=== PATIENT | male | born 1965 | race American Indian/Alaskan Native ===

== ENCOUNTER 2016-03-31 02:03 | Emergency (ER) | payer SELFPAY ==
[2016-03-31] MEDS ORDERED: CATAPRES ONE (03:58)
[2016-03-31] MEDS ORDERED: CATAPRES PO ONE (04:08)
[2016-03-31 06:30] LABS: Basophils % (Auto) 1.4 % (0.0-1.8); Eosinophils % (Auto) 3.7 % (0.0-4.3); Hematocrit 36.9 % (35.5-45.6); Hemoglobin 12.3 gm/dl (11.8-15.2); Mean Corpuscular HGB Conc 33 % (32-34); Mean Corpuscular Hemoglobin 28 pg (28-32); Mean Corpuscular Volume 83 fl (84-94); Platelet Count 237 K/mm3 (140-440); Red Blood Count 4.46 M/mm3 (3.65-5.03); Red Cell Distribution Width 13.2 % (13.2-15.2); White Blood Count 9.5 K/mm3 (4.5-11.0)
[2016-03-31 06:53] LABS: Anion Gap 20 mmol/L; B-Hydroxybutyrate 1.6 mg/dL (0.2-2.8); Blood Urea Nitrogen 16 mg/dL (9-20); Calcium 9.4 mg/dL (8.4-10.2); Carbon Dioxide 22 mmol/L (22-30); Chloride 94.9 mmol/L (98-107); Glucose 350 mg/dL (75-100); Potassium 3.9 mmol/L (3.6-5.0); Sodium 133 mmol/L (137-145)
[2016-03-31 10:34] VITALS: BP 148/83
--- NOTE | 2016-03-31 11:24 | Emergency Department Report ---
HPI - General Chief Complaint: Urogenital-Male Time Seen by Provider: 03/31/16 11:02 - HPI HPI: This is a 50-year-old Afro-[place]ander male presents to the emergency department with complaint of a 10 day history of swelling and inflammation to the protracted foreskin. Patient says he has tried some creams and ice but has not been able to get down the swelling. He denies any significant pain or discomfort except for when the retracted glands hits the shorts or underwear he is wearing. He denies any penile discharge, dysuria, trouble with urination. Patient presents with elevated blood sugar but says he is only been diagnosed with a borderline history of diabetes and is not on any medications. Otherwise he has history of hypertension and is also not on medications. He does not have a primary care doctor. No recent travel or sick contacts at home. He denies any STD history. ED Past Medical Hx - Past Medical History Previous Medical History?: Yes Hx Hypertension: Yes (NOT ON MEDS) Hx Diabetes: Yes (NOT ON MEDS) Hx Asthma: Yes Additional medical history: GOUT, sleep apnea and uses CPAP at home - Surgical History Additional Surgical History: rt knee surgery - Social History Smoking Status: Former Smoker Substance Use Type: None - Medications Home Medications: Home Medications Medication Instructions Recorded Confirmed Last Taken Type Amlodipine Besylate [Norvasc] 2.5 mg PO DAILY #30 tab 03/31/16 Unknown Rx HYDROcodone/APAP 5-325 [[place] 1 each PO Q6HR PRN #10 tablet 03/31/16 Unknown Rx 5/325] ED Review of Systems ROS: Stated complaint: HAND PAIN Other details as noted in HPI Comment: All other systems reviewed and negative Constitutional: denies: chills, fever Eyes: denies: eye pain, eye discharge, vision change ENT: denies: ear pain, throat pain Respiratory: denies: cough, shortness of breath, wheezing Cardiovascular: denies: chest pain, palpitations Gastrointestinal: denies: abdominal pain, nausea, diarrhea Genitourinary: other (paraphimosis). denies: testicular pain, testicular mass Musculoskeletal: denies: back pain, joint swelling, arthralgia Skin: other (swollen and inflamed foreskin). denies: rash Neurological: denies: headache, weakness, paresthesias Physical Exam - Physical Exam Vital Signs: Vital Signs 03/31/16 03/31/16 03/31/16 03:42 04:09 04:54 Temperature 98.0 F 97.9 F Pulse Rate 81 81 80 Respiratory 20 18 Rate Blood Pressure 183/108 183/108 156/103 Blood Pressure [Right] O2 Sat by Pulse 97 97 Oximetry 03/31/16 03/31/16 08:11 10:33 Temperature 97.9 F Pulse Rate 73 72 Respiratory 18 16 Rate Blood Pressure Blood Pressure 145/100 148/83 [Right] O2 Sat by Pulse 99 Oximetry Physical Exam: GENERAL: The patient is well-developed well-nourished. HEENT: Normocephalic. Atraumatic. Extraocular motions are intact. Patient has moist mucous membranes. NECK: Supple. Trachea is midline. CHEST/LUNGS: Clear to auscultation. There is no respiratory distress noted. HEART/CARDIOVASCULAR: Regular. There is no tachycardia. There is no gallop rub or murmur. ABDOMEN: Abdomen is soft, nontender. Patient has normal bowel sounds. There is no abdominal distention. SKIN: There is no rash. There is no diaphoresis. NEURO: The patient is awake, alert, and oriented. The patient is cooperative. The patient has no focal neurologic deficits. The patient has normal speech and gait. MUSCULOSKELETAL: There is no tenderness or deformity. There is no limitation range of motion. There is no evidence of acute injury. : Patient has swelling to the foreskin which is currently retracted just below the glans appears consistent with a paraphimosis. The actual glans of the penis itself appears normal and there are no lesions and no discharge from the urethra. The rest of the patient's penile shaft appears normal without lesions, swelling. The foreskin and glans do not appear painful to the patient but he does have some mild discomfort with manual reduction. ED Course Vital Signs 03/31/16 03/31/16 03/31/16 03:42 04:09 04:54 Temperature 98.0 F 97.9 F Pulse Rate 81 81 80 Respiratory 20 18 Rate Blood Pressure 183/108 183/108 156/103 Blood Pressure [Right] O2 Sat by Pulse 97 97 Oximetry 03/31/16 03/31/16 08:11 10:33 Temperature 97.9 F Pulse Rate 73 72 Respiratory 18 16 Rate Blood Pressure Blood Pressure 145/100 148/83 [Right] O2 Sat by Pulse 99 Oximetry - Penile Procedure Consent Obtained: verbal consent Time Out Performed: Yes Indication: paraphimosis Procedural Sedation: No Reduction of Paraphimosis: manual pressure Complications: none Patient Tolerated Procedure: well ED Medical Decision Making - Lab Data Result diagrams: 03/31/16 06:17 03/31/16 06:17 - Medical Decision Making 50-year-old male presents with the main complaint of what appears to be a paraphimosis. I was able to get the foreskin manually reduced with gentle pressure over a few minutes. Afterwards the patient still had some swelling of the foreskin but it was reduced and the patient had some improvement in his discomfort from the procedure. I was able to speak with the urologist on-call, Dr. Horton, who says that there is no further acute intervention necessary once the paraphimosis is been reduced. He says it is better to have a phimosis than a paraphimosis but to watch the swelling. Spoke with the patient and he will use some ice, not directly against the skin, and possibly some light compression to help with the remaining swelling. He will also be given a referral for Dr. Horton for follow-up. Patient had some blood work done while he was here that shows hyperglycemia. Patient does not appear to be in DKA or HHNK. He was given some subcutaneous insulin and his blood sugar did not greatly improve but he also does not appear to be in any emergent conditions. The insulin should work over the next 3-4 hours as well. We discussed staying away from foods are high in carbohydrates, sugar and starches and keeping a blood sugar log. Patient's blood pressure came back very elevated at first. However it responded to a dose of Catapres. Patient will be started on low- dose Norvasc. We discussed staying away from foods that are high in salt and caffeinated products and exercise and keeping a blood pressure log. Patient given multiple referrals for primary care. Patient's vital signs otherwise been stable throughout his ED course. The rest the patient's labs and unremarkable. Patient be discharged home and return with any worsening of his symptoms or any acute distress. - Differential Diagnosis paraphimosis, balanitis, phimosis, DKA, HHNK Critical Care Time: No Critical care attestation.: If time is entered above; I have spent that time in minutes in the direct care of this critically ill patient, excluding procedure time. ED Disposition Clinical Impression: Hyperglycemia, Paraphimosis Hypertension Qualifiers: Hypertension type: essential hypertension Qualified Code(s): I10 - Essential ( primary) hypertension Disposition: DISCHARGED TO HOME OR SELFCARE Is pt being admited?: No Does the pt Need Aspirin: No Condition: Stable Instructions: Hypertension (ED), Acute Paraphimosis (ED), Diabetic Hyperglycemia (ED) Additional Instructions: Please follow up with one of the primary care physician referrals that you have been given. You need to follow-up with them for uncontrolled diabetes/ hyperglycemia, uncontrolled pressure/hypertension, and for a yearly physical. I have also given you a referral for a local urologist, Dr. Hotron, to follow up regarding your paraphimosis. Return to the emergency department with any return of your penile condition, or uncontrolled elevated blood pressure or blood sugar, or any acute distress. Try to stay away from foods that are high in salt and caffeinated products to assist with your blood pressure. I started you on a low-dose blood pressure medication called Norvasc. Keep a blood pressure log. Try to stay away from foods that are high in sugar, carbohydrates and starches to help with your elevated blood sugar. Keep a log of your blood sugar. You've been prescribed a medication that is sedating. Therefore this medication cannot be mixed with alcohol, or taken prior to driving, working, or being responsible for children. Prescriptions: HYDROcodone/APAP 5-325 [[place] 5/325] 1 each PO Q6HR PRN #10 tablet PRN Reason: Pain Amlodipine Besylate [Norvasc] 2.5 mg PO DAILY #30 tab Referrals: SANTOS WAGNER MD [Primary Care Provider] - 3-5 Days SANCHO HORTON MD [Staff Physician] - 3-5 Days [facility] [Outside] - 3-5 Days [facility] [Outside] - 3-5 Days [facility] [Outside] - 3-5 Days Time of Disposition: 13:14
[2016-03-31 11:35] LABS: Bilirubin,Urine NEG (Negative); Blood,Urine NEG (Negative); Ketones,Urine NEG (Negative); Leukocyte Esterase,Urine NEG (Negative); Mucus,Urine FEW /HPF; Nitrite,Urine NEG (Negative); Urobilinogen,Urine < 2.0 mg/dL (<2.0)
[2016-03-31 11:37] LABS: Protein,Urine >500 mg/dL (Negative)
[2016-03-31] MEDS ORDERED: PERCOCET 5/325 ONE (12:13)
[2016-03-31] MEDS ORDERED: PERCOCET 5/325 PO ONE (12:18)
== END 2016-03-31 13:25 | disposition home or self-care (01) ==
LOC: ED 02:03
DX: N47.2 Paraphimosis (principal); I10 Essential (primary) hypertension; E11.65 Type 2 diabetes mellitus with hyperglycemia; J45.909 Unspecified asthma, uncomplicated; M10.9 Gout, unspecified; Z87.891 Personal history of nicotine dependence
CPT/HCPCS: 36415; 80048; 81001; 82010; 82805; 82962; 85025; 96372; J1815

== ENCOUNTER 2016-08-12 04:59 | Inpatient (IN) | payer OTHER ==
[2016-08-12 05:24] LABS: Basophils % (Auto) 1.1 % (0.0-1.8); Eosinophils % (Auto) 5.5 % (0.0-4.3); Hematocrit 35.3 % (35.5-45.6); Hemoglobin 11.4 gm/dl (11.8-15.2); Mean Corpuscular HGB Conc 32 % (32-34); Mean Corpuscular Hemoglobin 27 pg (28-32); Mean Corpuscular Volume 84 fl (84-94); Platelet Count 309 K/mm3 (140-440); Red Blood Count 4.22 M/mm3 (3.65-5.03); Red Cell Distribution Width 13.8 % (13.2-15.2); White Blood Count 9.9 K/mm3 (4.5-11.0)
--- NOTE | 2016-08-12 05:32 | Cat Scan Report ---
FINAL REPORT PROCEDURE: CT HEAD/BRAIN WO CON TECHNIQUE: Computerized tomography of the head was performed without contrast material. HISTORY: neuro deficits \T\lt; 6hrs or sx present upon awakening COMPARISON: No prior studies are available for comparison. FINDINGS: Skull and scalp: Normal. Paranasal sinuses: Normal. Ventricles and subarachnoid spaces: There is mild central and cortical atrophy. There is no hydrocephalus.. Cerebrum: No evidence of hemorrhage, acute infarction or mass. There is mild periventricular deep white matter ischemic gliosis. 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 Cerebellum and brainstem: No evidence of hemorrhage, acute infarction or mass. Vasculature: Normal. Comments: None. IMPRESSION: There is mild central and cortical atrophy. There is no hydrocephalus.. There is no hemorrhage, edema, mass, mass effect or midline shift. There is mild periventricular deep white matter ischemic gliosis. 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
[2016-08-12 05:40] LABS: Anion Gap 22 mmol/L; BUN/Creatinine Ratio 19.09; Blood Urea Nitrogen 21 mg/dL (9-20); Calcium 9.7 mg/dL (8.4-10.2); Carbon Dioxide 19 mmol/L (22-30); Chloride 98.6 mmol/L (98-107); Glucose 266 mg/dL (75-100); Potassium 4.3 mmol/L (3.6-5.0); Sodium 135 mmol/L (137-145)
[2016-08-12 05:42] LABS: INR 0.92 (0.87-1.13)
[2016-08-12 05:43] LABS: Partial Thromboplastin Time 33.7 Sec. (24.2-36.6)
--- NOTE | 2016-08-12 06:42 | Emergency Department Report ---
HPI - General Chief Complaint: Neuro Symptoms/Deficit Time Seen by Provider: 08/12/16 06:14 - HPI HPI: This is a 50-year-old Afro-Swiss male who presents to the emergency department from home with his with the complaint of possible stroke. At 7: 30 PM last night, the noticed that he was having some problems with his speech that was somewhere between slurred speech and getting the words out. She says that he had bilateral lower extremity weakness and right upper extremity weakness. At this point he had trouble getting up the stairs from their living room. She thought that it might be his blood sugar so he was given something to eat and they went to bed. He still had the symptoms early this morning so he came in to be seen. He also has been dealing with increased gas as she says he has been burping constantly. They deny any facial droop, headache, vision change, chest pain, shortness of breath, fever, nausea or vomiting. He did not take anything for symptoms prior to presentation. He has a past medical history of asthma, sleep apnea, gout and he has a history of diabetes and hypertension but is not on any medications. ED Past Medical Hx - Past Medical History Previous Medical History?: Yes Hx Hypertension: Yes (NOT ON MEDS) Hx Diabetes: Yes (NOT ON MEDS) Hx Asthma: Yes Additional medical history: GOUT, sleep apnea and uses CPAP at home - Surgical History Past Surgical History?: Yes Additional Surgical History: rt knee surgery - Social History Smoking Status: Never Smoker - Medications Home Medications: Home Medications Medication Instructions Recorded Confirmed Last Taken Type Amlodipine Besylate [Norvasc] 2.5 mg PO DAILY #30 tab 03/31/16 Unknown Rx Aspirin EC [Aspirin Enteric Coated 81 mg PO QDAY 08/12/16 08/12/16 Unknown History TAB] Colchicine [Colcrys] 0.6 tab PO QDAY 08/12/16 08/12/16 Unknown History Lisinopril [Zestril TAB] 10 mg PO QDAY 08/12/16 08/12/16 Unknown History Lovastatin 10 mg PO QDAY 08/12/16 08/12/16 Unknown History Metformin HCl [Glucophage] 500 mg PO BID 08/12/16 08/12/16 Unknown History ED Review of Systems ROS: Stated complaint: AMS Other details as noted in HPI Comment: All other systems reviewed and negative Constitutional: denies: chills, fever Eyes: denies: eye pain, eye discharge, vision change ENT: denies: ear pain, throat pain Respiratory: denies: cough, shortness of breath, wheezing Cardiovascular: denies: chest pain, palpitations Gastrointestinal: denies: abdominal pain, nausea, diarrhea Genitourinary: denies: urgency, dysuria Musculoskeletal: denies: back pain, joint swelling, arthralgia Skin: denies: rash, lesions Neurological: weakness, other (slurred speech versus aphasia) Physical Exam - Physical Exam Vital Signs: Vital Signs 08/12/16 08/12/16 08/12/16 05:28 05:30 05:36 Temperature 99.7 F H Pulse Rate 92 H 92 H Respiratory 11 L 18 Rate Blood Pressure 198/120 191/110 Blood Pressure 191/110 [Left] O2 Sat by Pulse 90 96 99 Oximetry 08/12/16 08/12/16 08/12/16 05:39 05:45 06:00 Temperature Pulse Rate 85 75 Respiratory 22 14 16 Rate Blood Pressure 173/103 168/105 Blood Pressure [Left] O2 Sat by Pulse 99 94 95 Oximetry 08/12/16 06:15 Temperature Pulse Rate 78 Respiratory 15 Rate Blood Pressure 171/103 Blood Pressure [Left] O2 Sat by Pulse 94 Oximetry Physical Exam: GENERAL: The patient is well-developed well-nourished. HEENT: Normocephalic. Atraumatic. Extraocular motions are intact. Patient has moist mucous membranes. Pupils equal reactive to light bilaterally. No facial asymmetry. NECK: Supple. Trachea is midline. CHEST/LUNGS: Clear to auscultation. There is no respiratory distress noted. HEART/CARDIOVASCULAR: Regular. There is no tachycardia. There is no gallop rub or murmur. ABDOMEN: Abdomen is soft, nontender. Patient has normal bowel sounds. There is no abdominal distention. SKIN: Skin is warm and dry. NEURO: The patient is awake, alert, and oriented. The patient is cooperative. There is decreased sensation to the right side of the face, arm and leg subjectively when compared to the left side. There is a mild right upper extremity pronator drift. Patient has trouble lifting his right lower extremity off of the gurney. Full muscle strength to the left upper and lower extremities. Patient has some mild aphasia. MUSCULOSKELETAL: There is no tenderness or deformity. There is no limitation range of motion. There is no evidence of acute injury. Radial pulse +2 over 4 bilaterally. ED Course Vital Signs 08/12/16 08/12/16 08/12/16 05:28 05:30 05:36 Temperature 99.7 F H Pulse Rate 92 H 92 H Respiratory 11 L 18 Rate Blood Pressure 198/120 191/110 Blood Pressure 191/110 [Left] O2 Sat by Pulse 90 96 99 Oximetry 08/12/16 08/12/16 08/12/16 05:39 05:45 06:00 Temperature Pulse Rate 85 75 Respiratory 22 14 16 Rate Blood Pressure 173/103 168/105 Blood Pressure [Left] O2 Sat by Pulse 99 94 95 Oximetry 08/12/16 06:15 Temperature Pulse Rate 78 Respiratory 15 Rate Blood Pressure 171/103 Blood Pressure [Left] O2 Sat by Pulse 94 Oximetry - Consultations Consultation #1: I spoke to the telemedicine neurologist, Dr. Rangel, who recommends a stat CT angiography of the head and neck as the patient is only 50 years old and if there is some visible thrombus then it is still possible a transfer to a neurosurgical service might be required. He does not recommend any TPA at this point. 08/12/16 06:44 ED Medical Decision Making - Lab Data Result diagrams: 08/12/16 05:08 08/12/16 05:08 - EKG Data -: EKG Interpreted by Me EKG shows normal: sinus rhythm, axis, intervals, QRS complexes (LVH), ST-T waves Rate: normal - EKG Data When compared to previous EKG there are: previous EKG unavailable Interpretation: LVH - Radiology Data Radiology results: report reviewed CT of the head does not show any acute process including no hemorrhage, mass, shift, diffuse edema or skull fracture. CT angiography of the head and neck does not show any acute process including no signs of thrombosis or ischemic changes. - Medical Decision Making 50-year-old male presents to the emergency department with some right-sided weakness, subjective right-sided numbness/decreased sensation, and what appears to be some level of a aphasia. He is far outside of the TPA window as the symptoms began last night acutely around 7:30 PM. However I spoke with the telemedicine neurologist who recommended CT angiography of the head and neck. These imaging studies came back negative for any thrombosis or occlusion. Patient's labs are mostly unremarkable and certainly do not show the etiology of the patient's symptoms. He will be admitted to the hospital for further evaluation and treatment and has been accepted for admission by the hospitalist , Dr schumacher. - Differential Diagnosis CVA, TIA, hypertensive crisis, hypoglycemia Critical Care Time: No Critical care attestation.: If time is entered above; I have spent that time in minutes in the direct care of this critically ill patient, excluding procedure time. ED Disposition Clinical Impression: Right sided weakness, Aphasia Hypertension Qualifiers: Hypertension type: essential hypertension Qualified Code(s): I10 - Essential ( primary) hypertension CVA (cerebral vascular accident) Qualifiers: CVA mechanism: unspecified Qualified Code(s): I63.9 - Cerebral infarction, unspecified Disposition: OP ADMITTED IP TO THIS HOSP Is pt being admited?: Yes Condition: Stable Time of Disposition: 10:52
[2016-08-12] MEDS ORDERED: NACL ONE (06:51)
--- NOTE | 2016-08-12 07:42 | Admit Criteria Form ---
Admission Criteria Documentation: STROKE: ISCHEMIC Clinical Indications for Admission to Inpatient Care (Place 'X' for any and all applicable criteria): Admission is indicated for ANY ONE of the following(1)(2)(3)(4): [X]I. Acute stroke Extended stay beyond goal length of stay may be needed for(1)(2) [ ]a) Major deficit or clinical deterioration [ ]b) Hospital-acquired infection (eg, urinary tract infection, pneumonia) [ ]c) Embolic cause of stroke [ ]d) Venous thromboembolism(9) [ ]e) Seizures [ ]f) Bleeding (eg, cerebral) [ ]g) Increased intracranial pressure [ ]h) Comorbidities [ ]i) Surgical intervention The original [email or web address] content created by [employer] has been revised. The portions of the content which have been revised are identified through the use of italic text or in bold, and [facility] has neither reviewed nor approved the modified material. All other unmodified content is copyright [facility]. Please see references footnoted in the original [facility] edition 2016 Admission Criteria Met: Yes
--- NOTE | 2016-08-12 08:12 | Cat Scan Report ---
CTA NECK: HISTORY: Stroke. TECHNIQUE: Helical CT following IV contrast. Sagittal and coronal reformatted images. 3D volume rendering technique. Stenosis was calculated using NASCET criteria. FINDINGS: The visualized aortic arch, innominate artery and proximal bilateral subclavian arteries are widely patent with less than 20% stenosis. Both carotid systems are patent throughout with less than 20% stenosis. No evidence for stenosis, occlusion, dissection or aneurysmal dilatation. The cervical vertebral arteries are patent with less than 20% stenosis. IMPRESSION: Unremarkable CTA of the neck.
--- NOTE | 2016-08-12 08:18 | Cat Scan Report ---
CTA HEAD: HISTORY: Stroke. TECHNIQUE: Helical CT images after IV contrast in 0.625mm intervals. Sagittal and coronal reformats. Rotational MIP images. 3D volume rendering technique. FINDINGS: The arterial structures of the anterior and posterior circulations are patent throughout. No evidence for stenosis, occlusion or aneurysm. IMPRESSION: Unremarkable CTA head. No large vessel occlusion is detected.
[2016-08-12] MEDS ORDERED: ZOFRAN IV ONE (09:24)
[2016-08-12] MEDS ORDERED: ZOFRAN IV PRN (10:00)
[2016-08-12] MEDS ORDERED: D50W (25GM) IV PRN (10:00)
[2016-08-12] MEDS ORDERED: LOVASTATIN 10 MG PO SCH (10:00)
[2016-08-12] MEDS ORDERED: MILK OF MAGNESIA PO PRN (10:00)
[2016-08-12] MEDS ORDERED: NORMODYNE IV PRN (10:00)
[2016-08-12] MEDS ORDERED: SODIUM CHLORIDE FLUSH SYRINGE 10 ML IV PRN (10:00)
[2016-08-12] MEDS ORDERED: PHENERGAN PR PRN (10:00)
[2016-08-12] MEDS ORDERED: REGLAN PO PRN (10:00)
--- NOTE | 2016-08-12 10:28 | History and Physical Report ---
History of Present Illness Date of examination: 08/12/16 Date of admission: 08/12/16 Chief complaint: Right sided weakness History of present illness: 50-year-old -Finnish presented to the ED with right-sided weakness and altered mental status. Patient's significant other stated, around 7:30 pm yesterday evening she noticed that the patient was having difficulty speaking, getting his words out and he was very weak to walk. She also stated, the patient progressively became more weak by this morning and could not move his right arm and leg at all on command. Patient was also altered with periods of forgetfulness and confusion. PMHX hypertension, diabetes, asthma, obstructive sleep apnea with home CPAP, gout and right knee surgery. Patient complained of nausea and vomiting x3 in the ED. Past History Past Medical History: diabetes, hypertension, other (Asthma, Obstructive Sleep Apnea, Gout, ) Past Surgical History: Other (Right Knee Surgery) Social history: single Family history: other (Unable to obtained due to Patient's AMS) Medications and Allergies Allergies Allergy/AdvReac Type Severity Reaction Status Date / Time shellfish derived Allergy Swelling Verified 10/11/14 19:30 Home Medications Medication Instructions Recorded Confirmed Last Taken Type Aspirin EC [Aspirin Enteric Coated 81 mg PO QDAY #30 tablet 08/15/16 Unknown Rx TAB] AtorvaSTATin [Lipitor] 80 mg PO QHS #30 tablet 08/15/16 Unknown Rx Butalb/Acetamin/Caff 50-325-40 1 tab PO Q4H PRN #30 tablet 08/15/16 Unknown Rx [Fioricet] Clopidogrel [Plavix] 75 mg PO QDAY #30 tablet 08/15/16 Unknown Rx Colchicine [Colcrys] 0.6 tab PO QDAY #30 tablet 08/15/16 Unknown Rx Hydrochlorothiazide [HCTZ] 12.5 mg PO QDAY #30 capsule 08/15/16 Unknown Rx Insulin NPH/Regular [NovoLIN 70/30] 15 unit SUB-Q BIDDIAB #1 vial 08/15/16 Unknown Rx Lisinopril [Zestril TAB] 20 mg PO QDAY #30 tablet 08/15/16 Unknown Rx Metformin HCl [Glucophage] 500 mg PO BID #60 tablet 08/15/16 Unknown Rx Active Meds: Active Medications Acetaminophen (Tylenol) 650 mg PO Q4H PRN PRN Reason: Pain, Mild (1-3) Aspirin (Halfprin Ec) 81 mg PO QDAY NIALL Bisacodyl (Dulcolax) 10 mg MO QDAY PRN PRN Reason: Constipation Colchicine (Colcrys) mg PO QDAY NIALL Dextrose (D50w (25gm)) 50 ml IV PRN PRN PRN Reason: Hypoglycemia Insulin Aspart (Novolog) 0 units SUB-Q ACHS NIALL PRN Reason: Protocol Labetalol HCl (Normodyne) 10 mg IV Q4H PRN PRN Reason: keep SBP between 165- 185 Magnesium Hydroxide (Milk Of Magnesia) 30 ml PO Q4H PRN PRN Reason: Constipation Metoclopramide HCl (Reglan) 10 mg PO Q6H PRN PRN Reason: Nausea And Vomiting Miscellaneous Medication (Lovastatin) 10 mg PO QDAY NIALL Ondansetron HCl (Zofran) 4 mg IV Q8H PRN PRN Reason: N/V unrelieved by Reglan Promethazine HCl (Phenergan) 25 mg MO Q6H PRN PRN Reason: Nausea And Vomiting Simvastatin (Zocor) 20 mg PO QHS [facility] Sodium Chloride (Sodium Chloride Flush Syringe 10 Ml) 10 ml INJ PRN PRN PRN Reason: LINE FLUSH Review of Systems Constitutional: no fever, no chills Ears, nose, mouth and throat: no headache Cardiovascular: no chest pain Respiratory: no cough, no congestion Genitourinary Male: no dysuria Musculoskeletal: gait dysfunction, other (Right sided weakness to arm and leg) Neurological: gait dysfunction, no head injury, no syncope, no headaches Psychiatric: memory loss (Pt stated, he could not recall somethings) Exam - Constitutional Vitals: Temp Pulse Resp BP Pulse Ox 99.7 F H 103 H 12 167/110 92 08/12/16 05:36 08/12/16 09:15 08/12/16 09:15 08/12/16 09:15 08/12/16 09:15 General appearance: Present: mild distress - EENT Eyes: Present: PERRL ENT: hearing intact, other (dry) - Neck Neck: Present: supple, normal ROM - Respiratory Respiratory effort: normal Respiratory: bilateral: CTA - Cardiovascular Heart Sounds: Present: S1 & S2. Absent: rub, click - Extremities Extremities: pulses intact Peripheral Pulses: within normal limits - Abdominal General gastrointestinal: Present: soft, non-tender, hypoactive bowel sounds Male genitourinary: Present: deferred - Rectal Rectal Exam: deferred - Integumentary Integumentary: Present: clear, warm, dry - Musculoskeletal Musculoskeletal: right sided weakness (Right arm and Right Leg) - Psychiatric Psychiatric: other (Forgetful and periods of confusion) - Neurologic Neurologic: focal deficits, other (Right sided hemiplegia, mild slurred speech, tongue midline, memory impaired, receptive dsyphasia ) - Allied Health Allied health notes reviewed: nursing Results - Labs CBC & Chem 7: 08/12/16 05:08 08/12/16 05:08 Labs: Laboratory Last Values WBC 9.9 K/mm3 (4.5-11.0) 08/12/16 05:08 RBC 4.22 M/mm3 (3.65-5.03) 08/12/16 05:08 Hgb 11.4 gm/dl (11.8-15.2) L 08/12/16 05:08 Hct 35.3 % (35.5-45.6) L 08/12/16 05:08 MCV 84 fl (84-94) 08/12/16 05:08 MCH 27 pg (28-32) L 08/12/16 05:08 MCHC 32 % (32-34) 08/12/16 05:08 RDW 13.8 % (13.2-15.2) 08/12/16 05:08 Plt Count 309 K/mm3 (140-440) 08/12/16 05:08 Lymph % (Auto) 33.2 % (13.4-35.0) 08/12/16 05:08 [place] % (Auto) 6.9 % (0.0-7.3) 08/12/16 05:08 Eos % (Auto) 5.5 % (0.0-4.3) H 08/12/16 05:08 Baso % (Auto) 1.1 % (0.0-1.8) 08/12/16 05:08 Lymph # 3.3 K/mm3 (1.2-5.4) 08/12/16 05:08 [place] # 0.7 K/mm3 (0.0-0.8) 08/12/16 05:08 Eos # 0.5 K/mm3 (0.0-0.4) H 08/12/16 05:08 Baso # 0.1 K/mm3 (0.0-0.1) 08/12/16 05:08 Seg Neutrophils % 53.3 % (40.0-70.0) 08/12/16 05:08 Seg Neutrophils # 5.3 K/mm3 (1.8-7.7) 08/12/16 05:08 PT 12.3 Sec. (12.2-14.9) 08/12/16 05:08 INR 0.92 (0.87-1.13) 08/12/16 05:08 APTT 33.7 Sec. (24.2-36.6) 08/12/16 05:08 Thrombin Time 15.0 Sec. (15.1-19.6) L 08/12/16 05:08 Sodium 135 mmol/L (137-145) L 08/12/16 05:08 Potassium 4.3 mmol/L (3.6-5.0) 08/12/16 05:08 Chloride 98.6 mmol/L (98-107) 08/12/16 05:08 Carbon Dioxide 19 mmol/L (22-30) L 08/12/16 05:08 Anion Gap 22 mmol/L 08/12/16 05:08 BUN 21 mg/dL (9-20) H 08/12/16 05:08 Creatinine 1.1 mg/dL (0.8-1.5) 08/12/16 05:08 Estimated GFR > 60 ml/min 08/12/16 05:08 BUN/Creatinine Ratio 19.09 % 08/12/16 05:08 Glucose 266 mg/dL (75-100) H 08/12/16 05:08 POC Glucose 254 (70-105) H 08/12/16 05:06 Calcium 9.7 mg/dL (8.4-10.2) 08/12/16 05:08 Troponin T < 0.010 ng/mL (0.00-0.029) 08/12/16 05:08 - Imaging and Cardiology EKG: image reviewed (EKG showed NSR with Left vertricular hypertrophy) CT Scan - head: image reviewed (Head CT showed No hemorrhage: mild periventricular deep white matter ischemic gliosis and old Lacunar Infarct) Assessment and Plan Assessment and plan: 50-year-old -F[place] presented to the ED with right-sided weakness and altered mental status. Patient's significant stated, around 7:30 pm yesterday evening she noticed that the patient was having difficulty speaking, getting his words out and he was very weak to walk. She also stated, the patient progressively became more weak by this morning and could not move his right arm and leg at all on command. Patient complained of nausea and vomiting x3 in the ED. Patient has a past medical history hypertension, diabetes, asthma, obstructive sleep apnea with home CPAP nightly use, gout and right knee surgery. On exam, patient was altered with periods of forgetfulness and confusion. Pt was able to smile with NO facial droop. Patient was Unable to lift and hold his right arm and right leg. 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 Pt's significant other, reported Pt's speech was slurred and not at baseline. 1. Metabolic encephalopathy-due to acute ischemic stroke with infarct, treat underlying causes. 2. Acute ischemic stroke with Infarct- EKG, carotid Doppler study, head CT, head CTA and neck CTA all obtained in the ED. Consult with neurology, admit patient to telemetry, MRI/MRA pending, echo pending, lipid panel ordered, urine analysis ordered, speech and swallowing evaluation pending and Consult PT/OT. 3. Hypertension - Permissive Hypertension per stroke protocol however, Anti- hypertensive medications with parameters ordered when necessary 4. Nausea and vomiting -Zofran when necessary ordered, Protonix IV ordered, abdominal x-ray ordered, 5. Uncontrolled DM 2 - A1c ordered, Accu-Checks and insulin sliding scale ordered, hold metformin due to contrast dye 6. Obstructive sleep apnea-continue CPAP nightly 7. Gout -Continue with home medication. 8. DVT prophylaxis - Contraindicated for anticoagulation. SCDs ordered Advance Directives: No (Full Code) VTE prophylaxis?: Mechanical Contraindication Mechanical VTE Prophylaxis: Contraindicated Plan of care discussed with patient/family: Yes
--- NOTE | 2016-08-12 11:05 | Consultation ---
History of Present Illness Consult date: 08/12/16 Requesting physician: BONY VEGA Reason for Consult: stroke Chief complaint: R side numb/weak History of present illness: 50 YO M Hx HTN/DM2 p/w acute onset R sided weakness 08/10 @ 7:30 PM. Sx are constant and have worsened slightly since onset. There are no clear aggravating , relieving or temporal factors. Severity was enough to cause inability to effectively use the right side. Past History Past Medical History: diabetes, hypertension, other (Asthma, Obstructive Sleep Apnea, Gout, ) Past Surgical History: No surgical history, Other (Right Knee Surgery) Social history: single Family history: other (Unable to obtained due to Patient's AMS) Medications and Allergies Allergies Allergy/AdvReac Type Severity Reaction Status Date / Time shellfish derived Allergy Swelling Verified 10/11/14 19:30 Home Medications Medication Instructions Recorded Confirmed Last Taken Type Amlodipine Besylate [Norvasc] 2.5 mg PO DAILY #30 tab 03/31/16 08/12/16 Unknown Rx Aspirin EC [Aspirin Enteric Coated 81 mg PO QDAY 08/12/16 08/12/16 Unknown History TAB] Colchicine [Colcrys] 0.6 tab PO QDAY 08/12/16 08/12/16 Unknown History Lisinopril [Zestril TAB] 10 mg PO QDAY 08/12/16 08/12/16 Unknown History Lovastatin 10 mg PO QDAY 08/12/16 08/12/16 Unknown History Metformin HCl [Glucophage] 500 mg PO BID 08/12/16 08/12/16 Unknown History Active Meds: Active Medications Acetaminophen (Tylenol) 650 mg PO Q4H PRN PRN Reason: Pain, Mild (1-3) Aspirin (Halfprin Ec) 81 mg PO QDAY NIALL Bisacodyl (Dulcolax) 10 mg TN QDAY PRN PRN Reason: Constipation Colchicine (Colcrys) mg PO QDAY NIALL Dextrose (D50w (25gm)) 50 ml IV PRN PRN PRN Reason: Hypoglycemia Insulin Aspart (Novolog) 0 units SUB-Q ACHS NIALL PRN Reason: Protocol Labetalol HCl (Normodyne) 10 mg IV Q4H PRN PRN Reason: keep SBP between 165- 185 Magnesium Hydroxide (Milk Of Magnesia) 30 ml PO Q4H PRN PRN Reason: Constipation Metoclopramide HCl (Reglan) 10 mg PO Q6H PRN PRN Reason: Nausea And Vomiting Miscellaneous Medication (Lovastatin) 10 mg PO QDAY NIALL Ondansetron HCl (Zofran) 4 mg IV Q8H PRN PRN Reason: N/V unrelieved by Reglan Promethazine HCl (Phenergan) 25 mg TN Q6H PRN PRN Reason: Nausea And Vomiting Simvastatin (Zocor) 20 mg PO QHS [facility] Sodium Chloride (Sodium Chloride Flush Syringe 10 Ml) 10 ml INJ PRN PRN PRN Reason: LINE FLUSH Review of Systems All systems: negative Constitutional: fatigue, weakness Neurological: paralysis (on R), weakness (on R), numbness (on R), change in speech (slurred), motor disturbance (on R), sensory deficit (on R), no parathesias, no tingling, no headaches, no double vision, no loss of vision Physical Examination - Vital Signs Vital Signs: Vital Signs BP Pulse Ox 198/120 90 08/12/16 05:28 08/12/16 05:28 - Constitutional General appearance: comfortable, acutely ill - EENT EENT: Present: ATNC, PERRL, mucous membranes moist, hearing intact, vision intact - Respiratory Respiratory: Present: chest non-tender, normal breath sounds, no respiratory distress - Cardiovascular Cardiovascular: Present: regular rate Extremities: Present: no peripheral edema bilatateraly, no clubbing, cyanosis, no inflammation, no ischemia or petechiae - Gastrointestinal Gastrointestinal: Present: normoactive bowel sounds, soft, non-tender - Integumentary Integumentary: Present: normal - Neurologic Cranial nerve examination: PERRL, EOMI, VFF, V1/V2/V3 grossly intact, tongue midline, intact, intact shoulder shrug, Intact Vestibulo-ocular r, intact corneal reflex, facial droop (mod on R), normal palatal elevation Speech examination: intact, other (mildly slurred) Sensorimotor examination: flaccid paralysis (on R), hemiparesis (on R) Motor examination - right side: 2/5: biceps, triceps, wrist flexion, wrist extension, membership advisor, hip flexors, knee extensors, dorsiflexion, toe extension (EHL) , plantarflexion Motor examination - left side: 5/5: biceps, triceps, wrist flexion, wrist extension, membership advisor, hip flexors, knee extensors, dorsiflexion, toe extension (EHL) , plantarflexion Detailed sensory examination: light touch (diminished onR ), temperature ( diminished on R) Reflex and gait examination: Babinski's sign (ion R) Reflexes: 0: ankle (on R), 1+: bicep, knee, tricep - Musculoskeletal Musculoskeletal: Present: no fluid collection, no pain, normal range of motion - Psychiatric Psychiatric: Present: agitated Results - Laboratory Findings CBC and BMP: 08/12/16 05:08 08/12/16 05:08 Assessment and Plan 50 YO M Hx HTN/DM2 not on AP therapy p/w acute mixed motor sensory lacunar stroke w/ dense R hemibody sx.CTA H/N neg. Plan and Recommendation: 1. No indication for pharmacologic thrombolysis with IV tPA or mechanical thrombectomy due to last known normal > 6 hrs from presentation. Current NIHSS 10. 2. Telemetry bed w/ Q4 hour neuro checks 3. Brain imaging: MRI Brain w/o Kem Stroke Protocol 4. TTE to eval for possible cardiac source of embolism 5. Serum Labs: HgA1c, LDL. 6. Can lower MAPs by 10-15% daily to reach goal SBP 120-160 as permissive HTN period complete 7. Secondary stroke prevention: ASA 325mg Daily x 1 then 81mg QDay & upgrade to full dose statin therapy (Crestor 20mg or 40mg OR Lipitor 40mg or 80mg Daily OR Zocor 40mg QDay) for goal LDL < 70. No firm indication at this point for therapeutic anticoagulation as pt has not had AFib captured on telemetry monitoring. 8. F/E/N: isotonic IVF prn, prn replete, bedside speech/swallow eval prior to PO intake. 9 DVT Prophylaxis 10. Stroke education, PT/OT/Speech Therapy consults, CM evaluation 11. For any changes in neurologic status, pls obtain STAT CTH w/o contrast and call neurology
[2016-08-12] MEDS ORDERED: BABY ASPIRIN ONE (11:30)
[2016-08-12] MEDS ORDERED: NOVOLOG SUB-Q ONE (11:35)
[2016-08-12] MEDS: HALFPRIN EC PO SCH (11:36)
[2016-08-12] MEDS: NOVOLOG SUB-Q SCH ×3 (11:36→22:00)
[2016-08-12] MEDS ORDERED: PROTONIX IV SCH (12:00)
[2016-08-12] MEDS ORDERED: DULCOLAX PR PRN (12:00)
--- NOTE | 2016-08-12 13:27 | Magnetic Resonance Report ---
MRI scan of brain: History: Stroke. Technique: Multiplanar multisequence images of the contrast injection. Findings: These multiple areas of restricted diffusion noted at the left posterior temporal lobe. This is in the distribution of left middle cerebral artery. No corresponding signal CT T2-weighted images.Gradient echo image appears normal. Normal brainstem and cerebellum. Retention cyst or polyp right and left maxillary sinus. Impression: Acute ischemia left posterior temporal lobe. No evidence of hemorrhage. Sinus disease.
--- NOTE | 2016-08-12 13:28 | Magnetic Resonance Report ---
MRI of brain: History: Stroke. Findings: The vessels and [place] of [place] are widely patent. No evidence of stenosis occlusion aneurysm or dissection. Codominant vertebral arteries with normal basilar artery and posterior cerebral arteries. Normal posterior communicating arteries. Impression: Essentially negative MRA of the brain.
--- NOTE | 2016-08-12 13:32 | XRay Report ---
Single view abdomen: History abdominal pain and vomiting. Findings: No bowel distention or wall thickening. No radiopaque calculus or abnormal calcification. Contrast is noted in kidneys and bladder probably from previous CT study. Impression: Essentially negative abdomen.
[2016-08-12] MEDS: COLCRYS PO SCH (17:00)
[2016-08-12] MEDS: PEPCID IV SCH ×2 (17:00→21:59)
[2016-08-12] MEDS ORDERED: ZOCOR PO SCH (22:00)
[2016-08-13] MEDS: TYLENOL PO PRN ×2 (00:47→08:23)
[2016-08-13 05:45] LABS: Cholesterol 335 mg/dL (50-199); HDL Cholesterol 38 mg/dL (40-59); LDL Cholesterol,Direct TNR mg/dL (50-130); Triglycerides 536 mg/dL (2-149)
--- NOTE | 2016-08-13 07:50 | Progress Note ---
Assessment and Plan Assessment and plan: 48-year-old -[place] presented to the ED with right-sided weakness and altered mental status. Patient's partner stated, around 7:30 pm yesterday evening she noticed that the patient was having difficulty speaking, getting his words out and he was very weak to walk. She also stated, the patient progressively became more weak by this morning. Patient has a past medical history hypertension, diabetes, asthma, obstructive sleep apnea with home CPAP nightly use, gout and right knee surgery. On exam, patient was altered with periods of forgetfulness and confusion. Patient complained of nausea and vomiting x3 in the ED, right arm and right leg weakness. Patient was unable to lift and hold his right arm and right leg. 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 MR Brain Acute ischemia left posterior temporal lobe-no evidence of hemorrhage MRA Brain Essentially negative MRA of the brain Carotid Doppler no significant stenosis 1. Acute ischemic stroke with infarct - EKG, carotid Doppler study, head CT, head CTA and neck CTA all obtained in the ED where within normal limits, neurology consult appreciated, no events on telemetry, MRI shows left posterior temporal lobe infarct, MRA and carotid Dopplers did not show any stenosis. Awaiting speech and swallow evaluation, continue. Diet for now. Needs aggressive medical management, aspirin daily, severe mixed hyperlipidemia noted therefore his medications were changed to high-dose statin Continue to bring blood pressure down by 10-20%, continue to allow permissive hypertension for another 24 hours Continue PT, discuss with case management about obtaining home PT for him. Unfortunately he is uninsured and is unable to afford acute rehabilitation facility at this time, even though that is what we recommend for him 2. Metabolic encephalopathy-due to acute ischemic stroke with infarct and exacerbated by Wernicke/receptive aphasia/, improving 3. Hypertension - Anti-hypertensive medications with parameters ordered when necessary, per stroke protocol 4. Nausea and vomiting - Abdominal x-ray within normal limits, now resolved 5. DM 2- hold metformin due to contrast dye Hemoglobin A1c is 10, significant hyperglycemia. Continue sliding scale insulin , add 7030 insulin twice a day 6. Obstructive sleep apnea-continue CPAP nightly 7. Gout -Continue with home medication. 8. Severe mixed hyperlipidemia Statin has been changed to high-dose Lipitor DVT prophylaxis - Contraindicated for anticoagulation. SCDs ordered History Interval history: He had multiple family members at the bedside who relate that the patient still has trouble communicating, when the describe things to him he has trouble understanding him. His brother given example that he still spoke his daughter' s name and he was not aware of who it was but when he showed the patient a picture that he recognizes who she was. And when he tried to express himself but still consult as jumbled incomprehensible words that don't quite make sense. Weakness in his right side appears to be improving. He is less confused today and appears to be of being commands. The barrier to his confusion appears to be receptive aphasia Hospitalist Physical - Physical exam Narrative exam: General: Patient appears well in no distress HEENT: MMM, EOMI cardiac: S1-S2 heard lungs: clear to auscultation, abdomen: soft, nontender, nondistended bowel sounds positive extremities: no edema clubbing or cyanosis Skin: no rash or lesion Neuro: Right-sided hemiparesis, receptive aphasia, communicates in a word salad confused. Obeys commands however he has trouble understanding verbal commands, he does better with visual demonstrations and struggles to understand speech Psych: appropriate behavior and mood, cognition intact - Constitutional Vitals: Temp Pulse Resp BP Pulse Ox 98.4 F 77 18 141/81 97 08/13/16 06:15 08/13/16 06:15 08/13/16 06:15 08/13/16 06:15 08/13/16 06:15 General appearance: Present: mild distress Results - Labs CBC & Chem 7: 08/12/16 05:08 08/12/16 05:08 Labs: Laboratory Last Values WBC 9.9 K/mm3 (4.5-11.0) 08/12/16 05:08 RBC 4.22 M/mm3 (3.65-5.03) 08/12/16 05:08 Hgb 11.4 gm/dl (11.8-15.2) L 08/12/16 05:08 Hct 35.3 % (35.5-45.6) L 08/12/16 05:08 MCV 84 fl (84-94) 08/12/16 05:08 MCH 27 pg (28-32) L 08/12/16 05:08 MCHC 32 % (32-34) 08/12/16 05:08 RDW 13.8 % (13.2-15.2) 08/12/16 05:08 Plt Count 309 K/mm3 (140-440) 08/12/16 05:08 Lymph % (Auto) 33.2 % (13.4-35.0) 08/12/16 05:08 [place] % (Auto) 6.9 % (0.0-7.3) 08/12/16 05:08 Eos % (Auto) 5.5 % (0.0-4.3) H 08/12/16 05:08 Baso % (Auto) 1.1 % (0.0-1.8) 08/12/16 05:08 Lymph # 3.3 K/mm3 (1.2-5.4) 08/12/16 05:08 [place] # 0.7 K/mm3 (0.0-0.8) 08/12/16 05:08 Eos # 0.5 K/mm3 (0.0-0.4) H 08/12/16 05:08 Baso # 0.1 K/mm3 (0.0-0.1) 08/12/16 05:08 Seg Neutrophils % 53.3 % (40.0-70.0) 08/12/16 05:08 Seg Neutrophils # 5.3 K/mm3 (1.8-7.7) 08/12/16 05:08 PT 12.3 Sec. (12.2-14.9) 08/12/16 05:08 INR 0.92 (0.87-1.13) 08/12/16 05:08 APTT 33.7 Sec. (24.2-36.6) 08/12/16 05:08 Thrombin Time 15.0 Sec. (15.1-19.6) L 08/12/16 05:08 Sodium 135 mmol/L (137-145) L 08/12/16 05:08 Potassium 4.3 mmol/L (3.6-5.0) 08/12/16 05:08 Chloride 98.6 mmol/L (98-107) 08/12/16 05:08 Carbon Dioxide 19 mmol/L (22-30) L 08/12/16 05:08 Anion Gap 22 mmol/L 08/12/16 05:08 BUN 21 mg/dL (9-20) H 08/12/16 05:08 Creatinine 1.1 mg/dL (0.8-1.5) 08/12/16 05:08 Estimated GFR > 60 ml/min 08/12/16 05:08 BUN/Creatinine Ratio 19.09 % 08/12/16 05:08 Glucose 266 mg/dL (75-100) H 08/12/16 05:08 POC Glucose 296 (70-105) H 08/12/16 21:45 Hemoglobin A1c 10.0 % (4-6) H 08/13/16 05:03 Calcium 9.7 mg/dL (8.4-10.2) 08/12/16 05:08 Troponin T < 0.010 ng/mL (0.00-0.029) 08/12/16 05:08 Triglycerides 536 mg/dL (2-149) H 08/13/16 05:03 Cholesterol 335 mg/dL (50-199) H 08/13/16 05:03 LDL Cholesterol Direct TNR 08/13/16 05:03 HDL Cholesterol 38 mg/dL (40-59) L 08/13/16 05:03 Cholesterol/HDL Ratio 8.81 % 08/13/16 05:03
[2016-08-13] MEDS ORDERED: MOTRIN PO PRN (10:30)
[2016-08-13] MEDS: HALFPRIN EC PO SCH (10:31)
[2016-08-13] MEDS: NOVOLOG SUB-Q SCH ×4 (10:31→22:46)
[2016-08-13] MEDS: COLCRYS PO SCH (10:31)
[2016-08-13] MEDS: PEPCID IV SCH (10:32)
--- NOTE | 2016-08-13 10:47 | Progress Note ---
Assessment and Plan 50 YO M Hx HTN/DM2 on ASA 81mg QDay therapy p/w acute mixed motor sensory stroke w/ subtle mixed aphasia and dense R hemibody sx. MRI Brain confirms infarct in L frontoparietotemporal region. MRA Head neg. CTA H/N neg. TTE neg. LDL 198. Plan and Recommendation: 1. No indication for pharmacologic thrombolysis with IV tPA or mechanical thrombectomy due to last known normal > 6 hrs from presentation. Current NIHSS 12. 2. Telemetry bed w/ Q4 hour neuro checks 3. Can lower MAPs by 10-15% daily to reach goal SBP 120-160 as permissive HTN period complete 4. Secondary stroke prevention: ASA 325mg Daily x 1 then 81mg QDay, add Plavix 75mg QDay & upgrade to full dose statin therapy (Crestor 20mg or 40mg OR Lipitor 40mg or 80mg Daily OR Zocor 40mg QDay) for goal LDL < 70. No firm indication at this point for therapeutic anticoagulation as pt has not had AFib captured on telemetry monitoring. 5. 30 ambulatory Tele ? pAFib 6. F/E/N: isotonic IVF prn, prn replete, bedside speech/swallow eval prior to PO intake. 7 DVT Prophylaxis 8. Stroke education, PT/OT/Speech Therapy consults, CM evaluation 9. For any changes in neurologic status, pls obtain STAT CTH w/o contrast and call neurology Subjective Date of service: 08/13/16 Principal diagnosis: stroke Interval history: no change clinically. imaging completed. Objective - Vital Sign Vital Signs - 12hr 08/12/16 08/12/16 08/13/16 23:00 23:49 01:17 Temperature 100.8 F H Pulse Rate 98 H 92 H Pulse Rate [ 87 Right Radial] Respiratory 20 18 Rate Blood Pressure 164/85 [Right Arm] O2 Sat by Pulse 97 97 Oximetry 08/13/16 08/13/16 08/13/16 02:35 04:58 06:15 Temperature 98.4 F Pulse Rate 86 80 Pulse Rate [ 77 Right Radial] Respiratory 18 18 Rate Blood Pressure 141/81 [Right Arm] O2 Sat by Pulse 97 97 Oximetry 08/13/16 08:08 Temperature 98.4 F Pulse Rate Pulse Rate [ 66 Right Radial] Respiratory 20 Rate Blood Pressure 160/83 [Right Arm] O2 Sat by Pulse 94 Oximetry - General Apperance Constitutional: comfortable - EENT EENT: ATNC, PERRL, mucous membranes moist, hearing intact, vision intact - Respiratory Respiratory: chest non-tender, normal breath sounds, no respiratory distress - Cardiovascular Cardiovascular: regular rate Extremities: no peripheral edema bilat, no clubbing, cyanosis, no inflammation, no ischemia or petechiae - Gastrointestinal Gastrointestinal: normoactive bowel sounds, soft, non-distended - Integumentary Integumentary: normal - Neurologic Cranial nerve examination: PERRL, EOMI, VFF, tongue midline, intact, Intact Vestibulo-ocular r, intact corneal reflex, facial droop (R) Motor examination - right side: 1/5: diabetes educator, toe extension (EHL), plantarflexion, 2/5: biceps, triceps, wrist flexion, wrist extension, hip flexors, knee extensors, dorsiflexion Motor examination - left side: 5/5: biceps, triceps, wrist flexion, wrist extension, diabetes educator, hip flexors, knee extensors, dorsiflexion, toe extension (EHL) , plantarflexion Detailed sensory examination: temperature (diminished on R) Reflex and gait examination: Babinski's sign (on R) Reflexes: 0: ankle, 2+: bicep, knee, tricep - Musculoskeletal Musculoskeletal: no fluid collection, no pain, normal range of motion - Psychiatric Psychiatric: cooperative - Laboratory Findings CBC and BMP: 08/12/16 05:08 08/12/16 05:08 Abnormal Lab Findings: Abnormal Labs 08/12/16 08/12/16 08/13/16 11:25 21:45 05:03 POC Glucose 346 H 296 H Hemoglobin A1c 10.0 H Triglycerides Cholesterol HDL Cholesterol 08/13/16 05:03 POC Glucose Hemoglobin A1c Triglycerides 536 H Cholesterol 335 H HDL Cholesterol 38 L
[2016-08-13] MEDS: PEPCID PO SCH ×2 (10:48→22:45)
[2016-08-13] MEDS: FIORICET PO PRN ×2 (12:31→22:41)
[2016-08-13] MEDS ORDERED: RESTORIL PO ONE (21:28)
[2016-08-14] MEDS: HALFPRIN EC PO SCH (09:27)
[2016-08-14] MEDS: COLCRYS PO SCH (09:27)
[2016-08-14] MEDS: PEPCID PO SCH ×2 (09:27→22:36)
[2016-08-14] MEDS: PLAVIX PO SCH (09:28)
[2016-08-14] MEDS: FIORICET PO PRN ×2 (09:31→14:51)
[2016-08-14] MEDS: NOVOLOG SUB-Q SCH ×4 (09:33→23:16)
--- NOTE | 2016-08-14 14:44 | Progress Note ---
Assessment and Plan Assessment and plan: 48-year-old -[place] presented to the ED with right-sided weakness and altered mental status. Patient's partner stated, around 7:30 pm yesterday evening she noticed that the patient was having difficulty speaking, getting his words out and he was very weak to walk. She also stated, the patient progressively became more weak by this morning. Patient has a past medical history hypertension, diabetes, asthma, obstructive sleep apnea with home CPAP nightly use, gout and right knee surgery. On exam, patient was altered with periods of forgetfulness and confusion. Patient complained of nausea and vomiting x3 in the ED, right arm and right leg weakness. Patient was unable to lift and hold his right arm and right leg. 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 MR Brain Acute ischemia left posterior temporal lobe-no evidence of hemorrhage MRA Brain Essentially negative MRA of the brain Carotid Doppler no significant stenosis 1. Acute ischemic stroke with infarct - EKG, carotid Doppler study, head CT, head CTA and neck CTA all obtained in the ED where within normal limits, neurology consult appreciated, no events on telemetry, MRI shows left posterior temporal lobe infarct, MRA and carotid Dopplers did not show any stenosis. Speech input appreciated, advance diet Needs aggressive medical management, aspirin daily, severe mixed hyperlipidemia noted therefore his medications were changed to high-dose statin Continue to bring blood pressure down by 10-20%, continue to allow permissive hypertension for another 24 hours Continue PT, discuss with case management about obtaining home PT for him. Unfortunately he is uninsured and is unable to afford acute rehabilitation facility at this time, even though that is what we recommend for him 2. Metabolic encephalopathy-due to acute ischemic stroke with infarct and exacerbated by Wernicke/receptive aphasia/, improving 3. Hypertension - will optimize him on oral meds today 4. Nausea and vomiting - Abdominal x-ray within normal limits, now resolved 5. DM 2- hold metformin due to contrast dye Hemoglobin A1c is 10, significant hyperglycemia. Continue sliding scale insulin , increase 70/30 dose 6. Obstructive sleep apnea-continue CPAP nightly 7. Gout -Continue with home medication. 8. Severe mixed hyperlipidemia Statin has been changed to high-dose Lipitor DVT prophylaxis - Contraindicated for anticoagulation. SCDs ordered History Interval history: Rights sided weakness is improved today, expressive/receptive aphasia is actually improving Hospitalist Physical - Physical exam Narrative exam: General: Patient appears well in no distress HEENT: MMM, EOMI cardiac: S1-S2 heard lungs: clear to auscultation, abdomen: soft, nontender, nondistended bowel sounds positive extremities: no edema clubbing or cyanosis Skin: no rash or lesion Neuro: Right-sided hemiparesis, receptive aphasia, communicates in a word salad confused. Obeys commands however he has trouble understanding verbal commands, he does better with visual demonstrations and struggles to understand speech Psych: appropriate behavior and mood, cognition intact - Constitutional Vitals: Temp Pulse Resp BP Pulse Ox 97.6 F 88 16 152/88 92 08/14/16 09:49 08/14/16 09:49 08/14/16 10:31 08/14/16 09:49 08/14/16 09:49 General appearance: Present: mild distress Results - Labs CBC & Chem 7: 08/12/16 05:08 08/12/16 05:08 Labs: Laboratory Last Values WBC 9.9 K/mm3 (4.5-11.0) 08/12/16 05:08 RBC 4.22 M/mm3 (3.65-5.03) 08/12/16 05:08 Hgb 11.4 gm/dl (11.8-15.2) L 08/12/16 05:08 Hct 35.3 % (35.5-45.6) L 08/12/16 05:08 MCV 84 fl (84-94) 08/12/16 05:08 MCH 27 pg (28-32) L 08/12/16 05:08 MCHC 32 % (32-34) 08/12/16 05:08 RDW 13.8 % (13.2-15.2) 08/12/16 05:08 Plt Count 309 K/mm3 (140-440) 08/12/16 05:08 Lymph % (Auto) 33.2 % (13.4-35.0) 08/12/16 05:08 [place] % (Auto) 6.9 % (0.0-7.3) 08/12/16 05:08 Eos % (Auto) 5.5 % (0.0-4.3) H 08/12/16 05:08 Baso % (Auto) 1.1 % (0.0-1.8) 08/12/16 05:08 Lymph # 3.3 K/mm3 (1.2-5.4) 08/12/16 05:08 [place] # 0.7 K/mm3 (0.0-0.8) 08/12/16 05:08 Eos # 0.5 K/mm3 (0.0-0.4) H 08/12/16 05:08 Baso # 0.1 K/mm3 (0.0-0.1) 08/12/16 05:08 Seg Neutrophils % 53.3 % (40.0-70.0) 08/12/16 05:08 Seg Neutrophils # 5.3 K/mm3 (1.8-7.7) 08/12/16 05:08 PT 12.3 Sec. (12.2-14.9) 08/12/16 05:08 INR 0.92 (0.87-1.13) 08/12/16 05:08 APTT 33.7 Sec. (24.2-36.6) 08/12/16 05:08 Thrombin Time 15.0 Sec. (15.1-19.6) L 08/12/16 05:08 Sodium 135 mmol/L (137-145) L 08/12/16 05:08 Potassium 4.3 mmol/L (3.6-5.0) 08/12/16 05:08 Chloride 98.6 mmol/L (98-107) 08/12/16 05:08 Carbon Dioxide 19 mmol/L (22-30) L 08/12/16 05:08 Anion Gap 22 mmol/L 08/12/16 05:08 BUN 21 mg/dL (9-20) H 08/12/16 05:08 Creatinine 1.1 mg/dL (0.8-1.5) 08/12/16 05:08 Estimated GFR > 60 ml/min 08/12/16 05:08 BUN/Creatinine Ratio 19.09 % 08/12/16 05:08 Glucose 266 mg/dL (75-100) H 08/12/16 05:08 POC Glucose 252 (70-105) H 08/13/16 21:59 Hemoglobin A1c 10.0 % (4-6) H 08/13/16 05:03 Calcium 9.7 mg/dL (8.4-10.2) 08/12/16 05:08 Troponin T < 0.010 ng/mL (0.00-0.029) 08/12/16 05:08 Triglycerides 536 mg/dL (2-149) H 08/13/16 05:03 Cholesterol 335 mg/dL (50-199) H 08/13/16 05:03 LDL Cholesterol Direct TNR 08/13/16 05:03 HDL Cholesterol 38 mg/dL (40-59) L 08/13/16 05:03 Cholesterol/HDL Ratio 8.81 % 08/13/16 05:03
[2016-08-14] MEDS: HCTZ PO SCH (15:14)
[2016-08-14] MEDS: ZESTRIL PO SCH (15:14)
[2016-08-15] MEDS: FIORICET PO PRN ×2 (04:22→12:27)
[2016-08-15] MEDS ORDERED: MORPHINE IV ONE (05:33)
[2016-08-15] MEDS ORDERED: DILAUDID IV STA (06:35)
--- NOTE | 2016-08-15 07:51 | Cat Scan Report ---
CT HEAD WITHOUT CONTRAST History: Severe headache. Technique: Sequential noncontrast CT images in 2.5 mm intervals. Findings: Recent CT head, CTA head and MR brain were reviewed. A moderate sized area of diminished attenuation has developed in the left posterior frontal and left parietal lobes measuring up to 4.4 x 6.0 cm in axial plane. This is consistent with an evolving ischemic infarct. There is no evidence for hemorrhage or significant mass effect. The remaining brain parenchyma remains within normal limits. Ventricular size is normal. The posterior fossa and contents are unremarkable. Impression: Evolving subacute ischemic infarct in the left MCA distribution which appears essentially unchanged since the MR brain dated 08/12/16. No acute intracranial process is appreciated.
--- NOTE | 2016-08-15 08:17 | Discharge Summary ---
Providers - Providers Date of Admission: 08/12/16 10:00 Attending physician: BONY VEGA MD 08/13/16 07:56 Speech Therapy Evaluation and Treat [CONS] Routine Reason For Exam: dysphagia, sp CVA Primary care physician: CARDIOVASCULAR INVASIVE SPECIALIST Hospitalization Condition: Stable Pertinent studies: MR Brain Acute ischemia left posterior temporal lobe-no evidence of hemorrhage MRA Brain Essentially negative MRA of the brain Carotid Doppler no significant stenosis Hospital course: 48-year-old -[place] presented to the emergency room with right-sided hemiplegia, confusion and receptive/expressive aphasia. He was found to have an acute CVA with infarct, he went on to have an MRI, CT head which showed a stroke. His MRA was unremarkable as were his carotid Dopplers. His wounds have an echocardiogram that's did not show any blood clots or lesions. He was seen by neurology and aggressive medical management was advised, patient was put on aspirin, Plavix. He was found to have significant hyperlipidemia and it was therefore started on a statin, he also had uncontrolled diabetes, for this he was put on appropriate medication and started on insulins. He received physical therapy, clinically improved, he also receives speech therapy and his diet was advanced as he improved. He is being discharged home with home physical therapy. Discharge diagnoses 1. Acute ischemic stroke with infarct 2. Metabolic encephalopathy 3. Hypertension - 4. Nausea and vomiting - Abdominal x-ray within normal limits, now resolved 5. DM 2- 6. Obstructive sleep apnea-continue CPAP nightly 7. Gout -Continue with home medication. 8. Severe mixed hyperlipidemia Statin has been changed to high-dose Lipitor Disposition: DC/TX HOME UNDER HOME HEALTH Time spent for discharge: 35 minutes Core Measure Documentation - Palliative Care Palliative Care/ Comfort Measures: Not Applicable - Core Measures Any of the following diagnoses?: stroke - Stroke Discharge Requirements Statin for LDL = or >70 mg/dl on DC: Yes Anticoag for atrial fib/atrial flutter: Not Applicable Antithrombotic for ischemic stroke: Yes Exam - Physical Exam Narrative exam: General: Patient appears well in no distress HEENT: MMM, EOMI cardiac: S1-S2 heard lungs: clear to auscultation, abdomen: soft, nontender, nondistended bowel sounds positive extremities: no edema clubbing or cyanosis Skin: no rash or lesion Neuro: Right-sided hemiparesis, receptive aphasia/expressive aphasia, Obeys commands however he has trouble understanding verbal commands, he does better with visual demonstrations and struggles to understand speech Psych: appropriate behavior and mood, cognition intact - Constitutional Vitals: Temp Pulse Resp BP Pulse Ox 99.3 F 102 H 18 132/78 98 08/15/16 00:54 08/15/16 00:54 08/15/16 00:54 08/15/16 00:54 08/15/16 00:54 Plan Follow up with: SANTOS WAGNER MD [Primary Care Provider] - 3-5 Days [facility] [Outside] - 7 Days JENI THOMPSON MD [Staff Physician] - 7 Days Prescriptions: AtorvaSTATin [Lipitor] 80 mg PO QHS #30 tablet Aspirin EC [Aspirin Enteric Coated TAB] 81 mg PO QDAY #30 tablet Butalb/Acetamin/Caff 50-325-40 [Fioricet] 1 tab PO Q4H PRN #30 tablet PRN Reason: Headache Clopidogrel [Plavix] 75 mg PO QDAY #30 tablet Colchicine [Colcrys] 0.6 tab PO QDAY #30 tablet Hydrochlorothiazide [HCTZ] 12.5 mg PO QDAY #30 capsule Insulin NPH/Regular [NovoLIN 70/30] 15 unit SUB-Q BIDDIAB #1 vial Lisinopril [Zestril TAB] 20 mg PO QDAY #30 tablet Metformin HCl [Glucophage] 500 mg PO BID #60 tablet
[2016-08-15] MEDS: NOVOLOG SUB-Q SCH ×2 (08:28→16:45)
[2016-08-15] MEDS: HCTZ PO SCH (12:27)
[2016-08-15] MEDS: PEPCID PO SCH (12:27)
[2016-08-15] MEDS: ZESTRIL PO SCH (12:27)
[2016-08-15] MEDS: COLCRYS PO SCH (12:27)
[2016-08-15] MEDS: HALFPRIN EC PO SCH (12:28)
[2016-08-15] MEDS: PLAVIX PO SCH (12:28)
[2016-08-15 17:58] VITALS: BP 142/86
== END 2016-08-15 17:57 | disposition home health service (06) | DRG 64 ==
LOC: ED 04:59 → 4A 10:00
PROVIDERS: ADMIT Internal Medicine; ATTEND Internal Medicine
PROC: 5A09457 Assistance with Respiratory Ventilation, 24-96 Consecutive Hours, Continuous Positive Airway Pressure (ICD-10-PCS; principal; 2016-08-12)
DX: I63.9 Cerebral infarction, unspecified (principal); G93.41 Metabolic encephalopathy; G81.91 Hemiplegia, unspecified affecting right dominant side; I10 Essential (primary) hypertension; J45.909 Unspecified asthma, uncomplicated; M10.9 Gout, unspecified; G47.33 Obstructive sleep apnea (adult) (pediatric); Z91.013 Allergy to seafood; E11.65 Type 2 diabetes mellitus with hyperglycemia; E78.5 Hyperlipidemia, unspecified; E78.2 Mixed hyperlipidemia; F80.2 Mixed receptive-expressive language disorder
CPT/HCPCS: 36415; 70450; 70496; 70498; 70544; 70551; 74000; 80048; 80061; 82962; 83036; 83721; 84484; 85025; 85610; 85670; 85730; 93005; 93010; 93306; 93880; 94660; A9270-GY; J1170; J1815; J2270; J2405; Q9967

== ENCOUNTER 2017-02-18 15:41 | Inpatient (IN) | payer OTHER ==
[2017-02-18] MEDS ORDERED: KEPPRA 1,000 MG/NS 0.75% 100ML 1,000 MG/100 ML BAG IV ONE ×2 (16:24→21:04)
[2017-02-18 16:29] LABS: ISTAT Base Excess -9; ISTAT HCO3 18.6; ISTAT PCO2 44.2 (35-45); ISTAT PH 7.232 (7.35-7.45); ISTAT PO2 60 (80-105); ISTAT SO2 86; ISTAT TCO2 20
--- NOTE | 2017-02-18 16:30 | Emergency Department Report ---
HPI - General Chief Complaint: Altered Mental Status Time Seen by Provider: 02/18/17 16:13 - HPI HPI: Room 17 The patient is a 51-year-old male presenting with a chief complaint of altered mental status. The patient's son states when he left this morning at 07:00 this morning the patient sleep. The son states when he returned home at 14:30 he felt the patient lying down with "foam" around his mouth. The patient gives "spitting out phlegm" and would not respond verbally. EMS was called. EMS reports patient had 15-20 episodes which appear to be brief generalized tonic- clonic seizures lasting a few seconds each time. Each episode was followed by periods of decreased responsiveness and then the patient will become lucid temporarily. The patient currently appears confused and does not answer questions Location: Mental status Duration: [See above] Quality: Altered Severity: Moderate Modifying factors: [see above] Context: [see above] Mode of transportation: [not driving] ED Past Medical Hx - Past Medical History Previous Medical History?: Yes Hx Hypertension: Yes Hx CVA: Yes Hx Diabetes: Yes (NOT ON MEDS) Hx Asthma: Yes Additional medical history: GOUT, sleep apnea and uses CPAP at home - Surgical History Past Surgical History?: Yes Additional Surgical History: rt knee surgery - Family History Family history: no significant - Social History Smoking Status: Never Smoker Substance Use Type: None - Medications Home Medications: Home Medications Medication Instructions Recorded Confirmed Last Taken Type Aspirin EC [Aspirin Enteric Coated 81 mg PO QDAY #30 tablet 08/15/16 Unknown Rx TAB] AtorvaSTATin [Lipitor] 80 mg PO QHS #30 tablet 08/15/16 Unknown Rx Butalb/Acetamin/Caff 50-325-40 1 tab PO Q4H PRN #30 tablet 08/15/16 Unknown Rx [Fioricet] Clopidogrel [Plavix] 75 mg PO QDAY #30 tablet 08/15/16 Unknown Rx Colchicine [Colcrys] 0.6 tab PO QDAY #30 tablet 08/15/16 Unknown Rx Hydrochlorothiazide [HCTZ] 12.5 mg PO QDAY #30 capsule 08/15/16 Unknown Rx Insulin NPH/Regular [NovoLIN 70/30] 15 unit SUB-Q BIDDIAB #1 vial 08/15/16 Unknown Rx Lisinopril [Zestril TAB] 20 mg PO QDAY #30 tablet 08/15/16 Unknown Rx Metformin HCl [Glucophage] 500 mg PO BID #60 tablet 08/15/16 Unknown Rx ED Review of Systems ROS: Stated complaint: AMS Other details as noted in HPI Comment: Unobtainable due to pts medical conditions Physical Exam - Physical Exam Vital Signs: Vital Signs 02/18/17 02/18/17 16:19 16:21 Temperature 99.7 F H Pulse Rate 125 H Respiratory 26 H 18 Rate Blood Pressure 128/82 [Right] O2 Sat by Pulse 92 92 Oximetry Physical Exam: GENERAL: The patient is well-developed well-nourished male lying on stretcher appearing confused and not responding verbally. [] HEENT: Normocephalic. Atraumatic. NECK: Supple. Trachea midline CHEST/LUNGS: Clear to auscultation. There is no respiratory distress noted. HEART/CARDIOVASCULAR: Regular. There is tachycardia. There is no gallop rub or murmur. ABDOMEN: Abdomen is soft, nontender. Patient has normal bowel sounds. There is no abdominal distention. Colostomy in place SKIN: There is no rash. There is no diaphoresis. NEURO: The patient is awake but nonverbal. Patient does not follow commands MUSCULOSKELETAL: There is no evidence of acute injury. ED Course Vital Signs 02/18/17 02/18/17 16:19 16:21 Temperature 99.7 F H Pulse Rate 125 H Respiratory 26 H 18 Rate Blood Pressure 128/82 [Right] O2 Sat by Pulse 92 92 Oximetry - Consultations Consultation #1: 02/18/17 17:32 Nephrology paged 02/18/17 17:[address] Payne. Recommends giving Kayexalate by mouth or ME and rechecking potassium 4 hours after administration in addition to other hyperkalemic meds. States the patient is still hyperkalemic after treatment may require hemodialysis. Recommends obtaining renal and bladder ultrasound in the interim ED Medical Decision Making - Lab Data Result diagrams: 02/18/17 16:19 02/18/17 16:19 Laboratory Tests 02/18/17 02/18/17 12 16:19 16:19 16:19 WBC 13.4 H RBC 4.36 Hgb 11.1 L Hct 36.3 MCV 83 L MCH 26 L MCHC 31 L RDW 13.9 Plt Count 513 H Lymph % (Auto) 8.2 L [place] % (Auto) 8.5 H Eos % (Auto) 0.2 Baso % (Auto) 0.6 Lymph # 1.1 L [place] # 1.1 H Eos # 0.0 Baso # 0.1 Seg Neutrophils % 82.5 H Seg Neutrophils # 11.1 H PT INR APTT POC ABG pH POC ABG pCO2 POC ABG pO2 POC ABG HCO3 POC ABG Total CO2 POC ABG O2 Sat POC ABG Base Excess FiO2 Sodium 135 L Potassium 7.4 H* Chloride 97.4 L Carbon Dioxide 17 L Anion Gap 28 BUN 71 H Creatinine 6.3 H Estimated GFR 11 BUN/Creatinine Ratio 11 Glucose 229 H POC Glucose Lactic Acid 1.40 Calcium 10.0 Magnesium 2.30 Total Bilirubin 0.20 AST 58 H ALT 133 H Alkaline Phosphatase 410 H Total Creatine Kinase CK-MB (CK-2) CK-MB (CK-2) Rel Index Troponin T Total Protein 8.7 H Albumin 4.2 Albumin/Globulin Ratio 0.9 Triglycerides Cholesterol LDL Cholesterol Direct HDL Cholesterol Cholesterol/HDL Ratio TSH Free T4 02/18/17 02/18/17 02/18/17 16:28 16:33 16:37 WBC RBC Hgb Hct MCV MCH MCHC RDW Plt Count Lymph % (Auto) [place] % (Auto) Eos % (Auto) Baso % (Auto) Lymph # [place] # Eos # Baso # Seg Neutrophils % Seg Neutrophils # PT INR APTT POC ABG pH 7.232 L POC ABG pCO2 44.2 POC ABG pO2 60 L POC ABG HCO3 18.6 POC ABG Total CO2 20 POC ABG O2 Sat 86 POC ABG Base Excess -9 FiO2 21 Sodium Potassium Chloride Carbon Dioxide Anion Gap BUN Creatinine Estimated GFR BUN/Creatinine Ratio Glucose POC Glucose 237 H Lactic Acid Calcium Magnesium Total Bilirubin AST ALT Alkaline Phosphatase Total Creatine Kinase CK-MB (CK-2) CK-MB (CK-2) Rel Index Troponin T Total Protein Albumin Albumin/Globulin Ratio Triglycerides Cholesterol LDL Cholesterol Direct HDL Cholesterol Cholesterol/HDL Ratio TSH 1.250 Free T4 0.90 02/18/17 02/18/17 16:37 16:37 WBC RBC Hgb Hct MCV MCH MCHC RDW Plt Count Lymph % (Auto) [place] % (Auto) Eos % (Auto) Baso % (Auto) Lymph # [place] # Eos # Baso # Seg Neutrophils % Seg Neutrophils # PT 13.6 INR 0.99 APTT 37.1 H POC ABG pH POC ABG pCO2 POC ABG pO2 POC ABG HCO3 POC ABG Total CO2 POC ABG O2 Sat POC ABG Base Excess FiO2 Sodium Potassium Chloride Carbon Dioxide Anion Gap BUN Creatinine Estimated GFR BUN/Creatinine Ratio Glucose POC Glucose Lactic Acid Calcium Magnesium Total Bilirubin AST ALT Alkaline Phosphatase Total Creatine Kinase 1275 H CK-MB (CK-2) 7.6 H CK-MB (CK-2) Rel Index 0.5 Troponin T 0.038 H Total Protein Albumin Albumin/Globulin Ratio Triglycerides 265 H Cholesterol 179 LDL Cholesterol Direct 83 HDL Cholesterol 43 Cholesterol/HDL Ratio 4.16 TSH Free T4 - EKG Data -: EKG Interpreted by Me EKG shows normal: sinus rhythm Rate: tachycardia (119 bpm) - EKG Data When compared to previous EKG there are: no significant change Interpretation: unchanged when compared t (07/16/2016) - Radiology Data Radiology results: report reviewed (CT head), image reviewed (CT head, chest x- ray) interpreted by me: Chest x-ray- mild vascular congestion. No focal infiltrates, no pneumothorax FINAL REPORT PROCEDURE: CT HEAD/BRAIN WO CON TECHNIQUE: Computerized tomography of the head was performed without contrast material. HISTORY: altered mental status COMPARISON: Head CT dated August 12, 2016 FINDINGS: Mild changes of chronic sinusitis are seen in the right maxillary sinus. Mastoid air cells are clear. No calvarial fracture is seen. There is cephalo malacia in the left frontoparietal convexity that is new since prior study. This is likely an area watershed infarct. Mild chronic small vessel ischemic changes are seen in the left recio radiata and left basal ganglia. Cerebral ventricles are normal in size. No acute intracranial hemorrhage or mass effect is seen. IMPRESSION: Old left frontoparietal cortical CVA is seen with encephalomalacia. Mild chronic small vessel ischemic changes are seen in the left basal ganglia and left recio radiata. No acute abnormality is seen. Transcribed By: WW Dictated By: MARKUS WASHINGTON JR, MD Electronically Authenticated By: MARKUS WASHINGTON JR, MD Signed Date/Time: 02/18/17 1306 DD/ 1306 TD/TT: 02/18/17 1306 - Differential Diagnosis seizures, status epilepticus, ICH, aspiration pneumonia, pneumothorax Critical care attestation.: If time is entered above; I have spent that time in minutes in the direct care of this critically ill patient, excluding procedure time. ED Disposition Clinical Impression: Altered mental status, Hypoxia, Acute renal failure Disposition: OP ADMIT IP TO THIS HOSP Is pt being admited?: Yes Does the pt Need Aspirin: No Condition: Serious Time of Disposition: 18:31 (Hospitalist paged (Dr Rabago))
[2017-02-18 16:47] LABS: Basophils % (Auto) 0.6 % (0.0-1.8); Eosinophils % (Auto) 0.2 % (0.0-4.3); Hematocrit 36.3 % (35.5-45.6); Hemoglobin 11.1 gm/dl (11.8-15.2); Mean Corpuscular HGB Conc 31 % (32-34); Mean Corpuscular Volume 83 fl (84-94); Platelet Count 513 K/mm3 (140-440); Red Blood Count 4.36 M/mm3 (3.65-5.03); Red Cell Distribution Width 13.9 % (13.2-15.2); White Blood Count 13.4 K/mm3 (4.5-11.0)
[2017-02-18 16:48] LABS: Mean Corpuscular Hemoglobin 26 pg (28-32)
[2017-02-18 17:03] LABS: Creatine Kinase MB 7.6 ng/mL (0.0-4.0)
[2017-02-18 17:05] LABS: Albumin 4.2 g/dL (3.9-5); Albumin/Globulin Ratio 0.9 %; Bilirubin,Total 0.2 mg/dL (0.1-1.2); Chloride 97.4 mmol/L (98-107); Magnesium 2.3 mg/dL (1.7-2.3); Total Protein 8.7 g/dL (6.3-8.2)
--- NOTE | 2017-02-18 17:10 | Cat Scan Report ---
FINAL REPORT PROCEDURE: CT HEAD/BRAIN WO CON TECHNIQUE: Computerized tomography of the head was performed without contrast material. HISTORY: altered mental status COMPARISON: Head CT dated August 12, 2016 FINDINGS: Mild changes of chronic sinusitis are seen in the right maxillary sinus. Mastoid air cells are clear. No calvarial fracture is seen. There is cephalo malacia in the left frontoparietal convexity that is new since prior study. This is likely an area watershed infarct. Mild chronic small vessel ischemic changes are seen in the left recio radiata and left basal ganglia. Cerebral ventricles are normal in size. No acute intracranial hemorrhage or mass effect is seen. IMPRESSION: Old left frontoparietal cortical CVA is seen with encephalomalacia. Mild chronic small vessel ischemic changes are seen in the left basal ganglia and left recio radiata. No acute abnormality is seen.
[2017-02-18 17:12] LABS: INR 0.99 (0.87-1.13)
[2017-02-18 17:13] LABS: Partial Thromboplastin Time 37.1 Sec. (24.2-36.6)
[2017-02-18 17:15] LABS: Potassium 7.4 mmol/L (3.6-5.0)
[2017-02-18] MEDS ORDERED: D50W (25GM) Syringe IV ONE ×2 (17:19→23:57)
[2017-02-18] MEDS ORDERED: PROVENTIL IH ONE (17:19)
[2017-02-18] MEDS ORDERED: CALCIUM GLUCONATE 1,000 MG in NACL 0.9% 100 ML IV ONE (17:19)
[2017-02-18] MEDS ORDERED: SODIUM BICARBONATE IV ONE ×4 (17:19→22:57)
[2017-02-18] MEDS ORDERED: D50W (25GM) Vial IV ONE (18:00)
[2017-02-18] MEDS ORDERED: KIONEX PR ONE ×2 (18:02→23:11)
[2017-02-18 18:46] LABS: Urine Drugs of Abuse Note Disclamer
[2017-02-18 19:04] LABS: Bilirubin,Urine NEG (Negative); Blood,Urine NEG (Negative); Ketones,Urine NEG (Negative); Leukocyte Esterase,Urine TR (Negative); Mucus,Urine FEW /HPF; Nitrite,Urine NEG (Negative); Urobilinogen,Urine < 2.0 mg/dL (<2.0)
[2017-02-18] MEDS ORDERED: PROVENTIL IH PRN (19:56)
[2017-02-18] MEDS ORDERED: TYLENOL PO PRN (19:56)
[2017-02-18] MEDS ORDERED: ZOFRAN IV PRN (19:56)
[2017-02-18] MEDS ORDERED: NACL 0.9% 1000 ML IV ONE (19:56)
--- NOTE | 2017-02-18 20:10 | Ultrasound Report ---
FINAL REPORT PROCEDURE: US RENAL BILAT TECHNIQUE: Real-time sonography in multiple planes of the kidneys, ureters and urinary bladder was performed with image documentation. CPT 69368 HISTORY: acute renal failure COMPARISON: No prior studies are available for comparison. FINDINGS: RIGHT kidney: Normal echotexture. No focal renal mass, calculus, or hydronephrosis. Length: 11.4 cm. LEFT kidney: Prominent hydronephrosis is suspected with cortical thinning. Length: 10.7cm. IMPRESSION: Prominent left-sided hydronephrosis is seen. This may be chronic, as there is suggestion of cortical thinning.
--- NOTE | 2017-02-18 20:24 | History and Physical Report ---
History of Present Illness Date of admission: 02/18/17 19:56 Chief complaint: Unresponsive History of present illness: 51 YO Male with HTN, CVA, DM, Asthma, Gout, CKD, Chronic Pain treated in Pain Clinic, ARMANDO presents to ED for evaluation. Pt stuporous, unable to provide history, but history is provided by son, who is at bedside during exam and interview. As per son, the patient was in his usual state of health prior to 3 weeks ago. During the past 3 weeks the patient has experienced progressive weakness and worsening confusion resulting in multiple visits to the hospital. At 0700hrs the patient was observed by his son to be sleeping. The son returned home around 1430hrs and found the patient lying down with "foam" around his mouth, and "spitting out phlegm" and would not respond verbally. EMS was notified, and upon arrival, the patient was stuporous, and EMS also reports patient had 15-20 episodes which appeared to be brief generalized tonic-clonic seizures lasting a few seconds each time. Each episode was followed by periods of decreased responsiveness and subsequent lucid intervals. Pt was subsequently transported to [facility] for further evaluation. Pt seen and evaluated in ED and found to have evidence of sepsis, acute respiratory failure, and acute renal failure. Pt treated with sepsis protocol, NIPPV, and therpeutic intervention for hyperkalemia. Nephrology consulted in ED. Past History Past Medical History: diabetes, hypertension, renal failure, stroke, other (Gout , ARMANDO, Metabolic Syndrome) Past Surgical History: bowel surgery, Other (Right Knee surgery, colostomy, ) Social history: single. denies: smoking, alcohol abuse, prescription drug abuse Family history: diabetes, hypertension Medications and Allergies Allergies Allergy/AdvReac Type Severity Reaction Status Date / Time shellfish derived Allergy Swelling Verified 10/11/14 19:30 Home Medications Medication Instructions Recorded Confirmed Last Taken Type Aspirin EC [Aspirin Enteric Coated 81 mg PO QDAY #30 tablet 08/15/16 02/18/17 Rx TAB] Lisinopril [Zestril TAB] 20 mg PO QDAY #30 tablet 08/15/16 02/18/17 02/17/17 Rx Allopurinol [Zyloprim] 100 mg PO BID 02/18/17 02/18/17 02/17/17 History Amlodipine Besylate [Norvasc] 10 mg PO QDAY 02/18/17 02/18/17 02/17/17 History Duloxetine HCl [Cymbalta] 60 mg PO HS 02/18/17 02/18/17 02/17/17 History Gabapentin [Neurontin] 2 cap PO BID 02/18/17 02/18/17 02/17/17 History [place]-3S/Dha/Epa/Fish Oil [Fish 2 cap PO BID 02/18/17 02/18/17 02/17/17 History Oil [place]-3 Softgel] Pantoprazole [Protonix TAB] 40 mg PO QAM 02/18/17 02/18/17 02/17/17 History Rosuvastatin (Nf) [Crestor] 20 mg PO DAILY 02/18/17 02/18/17 02/17/17 History Sodium Bicarbonate 650 mg PO TID 02/18/17 02/18/17 02/17/17 History Active Meds: Active Medications Acetaminophen (Tylenol) 650 mg PO Q4H PRN PRN Reason: Pain MILD(1-3)/Fever >100.5/BERTRAND Albuterol (Proventil) 2.5 mg IH Q4HRT PRN PRN Reason: Shortness Of Breath Allopurinol (Zyloprim) 100 mg PO BID NIALL Amlodipine Besylate (Norvasc) 10 mg PO QDAY NIALL Aspirin (Halfprin Ec) 81 mg PO QDAY NIALL Famotidine (Pepcid) 20 mg IV BID NIALL Gabapentin (Neurontin) mg PO BID NIALL Ampicillin Sodium/Sulbactam Sodium (Unasyn/Ns 3 Gm/100 Ml) 3 gm in 100 mls @ 100 mls/hr IV Q6HR NIALL PRN Reason: Protocol Lisinopril (Zestril) 20 mg PO QDAY NIALL Miscellaneous Medication (Duloxetine Hcl [Cymbalta]) 60 mg PO HS NIALL Miscellaneous Medication ([place]-3s/Dha/Epa/Fish Oil [Fish Oil [place]-3 Softgel]) 2 cap PO BID NIALL Miscellaneous Medication (Rosuvastatin (Nf)) 20 mg PO DAILY NIALL Ondansetron HCl (Zofran) 4 mg IV Q8H PRN PRN Reason: N/V unrelieved by Reglan Pantoprazole Sodium (Protonix) 40 mg PO QAM NIALL Sodium Bicarbonate (Sodium Bicarbonate) 650 mg PO TID NIALL Review of Systems ROS unobtainable: due to mental status Exam - Constitutional Vitals: Temp Pulse Resp BP Pulse Ox 99.7 F H 88 16 113/92 97 02/18/17 16:19 02/18/17 18:18 02/18/17 18:18 02/18/17 18:15 02/18/17 18:15 General appearance: Present: mild distress - EENT Eyes: Present: miosis - Neck Neck: Present: supple, normal ROM - Respiratory Respiratory effort: labored Respiratory: bilateral: diminished - Cardiovascular Heart Sounds: Present: S1 & S2. Absent: rub, click - Extremities Extremities: pulses symmetrical, No edema Extremity abnormal: edema Peripheral Pulses: abnormal (Capillary refill greater than 3 seconds) - Abdominal General gastrointestinal: Present: soft, non-distended, other (ostomy pink and viable) Male genitourinary: Present: normal - Integumentary Integumentary: Present: clear, dry, decreased turgor - Musculoskeletal Musculoskeletal: generalized weakness - Psychiatric Psychiatric: no intact judgment & insight, no memory intact - Neurologic Neurologic: no gait normal Results - Labs CBC & Chem 7: 02/18/17 16:19 02/18/17 16:19 Labs: Abnormal lab results 02/18/17 02/18/17 02/18/17 Range/Units 16:19 16:19 16:19 WBC 13.4 H (4.5-11.0) K/mm3 Hgb 11.1 L (11.8-15.2) gm/dl MCV 83 L (84-94) fl MCH 26 L (28-32) pg MCHC 31 L (32-34) % Plt Count 513 H (140-440) K/mm3 Lymph % (Auto) 8.2 L (13.4-35.0) % King % (Auto) 8.5 H (0.0-7.3) % Lymph # 1.1 L (1.2-5.4) K/mm3 King # 1.1 H (0.0-0.8) K/mm3 Seg Neutrophils % 82.5 H (40.0-70.0) % Seg Neutrophils # 11.1 H (1.8-7.7) K/mm3 APTT (24.2-36.6) Sec. POC ABG pH (7.35-7.45) POC ABG pO2 (80-105) Sodium 135 L (137-145) mmol/L Potassium 7.4 H* (3.6-5.0) mmol/L Chloride 97.4 L (98-107) mmol/L Carbon Dioxide 17 L (22-30) mmol/L BUN 71 H (9-20) mg/dL Creatinine 6.3 H (0.8-1.5) mg/dL Glucose 229 H (75-100) mg/dL POC Glucose (70-105) AST 58 H (5-40) units/L ALT 133 H (7-56) units/L Alkaline Phosphatase 410 H (35-129) units/L Total Creatine Kinase (55-170) units/L CK-MB (CK-2) (0.0-4.0) ng/mL Troponin T (0.00-0.029) ng/mL Total Protein 8.7 H (6.3-8.2) g/dL Triglycerides (2-149) mg/dL Salicylates < 0.3 L (2.8-20.0) mg/dL 02/18/17 02/18/17 02/18/17 Range/Units 16:28 16:33 16:37 WBC (4.5-11.0) K/mm3 Hgb (11.8-15.2) gm/dl MCV (84-94) fl MCH (28-32) pg MCHC (32-34) % Plt Count (140-440) K/mm3 Lymph % (Auto) (13.4-35.0) % King % (Auto) (0.0-7.3) % Lymph # (1.2-5.4) K/mm3 King # (0.0-0.8) K/mm3 Seg Neutrophils % (40.0-70.0) % Seg Neutrophils # (1.8-7.7) K/mm3 APTT (24.2-36.6) Sec. POC ABG pH 7.232 L (7.35-7.45) POC ABG pO2 60 L (80-105) Sodium (137-145) mmol/L Potassium (3.6-5.0) mmol/L Chloride (98-107) mmol/L Carbon Dioxide (22-30) mmol/L BUN (9-20) mg/dL Creatinine (0.8-1.5) mg/dL Glucose (75-100) mg/dL POC Glucose 237 H (70-105) AST (5-40) units/L ALT (7-56) units/L Alkaline Phosphatase (35-129) units/L Total Creatine Kinase 1275 H (55-170) units/L CK-MB (CK-2) 7.6 H (0.0-4.0) ng/mL Troponin T 0.038 H (0.00-0.029) ng/mL Total Protein (6.3-8.2) g/dL Triglycerides 265 H (2-149) mg/dL Salicylates (2.8-20.0) mg/dL 02/18/17 Range/Units 16:37 WBC (4.5-11.0) K/mm3 Hgb (11.8-15.2) gm/dl MCV (84-94) fl MCH (28-32) pg MCHC (32-34) % Plt Count (140-440) K/mm3 Lymph % (Auto) (13.4-35.0) % King % (Auto) (0.0-7.3) % Lymph # (1.2-5.4) K/mm3 King # (0.0-0.8) K/mm3 Seg Neutrophils % (40.0-70.0) % Seg Neutrophils # (1.8-7.7) K/mm3 APTT 37.1 H (24.2-36.6) Sec. POC ABG pH (7.35-7.45) POC ABG pO2 (80-105) Sodium (137-145) mmol/L Potassium (3.6-5.0) mmol/L Chloride (98-107) mmol/L Carbon Dioxide (22-30) mmol/L BUN (9-20) mg/dL Creatinine (0.8-1.5) mg/dL Glucose (75-100) mg/dL POC Glucose (70-105) AST (5-40) units/L ALT (7-56) units/L Alkaline Phosphatase (35-129) units/L Total Creatine Kinase (55-170) units/L CK-MB (CK-2) (0.0-4.0) ng/mL Troponin T (0.00-0.029) ng/mL Total Protein (6.3-8.2) g/dL Triglycerides (2-149) mg/dL Salicylates (2.8-20.0) mg/dL Assessment and Plan - Patient Problems (1) Sepsis Current Visit: Yes Status: Acute Qualifiers: Sepsis type: sepsis due to unspecified organism Qualified Code(s): A41.9 - Sepsis, unspecified organism Plan to address problem: IV abx, blood cultures, urinalysis, serial lactic acid levels, monitor uop q shift, (2) Respiratory failure Current Visit: Yes Status: Acute Plan to address problem: Supplemental oxygen,nebs, aspiration precautions, NIPPV (3) Aspiration pneumonia Current Visit: Yes Status: Acute Plan to address problem: IV abx, blood cultures, aspiration precautions, supplemental oxygen, nebulizer therpay, (4) ARF (acute renal failure) Current Visit: Yes Status: Acute Plan to address problem: Nephrology consulted, renal ultrasound, bladder ultrasound, monitor uop q shift , (5) Hyperkalemia Current Visit: Yes Status: Acute Plan to address problem: calcium gluconate, kayexelate, serial potassium level, Notify nephrology team with potassium level if elevated above or equal to 6.0 because patient may require urgent dialysis. (6) Unconscious state Current Visit: Yes Status: Acute Plan to address problem: CT head, neuro checks, treat uremia, (7) DVT prophylaxis Current Visit: Yes Status: Acute
[2017-02-18] MEDS ORDERED: NACL 0.9% 1000 ML 1,000 ML ONE ×3 (21:20→22:42)
[2017-02-18] MEDS ORDERED: OMEGA PO SCH (22:00)
[2017-02-18] MEDS ORDERED: NON-FORMULARY (Duloxetine Hcl [Cymbalta] 60 MG) PO SCH (22:00)
[2017-02-18] MEDS ORDERED: FISH OIL PO SCH (22:00)
[2017-02-18] MEDS ORDERED: KEPPRA 1,000 MG in NACL 0.9% 100 ML IV SCH (22:00)
[2017-02-18] MEDS ORDERED: ZYLOPRIM PO SCH (22:00)
[2017-02-18] MEDS ORDERED: NEURONTIN PO SCH ×2 (22:00)
[2017-02-18] MEDS ORDERED: PEPCID IV SCH (22:00)
[2017-02-18] MEDS ORDERED: DHA PO SCH (22:00)
[2017-02-18] MEDS ORDERED: CYMBALTA PO SCH (22:00)
[2017-02-18] MEDS ORDERED: EPA PO SCH (22:00)
[2017-02-18] MEDS ORDERED: NARCAN 0.4 MG/1 ML ONE (22:33)
[2017-02-18] MEDS ORDERED: NARCAN 0.4 MG/1 ML IV ONE (22:57)
[2017-02-18 22:59] LABS: ISTAT Base Excess -7; ISTAT HCO3 20.7; ISTAT PCO2 53.6 (35-45); ISTAT PH 7.196 (7.35-7.45); ISTAT PO2 72 (80-105); ISTAT SO2 90; ISTAT TCO2 22
[2017-02-18] MEDS ORDERED: CALCIUM CHLORIDE 1,000 MG in NACL 0.9% 100 ML IV ONE (22:59)
--- NOTE | 2017-02-18 23:05 | Event Note ---
Date: 02/18/17 Code met called patient lethargic, sbp 88, no IV fluids obatain ABG, repeat labs start aggressive IVF, antibiotic and add vanco 1 dose Labs reviewed showed potassium increase from 7.4 to 7.7 Give bicarb, calcium Consukt renal for HD, case d/w Dr Johnson transfer to ICU, d/c antihypertensives and renally dose meds patient with 1 kidney, no prior abnormal renal function CC 40 minutes l
[2017-02-18] MEDS ORDERED: KIONEX PO ONE (23:18)
[2017-02-18] MEDS ORDERED: VANCOMYCIN PHARMACY TO DOSE IV SCH (23:45)
[2017-02-18] MEDS ORDERED: NACL 0.9% 100 ML IV PRN (23:53)
[2017-02-18] MEDS ORDERED: ALBURX 25% (ALBUMIN) IV PRN (23:53)
[2017-02-19] MEDS ORDERED: VANCOMYCIN VIAL 500 MG in NACL 0.9% 100 ML IV ONE
--- NOTE | 2017-02-19 00:08 | Event Note ---
Date: 02/19/[address] Christianne Demarco at 11.19 pm about Patient in renal failure with persisting hyperkalemia despite medical management. Chart reviewed. Patient admitted with altered mental status, possible seizure and hyperkalemia in setting of Renal failure ? Acute. Renal Ultrasound shows left hydronephrosis. Plan- Needs emergent Dialysis. Called Vascular surgeon and discussed with Dr Kang about Vas Cath placement. I discussed with RN to call Dialysis nurse for stat Dialysis after line placed. Dialysis orders placed. DC Gabapentin which is renally cleared and retention may have contributed to ? seizures. Will also stop Allopurinol till etiology of Renal failure ascertained. Hold Amlodipine given low Blood pressure. Continue volume repletion but add Bicarb to IVF till Hyperkalemia corrected. Agree with ICU management. Will need Urology evaluation in am re Hydronephrosis. Full consult to follow. Thanks for consulting me
[2017-02-19] MEDS ORDERED: NACL 0.9% 1000 ML 1,000 ML IV ONE (00:09)
[2017-02-19 00:43] LABS: ISTAT Base Excess -4; ISTAT HCO3 22.3; ISTAT PCO2 46.3 (35-45); ISTAT PH 7.291 (7.35-7.45); ISTAT PO2 145 (80-105); ISTAT SO2 99; ISTAT TCO2 24
--- NOTE | 2017-02-19 01:08 | Post Operative Note ---
Date of procedure: 02/19/17 Pre-op diagnosis: ARF with hyperkalemia Procedure: Ultrasound guided placement of a 30 cm nontunneled noncuffed triple lumen hemodialysis catheter in the left CIV Anesthesia: local Surgeon: JAZZY JENKINS Estimated blood loss: minimal Condition: stable Disposition: no change
--- NOTE | 2017-02-19 01:09 | Event Note ---
Date: 02/19/17 51 year old male with multiple medical problems with refractory hyperkalemia of 7.7. Called by Dr. Lisa re: need for emergency dialysis. Discussed with son. Placed triple lumen hemodialysis catheter at bedside in ICU with ultrasound guidance. No issues from procedure. Ready for use.
--- NOTE | 2017-02-19 01:10 | Operative Report ---
Operative Report Operative Report: EXAM: 1. Ultrasound-guided puncture of the left common femoral vein 2. Placement of a left common femoral vein triple lumen 30 cm nontunneled noncuffed hemodialysis catheter. DATE: 02/19/17 INDICATION: 51-year-old male with renal failure and severe hyperkalemia requiring emergency hemodialysis.. MEDICATIONS: Local anesthetic (1% lidocaine). DEVICES: Triple lumen nontunneled noncuffed hemodialysis catheter KICK PRESS SETTER: JAZZY JENKINS MD CONTRAST: None PROCEDURE: The patient's son, who provided consent for the procedure, told me that the patient has hypersensitivity of the right side and would prefer a left-sided access. In addition, the patient's colostomy is overlying the right lower quadrant. The patient is currently on a BiPAP making jugular access not possible and has a heart rate in the 120s. The risks, benefits, and alternatives were discussed and informed consent was obtained. The patient's left common femoral vein was assessed with ultrasound at bedside and determined to be patent prior to procedure. The patient was prepped and draped in a sterile fashion. The puncture site was anesthetized. Under sonographic guidance, the left common femoral vein was punctured with a 18-gauge micropuncture needle and a 0.035 inch wire was advanced through the needle. Over the 0.035 inch wire, serial dilatation was performed. The catheter was advanced over the wire. 3-0 nylon suture was used to secure the catheter. The central catheter was charged with saline. The peripheral ports of the catheter were charged with 1000 units per mL of heparinized saline. Biopatch and tegaderm were applied. Sterile dressing applied. The patient tolerated the procedure without immediate post procedual complication. FINDINGS: 1. Ultrasound documented patency of the left common femoral vein. The vessel was accessed under direct ultrasound guidance. IMPRESSION: 1. Successful ultrasound guided bedside placement of a left common femoral vein triple lumen nontunneled noncuffed dual lumen hemodialysis catheter.
[2017-02-19] MEDS ORDERED: HEPARIN IV PRN (02:32)
[2017-02-19] MEDS ORDERED: NACL 0.9% 100 ML IV PRN (02:32)
[2017-02-19] MEDS: SODIUM BICARBONATE 75 MEQ in NACL 0.45% 1000 ML 1,000 ML IV SCH ×2 (07:01)
[2017-02-19 07:11] LABS: Bacteria,Urine 1+ /HPF (Negative); Mucus,Urine FEW /HPF
[2017-02-19 07:38] LABS: Bilirubin,Urine NEG (Negative); Blood,Urine LG (Negative); Ketones,Urine NEG (Negative); Leukocyte Esterase,Urine NEG (Negative); Nitrite,Urine NEG (Negative); Urobilinogen,Urine < 2.0 mg/dL (<2.0)
--- NOTE | 2017-02-19 07:51 | XRay Report ---
PORTABLE CHEST INDICATION: Hypoxia. COMPARISON: 10/30/2011 FINDINGS: Portable, frontal chest radiograph demonstrates limited inspiration with mild exaggerated cardiomediastinal silhouette and grossly clear lungs. EKG leads. Intact bones. CONCLUSION: No acute disease. Thank you for the opportunity to participate in this patient's care.
[2017-02-19] MEDS ORDERED: SODIUM BICARBONATE PO SCH (08:00)
[2017-02-19] MEDS: DILAUDID IV PRN ×2 (09:10→14:32)
[2017-02-19 09:30] LABS: Basophils % (Auto) 0.1 % (0.0-1.8); Eosinophils % (Auto) 0.6 % (0.0-4.3); Hematocrit 30.9 % (35.5-45.6); Hemoglobin 10.1 gm/dl (11.8-15.2); Mean Corpuscular HGB Conc 33 % (32-34); Mean Corpuscular Hemoglobin 27 pg (28-32); Mean Corpuscular Volume 82 fl (84-94); Platelet Count 338 K/mm3 (140-440); Red Blood Count 3.77 M/mm3 (3.65-5.03); Red Cell Distribution Width 13.7 % (13.2-15.2); White Blood Count 14.2 K/mm3 (4.5-11.0)
[2017-02-19 09:47] LABS: Calcium 8.9 mg/dL (8.4-10.2); Chloride 97.1 mmol/L (98-107); Potassium 4.5 mmol/L (3.6-5.0)
[2017-02-19] MEDS ORDERED: PROTONIX PO SCH (10:00)
[2017-02-19] MEDS ORDERED: NORVASC PO SCH (10:00)
[2017-02-19] MEDS ORDERED: KEPPRA 1,000 MG/NS 0.75% 100ML 1,000 MG/100 ML BAG IV SCH (10:00)
[2017-02-19] MEDS ORDERED: FISH OIL PO SCH (10:00)
[2017-02-19] MEDS ORDERED: ZESTRIL PO SCH (10:00)
[2017-02-19] MEDS ORDERED: NON-FORMULARY (Rosuvastatin (Nf) 20 MG) PO SCH (10:00)
[2017-02-19] MEDS ORDERED: HALFPRIN EC PO SCH (10:00)
[2017-02-19] MEDS ORDERED: UNASYN/NS 3 GM/100 ML 3 GM/100 ML BAG IV SCH ×3 (10:00)
--- NOTE | 2017-02-19 10:44 | Consultation ---
History of Present Illness - Reason for Consult Consult date: 02/19/17 Emergent Diabetes Requesting physician: PATRICK CARRILLO - History of Present Illness 51 YO Male with HTN, CVA, DM, Asthma, Gout, CKD, Chronic Pain treated in Pain Clinic, ARMANDO presents to ED for evaluation. Pt stuporous, unable to provide history, but history is provided by son, who is at bedside during exam and interview. As per son, the patient was in his usual state of health prior to 3 weeks ago. During the past 3 weeks the patient has experienced progressive weakness and worsening confusion resulting in multiple visits to the hospital. At 0700hrs the patient was observed by his son to be sleeping. The son returned home around 1430hrs and found the patient lying down with "foam" around his mouth, and "spitting out phlegm" and would not respond verbally. EMS was notified, and upon arrival, the patient was stuporous, and EMS also reports patient had 15-20 episodes which appeared to be brief generalized tonic-clonic seizures lasting a few seconds each time. Each episode was followed by periods of decreased responsiveness and subsequent lucid intervals. Pt was subsequently transported to [facility] for further evaluation. Pt seen and evaluated in ED and found to have evidence of sepsis, acute respiratory failure, and acute renal failure. Pt treated with sepsis protocol, NIPPV, and therpeutic intervention for hyperkalemia. Nephrology consulted in ED. Past History Past Medical History: diabetes, hypertension, renal failure, stroke, other (Gout , ARMANDO, Metabolic Syndrome, chronic pain) Past Surgical History: bowel surgery, Other (Right Knee surgery, colostomy, ) Social history: single. denies: smoking, alcohol abuse, prescription drug abuse Family history: diabetes, hypertension Medications and Allergies Allergies Allergy/AdvReac Type Severity Reaction Status Date / Time shellfish derived Allergy Swelling Verified 10/11/14 19:30 Home Medications Medication Instructions Recorded Confirmed Last Taken Type Aspirin EC [Aspirin Enteric Coated 81 mg PO QDAY #30 tablet 08/15/16 02/18/17 Rx TAB] Lisinopril [Zestril TAB] 20 mg PO QDAY #30 tablet 08/15/16 02/18/17 02/17/17 Rx Allopurinol [Zyloprim] 100 mg PO BID 02/18/17 02/18/17 02/17/17 History Amlodipine Besylate [Norvasc] 10 mg PO QDAY 02/18/17 02/18/17 02/17/17 History Duloxetine HCl [Cymbalta] 60 mg PO HS 02/18/17 02/18/17 02/17/17 History Gabapentin [Neurontin] 2 cap PO BID 02/18/17 02/18/17 02/17/17 History [place]-3S/Dha/Epa/Fish Oil [Fish 2 cap PO BID 02/18/17 02/18/17 02/17/17 History Oil [place]-3 Softgel] Pantoprazole [Protonix TAB] 40 mg PO QAM 02/18/17 02/18/17 02/17/17 History Rosuvastatin (Nf) [Crestor] 20 mg PO DAILY 02/18/17 02/18/17 02/17/17 History Sodium Bicarbonate 650 mg PO TID 02/18/17 02/18/17 02/17/17 History Active Meds: Active Medications Albumin Human (Alburx 25% (Albumin)) 12.5 gm IV KENNA PRN PRN Reason: Hypotension Albuterol (Proventil) 2.5 mg IH Q4HRT PRN PRN Reason: Shortness Of Breath Last Admin: 02/19/17 01:49 Dose: 2.5 mg Albuterol (Proventil) 5 mg IH ONCE ONE Stop: 02/19/17 23:59 Heparin Sodium (Porcine) (Heparin) 5,000 unit IV KENNA PRN PRN Reason: hemodialysis Last Admin: 02/19/17 05:33 Dose: 5,000 unit Hydromorphone HCl (Dilaudid) 0.5 mg IV Q4H PRN PRN Reason: Pain , Severe (7-10) Sodium Chloride (Nacl 0.9%) 100 mls @ 999 mls/hr IV KENNA PRN PRN Reason: Hypotension Levetiracetam (Keppra) 1,000 mg PO BID NIALL Ondansetron HCl (Zofran) 4 mg IV Q8H PRN PRN Reason: N/V unrelieved by Reglan Review of Systems All systems: negative Exam - Constitutional Vitals: Temp Pulse Resp BP Pulse Ox 98.6 F 113 H 11 L 125/86 98 02/19/17 08:00 02/19/17 08:00 02/19/17 08:00 02/19/17 08:00 02/19/17 08:06 Results - Labs CBC & Chem 7: 02/19/17 08:45 02/19/17 08:45 Labs: Abnormal lab results 02/18/17 02/18/17 02/18/17 Range/Units 16:19 16:19 16:19 WBC 13.4 H (4.5-11.0) K/mm3 Hgb 11.1 L (11.8-15.2) gm/dl Hct (35.5-45.6) % MCV 83 L (84-94) fl MCH 26 L (28-32) pg MCHC 31 L (32-34) % Plt Count 513 H (140-440) K/mm3 Lymph % (Auto) 8.2 L (13.4-35.0) % [place] % (Auto) 8.5 H (0.0-7.3) % Lymph # 1.1 L (1.2-5.4) K/mm3 [place] # 1.1 H (0.0-0.8) K/mm3 Seg Neutrophils % 82.5 H (40.0-70.0) % Seg Neutrophils # 11.1 H (1.8-7.7) K/mm3 APTT (24.2-36.6) Sec. POC ABG pH (7.35-7.45) POC ABG pCO2 (35-45) POC ABG pO2 (80-105) Sodium 135 L (137-145) mmol/L Potassium 7.4 H* (3.6-5.0) mmol/L Chloride 97.4 L (98-107) mmol/L Carbon Dioxide 17 L (22-30) mmol/L BUN 71 H (9-20) mg/dL Creatinine 6.3 H (0.8-1.5) mg/dL Glucose 229 H (75-100) mg/dL POC Glucose (70-105) AST 58 H (5-40) units/L ALT 133 H (7-56) units/L Alkaline Phosphatase 410 H (35-129) units/L Total Creatine Kinase (55-170) units/L CK-MB (CK-2) (0.0-4.0) ng/mL Troponin T (0.00-0.029) ng/mL Total Protein 8.7 H (6.3-8.2) g/dL Triglycerides (2-149) mg/dL Urine WBC (Auto) (0.0-6.0) /HPF Salicylates < 0.3 L (2.8-20.0) mg/dL 02/18/17 02/18/17 02/18/17 Range/Units 16:28 16:33 16:37 WBC (4.5-11.0) K/mm3 Hgb (11.8-15.2) gm/dl Hct (35.5-45.6) % MCV (84-94) fl MCH (28-32) pg MCHC (32-34) % Plt Count (140-440) K/mm3 Lymph % (Auto) (13.4-35.0) % [place] % (Auto) (0.0-7.3) % Lymph # (1.2-5.4) K/mm3 [place] # (0.0-0.8) K/mm3 Seg Neutrophils % (40.0-70.0) % Seg Neutrophils # (1.8-7.7) K/mm3 APTT (24.2-36.6) Sec. POC ABG pH 7.232 L (7.35-7.45) POC ABG pCO2 (35-45) POC ABG pO2 60 L (80-105) Sodium (137-145) mmol/L Potassium (3.6-5.0) mmol/L Chloride (98-107) mmol/L Carbon Dioxide (22-30) mmol/L BUN (9-20) mg/dL Creatinine (0.8-1.5) mg/dL Glucose (75-100) mg/dL POC Glucose 237 H (70-105) AST (5-40) units/L ALT (7-56) units/L Alkaline Phosphatase (35-129) units/L Total Creatine Kinase 1275 H (55-170) units/L CK-MB (CK-2) 7.6 H (0.0-4.0) ng/mL Troponin T 0.038 H (0.00-0.029) ng/mL Total Protein (6.3-8.2) g/dL Triglycerides 265 H (2-149) mg/dL Urine WBC (Auto) (0.0-6.0) /HPF Salicylates (2.8-20.0) mg/dL 02/18/17 02/18/17 02/18/17 Range/Units 16:37 21:57 22:42 WBC (4.5-11.0) K/mm3 Hgb (11.8-15.2) gm/dl Hct (35.5-45.6) % MCV (84-94) fl MCH (28-32) pg MCHC (32-34) % Plt Count (140-440) K/mm3 Lymph % (Auto) (13.4-35.0) % [place] % (Auto) (0.0-7.3) % Lymph # (1.2-5.4) K/mm3 [place] # (0.0-0.8) K/mm3 Seg Neutrophils % (40.0-70.0) % Seg Neutrophils # (1.8-7.7) K/mm3 APTT 37.1 H (24.2-36.6) Sec. POC ABG pH 7.196 L (7.35-7.45) POC ABG pCO2 53.6 H (35-45) POC ABG pO2 72 L (80-105) Sodium (137-145) mmol/L Potassium 7.7 H* (3.6-5.0) mmol/L Chloride (98-107) mmol/L Carbon Dioxide (22-30) mmol/L BUN (9-20) mg/dL Creatinine (0.8-1.5) mg/dL Glucose (75-100) mg/dL POC Glucose (70-105) AST (5-40) units/L ALT (7-56) units/L Alkaline Phosphatase (35-129) units/L Total Creatine Kinase (55-170) units/L CK-MB (CK-2) (0.0-4.0) ng/mL Troponin T (0.00-0.029) ng/mL Total Protein (6.3-8.2) g/dL Triglycerides (2-149) mg/dL Urine WBC (Auto) (0.0-6.0) /HPF Salicylates (2.8-20.0) mg/dL 02/19/17 02/19/17 02/19/17 Range/Units 00:37 06:30 08:45 WBC 14.2 H (4.5-11.0) K/mm3 Hgb 10.1 L (11.8-15.2) gm/dl Hct 30.9 L (35.5-45.6) % MCV 82 L (84-94) fl MCH 27 L (28-32) pg MCHC (32-34) % Plt Count (140-440) K/mm3 Lymph % (Auto) 7.2 L (13.4-35.0) % [place] % (Auto) 7.9 H (0.0-7.3) % Lymph # 1.0 L (1.2-5.4) K/mm3 [place] # 1.1 H (0.0-0.8) K/mm3 Seg Neutrophils % 84.2 H (40.0-70.0) % Seg Neutrophils # 12.0 H (1.8-7.7) K/mm3 APTT (24.2-36.6) Sec. POC ABG pH 7.291 L (7.35-7.45) POC ABG pCO2 46.3 H (35-45) POC ABG pO2 145 H (80-105) Sodium (137-145) mmol/L Potassium (3.6-5.0) mmol/L Chloride (98-107) mmol/L Carbon Dioxide (22-30) mmol/L BUN (9-20) mg/dL Creatinine (0.8-1.5) mg/dL Glucose (75-100) mg/dL POC Glucose (70-105) AST (5-40) units/L ALT (7-56) units/L Alkaline Phosphatase (35-129) units/L Total Creatine Kinase (55-170) units/L CK-MB (CK-2) (0.0-4.0) ng/mL Troponin T (0.00-0.029) ng/mL Total Protein (6.3-8.2) g/dL Triglycerides (2-149) mg/dL Urine WBC (Auto) 7.0 H (0.0-6.0) /HPF Salicylates (2.8-20.0) mg/dL 02/19/17 Range/Units 08:45 WBC (4.5-11.0) K/mm3 Hgb (11.8-15.2) gm/dl Hct (35.5-45.6) % MCV (84-94) fl MCH (28-32) pg MCHC (32-34) % Plt Count (140-440) K/mm3 Lymph % (Auto) (13.4-35.0) % [place] % (Auto) (0.0-7.3) % Lymph # (1.2-5.4) K/mm3 [place] # (0.0-0.8) K/mm3 Seg Neutrophils % (40.0-70.0) % Seg Neutrophils # (1.8-7.7) K/mm3 APTT (24.2-36.6) Sec. POC ABG pH (7.35-7.45) POC ABG pCO2 (35-45) POC ABG pO2 (80-105) Sodium (137-145) mmol/L Potassium (3.6-5.0) mmol/L Chloride 97.1 L (98-107) mmol/L Carbon Dioxide (22-30) mmol/L BUN 33 H (9-20) mg/dL Creatinine 2.9 H D (0.8-1.5) mg/dL Glucose 228 H (75-100) mg/dL POC Glucose (70-105) AST (5-40) units/L ALT (7-56) units/L Alkaline Phosphatase (35-129) units/L Total Creatine Kinase (55-170) units/L CK-MB (CK-2) (0.0-4.0) ng/mL Troponin T (0.00-0.029) ng/mL Total Protein (6.3-8.2) g/dL Triglycerides (2-149) mg/dL Urine WBC (Auto) (0.0-6.0) /HPF Salicylates (2.8-20.0) mg/dL - Imaging and Cardiology Chest x-ray: image reviewed (clear, no evidence of acute lung disease) Assessment and Plan 51 y/o male with acute renal failure, requiring HD in emergent setting secondary to hyperkalemia, transferred to ICU for further monitoring. 1. HD completed last night. K resolved and BUN and CR improved 2. Still with chronic pain, to be managed by primary team 3. Hemodynamically stable, transfer out of ICU today.
--- NOTE | 2017-02-19 13:53 | Progress Note ---
Assessment and Plan no cvat son says chronic stones been followed at [facility] get ct w/o Subjective Date of service: 02/19/17 Principal diagnosis: hydro stones Objective - Constitutional Vitals: Vital Signs - 12hr 02/19/17 02/19/17 02/19/17 02:00 02:11 02:15 Temperature 99.7 F H Pulse Rate 127 H 127 H 125 H Pulse Rate [ Bilateral] Respiratory 13 12 Rate Respiratory Rate [Bilateral ] Blood Pressure 140/88 139/90 128/89 O2 Sat by Pulse 91 97 Oximetry O2 Sat by Pulse 97 Oximetry [ Bilateral] 02/19/17 02/19/17 02/19/17 02:20 02:21 02:30 Temperature Pulse Rate 126 H 125 H Pulse Rate [ 116 H Bilateral] Respiratory 13 15 Rate Respiratory 20 Rate [Bilateral ] Blood Pressure 128/89 133/90 O2 Sat by Pulse 95 92 Oximetry O2 Sat by Pulse Oximetry [ Bilateral] 02/19/17 02/19/17 02/19/17 02:41 02:47 02:51 Temperature Pulse Rate 125 H 125 H 126 H Pulse Rate [ Bilateral] Respiratory 20 11 L Rate Respiratory Rate [Bilateral ] Blood Pressure 133/90 134/88 134/88 O2 Sat by Pulse 97 97 Oximetry O2 Sat by Pulse Oximetry [ Bilateral] 02/19/17 02/19/17 02/19/17 03:00 03:11 03:15 Temperature Pulse Rate 125 H 123 H 121 H Pulse Rate [ Bilateral] Respiratory 11 L 15 Rate Respiratory Rate [Bilateral ] Blood Pressure 131/89 131/89 124/89 O2 Sat by Pulse 98 97 Oximetry O2 Sat by Pulse Oximetry [ Bilateral] 02/19/17 02/19/17 02/19/17 03:21 03:30 03:41 Temperature Pulse Rate 120 H 119 H 119 H Pulse Rate [ Bilateral] Respiratory 13 11 L 11 L Rate Respiratory Rate [Bilateral ] Blood Pressure 124/89 125/89 125/89 O2 Sat by Pulse 97 95 97 Oximetry O2 Sat by Pulse Oximetry [ Bilateral] 02/19/17 02/19/17 02/19/17 03:45 03:50 04:00 Temperature 98.4 F Pulse Rate 116 H 115 H 115 H Pulse Rate [ Bilateral] Respiratory 9 L 11 L Rate Respiratory Rate [Bilateral ] Blood Pressure 121/87 121/87 131/86 O2 Sat by Pulse 97 Oximetry O2 Sat by Pulse Oximetry [ Bilateral] 02/19/17 02/19/17 02/19/17 04:03 04:11 04:15 Temperature Pulse Rate 115 H 114 H 113 H Pulse Rate [ Bilateral] Respiratory 10 L Rate Respiratory Rate [Bilateral ] Blood Pressure 131/86 121/87 130/90 O2 Sat by Pulse 97 Oximetry O2 Sat by Pulse Oximetry [ Bilateral] 02/19/17 02/19/17 02/19/17 04:21 04:30 04:32 Temperature Pulse Rate 115 H 115 H 115 H Pulse Rate [ Bilateral] Respiratory 11 L 9 L Rate Respiratory Rate [Bilateral ] Blood Pressure 130/90 134/90 134/90 O2 Sat by Pulse 97 95 Oximetry O2 Sat by Pulse Oximetry [ Bilateral] 02/19/17 02/19/17 02/19/17 04:41 04:45 04:51 Temperature Pulse Rate 112 H 107 H 111 H Pulse Rate [ Bilateral] Respiratory 9 L 16 Rate Respiratory Rate [Bilateral ] Blood Pressure 131/86 128/93 128/93 O2 Sat by Pulse 97 96 Oximetry O2 Sat by Pulse Oximetry [ Bilateral] 02/19/17 02/19/17 02/19/17 05:00 05:11 05:16 Temperature Pulse Rate 107 H 108 H 108 H Pulse Rate [ Bilateral] Respiratory 8 L 8 L Rate Respiratory Rate [Bilateral ] Blood Pressure 133/90 133/90 129/89 O2 Sat by Pulse 94 97 Oximetry O2 Sat by Pulse Oximetry [ Bilateral] 02/19/17 02/19/17 02/19/17 05:21 05:29 05:30 Temperature 99.7 F H Pulse Rate 106 H 109 H 109 H Pulse Rate [ Bilateral] Respiratory 7 L 11 L 10 L Rate Respiratory Rate [Bilateral ] Blood Pressure 129/89 129/89 137/90 O2 Sat by Pulse 97 91 Oximetry O2 Sat by Pulse 95 Oximetry [ Bilateral] 02/19/17 02/19/17 02/19/17 05:41 05:50 06:00 Temperature Pulse Rate 107 H 108 H 106 H Pulse Rate [ Bilateral] Respiratory 8 L 11 L 9 L Rate Respiratory Rate [Bilateral ] Blood Pressure 137/90 137/90 135/90 O2 Sat by Pulse 97 97 93 Oximetry O2 Sat by Pulse Oximetry [ Bilateral] 02/19/17 02/19/17 02/19/17 06:11 06:14 06:20 Temperature Pulse Rate 107 H 107 H 107 H Pulse Rate [ Bilateral] Respiratory 11 L 14 9 L Rate Respiratory Rate [Bilateral ] Blood Pressure 135/90 134/91 134/91 O2 Sat by Pulse 97 107 H 97 Oximetry O2 Sat by Pulse Oximetry [ Bilateral] 02/19/17 02/19/17 02/19/17 06:30 06:41 06:51 Temperature Pulse Rate 110 H 109 H 108 H Pulse Rate [ Bilateral] Respiratory 12 12 10 L Rate Respiratory Rate [Bilateral ] Blood Pressure 128/86 128/86 136/86 O2 Sat by Pulse 93 97 97 Oximetry O2 Sat by Pulse Oximetry [ Bilateral] 02/19/17 02/19/17 02/19/17 07:00 07:11 07:21 Temperature Pulse Rate 109 H 108 H 107 H Pulse Rate [ Bilateral] Respiratory 9 L 9 L 10 L Rate Respiratory Rate [Bilateral ] Blood Pressure 132/91 132/91 119/85 O2 Sat by Pulse 97 97 Oximetry O2 Sat by Pulse Oximetry [ Bilateral] 02/19/17 02/19/17 02/19/17 07:30 07:41 07:51 Temperature Pulse Rate 111 H 112 H 112 H Pulse Rate [ Bilateral] Respiratory 15 14 11 L Rate Respiratory Rate [Bilateral ] Blood Pressure 125/84 125/84 133/89 O2 Sat by Pulse 94 96 90 Oximetry O2 Sat by Pulse Oximetry [ Bilateral] 02/19/17 02/19/17 02/19/17 08:00 08:06 08:11 Temperature 98.6 F Pulse Rate 113 H 110 H Pulse Rate [ Bilateral] Respiratory 11 L 11 L Rate Respiratory Rate [Bilateral ] Blood Pressure 125/86 125/86 O2 Sat by Pulse 98 98 94 Oximetry O2 Sat by Pulse Oximetry [ Bilateral] 02/19/17 02/19/17 02/19/17 08:21 08:30 08:41 Temperature Pulse Rate 107 H 106 H 107 H Pulse Rate [ Bilateral] Respiratory 13 17 16 Rate Respiratory Rate [Bilateral ] Blood Pressure 136/88 134/87 134/87 O2 Sat by Pulse 98 98 Oximetry O2 Sat by Pulse Oximetry [ Bilateral] 02/19/17 02/19/17 02/19/17 08:51 09:00 09:11 Temperature Pulse Rate 104 H 106 H 107 H Pulse Rate [ Bilateral] Respiratory 12 15 14 Rate Respiratory Rate [Bilateral ] Blood Pressure 141/94 129/84 129/84 O2 Sat by Pulse 99 91 98 Oximetry O2 Sat by Pulse Oximetry [ Bilateral] 02/19/17 02/19/17 02/19/17 09:21 09:30 09:41 Temperature Pulse Rate 107 H 110 H 107 H Pulse Rate [ Bilateral] Respiratory 14 15 9 L Rate Respiratory Rate [Bilateral ] Blood Pressure 143/80 152/83 152/83 O2 Sat by Pulse 97 90 93 Oximetry O2 Sat by Pulse Oximetry [ Bilateral] 02/19/17 02/19/17 02/19/17 09:51 10:00 10:11 Temperature Pulse Rate 110 H 110 H 107 H Pulse Rate [ Bilateral] Respiratory 14 10 L 10 L Rate Respiratory Rate [Bilateral ] Blood Pressure 158/74 121/82 121/82 O2 Sat by Pulse 80 L 100 Oximetry O2 Sat by Pulse Oximetry [ Bilateral] 02/19/17 02/19/17 02/19/17 10:21 10:30 10:41 Temperature Pulse Rate 106 H 106 H 108 H Pulse Rate [ Bilateral] Respiratory 11 L 15 12 Rate Respiratory Rate [Bilateral ] Blood Pressure 158/74 126/78 126/78 O2 Sat by Pulse 96 85 Oximetry O2 Sat by Pulse Oximetry [ Bilateral] 02/19/17 02/19/17 02/19/17 10:51 11:00 11:11 Temperature Pulse Rate 108 H 103 H 108 H Pulse Rate [ Bilateral] Respiratory 11 L 10 L 12 Rate Respiratory Rate [Bilateral ] Blood Pressure 124/84 138/82 138/82 O2 Sat by Pulse 95 95 Oximetry O2 Sat by Pulse Oximetry [ Bilateral] 02/19/17 02/19/17 02/19/17 11:21 11:30 11:41 Temperature Pulse Rate 109 H 109 H 113 H Pulse Rate [ Bilateral] Respiratory 11 L 14 22 Rate Respiratory Rate [Bilateral ] Blood Pressure 127/95 136/86 136/86 O2 Sat by Pulse 83 L 76 L 85 Oximetry O2 Sat by Pulse Oximetry [ Bilateral] 02/19/17 02/19/17 02/19/17 11:51 12:00 12:11 Temperature Pulse Rate 109 H 108 H 109 H Pulse Rate [ Bilateral] Respiratory 13 12 14 Rate Respiratory Rate [Bilateral ] Blood Pressure 148/90 149/91 149/91 O2 Sat by Pulse 91 76 L Oximetry O2 Sat by Pulse Oximetry [ Bilateral] 02/19/17 02/19/1717 12:21 12:30 12:41 Temperature Pulse Rate 112 H 108 H 109 H Pulse Rate [ Bilateral] Respiratory 10 L 11 L 10 L Rate Respiratory Rate [Bilateral ] Blood Pressure 147/91 137/89 137/89 O2 Sat by Pulse 90 Oximetry O2 Sat by Pulse Oximetry [ Bilateral] 02/19/17 02/19/17 02/19/17 12:51 13:00 13:11 Temperature Pulse Rate 106 H 107 H 109 H Pulse Rate [ Bilateral] Respiratory 11 L 12 13 Rate Respiratory Rate [Bilateral ] Blood Pressure 131/84 129/90 129/90 O2 Sat by Pulse 82 L 77 L Oximetry O2 Sat by Pulse Oximetry [ Bilateral] 02/19/17 13:21 Temperature Pulse Rate 111 H Pulse Rate [ Bilateral] Respiratory 17 Rate Respiratory Rate [Bilateral ] Blood Pressure 130/90 O2 Sat by Pulse Oximetry O2 Sat by Pulse Oximetry [ Bilateral] General appearance: Present: mild distress - Neck Neck: supple - Respiratory Respiratory effort: normal Extremities: no ischemia - Gastrointestinal General gastrointestinal: Present: non-tender, other (r ostomy ) - Labs CBC & Chem 7: 02/19/17 08:45 02/19/17 08:45 Labs: Abnormal lab results 02/18/17 02/18/17 02/18/17 Range/Units 16:19 16:19 16:19 WBC 13.4 H (4.5-11.0) K/mm3 Hgb 11.1 L (11.8-15.2) gm/dl Hct (35.5-45.6) % MCV 83 L (84-94) fl MCH 26 L (28-32) pg MCHC 31 L (32-34) % Plt Count 513 H (140-440) K/mm3 Lymph % (Auto) 8.2 L (13.4-35.0) % [place] % (Auto) 8.5 H (0.0-7.3) % Lymph # 1.1 L (1.2-5.4) K/mm3 [place] # 1.1 H (0.0-0.8) K/mm3 Seg Neutrophils % 82.5 H (40.0-70.0) % Seg Neutrophils # 11.1 H (1.8-7.7) K/mm3 APTT (24.2-36.6) Sec. POC ABG pH (7.35-7.45) POC ABG pCO2 (35-45) POC ABG pO2 (80-105) Sodium 135 L (137-145) mmol/L Potassium 7.4 H* (3.6-5.0) mmol/L Chloride 97.4 L (98-107) mmol/L Carbon Dioxide 17 L (22-30) mmol/L BUN 71 H (9-20) mg/dL Creatinine 6.3 H (0.8-1.5) mg/dL Glucose 229 H (75-100) mg/dL POC Glucose (70-105) AST 58 H (5-40) units/L ALT 133 H (7-56) units/L Alkaline Phosphatase 410 H (35-129) units/L Total Creatine Kinase (55-170) units/L CK-MB (CK-2) (0.0-4.0) ng/mL Troponin T (0.00-0.029) ng/mL Total Protein 8.7 H (6.3-8.2) g/dL Triglycerides (2-149) mg/dL Urine WBC (Auto) (0.0-6.0) /HPF Salicylates < 0.3 L (2.8-20.0) mg/dL 02/18/17 02/18/17 02/18/17 Range/Units 16:28 16:33 16:37 WBC (4.5-11.0) K/mm3 Hgb (11.8-15.2) gm/dl Hct (35.5-45.6) % MCV (84-94) fl MCH (28-32) pg MCHC (32-34) % Plt Count (140-440) K/mm3 Lymph % (Auto) (13.4-35.0) % [place] % (Auto) (0.0-7.3) % Lymph # (1.2-5.4) K/mm3 [place] # (0.0-0.8) K/mm3 Seg Neutrophils % (40.0-70.0) % Seg Neutrophils # (1.8-7.7) K/mm3 APTT (24.2-36.6) Sec. POC ABG pH 7.232 L (7.35-7.45) POC ABG pCO2 (35-45) POC ABG pO2 60 L (80-105) Sodium (137-145) mmol/L Potassium (3.6-5.0) mmol/L Chloride (98-107) mmol/L Carbon Dioxide (22-30) mmol/L BUN (9-20) mg/dL Creatinine (0.8-1.5) mg/dL Glucose (75-100) mg/dL POC Glucose 237 H (70-105) AST (5-40) units/L ALT (7-56) units/L Alkaline Phosphatase (35-129) units/L Total Creatine Kinase 1275 H (55-170) units/L CK-MB (CK-2) 7.6 H (0.0-4.0) ng/mL Troponin T 0.038 H (0.00-0.029) ng/mL Total Protein (6.3-8.2) g/dL Triglycerides 265 H (2-149) mg/dL Urine WBC (Auto) (0.0-6.0) /HPF Salicylates (2.8-20.0) mg/dL 02/18/17 02/18/17 02/18/17 Range/Units 16:37 21:57 22:42 WBC (4.5-11.0) K/mm3 Hgb (11.8-15.2) gm/dl Hct (35.5-45.6) % MCV (84-94) fl MCH (28-32) pg MCHC (32-34) % Plt Count (140-440) K/mm3 Lymph % (Auto) (13.4-35.0) % [place] % (Auto) (0.0-7.3) % Lymph # (1.2-5.4) K/mm3 [place] # (0.0-0.8) K/mm3 Seg Neutrophils % (40.0-70.0) % Seg Neutrophils # (1.8-7.7) K/mm3 APTT 37.1 H (24.2-36.6) Sec. POC ABG pH 7.196 L (7.35-7.45) POC ABG pCO2 53.6 H (35-45) POC ABG pO2 72 L (80-105) Sodium (137-145) mmol/L Potassium 7.7 H* (3.6-5.0) mmol/L Chloride (98-107) mmol/L Carbon Dioxide (22-30) mmol/L BUN (9-20) mg/dL Creatinine (0.8-1.5) mg/dL Glucose (75-100) mg/dL POC Glucose (70-105) AST (5-40) units/L ALT (7-56) units/L Alkaline Phosphatase (35-129) units/L Total Creatine Kinase (55-170) units/L CK-MB (CK-2) (0.0-4.0) ng/mL Troponin T (0.00-0.029) ng/mL Total Protein (6.3-8.2) g/dL Triglycerides (2-149) mg/dL Urine WBC (Auto) (0.0-6.0) /HPF Salicylates (2.8-20.0) mg/dL 02/19/17 02/19/17 02/19/17 Range/Units 00:37 06:30 08:45 WBC 14.2 H (4.5-11.0) K/mm3 Hgb 10.1 L (11.8-15.2) gm/dl Hct 30.9 L (35.5-45.6) % MCV 82 L (84-94) fl MCH 27 L (28-32) pg MCHC (32-34) % Plt Count (140-440) K/mm3 Lymph % (Auto) 7.2 L (13.4-35.0) % [place] % (Auto) 7.9 H (0.0-7.3) % Lymph # 1.0 L (1.2-5.4) K/mm3 [place] # 1.1 H (0.0-0.8) K/mm3 Seg Neutrophils % 84.2 H (40.0-70.0) % Seg Neutrophils # 12.0 H (1.8-7.7) K/mm3 APTT (24.2-36.6) Sec. POC ABG pH 7.291 L (7.35-7.45) POC ABG pCO2 46.3 H (35-45) POC ABG pO2 145 H (80-105) Sodium (137-145) mmol/L Potassium (3.6-5.0) mmol/L Chloride (98-107) mmol/L Carbon Dioxide (22-30) mmol/L BUN (9-20) mg/dL Creatinine (0.8-1.5) mg/dL Glucose (75-100) mg/dL POC Glucose (70-105) AST (5-40) units/L ALT (7-56) units/L Alkaline Phosphatase (35-129) units/L Total Creatine Kinase (55-170) units/L CK-MB (CK-2) (0.0-4.0) ng/mL Troponin T (0.00-0.029) ng/mL Total Protein (6.3-8.2) g/dL Triglycerides (2-149) mg/dL Urine WBC (Auto) 7.0 H (0.0-6.0) /HPF Salicylates (2.8-20.0) mg/dL 02/19/17 Range/Units 08:45 WBC (4.5-11.0) K/mm3 Hgb (11.8-15.2) gm/dl Hct (35.5-45.6) % MCV (84-94) fl MCH (28-32) pg MCHC (32-34) % Plt Count (140-440) K/mm3 Lymph % (Auto) (13.4-35.0) % [place] % (Auto) (0.0-7.3) % Lymph # (1.2-5.4) K/mm3 [place] # (0.0-0.8) K/mm3 Seg Neutrophils % (40.0-70.0) % Seg Neutrophils # (1.8-7.7) K/mm3 APTT (24.2-36.6) Sec. POC ABG pH (7.35-7.45) POC ABG pCO2 (35-45) POC ABG pO2 (80-105) Sodium (137-145) mmol/L Potassium (3.6-5.0) mmol/L Chloride 97.1 L (98-107) mmol/L Carbon Dioxide (22-30) mmol/L BUN 33 H (9-20) mg/dL Creatinine 2.9 H D (0.8-1.5) mg/dL Glucose 228 H (75-100) mg/dL POC Glucose (70-105) AST (5-40) units/L ALT (7-56) units/L Alkaline Phosphatase (35-129) units/L Total Creatine Kinase (55-170) units/L CK-MB (CK-2) (0.0-4.0) ng/mL Troponin T (0.00-0.029) ng/mL Total Protein (6.3-8.2) g/dL Triglycerides (2-149) mg/dL Urine WBC (Auto) (0.0-6.0) /HPF Salicylates (2.8-20.0) mg/dL
[2017-02-19] MEDS: HEPARIN SUB-Q SCH ×2 (14:46→21:32)
[2017-02-19] MEDS: KEPPRA PO SCH ×2 (14:47→21:32)
[2017-02-19] MEDS ORDERED: D50W (25GM) Vial IV PRN (15:00)
--- NOTE | 2017-02-19 16:18 | Consultation ---
History of Present Illness - Reason for Consult Consult date: 02/20/17 - History of Present Illness 51 years old male with PMH listed below brought to the ED for evaluation after he was found to be with AMS by his son and had witnessed seizures. Initial Lab in the ED showed elevated BUN/CR of and hyperkalemia of 7.4. HYperkalemia treated medically but repeat showed K increased further to 7.7. Decision was then made for emergency dialysis. Past History Past Medical History: diabetes, hypertension, renal failure, stroke, other (Gout , ARMANDO, Metabolic Syndrome, chronic pain) Past Surgical History: bowel surgery, Other (Right Knee surgery, colostomy, ) Social history: single. denies: smoking, alcohol abuse, prescription drug abuse Family history: diabetes, hypertension Medications and Allergies Allergies Allergy/AdvReac Type Severity Reaction Status Date / Time shellfish derived Allergy Swelling Verified 10/11/14 19:30 Home Medications Medication Instructions Recorded Confirmed Last Taken Type Aspirin EC [Aspirin Enteric Coated 81 mg PO QDAY #30 tablet 08/15/16 02/18/17 Rx TAB] Lisinopril [Zestril TAB] 20 mg PO QDAY #30 tablet 08/15/16 02/18/17 02/17/17 Rx Allopurinol [Zyloprim] 100 mg PO BID 02/18/17 02/18/17 02/17/17 History Amlodipine Besylate [Norvasc] 10 mg PO QDAY 02/18/17 02/18/17 02/17/17 History Duloxetine HCl [Cymbalta] 60 mg PO HS 02/18/17 02/18/17 02/17/17 History Gabapentin [Neurontin] 2 cap PO BID 02/18/17 02/18/17 02/17/17 History Bovill-3S/Dha/Epa/Fish Oil [Fish 2 cap PO BID 02/18/17 02/18/17 02/17/17 History Oil Bovill-3 Softgel] Pantoprazole [Protonix TAB] 40 mg PO QAM 02/18/17 02/18/17 02/17/17 History Rosuvastatin (Nf) [Crestor] 20 mg PO DAILY 02/18/17 02/18/17 02/17/17 History Sodium Bicarbonate 650 mg PO TID 02/18/17 02/18/17 02/17/17 History Active Meds: Active Medications Albumin Human (Alburx 25% (Albumin)) 12.5 gm IV KENNA PRN PRN Reason: Hypotension Albuterol (Proventil) 2.5 mg IH Q4HRT PRN PRN Reason: Shortness Of Breath Last Admin: 02/19/17 01:49 Dose: 2.5 mg Albuterol (Proventil) 5 mg IH ONCE ONE Stop: 02/19/17 23:59 Dextrose (D50w (25gm) Vial) 25 gm IV PRN PRN PRN Reason: BG </=70 Heparin Sodium (Porcine) (Heparin) 5,000 unit IV KENNA PRN PRN Reason: hemodialysis Last Admin: 02/19/17 05:33 Dose: 5,000 unit Heparin Sodium (Porcine) (Heparin) 5,000 unit SUB-Q BID NIALL Last Admin: 02/19/17 14:46 Dose: 5,000 unit Hydromorphone HCl (Dilaudid) 1 mg IM Q4H PRN PRN Reason: Pain , Severe (7-10) Sodium Chloride (Nacl 0.9%) 100 mls @ 999 mls/hr IV KENNA PRN PRN Reason: Hypotension Insulin Aspart (Novolog) 0 units SUB-Q ACHS NIALL PRN Reason: Protocol Levetiracetam (Keppra) 1,000 mg PO BID [facility] Last Admin: 02/19/17 14:47 Dose: 1,000 mg Ondansetron HCl (Zofran) 4 mg IV Q8H PRN PRN Reason: N/V unrelieved by Reglan Review of Systems ROS unobtainable: due to mental status Exam - Vital Signs Vital signs: Vital Signs Pulse Resp Pulse Ox 121 H 18 92 02/18/17 16:11 02/18/17 16:11 02/18/17 16:11 - General Appearance General appearance: well-developed, well-nourished, appears stated age EENT: PERRL, mucous membranes moist Neck: Present: neck supple, trachea midline. Absent: JVD/HJR, Masses Respiratory: Decreased Breath Sounds, Other (no wheeing ) Heart: regular, normal heart rate, S1S2, no murmurs Gastrointestinal: Present: normoactive bowel sounds. Absent: tenderness Integumentary: no rash, warm and dry Neurologic: no focal deficit, alert and oriented x3, gait normal, strength 5/5 Musculoskeletal: Absent: deformities, joint swelling Psychiatric: mood/affect appropriate, cooperative Results - Lab Results 02/19/17 08:45 02/19/17 08:45 Most recent lab results Calcium 8.9 mg/dL (8.4-10.2) 02/19/17 08:45 Magnesium 2.30 mg/dL (1.7-2.3) 02/18/17 16:19 Assessment and Plan 1. SHAHEEN 2/2 prerenal azotemia/ vs ATN 2. Severe hyperkalemia 3. 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 New on set seizure 5. AMS 6. B/L hydronephrosis PLan: He is s/p HD with improvement in his renal indices Hyperkalemia resolved. Obtain urine studies Keep russell catheter /neuro consult Further recommendations to follow.
--- NOTE | 2017-02-19 16:42 | Cat Scan Report ---
FINAL REPORT PROCEDURE: CT ABDOMEN PELVIS WO CON TECHNIQUE: Computerized axial tomography of the abdomen and pelvis was performed without intravenous contrast. This study is performed without intravascular contrast material and its sensitivity for abdominal and pelvic pathology, including neoplasms, inflammation, abscess, free fluid, thrombosis, arterial dissection and infarction, is reduced compared with a contrast enhanced study. HISTORY: Acute renal failure, left-sided hydronephrosis COMPARISON: Ultrasound from the previous day FINDINGS: Mild hypoventilatory changes are seen at the lung bases. Possible fatty infiltration is seen in the liver. The spleen is normal in size. Gallbladder and pancreas appear normal. Adrenal glands and abdominal aorta are normal in size. There is a left femoral venous catheter that terminates in the IVC in the lower abdomen. No right renal abnormality is seen. Left kidney is small measuring 7.7 cm in length. It has prominent hydronephrosis with prominent cortical thinning, as seen on ultrasound. In the left upper ureter there is a stone measuring 1.2 x 1.4 cm in greatest axial dimensions. It measures 2.9 cm in craniocaudad dimension. In the lower pole of the left kidney there is a probable 5.5 millimeter stone. Urinary bladder is decompressed with a Gudino catheter. No free pelvic fluid is seen. Normal appendix is seen. Diverticula are seen in the junction of the descending colon and sigmoid colon. Mild changes of diverticulitis cannot be excluded given mild streaky peritoneal densities in this region. These densities may just be from prior diverticulitis, though. Patient has a right-sided ileostomy. No evidence of bowel obstruction is seen. Tiny umbilical hernia is seen containing fat. IMPRESSION: Large stone in the left upper ureter causes chronic prominent left-sided hydronephrosis and renal atrophy. Diverticula are seen near the junction of the descending colon and sigmoid colon. Mild changes of diverticulitis are not excluded but the mild peritoneal changes could be chronic.
[2017-02-19] MEDS: DILAUDID IM PRN ×2 (16:57→21:33)
[2017-02-19] MEDS: NOVOLOG SUB-Q SCH ×2 (17:16→22:55)
--- NOTE | 2017-02-19 18:49 | Progress Note ---
Assessment and Plan Assessment and plan: 51-year-old -[place] woman with past medical history significant for CVA with right-sided hemiparesis, diabetes mellitus type 2, chronic pain syndrome, obstructive sleep apnea presented to the emergency department complaining of decreased responsiveness, had tonic-clonic seizures in the emergency department. Patient was worked up in the ED and showed acute renal failure with potassium of 6.6 and despite medical treatment potassium went up to 7.7 and Vas-Cath was placed and emergency dialysis was done. ARF on HD Severe hyperkalemia -Patient potassium went up despite medical treatment and he was treated with hemodialysis and after the potassium was 4.5 this morning -Creatinine is 2.9, nephrology is consulted CVA with right-sided weakness and hyperesthesia, expressive aphasia - Continue his home medications - Pain control Diabetes mellitus type 2 with hyperglycemia - Patient is on the settings to insulin Tonic-clonic seizure - On Keppra History of diverticulitis status post colectomy with colostomy - Continue colostomy care DVT prophylaxis - On heparin Disposition - Transfer to the floor I have discussed the management plan with the patient and his son, it took me > 30 minutes to explain. Patient said he had an appointment with pain clinic tomorrow and considering to left AMA in the morning. The high probability of a clinically significant, sudden or life threatening deterioration of the [Renal, DEBURRER MACHINE] system(s) required my full and direct attention, intervention and personal management. The aggregate critical care time was [x] minutes. This time is in addition to time spent performing reported procedures but includes the following: [x] Data Review and interpretation [x] Patient assessment and monitoring of vital signs [x] Documentation [x] Medication orders and management History Interval history: Patient was seen and evaluated this morning, he was complaining right-sided pain both in his upper and lower extremities after the stroke in May. Hospitalist Physical - Physical exam Narrative exam: Not in cardiopulmonary distress. The patient appeared well nourished and normally developed. Vital signs as documented. Head exam is unremarkable. No scleral icterus . Neck is without jugular venous distension, thyromegaly, or carotid bruits. Lungs are clear to auscultation. Cardiac exam reveals regular rate and Rhythm. First and second heart sounds normal. No murmurs, rubs or gallops. Abdominal exam reveals normal bowel sounds, no masses, no organomegaly and no aortic enlargement. Extremities are hyperstesia in the right upper an d lower extremities DEBURRER MACHINE: Alert and oriented 3. No focal weakness. - Constitutional Vitals: Temp Pulse Resp BP Pulse Ox 98.3 F 106 H 20 129/84 91 02/19/17 16:09 02/19/17 16:09 02/19/17 16:09 02/19/17 16:09 02/19/17 16:09 General appearance: Present: mild distress Results - Labs CBC & Chem 7: 02/19/17 08:45 02/19/17 08:45 Labs: Laboratory Last Values WBC 14.2 K/mm3 (4.5-11.0) H 02/19/17 08:45 RBC 3.77 M/mm3 (3.65-5.03) 02/19/17 08:45 Hgb 10.1 gm/dl (11.8-15.2) L 02/19/17 08:45 Hct 30.9 % (35.5-45.6) L 02/19/17 08:45 MCV 82 fl (84-94) L 02/19/17 08:45 MCH 27 pg (28-32) L 02/19/17 08:45 MCHC 33 % (32-34) 02/19/17 08:45 RDW 13.7 % (13.2-15.2) 02/19/17 08:45 Plt Count 338 K/mm3 (140-440) 02/19/17 08:45 Lymph % (Auto) 7.2 % (13.4-35.0) L 02/19/17 08:45 [place] % (Auto) 7.9 % (0.0-7.3) H 02/19/17 08:45 Eos % (Auto) 0.6 % (0.0-4.3) 02/19/17 08:45 Baso % (Auto) 0.1 % (0.0-1.8) 02/19/17 08:45 Lymph # 1.0 K/mm3 (1.2-5.4) L 02/19/17 08:45 [place] # 1.1 K/mm3 (0.0-0.8) H 02/19/17 08:45 Eos # 0.1 K/mm3 (0.0-0.4) 02/19/17 08:45 Baso # 0.0 K/mm3 (0.0-0.1) 02/19/17 08:45 Seg Neutrophils % 84.2 % (40.0-70.0) H 02/19/17 08:45 Seg Neutrophils # 12.0 K/mm3 (1.8-7.7) H 02/19/17 08:45 PT 13.6 Sec. (12.2-14.9) 02/18/17 16:37 INR 0.99 (0.87-1.13) 02/18/17 16:37 APTT 37.1 Sec. (24.2-36.6) H 02/18/17 16:37 POC ABG pH 7.291 (7.35-7.45) L 02/19/17 00:37 POC ABG pCO2 46.3 (35-45) H 02/19/17 00:37 POC ABG pO2 145 (80-105) H 02/19/17 00:37 POC ABG HCO3 22.3 02/19/17 00:37 POC ABG Total CO2 24 02/19/17 00:37 POC ABG O2 Sat 99 02/19/17 00:37 POC ABG Base Excess -4 02/19/17 00:37 FiO2 40 % 02/19/17 00:37 Sodium 142 mmol/L (137-145) D 02/19/17 08:45 Potassium 4.5 mmol/L (3.6-5.0) D 02/19/17 08:45 Chloride 97.1 mmol/L (98-107) L 02/19/17 08:45 Carbon Dioxide 28 mmol/L (22-30) D 02/19/17 08:45 Anion Gap 21 mmol/L 02/19/17 08:45 BUN 33 mg/dL (9-20) H 02/19/17 08:45 Creatinine 2.9 mg/dL (0.8-1.5) H D 02/19/17 08:45 Estimated GFR 28 ml/min 02/19/17 08:45 BUN/Creatinine Ratio 11 % 02/19/17 08:45 Glucose 228 mg/dL (75-100) H 02/19/17 08:45 POC Glucose 194 (70-105) H 02/19/17 17:10 Lactic Acid 1.60 mmol/L (0.7-2.0) 02/19/17 08:45 Calcium 8.9 mg/dL (8.4-10.2) 02/19/17 08:45 Magnesium 2.30 mg/dL (1.7-2.3) 02/18/17 16:19 Total Bilirubin 0.20 mg/dL (0.1-1.2) 02/18/17 16:19 AST 58 units/L (5-40) H 02/18/17 16:19 ALT 133 units/L (7-56) H 02/18/17 16:19 Alkaline Phosphatase 410 units/L (35-129) H 02/18/17 16:19 Total Creatine Kinase 1275 units/L (55-170) H 02/18/17 16:37 CK-MB (CK-2) 7.6 ng/mL (0.0-4.0) H 02/18/17 16:37 CK-MB (CK-2) Rel Index 0.5 (0-4) 02/18/17 16:37 Troponin T 0.038 ng/mL (0.00-0.029) H 02/18/17 16:37 Total Protein 8.7 g/dL (6.3-8.2) H 02/18/17 16:19 Albumin 4.2 g/dL (3.9-5) 02/18/17 16:19 Albumin/Globulin Ratio 0.9 % 02/18/17 16:19 Triglycerides 265 mg/dL (2-149) H 02/18/17 16:37 Cholesterol 179 mg/dL (50-199) 02/18/17 16:37 LDL Cholesterol Direct 83 mg/dL (50-130) 02/18/17 16:37 HDL Cholesterol 43 mg/dL (40-59) 02/18/17 16:37 Cholesterol/HDL Ratio 4.16 % 02/18/17 16:37 TSH 1.250 mlU/mL (0.270-4.200) 02/18/17 16:37 Free T4 0.90 ng/dL (0.76-1.46) 02/18/17 16:37 Urine Color Yellow (Yellow) 02/19/17 06:30 Urine Turbidity Clear (Clear) 02/19/17 06:30 Urine pH 5.0 (5.0-7.0) 02/19/17 06:30 Ur Specific [place] 1.012 (1.003-1.030) 02/19/17 06:30 Urine Protein 30 mg/dl mg/dL (Negative) 02/19/17 06:30 Urine Glucose (UA) 150 mg/dL (Negative) 02/19/17 06:30 Urine Ketones Neg mg/dL (Negative) 02/19/17 06:30 Urine Blood Lg (Negative) 02/19/17 06:30 Urine Nitrite Neg (Negative) 02/19/17 06:30 Ur Reducing Substances Not Reportable 02/19/17 06:30 Urine Bilirubin Neg (Negative) 02/19/17 06:30 Urine Ictotest Not Reportable 02/19/17 06:30 Urine Urobilinogen < 2.0 mg/dL (<2.0) 02/19/17 06:30 Ur Leukocyte Esterase Neg (Negative) 02/19/17 06:30 Urine WBC (Auto) 7.0 /HPF (0.0-6.0) H 02/19/17 06:30 Urine RBC (Auto) 1.0 /HPF (0.0-6.0) 02/19/17 06:30 Urine Bacteria (Auto) 1+ /HPF (Negative) 02/19/17 06:30 Amorphous Crystals Few 02/18/17 18:24 Urine Mucus Few /HPF 02/19/17 06:30 Salicylates < 0.3 mg/dL (2.8-20.0) L 02/18/17 16:19 Urine Opiates Screen Presumptive positive 02/18/17 18:24 Urine Methadone Screen Presumptive negative 02/18/17 18:24 Acetaminophen < 15.0 ug/mL (10.0-30.0) 02/18/17 16:19 Ur Barbiturates Screen Presumptive negative 02/18/17 18:24 Ur Phencyclidine Scrn Presumptive negative 02/18/17 18:24 Ur Amphetamines Screen Presumptive negative 02/18/17 18:24 U Benzodiazepines Scrn Presumptive negative 02/18/17 18:24 Urine Cocaine Screen Presumptive negative 02/18/17 18:24 U Marijuana (THC) Screen Presumptive negative 02/18/17 18:24 Drugs of Abuse Note Disclamer 02/18/17 18:24 Plasma/Serum Alcohol < 0.01 gm% (0-0.07) 02/18/17 16:19 Hepatitis A IgM Ab Non-reactive (NonReactive) 02/19/17 08:45 Hep Bs Antigen Non-reactive (Negative) 02/19/17 08:45 Hep B Core IgM Ab Non-reactive (NonReactive) 02/19/17 08:45 Hepatitis C Antibody Non-reactive (NonReactive) 02/19/17 08:45
--- NOTE | 2017-02-19 23:50 | Consultation ---
HISTORY OF PRESENT ILLNESS: The patient is a 51-year-old gentleman who presented with a history of stroke, diverticulosis, diverticulitis, colostomy, who is found to have progressive weakness, confusion, with electrolyte disturbance and renal failure. He was admitted to the hospital. PAST MEDICAL HISTORY: As mentioned above including diabetes, hypertension, renal failure, stroke, diverticulitis. PAST SURGICAL HISTORY: Colostomy, knee surgery. FAMILY HISTORY: Noncontributory. ALLERGIES: Negative. MEDICATIONS: Consist of Protonix, Neurontin, lisinopril, amlodipine, aspirin, allopurinol, Crestor. REVIEW OF SYSTEMS: Diabetes and hypertension. He has a colostomy. He has a Gudino now, which is draining clear urine. PHYSICAL EXAMINATION: GENERAL: He is in some discomfort. He is in no distress. ABDOMEN: Soft, nondistended with a healed irregular incision, right-sided colostomy. GENITALIA: Circumcised. There is a Gudino draining. Testes descended bilaterally. RECTAL: Could not be done at this time. He is very uncomfortable. IMPRESSION: History of renal stone. According to his son, he had a large stone and an atrophic ____ atrophic kidney that has been managed conservatively by [place]. We will get a CT to be sure there is no acute obstruction. He has a Gudino that is draining. He has mild anemia. His potassium was 7.4, more recently potassium is 4.5 and with the catheter in, his creatinine has gone down from 6.3-2.9. We will await the CT scan. His white count is 14,000. JOB# [id number] EDY/KAILEY
[2017-02-19] MEDS ORDERED: PROVENTIL IH ONE (23:58)
[2017-02-20] MEDS: DILAUDID IM PRN (01:39)
[2017-02-20 05:47] LABS: Eosinophils % (Auto) 2.9 % (0.0-4.3); Hematocrit 30.1 % (35.5-45.6); Hemoglobin 9.7 gm/dl (11.8-15.2); Mean Corpuscular HGB Conc 32 % (32-34); Mean Corpuscular Hemoglobin 27 pg (28-32); Mean Corpuscular Volume 82 fl (84-94); Platelet Count 317 K/mm3 (140-440); Red Blood Count 3.65 M/mm3 (3.65-5.03); Red Cell Distribution Width 13.7 % (13.2-15.2); White Blood Count 11.8 K/mm3 (4.5-11.0)
[2017-02-20 05:56] LABS: INR 1.04 (0.87-1.13)
[2017-02-20 06:01] LABS: Calcium 9.5 mg/dL (8.4-10.2); Chloride 97.6 mmol/L (98-107); Magnesium 1.7 mg/dL (1.7-2.3); Phosphorous 3.5 mg/dL (2.5-4.5); Potassium 4.8 mmol/L (3.6-5.0)
[2017-02-20 10:40] VITALS: BP 140/86
--- NOTE | 2017-02-20 12:11 | Progress Note ---
Assessment and Plan large stone left upper ureter known to pt and son LK basically non fx by their histort creat 2 improved with foly and poss passed 5 mm r sides stone but RK normal would leave [facility] had retention as well f/u at [facility] can get nuc scam to see if any fx in LK doubtful all explained will need perc if systen gets infected Subjective Date of service: 02/20/17 Principal diagnosis: hydro stones Objective - Constitutional Vitals: Vital Signs - 12hr 02/20/17 02/20/17 02/20/17 01:25 05:12 07:50 Temperature 98.4 F 98.4 F 98.1 F Pulse Rate 108 H Respiratory 18 20 18 Rate Blood Pressure 140/84 140/86 Blood Pressure 142/86 [Right] O2 Sat by Pulse 94 Oximetry General appearance: Present: no acute distress - Gastrointestinal General gastrointestinal: Present: non-tender - Labs CBC & Chem 7: 02/20/17 05:27 02/20/17 05:27 Labs: Abnormal lab results 02/19/17 02/19/17 02/20/17 Range/Units 17:10 22:03 05:27 WBC 11.8 H (4.5-11.0) K/mm3 Hgb 9.7 L (11.8-15.2) gm/dl Hct 30.1 L (35.5-45.6) % MCV 82 L (84-94) fl MCH 27 L (28-32) pg Lymph % (Auto) 13.3 L (13.4-35.0) % Seg Neutrophils % 76.1 H (40.0-70.0) % Seg Neutrophils # 8.9 H (1.8-7.7) K/mm3 Chloride (98-107) mmol/L BUN (9-20) mg/dL Creatinine (0.8-1.5) mg/dL Glucose (75-100) mg/dL POC Glucose 194 H 193 H (70-105) 02/20/17 02/20/17 Range/Units 05:27 07:56 WBC (4.5-11.0) K/mm3 Hgb (11.8-15.2) gm/dl Hct (35.5-45.6) % MCV (84-94) fl MCH (28-32) pg Lymph % (Auto) (13.4-35.0) % Seg Neutrophils % (40.0-70.0) % Seg Neutrophils # (1.8-7.7) K/mm3 Chloride 97.6 L (98-107) mmol/L BUN 32 H (9-20) mg/dL Creatinine 2.0 H (0.8-1.5) mg/dL Glucose 213 H (75-100) mg/dL POC Glucose 244 H (70-105)
--- NOTE | 2017-02-23 12:02 | Discharge Summary ---
Providers - Providers Date of Admission: 02/18/17 19:56 Date of discharge: 02/20/17 Attending physician: BAKARI FLORES MD 02/19/17 10:03 Consult to Physician [CONS] Stat Consulting Provider: MIKE MACARIO Reason For Exam: ccu/ Place consult to:: Luis Notified:: yes Was contact made?: Yes If yes, spoke with:: Luis Time called:: 10:00 Comment:: on unit 02/19/17 10:04 Consult to Wound/ET Nurse [CONS] Urgent Reason For Exam: eval colostomy 02/19/17 12:13 Consult to Physician [CONS] Routine Consulting Provider: SANCHO HENAO Reason For Exam: left sided hydronephrosis Place consult to:: urology Notified:: Dr Uriostegui Was contact made?: Yes If yes, spoke with:: Dr Uriostegui Time called:: 14:00 02/19/17 14:15 Consult to Dietitian/Nutrition [CONS] Routine Physician Instructions: Reason For Exam: Reason for Consult: Diet education Primary care physician: REFERRAL AND INFORMATION AIDE Hospitalization Reason for admission: acute renal failure, severe hyperkalemia Condition: Serious Pertinent studies: CT head Old left frontoparietal cortical CVA is seen with encephalomalacia. Mild chronic small vessel ischemic changes are seen in the left basal ganglia and left recio radiata. No acute abnormalities seen. Renal ultrasound - Prominent left-sided hydronephrosis is seen. This may be chronic, as there is suggestion of cortical thinning. CT abdomen and pelvis - Large stone in the left upper ureter causes prominent left-sided hydronephrosis and renal atrophy. Diverticula are seen near the junction of descending colon and sigmoid colon. Mild changes of diverticulitis are not excluded but the mild homero-toenail changes could be chronic. Hospital course: 51 YO Male with HTN, CVA, DM, Asthma, Gout, CKD, Chronic Pain treated in Pain Clinic, [facility] presents to ED for evaluation. Pt stuporous, unable to provide history, but history is provided by son, who is at bedside during exam and interview. As per son, the patient was in his usual state of health prior to 3 weeks ago. During the past 3 weeks the patient has experienced progressive weakness and worsening confusion resulting in multiple visits to the hospital. At 0700hrs the patient was observed by his son to be sleeping. The son returned home around 1430hrs and found the patient lying down with "foam" around his mouth, and "spitting out phlegm" and would not respond verbally. EMS was notified, and upon arrival, the patient was stuporous, and EMS also reports patient had 15-20 episodes which appeared to be brief generalized tonic-clonic seizures lasting a few seconds each time. Each episode was followed by periods of decreased responsiveness and subsequent lucid intervals. Pt was subsequently transported to [facility] for further evaluation. Pt seen and evaluated in ED and found to have evidence of sepsis, acute respiratory failure, and acute renal failure. Pt treated with sepsis protocol, NIPPV, and therpeutic intervention for hyperkalemia. Nephrology consulted in ED. Patient was treated medically for hyperkalemia but hyperkalemia went up from 7.4-7.7 at that time nephrology was called and recommended emergency hemodialysis and patient does admit to ICU. Patient was emergently dialyzed, his potassium went down to 4.5, creatinine trending down from 3.2-2.1. Patient was also treated on Keppra. Patient had chronic pain and asking for pain medications. Patient was evaluated by urology and CT was done and the result is as stated above. Next morning patient showed improvement and he said he had appointment with pain management doctor at [facility] on the day, and he said he cannot miss that appointment because he has been waiting for long time to get that management. Patient signed AMA and went to [facility] for pain management. Disposition: DC-07 LEFT AGAINST MED ADVICE Time spent for discharge: 31 minutes - Discharge Diagnoses (1) ARF (acute renal failure) Status: Acute (2) Altered mental status Status: Acute (3) Hyperkalemia Status: Acute (4) Respiratory failure Status: Acute (5) Unconscious state Status: Acute Core Measure Documentation - Palliative Care Palliative Care/ Comfort Measures: Not Applicable - Core Measures Any of the following diagnoses?: history only (Stroke) Exam - Physical Exam Narrative exam: Not in cardiopulmonary distress. The patient appeared well nourished and normally developed. Vital signs as documented. Head exam is unremarkable. No scleral icterus . Neck is without jugular venous distension, thyromegaly, or carotid bruits. Lungs are clear to auscultation. Cardiac exam reveals regular rate and Rhythm. First and second heart sounds normal. No murmurs, rubs or gallops. Abdominal exam reveals colostomy bag in place. Extremities are hyperstesia in the right upper an d lower extremities PROCESS SAFETY ENGINEER: Alert and oriented 3. Right sided weakness and paresthesia. - Constitutional Vitals: Temp Pulse Resp BP Pulse Ox 98.1 F 108 H 18 140/86 94 02/20/17 07:50 02/20/17 01:25 02/20/17 07:50 02/20/17 07:50 02/20/17 01:25 Plan Activity: fall precautions Weight Bearing Status: Partial Weight Bearing Diet: low cholesterol, low salt Follow up with: PRIMARY CARE, [Primary Care Provider] - 3-5 Days Forms: AMA Form
== END 2017-02-20 12:14 | disposition left against medical advice (07) | DRG 871 ==
LOC: ED 15:41 → 4A 19:56 → CC1 23:43 → 4A 02-19 16:25
PROVIDERS: ADMIT Internal Medicine; ATTEND Internal Medicine
PROC: 5A09357 Assistance with Respiratory Ventilation, Less than 24 Consecutive Hours, Continuous Positive Airway Pressure (ICD-10-PCS; 2017-02-18)
PROC: 4A033R1 Measurement of Arterial Saturation, Peripheral, Percutaneous Approach (ICD-10-PCS; 2017-02-18)
PROC: 5A1D70Z Performance of Urinary Filtration, Intermittent, Less than 6 Hours Per Day (ICD-10-PCS; principal; 2017-02-19)
PROC: 06HN33Z Insertion of Infusion Device into Left Femoral Vein, Percutaneous Approach (ICD-10-PCS; 2017-02-19)
PROC: B54CZZA Ultrasonography of Left Lower Extremity Veins, Guidance (ICD-10-PCS; 2017-02-19)
DX: A41.9 Sepsis, unspecified organism (principal); J96.00 Acute respiratory failure, unspecified whether with hypoxia or hypercapnia; J69.0 Pneumonitis due to inhalation of food and vomit; N18.6 End stage renal disease; N17.9 Acute kidney failure, unspecified; I12.0 Hypertensive chronic kidney disease with stage 5 chronic kidney disease or end stage renal disease; G40.89 Other seizures; N13.2 Hydronephrosis with renal and ureteral calculous obstruction; Z53.21 Procedure and treatment not carried out due to patient leaving prior to being seen by health care provider; J45.909 Unspecified asthma, uncomplicated; M10.9 Gout, unspecified; E11.22 Type 2 diabetes mellitus with diabetic chronic kidney disease; G47.33 Obstructive sleep apnea (adult) (pediatric); E87.5 Hyperkalemia; K57.90 Diverticulosis of intestine, part unspecified, without perforation or abscess without bleeding; D64.9 Anemia, unspecified; G89.4 Chronic pain syndrome; I69.351 Hemiplegia and hemiparesis following cerebral infarction affecting right dominant side; Z79.82 Long term (current) use of aspirin; Z79.4 Long term (current) use of insulin; Z79.899 Other long term (current) drug therapy; Z83.3 Family history of diabetes mellitus; Z82.49 Family history of ischemic heart disease and other diseases of the circulatory system; Z91.013 Allergy to seafood; Z93.3 Colostomy status; Z87.442 Personal history of urinary calculi
CPT/HCPCS: 36415; 36600; 70450; 71010; 74176; 76770; 80048; 80053; 80061; 80074; 80307; 80320; 81001; 82140; 82550; 82553; 82803; 82962; 83735; 84100; 84132; 84439; 84443; 84484; 85025; 85610; 85730; 87040; 93005; 93010; 94640; 94644; 94660; 94760; 96374; 96375; 99285; G0480; J0295; J0610; J1170; J1644; J1815; J1953; J2310; J3370; J7030

== ENCOUNTER 2017-06-30 13:45 | Inpatient (IN) | payer OTHER ==
[2017-06-30] MEDS ORDERED: NACL 0.9% 500 ML 500 ML IV ONE (13:59)
[2017-06-30] MEDS ORDERED: NACL 0.9% 1000 ML IV ONE (14:16)
[2017-06-30] MEDS ORDERED: VANCOMYCIN/NS 1 GM/250 ML 1 GM/250 ML BAG IV ONE (14:16)
--- NOTE | 2017-06-30 14:40 | Emergency Department Report ---
ED Altered Mental Status HPI - General Chief Complaint: Altered Mental Status Stated Complaint: SEPSIS Time Seen by Provider: 06/30/17 14:05 Source: EMS Mode of arrival: Stretcher Limitations: Altered Mental Status, Other - History of Present Illness Initial Comments: History obtained from EMS. Patient was found down and confused by family members who came over to check on the patient. Unknown last known well. Appears to be profoundly dehydrated. Patient is lethargic and disoriented. MD Complaint: altered mental status - Related Data Home Medications Medication Instructions Recorded Confirmed Last Taken Allopurinol [Zyloprim] 100 mg PO BID 02/18/17 02/18/17 02/17/17 Amlodipine Besylate [Norvasc] 10 mg PO QDAY 02/18/17 02/18/17 02/17/17 Duloxetine HCl [Cymbalta] 60 mg PO HS 02/18/17 02/18/17 02/17/17 Gabapentin [Neurontin] 2 cap PO BID 02/18/17 02/18/17 02/17/17 [place]-3S/Dha/Epa/Fish Oil [Fish 2 cap PO BID 02/18/17 02/18/17 02/17/17 Oil [place]-3 Softgel] Pantoprazole [Protonix TAB] 40 mg PO QAM 02/18/17 02/18/17 02/17/17 Rosuvastatin (Nf) [Crestor] 20 mg PO DAILY 02/18/17 02/18/17 02/17/17 Sodium Bicarbonate 650 mg PO TID 02/18/17 02/18/17 02/17/17 Previous Rx's Medication Instructions Recorded Last Taken Type Aspirin EC [Aspirin Enteric Coated 81 mg PO QDAY #30 tablet 08/15/16 02/17/17 Rx TAB] Lisinopril [Zestril TAB] 20 mg PO QDAY #30 tablet 08/15/16 02/17/17 Rx Allergies Allergy/AdvReac Type Severity Reaction Status Date / Time shellfish derived Allergy Swelling Verified 10/11/14 19:30 ED Review of Systems ROS: Stated complaint: SEPSIS Other details as noted in HPI Comment: Unobtainable due to pts medical conditions ED Past Medical Hx - Past Medical History Hx Hypertension: Yes Hx CVA: Yes Hx Congestive Heart Failure: No Hx Diabetes: Yes (NOT ON MEDS) Hx Asthma: Yes Hx COPD: No Additional medical history: GOUT, sleep apnea and uses CPAP at home - Surgical History Additional Surgical History: rt knee surgery - Social History Smoking Status: Unknown if ever smoked - Medications Home Medications: Home Medications Medication Instructions Recorded Confirmed Last Taken Type Aspirin EC [Aspirin Enteric Coated 81 mg PO QDAY #30 tablet 08/15/16 02/18/17 Rx TAB] Lisinopril [Zestril TAB] 20 mg PO QDAY #30 tablet 08/15/16 02/18/17 02/17/17 Rx Allopurinol [Zyloprim] 100 mg PO BID 02/18/17 02/18/17 02/17/17 History Amlodipine Besylate [Norvasc] 10 mg PO QDAY 02/18/17 02/18/17 02/17/17 History Duloxetine HCl [Cymbalta] 60 mg PO HS 02/18/17 02/18/17 02/17/17 History Gabapentin [Neurontin] 2 cap PO BID 02/18/17 02/18/17 02/17/17 History [place]-3S/Dha/Epa/Fish Oil [Fish 2 cap PO BID 02/18/17 02/18/17 02/17/17 History Oil [place]-3 Softgel] Pantoprazole [Protonix TAB] 40 mg PO QAM 02/18/17 02/18/17 02/17/17 History Rosuvastatin (Nf) [Crestor] 20 mg PO DAILY 02/18/17 02/18/17 02/17/17 History Sodium Bicarbonate 650 mg PO TID 02/18/17 02/18/17 02/17/17 History ED Physical Exam - General Limitations: Altered Mental Status (GCS: 13), Other General appearance: lethargic, obtunded - Head Head exam: Present: atraumatic, normocephalic - Eye Eye exam: Present: normal appearance - ENT ENT exam: Present: mucous membranes dry - Respiratory Respiratory exam: Present: normal lung sounds bilaterally. Absent: respiratory distress - Cardiovascular Cardiovascular Exam: Present: regular rate, normal rhythm, tachycardia. Absent : systolic murmur, diastolic murmur, rubs, gallop - GI/Abdominal GI/Abdominal exam: Present: soft, other (beefy red stoma present). Absent: tenderness - Neurological Exam Neurological exam: Present: altered - Skin Skin exam: Present: dry ED Course Vital Signs 06/30/17 06/30/17 13:54 13:58 Temperature 97.3 F L Pulse Rate 95 H 93 H Respiratory 22 Rate Blood Pressure 141/103 - Lab Data Result diagrams: 06/30/17 14:35 06/30/17 14:05 Lab Results 06/30/17 06/30/17 06/30/17 Range/Units 14:05 14:05 14:35 WBC 16.5 H (4.5-11.0) K/mm3 RBC 4.03 (3.65-5.03) M/mm3 Hgb 10.6 L (11.8-15.2) gm/dl Hct 37.1 (35.5-45.6) % MCV 92 (84-94) fl MCH 26 L (28-32) pg MCHC 29 L (32-34) % RDW 14.7 (13.2-15.2) % Plt Count 341 (140-440) K/mm3 Lymph % (Auto) Profiling Machine Set Up Operator [place] % (Auto) Profiling Machine Set Up Operator Eos % (Auto) Profiling Machine Set Up Operator Baso % (Auto) Profiling Machine Set Up Operator Lymph # Profiling Machine Set Up Operator [place] # Profiling Machine Set Up Operator Eos # Profiling Machine Set Up Operator Baso # Profiling Machine Set Up Operator Seg Neutrophils % Profiling Machine Set Up Operator Seg Neutrophils # Profiling Machine Set Up Operator PT 13.9 (12.2-14.9) Sec. INR 1.02 (0.87-1.13) VBG pH (7.320-7.420) Sodium 126 L (137-145) mmol/L Potassium 10.0 H* (3.6-5.0) mmol/L Chloride 90.8 L (98-107) mmol/L Carbon Dioxide 6 L* (22-30) mmol/L Anion Gap 39 mmol/L BUN 134 H (9-20) mg/dL Creatinine 18.0 H (0.8-1.5) mg/dL Estimated GFR 3 ml/min BUN/Creatinine Ratio 7 % Glucose 203 H (75-100) mg/dL Lactic Acid (0.7-2.0) mmol/L Calcium 10.0 (8.4-10.2) mg/dL Phosphorus (2.5-4.5) mg/dL Total Bilirubin 0.20 (0.1-1.2) mg/dL AST 14 (5-40) units/L ALT 17 (7-56) units/L Alkaline Phosphatase 126 (35-129) units/L Total Protein 8.3 H (6.3-8.2) g/dL Albumin 4.1 (3.9-5) g/dL Albumin/Globulin Ratio 1.0 % 06/30/17 06/30/17 06/30/17 Range/Units 14:35 15:02 15:05 WBC (4.5-11.0) K/mm3 RBC (3.65-5.03) M/mm3 Hgb (11.8-15.2) gm/dl Hct (35.5-45.6) % MCV (84-94) fl MCH (28-32) pg MCHC (32-34) % RDW (13.2-15.2) % Plt Count (140-440) K/mm3 Lymph % (Auto) [place] % (Auto) Eos % (Auto) Baso % (Auto) Lymph # [place] # Eos # Baso # Seg Neutrophils % Seg Neutrophils # PT (12.2-14.9) Sec. INR (0.87-1.13) VBG pH 6.967 L* (7.320-7.420) Sodium (137-145) mmol/L Potassium (3.6-5.0) mmol/L Chloride (98-107) mmol/L Carbon Dioxide (22-30) mmol/L Anion Gap mmol/L BUN (9-20) mg/dL Creatinine (0.8-1.5) mg/dL Estimated GFR ml/min BUN/Creatinine Ratio % Glucose (75-100) mg/dL Lactic Acid 3.00 H* (0.7-2.0) mmol/L Calcium (8.4-10.2) mg/dL Phosphorus 11.40 H (2.5-4.5) mg/dL Total Bilirubin (0.1-1.2) mg/dL AST (5-40) units/L ALT (7-56) units/L Alkaline Phosphatase (35-129) units/L Total Protein (6.3-8.2) g/dL Albumin (3.9-5) g/dL Albumin/Globulin Ratio % - EKG Data -: EKG Interpreted by Tn EKG shows normal: sinus rhythm, axis, QRS complexes, ST-T waves Rate: normal Interpretation: other (1st degree heart block) - Radiology Data Radiology results: report reviewed - Medical Decision Making 51-year-old male presents to the ER with altered mental status. Patient is hypotensive and clinically dry on presentation. It is made sepsis alert. Patient was given aggressive IV fluid hydration and broad-spectrum antibiotics. Lab work shows concerns for septic shock with an organ damage. Patient is in acute renal failure with a creatinine of 18, BUN of 160. His potassium was elevated at 10. EKG showed only first-degree heart block. Repeat potassium has been ordered. Bicarbonate is 6. Due to profound electrolyte arrangements, I talked with Dr. Hammer, nephrology, who agreed for emergent dialysis. Patient will be admitted for further medical intervention. 1. Septic shock 2. Acute Renal Failure 3. Hyperkalemia 4. Metabolic acidosis 5. 1st degree heart block 6. Encephalopathy - Differential Diagnosis sepsis, lizette, uti, pna, rhabdo, meningitis Critical care time in (mins) excluding proc time.: 60 Critical care attestation.: If time is entered above; I have spent that time in minutes in the direct care of this critically ill patient, excluding procedure time. ED Disposition Clinical Impression: Septic shock, Encephalopathy, Acute renal failure, Hyperkalemia, Metabolic acidosis Disposition: DC-09 OP ADMIT IP TO THIS HOSP Is pt being admited?: Yes Does the pt Need Aspirin: No Condition: Stable
[2017-06-30 14:41] LABS: INR 1.02 (0.87-1.13)
[2017-06-30 14:47] LABS: Albumin 4.1 g/dL (3.9-5)
[2017-06-30] MEDS ORDERED: VANCOMYCIN/0.45 NS 1 GM/250 ML 1 GM/250 ML BAG IV SCH (15:00)
[2017-06-30] MEDS ORDERED: VANCOMYCIN PHARMACY TO DOSE IV SCH (15:00)
[2017-06-30] MEDS ORDERED: ZOSYN/NS 4.5GM/100ML 4.5 GM/100 ML VIAL IV ONE (15:00)
--- NOTE | 2017-06-30 15:23 | XRay Report ---
AP CHEST: HISTORY: Sepsis AP view of the chest demonstrates a normal mediastinal and cardiac contour with clear lungs and normal bony and soft tissue structures. IMPRESSION: Unremarkable AP chest. No significant change since 02/18/17.
[2017-06-30 15:26] LABS: Mean Corpuscular HGB Conc 29 % (32-34); Mean Corpuscular Hemoglobin 26 pg (28-32); Mean Corpuscular Volume 92 fl (84-94); Platelet Count 341 K/mm3 (140-440); Red Blood Count 4.03 M/mm3 (3.65-5.03); Red Cell Distribution Width 14.7 % (13.2-15.2)
[2017-06-30 15:27] LABS: Hematocrit 37.1 % (35.5-45.6); Hemoglobin 10.6 gm/dl (11.8-15.2)
--- NOTE | 2017-06-30 15:46 | History and Physical Report ---
History of Present Illness Chief complaint: Unresponsive History of present illness: 51 YO Male with HTN, CVA, DM, Asthma, Gout, CKD, Chronic Pain treated in Pain Clinic, [facility]O presents to ED for evaluation. Pt stuporous, unable to provide history, but history is provided by family, who is at bedside during exam and interview. As per family, the patient was in his usual state of health approximately 1 week ago. No communication has been had with the patient over the past several days. Patient was found down and unresponsive by family memebers today when conducting a well check. EMS was notified, and upon arrival , the patient was found to be stuporous, and severely dehydrated. Pt was subsequently transported to [facility] for further care and evaluation. Pt seen and evaluated in ED and found to have evidence of sepsis, acute respiratory failure , and acute renal failure, and encephalopathy. Pt treated with sepsis protocol, NIPPV, and therapeutic intervention for hyperkalemia. Nephrology consulted in ED. Past History Past Medical History: diabetes, hypertension, stroke, other (Gout, ARMANDO) Past Surgical History: bowel surgery, Other (bowel surgery, Other (Right Knee surgery, colostomy, )) Social history: single. denies: smoking Family history: diabetes, hypertension Medications and Allergies Allergies Allergy/AdvReac Type Severity Reaction Status Date / Time shellfish derived Allergy Swelling Verified 10/11/14 19:30 Home Medications Medication Instructions Recorded Confirmed Last Taken Type Duloxetine HCl [Cymbalta] 60 mg PO HS 02/18/17 06/30/17 02/17/17 History Gabapentin [Neurontin] 2 cap PO BID 02/18/17 06/30/17 02/17/17 History Lisinopril [Zestril TAB] 10 mg PO QDAY 06/30/17 06/30/17 Unknown History Active Meds: Active Medications Vancomycin HCl 1,750 mg/ (Sodium Chloride) 517.5 mls @ 333.333 mls/hr IV ONCE ONE Stop: 06/30/17 17:33 Vancomycin HCl (Vancomycin Pharmacy To Dose) 1 each IV PKCONSULT NIALL Review of Systems ROS unobtainable: due to mental status Exam - Constitutional Vitals: Temp Pulse Resp BP Pulse Ox 97.3 F L 93 H 22 141/103 06/30/17 13:54 06/30/17 13:58 06/30/17 13:54 06/30/17 13:54 General appearance: Present: severe distress - EENT Eyes: Present: miosis - Neck Neck: Present: supple, normal ROM - Respiratory Respiratory effort: labored Respiratory: bilateral: diminished, rhonchi - Cardiovascular Rhythm: other (tachycardic) Heart Sounds: Present: S1 & S2. Absent: rub, click Peripheral Pulses: abnormal (capillary refill greater than 3.6 seconds') - Abdominal General gastrointestinal: Present: soft, non-tender, non-distended, normal bowel sounds Male genitourinary: Present: normal - Integumentary Integumentary: Present: clear, dry, clammy, decreased turgor - Musculoskeletal Musculoskeletal: generalized weakness - Psychiatric Psychiatric: no intact judgment & insight, no memory intact - Neurologic Neurologic: moves all extremities, no gait normal Results - Labs CBC & Chem 7: 06/30/17 14:35 06/30/17 17:10 Labs: Abnormal lab results 06/30/17 06/30/17 06/30/17 Range/Units 14:05 14:35 14:35 WBC 16.5 H (4.5-11.0) K/mm3 Hgb 10.6 L (11.8-15.2) gm/dl MCH 26 L (28-32) pg MCHC 29 L (32-34) % VBG pH (7.320-7.420) Sodium 126 L (137-145) mmol/L Potassium 10.0 H* (3.6-5.0) mmol/L Chloride 90.8 L (98-107) mmol/L Carbon Dioxide 6 L* (22-30) mmol/L BUN 134 H (9-20) mg/dL Creatinine 18.0 H (0.8-1.5) mg/dL Glucose 203 H (75-100) mg/dL Lactic Acid 3.00 H* (0.7-2.0) mmol/L Phosphorus (2.5-4.5) mg/dL Total Protein 8.3 H (6.3-8.2) g/dL 06/30/17 06/30/17 Range/Units 15:02 15:05 WBC (4.5-11.0) K/mm3 Hgb (11.8-15.2) gm/dl MCH (28-32) pg MCHC (32-34) % VBG pH 6.967 L* (7.320-7.420) Sodium (137-145) mmol/L Potassium (3.6-5.0) mmol/L Chloride (98-107) mmol/L Carbon Dioxide (22-30) mmol/L BUN (9-20) mg/dL Creatinine (0.8-1.5) mg/dL Glucose (75-100) mg/dL Lactic Acid (0.7-2.0) mmol/L Phosphorus 11.40 H (2.5-4.5) mg/dL Total Protein (6.3-8.2) g/dL Assessment and Plan - Patient Problems (1) Sepsis Current Visit: Yes Status: Acute Qualifiers: Sepsis type: sepsis due to unspecified organism Qualified Code(s): A41.9 - Sepsis, unspecified organism Plan to address problem: Severe Sepsis: Sepsis Protocol: IV antibiotics, Blood cultures, IVF resuscitation, monitor uop q shift, serial lactic acid levels, maintain MAP above 60, urinalysis, chest x ray The high probability of a clinically significant, sudden or life threatening deterioration of the [cardiac, renal, neuro, endocrine] system(s) required my full and direct attention, intervention and personal management. The aggregate critical care time was [65] minutes. This time is in addition to time spent performing reported procedures but includes the following: [x] Data Review and interpretation [x] Patient assessment and monitoring of vital signs [x] Documentation [x] Medication orders and management (2) ARF (acute renal failure) Current Visit: Yes Status: Acute Qualifiers: Acute renal failure type: with acute tubular necrosis Qualified Code(s): N17.0 - Acute kidney failure with tubular necrosis Plan to address problem: Nephrology consulted, IVF resuscitation, urgent dialysis as per renal team, when patient is medically stable, avoid nephrotoxic agents. (3) Encephalopathy Current Visit: Yes Status: Acute Plan to address problem: CT head, neuro checks, seizure precautions, treat sepsis, (4) Metabolic acidosis Current Visit: Yes Status: Acute Plan to address problem: IVF resuscitations, monitor lactic acid levels, treat sepsis, dialysis when medically stable (5) DVT prophylaxis Current Visit: No Status: Acute Plan to address problem: SCD to BLE while in bed
[2017-06-30] MEDS ORDERED: VANCOMYCIN VIAL IV ONE (15:53)
[2017-06-30] MEDS ORDERED: VANCOMYCIN 1,750 MG in NACL 0.9% 500 ML 500 ML IV ONE (16:00)
[2017-06-30 16:04] LABS: Total Cells Counted 100
[2017-06-30 16:05] LABS: Band Neutrophils # (Manual) 0.3 K/mm3; Basophils % (Manual) 0 % (0.0-1.8); RBC Morphology Normal
[2017-06-30] MEDS ORDERED: ATIVAN IV ONE (16:13)
--- NOTE | 2017-06-30 16:14 | Event Note ---
Date: 06/30/17 KarenCatdebbie requested by ER doctor. Will place at bedside. Two physician consent obtained - patient with AMS and no known contacts.
[2017-06-30] MEDS ORDERED: HEPARIN 10,000 UNITS/10 ML ONE (16:20)
[2017-06-30] MEDS ORDERED: ADRENALIN ONE (16:45)
[2017-06-30] MEDS ORDERED: NACL 0.9% 1000 ML 1,000 ML ONE (16:58)
[2017-06-30] MEDS: LEVOPHED DRIP 4 MG/NS 250 ML 4 MG/250 ML BAG IV SCH (17:00)
[2017-06-30] MEDS: SODIUM CHLORIDE FLUSH SYRINGE 10 ML IV PRN (17:32)
--- NOTE | 2017-06-30 18:06 | Post Operative Note ---
Pre-op diagnosis: ARF Post-op diagnosis: same Procedure: 30cm trialysis vascath via left CFV Anesthesia: local Surgeon: AR HAND Estimated blood loss: none Pathology: none Condition: critical Disposition: ICU
[2017-06-30] MEDS ORDERED: NACL 0.9% 1000 ML 1,000 ML IV ONE (18:31)
[2017-06-30] MEDS ORDERED: NACL 0.9% 100 ML IV PRN (19:06)
--- NOTE | 2017-06-30 19:06 | Consultation ---
History of Present Illness - History of Present Illness Thank you for the consultation patient was evaluated today At 400 PM in the afternoon Source of information; current chart emergency room physician patient's son, old records were also reviewed patient encephalopathic History of presenting illness; Patient is a 51-year-old male who has been admitted here with altered mental status severe renal failure hyperkalemia and metabolic acidosis leukocytosis and lactic acidosis. I was called by the ER physician about the patient see him , I found him encephalopathic and patient was not able to provide any history, since potassium was hemolyzed repeat labs were sent. patient was taking lisinopril at home. In the meantime I did call patient's son over the phone who told me the patient does have history of long-standing renal failure and according to him what he has been told by [facility] that his only one kidneys working and he also does have history of kidney stones which has affected his kidneys however the revealed ultrasonogram done here in February does not show anything like that other than hydronephrosis According to his son patient in the past according to his son he has received one dialysis treatment. Sepsis protocol was followed and patient was given IV fluid and antibiotics were administered in the ER. He does not use any follow- up his goodies noticed vital medication cause of kidney failure has been mostly resulting from the kidney stone. He does not have any further information about the patient other than what is in the current record which was reviewed today Past medical history significant for Chronic kidney disease Acute renal failure Kidney stone Gout hyperuricemia Neuropathy Hyperlipidemia Metabolic acidosis Solitary functioning kidney per patient's son ? reliable historian Home medications: Reviewed in the chart Current allergies: Shellfish Social history: No recent history of alcohol or tobacco abuse Family history: Noncontributory for related disorder Review of systems positive for; altered mental status confusion, patient was also noted to be dehydrated Labs and x-rays: Were reviewed from the current chart Physical examination General: No acute distress HEENT: Oral mucosa very dry has uremic odor Neck: Supple no evidence of any thyromegaly trachea midline no JVD Chest: Clear to auscultation no crackles are also wheezes anteriorly Heart: Regular rate and rhythm S1-S2 heard no S3-S4 Abdomen: Soft nontender no renal bruit no CVA tenderness no suprapubic fullness no organomegaly, does have right-sided ostomy dry skin Extremity: very dry skin no peripheral cyanosis pulses palpable Neurological: Alert awake follows command grossly nonfocal examination, occasionally has myoclonic jerks Back: Nontender thoracolumbar spine Musculoskeletal: No joint effusion noted Skin: No petechial rash/noted Assessment and plan Acute on chronic renal failure in a patient who has known history of chronic kidney disease, according to patient's son he has solitary functioning kidney and is currently being followed by a very adverse to hospital Severe hyperkalemia and metabolic acidosis noted in the ER without any significant EKG changes discussed with ER physician, patient is a need for coronary replacement therapy, Severe leukocytosis: Multifactorial elevated lactic acid currently improving Significant hyperphosphatemia Needs workup for renal failure is stat hemodialysis Suggested dialysis catheter Patient's son was counseled and educated agrees with renal replacement therapy knowing the risk and benefit We'll continue to follow and make recommendations from renal standpoint. If you have any questions please feel free to contact me at [phone] Thank you for the consultation. Medications and Allergies Allergies Allergy/AdvReac Type Severity Reaction Status Date / Time shellfish derived Allergy Swelling Verified 10/11/14 19:30 Home Medications Medication Instructions Recorded Confirmed Last Taken Type Duloxetine HCl [Cymbalta] 60 mg PO HS 02/18/17 06/30/17 02/17/17 History Gabapentin [Neurontin] 2 cap PO BID 02/18/17 06/30/17 02/17/17 History Lisinopril [Zestril TAB] 10 mg PO QDAY 06/30/17 06/30/17 Unknown History Active Meds: Active Medications Famotidine (Pepcid) 20 mg IV DAILY NIALL Piperacillin Sod/Tazobactam Sod (Zosyn/Ns 2.25 Gm/50ml) 2.25 gm in 50 mls @ 100 mls/hr IV Q12HR NIALL Norepinephrine (Levophed Drip 4 Mg/Ns 250 Ml) 4 mg in 250 mls @ 7.5 mls/hr IV TITR NIALL; Protocol Last Admin: 06/30/17 17:00 Dose: 5 mcg/min, 18.75 mls/hr Sodium Chloride (Nacl 0.9% 1000 Ml) 1,000 mls @ 999 mls/hr IV BOLUS ONE Stop: 06/30/17 19:31 Last Admin: 06/30/17 19:03 Dose: 999 mls/hr Sodium Chloride (Sodium Chloride Flush Syringe 10 Ml) 10 ml IV BID NIALL Sodium Chloride (Sodium Chloride Flush Syringe 10 Ml) 10 ml IV PRN PRN PRN Reason: LINE FLUSH Last Admin: 06/30/17 17:32 Dose: 10 ml Vancomycin HCl (Vancomycin Pharmacy To Dose) 1 each IV PKCONSULT NIALL Exam - Vital Signs Vital signs: Vital Signs Temp Pulse Resp BP 97.3 F L 95 H 22 141/103 06/30/17 13:54 06/30/17 13:54 06/30/17 13:54 06/30/17 13:54 Results - Lab Results 06/30/17 14:35 07/01/17 08:26 Most recent lab results Calcium 10.0 mg/dL (8.4-10.2) 06/30/17 14:05 Phosphorus 11.40 mg/dL (2.5-4.5) H 06/30/17 15:05
[2017-06-30] MEDS ORDERED: HALDOL IV ONE (19:15)
--- NOTE | 2017-06-30 20:41 | Cat Scan Report ---
FINAL REPORT PROCEDURE: CT HEAD/BRAIN WO CON TECHNIQUE: Computerized tomography of the head was performed without contrast material. HISTORY: altered mental status COMPARISON: 02/18/2017 FINDINGS: Skull and scalp: Normal. Paranasal sinuses: Normal. Ventricles and subarachnoid spaces: There is mild central and cortical atrophy. There is no hydrocephalus or asymmetry per. Cerebrum: No evidence of hemorrhage, acute infarction or mass. There is focal encephalomalacia in the left parietal lobe consistent with an old infarct. This is unchanged from the prior study. Cerebellum and brainstem: No evidence of hemorrhage, acute infarction or mass. Vasculature: Normal. Comments: None. IMPRESSION: Old left parietal infarct. No acute abnormality is identified.
[2017-06-30] MEDS ORDERED: ZOSYN/NS 4.5GM/100ML 4.5 GM/100 ML VIAL IV SCH (22:00)
[2017-06-30] MEDS ORDERED: VERSED ONE (22:12)
[2017-06-30] MEDS ORDERED: VERSED IV ONE (22:17)
[2017-06-30] MEDS ORDERED: DIPRIVAN 10 MG/ML IV ONE (22:36)
--- NOTE | 2017-06-30 23:19 | Progress Note ---
Subjective Date of service: 06/30/17 Principal diagnosis: respiratory failure Interval history: I was notified by boiler house supervisor to report to ICU room 255 STAT. On arrival, patient appears sedate with RT supporting ventilation with bag/mask with laryngoscope and suction. O2 saturation >95%. Report of 2mg of Versed given. Report of inability to visualize vocal cords. Report of very elevated potassium. Mask ventilation difficult. Requested a vial of propofol. Nurse administered 140mg at my direction. Mac 4 blade did not lift the epiglottis out of the line of site. Mask ventilation. Ashley 3 provided a grade 4 view but tube would not pass. Mask ventilation. Asked for Joiner scope. Delivered the other 60mg of the propofol. Joiner scope provided a grade 2 view of which was very anterior 7.5 ETT passed atraumatically but still difficult with the anterior aspect of the airway Fog in tube. Color change on CO2. Breath sounds equal bilaterally. Assisted RT in securing the tube at 24cm. Nurse plans on obtaining chest xray Care returned to the primary team. Objective - Constitutional Vitals: Vital Signs - 12hr 06/30/17 06/30/17 06/30/17 13:54 13:58 14:48 Temperature 97.3 F L 97 F L Pulse Rate 95 H 93 H 110 H Respiratory 22 22 Rate Blood Pressure 141/103 Blood Pressure 76/40 [Right] O2 Sat by Pulse 100 Oximetry 06/30/17 06/30/17 06/30/17 16:49 17:05 17:42 Temperature Pulse Rate 110 H 110 H 114 H Respiratory 18 18 15 Rate Blood Pressure Blood Pressure 95/45 98/61 [Right] O2 Sat by Pulse 99 100 100 Oximetry 06/30/17 06/30/17 06/30/17 17:46 17:50 18:00 Temperature Pulse Rate 113 H 112 H 111 H Respiratory 15 18 14 Rate Blood Pressure 113/34 99/53 Blood Pressure 97/45 [Right] O2 Sat by Pulse 100 100 100 Oximetry 06/30/17 06/30/17 06/30/17 18:16 18:30 18:46 Temperature Pulse Rate 116 H 117 H 115 H Respiratory 16 17 16 Rate Blood Pressure 99/53 106/46 99/53 Blood Pressure [Right] O2 Sat by Pulse 100 100 100 Oximetry 06/30/17 19:00 Temperature Pulse Rate 114 H Respiratory 17 Rate Blood Pressure 96/47 Blood Pressure [Right] O2 Sat by Pulse 100 Oximetry - Labs CBC & Chem 7: 06/30/17 14:35 06/30/17 17:10 Labs: Abnormal lab results 06/30/17 06/30/17 06/30/17 Range/Units 14:05 14:35 14:35 WBC 16.5 H (4.5-11.0) K/mm3 Hgb 10.6 L (11.8-15.2) gm/dl MCH 26 L (28-32) pg MCHC 29 L (32-34) % Seg Neuts % (Manual) 81.0 H (40.0-70.0) % Lymphocytes % (Manual) 10.0 L (13.4-35.0) % Seg Neutrophils # Man 13.4 H (1.8-7.7) K/mm3 Monocytes # (Manual) 1.0 H (0.0-0.8) K/mm3 VBG pH (7.320-7.420) Sodium 126 L (137-145) mmol/L Potassium 10.0 H* (3.6-5.0) mmol/L Chloride 90.8 L (98-107) mmol/L Carbon Dioxide 6 L* (22-30) mmol/L BUN 134 H (9-20) mg/dL Creatinine 18.0 H (0.8-1.5) mg/dL Glucose 203 H (75-100) mg/dL POC Glucose (70-105) Lactic Acid 3.00 H* (0.7-2.0) mmol/L Phosphorus (2.5-4.5) mg/dL Ammonia (25-60) umol/L Total Creatine Kinase (55-170) units/L Total Protein 8.3 H (6.3-8.2) g/dL 06/30/17 06/30/17 06/30/17 Range/Units 15:02 15:05 15:05 WBC (4.5-11.0) K/mm3 Hgb (11.8-15.2) gm/dl MCH (28-32) pg MCHC (32-34) % Seg Neuts % (Manual) (40.0-70.0) % Lymphocytes % (Manual) (13.4-35.0) % Seg Neutrophils # Man (1.8-7.7) K/mm3 Monocytes # (Manual) (0.0-0.8) K/mm3 VBG pH 6.967 L* (7.320-7.420) Sodium (137-145) mmol/L Potassium (3.6-5.0) mmol/L Chloride (98-107) mmol/L Carbon Dioxide (22-30) mmol/L BUN (9-20) mg/dL Creatinine (0.8-1.5) mg/dL Glucose (75-100) mg/dL POC Glucose (70-105) Lactic Acid (0.7-2.0) mmol/L Phosphorus 11.40 H (2.5-4.5) mg/dL Ammonia 61.0 H (25-60) umol/L Total Creatine Kinase (55-170) units/L Total Protein (6.3-8.2) g/dL 06/30/17 06/30/17 06/30/17 Range/Units 17:10 17:10 20:57 WBC (4.5-11.0) K/mm3 Hgb (11.8-15.2) gm/dl MCH (28-32) pg MCHC (32-34) % Seg Neuts % (Manual) (40.0-70.0) % Lymphocytes % (Manual) (13.4-35.0) % Seg Neutrophils # Man (1.8-7.7) K/mm3 Monocytes # (Manual) (0.0-0.8) K/mm3 VBG pH (7.320-7.420) Sodium (137-145) mmol/L Potassium 8.0 H* (3.6-5.0) mmol/L Chloride (98-107) mmol/L Carbon Dioxide (22-30) mmol/L BUN (9-20) mg/dL Creatinine (0.8-1.5) mg/dL Glucose (75-100) mg/dL POC Glucose 190 H (70-105) Lactic Acid (0.7-2.0) mmol/L Phosphorus (2.5-4.5) mg/dL Ammonia (25-60) umol/L Total Creatine Kinase 269 H (55-170) units/L Total Protein (6.3-8.2) g/dL
[2017-07-01] MEDS ORDERED: NACL 0.9% 100 ML IV PRN ×2 (01:05→02:30)
[2017-07-01 01:59] LABS: Hepatitis A Antibody IgM Non-Reactive (NonReactive); Hepatitis B Core IgM Non-Reactive (NonReactive); Hepatitis B Surface Antigen Non-Reactive (Negative); Hepatitis C Virus Antibody Non-Reactive (NonReactive)
[2017-07-01] MEDS ORDERED: DIPRIVAN 10 MG/ML IV ONE (01:59)
[2017-07-01] MEDS ORDERED: HEPARIN IV PRN (02:30)
[2017-07-01] MEDS: LEVOPHED DRIP 4 MG/NS 250 ML 4 MG/250 ML BAG IV SCH (03:05)
[2017-07-01] MEDS ORDERED: NACL 0.9 (PRIMING MACHINE ONLY DIALYSIS) MC ONE (03:55)
--- NOTE | 2017-07-01 05:30 | XRay Report ---
FINAL REPORT PROCEDURE: XR CHEST 1V AP TECHNIQUE: Chest radiograph anteroposterior view. CPT 95780 HISTORY: tube placement COMPARISON: No prior studies are available for comparison. FINDINGS: Heart: Normal. Mediastinum/Vessels: Normal. Lungs/Pleural space: There are infiltrates at the right lung base. There is no pleural effusion or pneumothorax . Bony thorax: No acute osseous abnormality. Life support devices: Endotracheal tube is in the mid trachea. NG tube is in the stomach.. IMPRESSION: The heart size is normal. There are infiltrates at the right lung base. There is no pleural effusion or pneumothorax . Endotracheal tube is in the mid trachea. NG tube is in the stomach..
[2017-07-01 09:06] LABS: Calcium 8.5 mg/dL (8.4-10.2)
--- NOTE | 2017-07-01 10:15 | Progress Note ---
Subjective Principal diagnosis: respiratory failure Interval history: Patient was seen today for follow-up in ICU setting Events of 24 hours vitals labs intake output medications were reviewed patient did receive hemodialysis treatment yesterday Interdisciplinary notes were also reviewed Social history: Reviewed Family history: Reviewed Current medication: Reviewed Allergies: Reviewed Physical examination Vitals: Reviewed HEENT: Oral mucosa moist, minimal pallor nor icterus Neck: Supple no thyromegaly JVD Chest: Clear to auscultation anteriorly few crackles in the side and at the lung bases Heart: Regular rate rhythm S1-S2 heard no S3-S4 Abdomen: Soft nontender, ostomy does put out loose stool Extremity: Approximately 1+ edema on dry skin Endocrine: Thyroid not enlarged Musculoskeletal: No joint effusion noted Assessment and plan: Acute on chronic renal failure patient did require renal replacement therapy yesterday labs appear to be doing better, no emergent indication for renal replacement therapy today monitor intake and output, patient needs gentle hydration We'll order a dedicated renal ultrasonogram, last ultrasound in February shows left-sided hydronephrosis with cortical thinning right kidney was normal in echotexture ? No stones were noted according to patient's son he has history of kidney stone? Reliable historian Hyperkalemia life-threatening currently improved would not give him any more lisinopril Hyponatremia: Improved Lactic acidosis improved History of chronic kidney disease underlying, baseline creatinine has been around History of kidney stones: Currently being followed by [facility] Renal care plan has been explained to the patient's son at length yesterday Patient benefited from renal replacement therapy Like he may require renal replacement therapy again tomorrow morning , We'll continue to follow recommendation from renal standpoint Objective - Vital Signs Vital signs: Vital Signs - 12hr 06/30/17 06/30/17 06/30/17 22:30 23:00 23:10 Temperature Pulse Rate 100 H 90 95 H Pulse Rate [ From Monitor] Respiratory 19 12 Rate Respiratory Rate [ Generalized] Blood Pressure 106/63 103/56 104/54 O2 Sat by Pulse 100 Oximetry O2 Sat by Pulse Oximetry [ Bases] 06/30/17 06/30/17 06/30/17 23:18 23:25 23:30 Temperature 98.2 F Pulse Rate 102 H 113 H Pulse Rate [ From Monitor] Respiratory 13 Rate Respiratory Rate [ Generalized] Blood Pressure 99/34 111/78 O2 Sat by Pulse 100 Oximetry O2 Sat by Pulse Oximetry [ Bases] 06/30/17 06/30/17 07/01/17 23:42 23:45 00:00 Temperature 98.2 F Pulse Rate 95 H 101 H 114 H Pulse Rate [ From Monitor] Respiratory 12 11 L Rate Respiratory 24 Rate [ Generalized] Blood Pressure 104/54 113/76 114/40 O2 Sat by Pulse 100 Oximetry O2 Sat by Pulse 100 Oximetry [ Bases] 07/01/17 07/01/17 07/01/17 00:15 00:30 00:46 Temperature Pulse Rate 116 H 116 H 118 H Pulse Rate [ From Monitor] Respiratory 10 L Rate Respiratory Rate [ Generalized] Blood Pressure 127/53 114/40 124/96 O2 Sat by Pulse 100 Oximetry O2 Sat by Pulse Oximetry [ Bases] 07/01/17 07/01/17 07/01/17 01:00 01:15 01:30 Temperature Pulse Rate 116 H 115 H 114 H Pulse Rate [ From Monitor] Respiratory 14 10 L Rate Respiratory Rate [ Generalized] Blood Pressure 120/86 129/76 126/84 O2 Sat by Pulse 100 100 Oximetry O2 Sat by Pulse Oximetry [ Bases] 07/01/17 07/01/17 07/01/17 01:45 02:00 02:15 Temperature Pulse Rate 112 H 111 H 112 H Pulse Rate [ From Monitor] Respiratory 11 L Rate Respiratory Rate [ Generalized] Blood Pressure 135/88 131/86 136/85 O2 Sat by Pulse 100 Oximetry O2 Sat by Pulse Oximetry [ Bases] 07/01/17 07/01/17 07/01/17 02:23 02:30 02:45 Temperature Pulse Rate 111 H 110 H 110 H Pulse Rate [ From Monitor] Respiratory 12 Rate Respiratory Rate [ Generalized] Blood Pressure 126/85 123/91 121/80 O2 Sat by Pulse 100 100 Oximetry O2 Sat by Pulse Oximetry [ Bases] 07/01/17 07/01/17 07/01/17 03:00 03:03 03:15 Temperature Pulse Rate 114 H 108 H 109 H Pulse Rate [ From Monitor] Respiratory 11 L 12 Rate Respiratory Rate [ Generalized] Blood Pressure 114/77 114/77 133/85 O2 Sat by Pulse 100 100 Oximetry O2 Sat by Pulse Oximetry [ Bases] 07/01/17 07/01/17 07/01/17 03:30 03:43 04:00 Temperature 99.3 F 98.4 F Pulse Rate 114 H 117 H Pulse Rate [ 112 H From Monitor] Respiratory 15 11 L Rate Respiratory Rate [ Generalized] Blood Pressure 122/84 119/83 O2 Sat by Pulse 100 100 Oximetry O2 Sat by Pulse Oximetry [ Bases] 07/01/17 07/01/17 07/01/17 04:30 05:00 05:30 Temperature Pulse Rate 114 H 117 H 110 H Pulse Rate [ From Monitor] Respiratory 6 L 0 L 16 Rate Respiratory Rate [ Generalized] Blood Pressure 114/71 114/77 123/80 O2 Sat by Pulse 100 100 100 Oximetry O2 Sat by Pulse Oximetry [ Bases] 07/01/17 07/01/17 07/01/17 06:00 06:30 07:00 Temperature Pulse Rate 110 H 109 H 110 H Pulse Rate [ 102 H From Monitor] Respiratory 16 16 15 Rate Respiratory Rate [ Generalized] Blood Pressure 117/78 124/82 134/79 O2 Sat by Pulse 100 100 100 Oximetry O2 Sat by Pulse Oximetry [ Bases] 07/01/17 07/01/17 07/01/17 07:30 08:00 08:30 Temperature 99.5 F Pulse Rate 106 H 110 H 106 H Pulse Rate [ From Monitor] Respiratory 11 L 8 L 16 Rate Respiratory 14 Rate [ Generalized] Blood Pressure 133/79 122/78 127/81 O2 Sat by Pulse 100 100 100 Oximetry O2 Sat by Pulse Oximetry [ Bases] 07/01/17 07/01/17 09:00 09:39 Temperature 98.7 F Pulse Rate 112 H Pulse Rate [ From Monitor] Respiratory 11 L Rate Respiratory Rate [ Generalized] Blood Pressure 127/74 O2 Sat by Pulse 100 Oximetry O2 Sat by Pulse Oximetry [ Bases] - Lab 06/30/17 14:35 07/01/17 08:26 Most recent lab results Calcium 8.5 mg/dL (8.4-10.2) 07/01/17 08:26 Phosphorus 11.40 mg/dL (2.5-4.5) H 06/30/17 15:05
[2017-07-01] MEDS: PEPCID IV SCH (11:15)
[2017-07-01] MEDS: SODIUM CHLORIDE FLUSH SYRINGE 10 ML IV SCH ×2 (11:16→22:20)
[2017-07-01] MEDS ORDERED: PANCREAZE DR 10,500 UNIT FEEDTUBE PRN (12:51)
[2017-07-01] MEDS ORDERED: SIMPLE SYRUP FEEDTUBE PRN ×2 (12:51)
[2017-07-01] MEDS ORDERED: SODIUM BICARBONATE FEEDTUBE PRN (12:51)
--- NOTE | 2017-07-01 12:58 | Progress Note ---
Assessment and Plan Assessment and plan: Sepsis/septic shock. Continue IV antibiotics. Follow-up blood and urine cultures. Follow lactic acid levels. Patient currently on Levophed. Continue pressors to maintain MAP > 65. Acute on chronic renal failure in a patient who has known history of chronic kidney disease. Patient with previous hospitalization in January of last year requiring hemodialysis. Patient underwent emergent hemodialysis on this admission. Continue RT per nephrology. Severe hyperkalemia and metabolic acidosis. Patient underwent emergent hemodialysis. Toxic metabolic encephalopathy. CT scan of the head is negative. Continue neuro checks. Seizure precautions. Hypertension. Continue antihypertensive medications. Diabetes mellitus type 2. Continue Accu-Cheks and sliding scale insulin. Chronic pain syndrome. Follow-up in the pain clinic as outpatient. Asthma. Stable. Gout. Stable. History CVA. History Interval history: No new issues overnight Hospitalist Physical - Constitutional Vitals: Temp Pulse Resp BP Pulse Ox 98.7 F 112 H 11 L 127/74 100 07/01/17 09:39 07/01/17 09:00 07/01/17 09:00 07/01/17 09:00 07/01/17 09:00 General appearance: Present: severe distress - EENT Eyes: Present: PERRL, EOM intact ENT: hearing intact, clear oral mucosa, dentition normal - Neck Neck: Present: supple, normal ROM - Respiratory Respiratory effort: normal Respiratory: bilateral: CTA - Cardiovascular Rhythm: regular Heart Sounds: Present: S1 & S2. Absent: gallop, rub - Extremities Extremities: no ischemia, No edema, Full ROM - Abdominal General gastrointestinal: soft, non-tender, non-distended, normal bowel sounds - Integumentary Integumentary: Present: clear, warm, dry - Neurologic Neurologic: CNII-XII intact, moves all extremities Results - Labs CBC & Chem 7: 06/30/17 14:35 07/01/17 08:26 Labs: Laboratory Last Values WBC 16.5 K/mm3 (4.5-11.0) H 06/30/17 14:35 RBC 4.03 M/mm3 (3.65-5.03) 06/30/17 14:35 Hgb 10.6 gm/dl (11.8-15.2) L 06/30/17 14:35 Hct 37.1 % (35.5-45.6) 06/30/17 14:35 MCV 92 fl (84-94) 06/30/17 14:35 MCH 26 pg (28-32) L 06/30/17 14:35 MCHC 29 % (32-34) L 06/30/17 14:35 RDW 14.7 % (13.2-15.2) 06/30/17 14:35 Plt Count 341 K/mm3 (140-440) 06/30/17 14:35 Lymph % (Auto) Production Tool Engineer 06/30/17 14:35 Hand % (Auto) Production Tool Engineer 06/30/17 14:35 Eos % (Auto) Production Tool Engineer 06/30/17 14:35 Baso % (Auto) Production Tool Engineer 06/30/17 14:35 Lymph # Production Tool Engineer 06/30/17 14:35 Hand # Production Tool Engineer 06/30/17 14:35 Eos # Production Tool Engineer 06/30/17 14:35 Baso # Production Tool Engineer 06/30/17 14:35 Add Manual Diff Complete 06/30/17 14:35 Total Counted 100 06/30/17 14:35 Seg Neutrophils % Production Tool Engineer 06/30/17 14:35 Seg Neuts % (Manual) 81.0 % (40.0-70.0) H 06/30/17 14:35 Band Neutrophils % 2.0 % 06/30/17 14:35 Lymphocytes % (Manual) 10.0 % (13.4-35.0) L 06/30/17 14:35 Reactive Lymphs % (Man) 0 % 06/30/17 14:35 Monocytes % (Manual) 6.0 % (0.0-7.3) 06/30/17 14:35 Eosinophils % (Manual) 1.0 % (0.0-4.3) 06/30/17 14:35 Basophils % (Manual) 0 % (0.0-1.8) 06/30/17 14:35 Metamyelocytes % 0 % 06/30/17 14:35 Myelocytes % 0 % 06/30/17 14:35 Promyelocytes % 0 % 06/30/17 14:35 Blast Cells % 0 % 06/30/17 14:35 Nucleated RBC % Not Reportable 06/30/17 14:35 Seg Neutrophils # Production Tool Engineer 06/30/17 14:35 Seg Neutrophils # Man 13.4 K/mm3 (1.8-7.7) H 06/30/17 14:35 Band Neutrophils # 0.3 K/mm3 06/30/17 14:35 Lymphocytes # (Manual) 1.7 K/mm3 (1.2-5.4) 06/30/17 14:35 Abs React Lymphs (Man) 0.0 K/mm3 06/30/17 14:35 Monocytes # (Manual) 1.0 K/mm3 (0.0-0.8) H 06/30/17 14:35 Eosinophils # (Manual) 0.2 K/mm3 (0.0-0.4) 06/30/17 14:35 Basophils # (Manual) 0.0 K/mm3 (0.0-0.1) 06/30/17 14:35 Metamyelocytes # 0.0 K/mm3 06/30/17 14:35 Myelocytes # 0.0 K/mm3 06/30/17 14:35 Promyelocytes # 0.0 K/mm3 06/30/17 14:35 Blast Cells # 0.0 K/mm3 06/30/17 14:35 WBC Morphology Not Reportable 06/30/17 14:35 Hypersegmented Neuts Not Reportable 06/30/17 14:35 Hyposegmented Neuts Not Reportable 06/30/17 14:35 Hypogranular Neuts Not Reportable 06/30/17 14:35 Smudge Cells Not Reportable 06/30/17 14:35 Toxic Granulation Not Reportable 06/30/17 14:35 Toxic Vacuolation Not Reportable 06/30/17 14:35 Dohle Bodies Not Reportable 06/30/17 14:35 Pelger-Huet Anomaly Not Reportable 06/30/17 14:35 Jaqueline Rods Not Reportable 06/30/17 14:35 Platelet Estimate Not Reportable 06/30/17 14:35 Clumped Platelets Not Reportable 06/30/17 14:35 Plt Clumps, EDTA Not Reportable 06/30/17 14:35 Large Platelets Not Reportable 06/30/17 14:35 Giant Platelets Not Reportable 06/30/17 14:35 Platelet Satelliting Not Reportable 06/30/17 14:35 Plt Morphology Comment Not Reportable 06/30/17 14:35 RBC Morphology Normal 06/30/17 14:35 Dimorphic RBCs Not Reportable 06/30/17 14:35 Polychromasia Not Reportable 06/30/17 14:35 Hypochromasia Not Reportable 06/30/17 14:35 Poikilocytosis Not Reportable 06/30/17 14:35 Anisocytosis Not Reportable 06/30/17 14:35 Microcytosis Not Reportable 06/30/17 14:35 Macrocytosis Not Reportable 06/30/17 14:35 Spherocytes Not Reportable 06/30/17 14:35 Pappenheimer Bodies Not Reportable 06/30/17 14:35 Sickle Cells Not Reportable 06/30/17 14:35 Target Cells Not Reportable 06/30/17 14:35 Tear Drop Cells Not Reportable 06/30/17 14:35 Ovalocytes Not Reportable 06/30/17 14:35 Helmet Cells Not Reportable 06/30/17 14:35 Donahue-Ferriday Bodies Not Reportable 06/30/17 14:35 Lima Rings Not Reportable 06/30/17 14:35 Vasu Cells Not Reportable 06/30/17 14:35 Bite Cells Not Reportable 06/30/17 14:35 Crenated Cell Not Reportable 06/30/17 14:35 Elliptocytes Not Reportable 06/30/17 14:35 Acanthocytes (Spur) Not Reportable 06/30/17 14:35 Rouleaux Not Reportable 06/30/17 14:35 Hemoglobin C Crystals Not Reportable 06/30/17 14:35 Schistocytes Not Reportable 06/30/17 14:35 Malaria parasites Not Reportable 06/30/17 14:35 Tobias Bodies Not Reportable 06/30/17 14:35 Hem Pathologist Commnt No 06/30/17 14:35 PT 13.9 Sec. (12.2-14.9) 06/30/17 14:05 INR 1.02 (0.87-1.13) 06/30/17 14:05 POC ABG pH 7.421 (7.35-7.45) 07/01/17 04:18 POC ABG pCO2 32.8 (35-45) L 07/01/17 04:18 POC ABG pO2 415 (80-105) H 07/01/17 04:18 POC ABG HCO3 21.3 07/01/17 04:18 POC ABG Total CO2 22 07/01/17 04:18 POC ABG O2 Sat 100 07/01/17 04:18 POC ABG Base Excess -3 07/01/17 04:18 VBG pH 6.967 (7.320-7.420) L* 06/30/17 15:02 FiO2 100 % 07/01/17 04:18 Sodium 139 mmol/L (137-145) D 07/01/17 08:26 Potassium 4.1 mmol/L (3.6-5.0) D 07/01/17 08:26 Chloride 96.9 mmol/L (98-107) L 07/01/17 08:26 Carbon Dioxide 19 mmol/L (22-30) L D 07/01/17 08:26 Anion Gap 27 mmol/L 07/01/17 08:26 BUN 50 mg/dL (9-20) H 07/01/17 08:26 Creatinine 6.9 mg/dL (0.8-1.5) H D 07/01/17 08:26 Estimated GFR 10 ml/min 07/01/17 08:26 BUN/Creatinine Ratio 7 % 07/01/17 08:26 Glucose 123 mg/dL (75-100) H 07/01/17 08:26 POC Glucose 121 (70-105) H 07/01/17 10:22 Lactic Acid 0.90 mmol/L (0.7-2.0) 06/30/17 17:15 Calcium 8.5 mg/dL (8.4-10.2) 07/01/17 08:26 Phosphorus 11.40 mg/dL (2.5-4.5) H 06/30/17 15:05 Total Bilirubin 0.20 mg/dL (0.1-1.2) 06/30/17 14:05 AST 14 units/L (5-40) 06/30/17 14:05 ALT 17 units/L (7-56) 06/30/17 14:05 Alkaline Phosphatase 126 units/L (35-129) 06/30/17 14:05 Ammonia 61.0 umol/L (25-60) H 06/30/17 15:05 Total Creatine Kinase 269 units/L (55-170) H 06/30/17 17:10 Total Protein 8.3 g/dL (6.3-8.2) H 06/30/17 14:05 Albumin 4.1 g/dL (3.9-5) 06/30/17 14:05 Albumin/Globulin Ratio 1.0 % 06/30/17 14:05 Random Vancomycin 18.6 ug/mL (0-40.0) 07/01/17 08:25 Hepatitis A IgM Ab Non-reactive (NonReactive) 06/30/17 23:45 Hep Bs Antigen Non-reactive (Negative) 06/30/17 23:45 Hep B Core IgM Ab Non-reactive (NonReactive) 06/30/17 23:45 Hepatitis C Antibody Non-reactive (NonReactive) 06/30/17 23:45
--- NOTE | 2017-07-01 13:34 | Consultation ---
History of Present Illness Consult date: 07/01/17 Reason for consult: other (Acute hypoxic respiraotry failure, encephalopathy) History of present illness: History per medical records as the patient is currently intubated and is unable to give any history. Patient is a 51-year-old male who has been admitted here with altered mental status severe renal failure hyperkalemia and metabolic acidosis leukocytosis and lactic acidosis. I was called by the ER physician about the patient see him , I found him encephalopathic and patient was not able to provide any history, since potassium was hemolyzed repeat labs were sent. In the meantime I did call patient's son over the phone who told me the patient does have history of long-standing renal failure and apparently only one of his kidneys working. He is being followed by [facility]. In the past according to his son he has received one dialysis treatment. Sepsis protocol was followed and patient was given IV fluid and antibiotics were administered in the ER. He does not use any follow-up his goodies noticed vital medication cause of kidney failure has been mostly resulting from the kidney stone. He does not have any further information about the patient other than what is in the current record which was reviewed today Past medical history significant Chronic kidney disease Acute renal failure Kidney stone Gout hyperuricemia Neuropathy Hyperlipidemia Metabolic acidosis Solitary functioning kidney CVA about 12 months ago Home medications: Reviewed in the chart Current allergies: Shellfish Social history: No recent history of alcohol or tobacco abuse Family history: Noncontributory for related disorder Review of systems positive for; altered mental status confusion, patient was also noted to be dehydrated Past History Past Medical History: diabetes, hypertension, stroke, other (Gout, ARMANDO) Past Surgical History: bowel surgery, Other (bowel surgery, Other (Right Knee surgery, colostomy, )) Social history: single. denies: smoking Family history: diabetes, hypertension Medications and Allergies Allergies Allergy/AdvReac Type Severity Reaction Status Date / Time shellfish derived Allergy Swelling Verified 10/11/14 19:30 Home Medications Medication Instructions Recorded Confirmed Last Taken Type Duloxetine HCl [Cymbalta] 60 mg PO HS 02/18/17 06/30/17 02/17/17 History Gabapentin [Neurontin] 2 cap PO BID 02/18/17 06/30/17 02/17/17 History Lisinopril [Zestril TAB] 10 mg PO QDAY 06/30/17 06/30/17 Unknown History Active Meds: Active Medications Lipase/Protease/Amylase (Pancreaze Dr 10,500 Unit) 1 each FEEDTUBE PRN PRN PRN Reason: For Clogged Feeding Tube Famotidine (Pepcid) 20 mg IV DAILY [facility] Last Admin: 07/01/17 11:15 Dose: 20 mg Heparin Sodium (Porcine) (Heparin) 5,000 unit IV KENNA PRN PRN Reason: hemodialysis Last Admin: 07/01/17 03:03 Dose: 5,000 unit Heparin Sodium (Porcine) (Heparin) 5,000 unit SUB-Q Q8HR NIALL Piperacillin Sod/Tazobactam Sod (Zosyn/Ns 2.25 Gm/50ml) 2.25 gm in 50 mls @ 100 mls/hr IV Q8HR NIALL Norepinephrine (Levophed Drip 4 Mg/Ns 250 Ml) 4 mg in 250 mls @ 7.5 mls/hr IV TITR NIALL; Protocol Last Admin: 07/01/17 03:05 Dose: 4 mcg/min, 15 mls/hr Sodium Chloride (Nacl 0.9%) 100 mls @ 999 mls/hr IV KENNA PRN PRN Reason: Hypotension Sodium Chloride (Nacl 0.9%) 100 mls @ 999 mls/hr IV KENNA PRN PRN Reason: Hypotension Sodium Chloride (Nacl 0.9%) 100 mls @ 999 mls/hr IV KENNA PRN PRN Reason: Hypotension Simple Syrup (Simple Syrup) 15 ml FEEDTUBE PRN PRN PRN Reason: Hypoglycemia Simple Syrup (Simple Syrup) 30 ml FEEDTUBE PRN PRN PRN Reason: Hypoglycemia Sodium Bicarbonate (Sodium Bicarbonate) 325 mg FEEDTUBE PRN PRN PRN Reason: For Clogged Feeding Tube Sodium Chloride (Sodium Chloride Flush Syringe 10 Ml) 10 ml IV BID NIALL Last Admin: 07/01/17 11:16 Dose: 10 ml Sodium Chloride (Sodium Chloride Flush Syringe 10 Ml) 10 ml IV PRN PRN PRN Reason: LINE FLUSH Last Admin: 06/30/17 17:32 Dose: 10 ml Vancomycin HCl (Vancomycin Pharmacy To Dose) 1 each IV PKCONSULT NIALL Physical Examination Vital signs: Vital Signs Temp Pulse Resp BP 97.3 F L 95 H 22 141/103 06/30/17 13:54 06/30/17 13:54 04/17/18 13:54 06/30/17 13:54 Physical examination General: No acute distress HEENT: Oral mucosa very dry has uremic odor, intubated to mechanical ventilation Neck: Supple no evidence of any thyromegaly trachea midline no JVD Chest: Clear to auscultation no crackles are also wheezes anteriorly Heart: Regular rate and rhythm S1-S2 heard no S3-S4 Abdomen: Soft nontender no renal bruit no CVA tenderness no suprapubic fullness no organomegaly Extremity: very dry skin no peripheral cyanosis pulses palpable Neurological: Alert awake follows command grossly nonfocal examination, occasionally has myoclonic jerks Back: Nontender thoracolumbar spine Musculoskeletal: No joint effusion noted Skin: No petechial rash/noted Results - Laboratory Findings CBC and BMP: 07/04/17 07:05 07/04/17 07:05 ABG POC ABG pH 7.421 (7.35-7.45) 07/01/17 04:18 POC ABG pCO2 32.8 (35-45) L 07/01/17 04:18 POC ABG pO2 415 (80-105) H 07/01/17 04:18 POC ABG HCO3 21.3 07/01/17 04:18 POC ABG Total CO2 22 07/01/17 04:18 POC ABG O2 Sat 100 07/01/17 04:18 PT/INR, D-dimer PT 13.9 Sec. (12.2-14.9) 06/30/17 14:05 INR 1.02 (0.87-1.13) 06/30/17 14:05 Abnormal lab findings: Abnormal Labs 06/30/17 06/30/17 06/30/17 14:05 14:35 14:35 WBC 16.5 H Hgb 10.6 L MCH 26 L MCHC 29 L Seg Neuts % (Manual) 81.0 H Lymphocytes % (Manual) 10.0 L Seg Neutrophils # Man 13.4 H Monocytes # (Manual) 1.0 H POC ABG pH POC ABG pCO2 POC ABG pO2 VBG pH Sodium 126 L Potassium 10.0 H* Chloride 90.8 L Carbon Dioxide 6 L* BUN 134 H Creatinine 18.0 H Glucose 203 H POC Glucose Lactic Acid 3.00 H* Phosphorus Ammonia Total Creatine Kinase Total Protein 8.3 H 06/30/17 06/30/17 06/30/17 15:02 15:05 15:05 WBC Hgb MCH MCHC Seg Neuts % (Manual) Lymphocytes % (Manual) Seg Neutrophils # Man Monocytes # (Manual) POC ABG pH POC ABG pCO2 POC ABG pO2 VBG pH 6.967 L* Sodium Potassium Chloride Carbon Dioxide BUN Creatinine Glucose POC Glucose Lactic Acid Phosphorus 11.40 H Ammonia 61.0 H Total Creatine Kinase Total Protein 06/30/17 06/30/17 06/30/17 17:10 17:10 20:57 WBC Hgb MCH MCHC Seg Neuts % (Manual) Lymphocytes % (Manual) Seg Neutrophils # Man Monocytes # (Manual) POC ABG pH POC ABG pCO2 POC ABG pO2 VBG pH Sodium Potassium 8.0 H* Chloride Carbon Dioxide BUN Creatinine Glucose POC Glucose 190 H Lactic Acid Phosphorus Ammonia Total Creatine Kinase 269 H Total Protein 06/30/17 07/01/17 07/01/17 21:57 04:18 05:32 WBC Hgb MCH MCHC Seg Neuts % (Manual) Lymphocytes % (Manual) Seg Neutrophils # Man Monocytes # (Manual) POC ABG pH 6.976 L POC ABG pCO2 28.3 L 32.8 L POC ABG pO2 146 H 415 H VBG pH Sodium Potassium Chloride Carbon Dioxide BUN Creatinine Glucose POC Glucose 153 H Lactic Acid Phosphorus Ammonia Total Creatine Kinase Total Protein 07/01/17 07/01/17 08:26 10:22 WBC Hgb MCH MCHC Seg Neuts % (Manual) Lymphocytes % (Manual) Seg Neutrophils # Man Monocytes # (Manual) POC ABG pH POC ABG pCO2 POC ABG pO2 VBG pH Sodium Potassium Chloride 96.9 L Carbon Dioxide 19 L D BUN 50 H Creatinine 6.9 H D Glucose 123 H POC Glucose 121 H Lactic Acid Phosphorus Ammonia Total Creatine Kinase Total Protein - Diagnostic Findings Chest x-ray: image reviewed Assessment and Plan Sepsis/septic shock. Acute respiratory failure Acute on chronic renal failure Severe hyperkalemia and metabolic acidosis s/p HD Toxic metabolic encephalopathy. Hypertension. Diabetes mellitus type 2. Chronic pain syndrome. Asthma. Gout History CVA. - VAP bundle addressed -SAT/SBT daily -Antibiotics -supplemental oxygen to keep O2 sats>90% -Nutritional support/enteric feeding -Glycemic control -Gudino catheter in this critically ill patient with need for accurate intake and output monitoring. -continue bronchodilators with pulmonary hygiene per RT - continue GI & VTE prophylxais - HD/UF per nephrology - continue glycemic control with SSI - Extensive discussions with the sister at the bedside Critical care time in (mins) excluding proc time.: 45 Critical care attestation.: If time is entered above; I have spent that time in minutes in the direct care of this critically ill patient, excluding procedure time.
[2017-07-01] MEDS: ZOSYN/NS 2.25 GM/50ML 2.25 GM/50 ML BAG IV SCH ×2 (14:50→22:20)
[2017-07-01] MEDS: HEPARIN SUB-Q SCH ×2 (17:28→22:18)
[2017-07-01 20:20] LABS: Bacteria,Urine 1+ /HPF (Negative); Bilirubin,Urine NEG (Negative); Blood,Urine SM (Negative); Color,Urine Yellow (Yellow); Mucus,Urine FEW /HPF; Protein,Urine <15 mg/dL mg/dL (Negative); Urobilinogen,Urine < 2.0 mg/dL (<2.0)
--- NOTE | 2017-07-01 20:56 | XRay Report ---
FINAL REPORT PROCEDURE: XR ABDOMEN 1V AP TECHNIQUE: Abdominal series, including supine and upright AP views. HISTORY: NGT placement COMPARISON: No prior studies are available for comparison. FINDINGS: Bowel gas pattern:Nonobstructive . Masses or calcifications:None . Bony structures:No significant abnormality . Pneumoperitoneum:None . Other:There is a left-sided central venous catheter. The tip is in the inferior vena cava.. IMPRESSION: No acute abnormality. There is a left-sided central venous catheter. The tip is in the inferior vena cava..
--- NOTE | 2017-07-02 03:41 | XRay Report ---
FINAL REPORT PROCEDURE: XR ABDOMEN 1V AP TECHNIQUE: Abdominal series, including supine and upright AP views. HISTORY: Dobhoff tube placement COMPARISON: No prior studies are available for comparison. FINDINGS: Bowel gas pattern:Nonobstructive . Masses or calcifications:None . Bony structures:No significant abnormality . Pneumoperitoneum:None . Other:The NG tube is in the stomach.. IMPRESSION: No acute abnormality. The NG tube is in the stomach.
[2017-07-02 04:38] LABS: Basophils % (Auto) 0.4 % (0.0-1.8); Eosinophils # (Auto) 0.1 K/mm3 (0.0-0.4); Eosinophils % (Auto) 1.2 % (0.0-4.3); Hemoglobin 9.6 gm/dl (11.8-15.2); Lymphocytes # (Auto) 1.3 K/mm3 (1.2-5.4); Lymphocytes % (Auto) 12.4 % (13.4-35.0); Mean Corpuscular HGB Conc 33 % (32-34); Mean Corpuscular Hemoglobin 27 pg (28-32); Mean Corpuscular Volume 82 fl (84-94); Monocytes # (Auto) 0.9 K/mm3 (0.0-0.8); Platelet Count 228 K/mm3 (140-440); Red Blood Count 3.52 M/mm3 (3.65-5.03); Red Cell Distribution Width 13.5 % (13.2-15.2)
[2017-07-02 04:48] LABS: Calcium 8.9 mg/dL (8.4-10.2)
[2017-07-02] MEDS: HEPARIN SUB-Q SCH ×3 (06:11→21:32)
[2017-07-02] MEDS: ZOSYN/NS 2.25 GM/50ML 2.25 GM/50 ML BAG IV SCH ×3 (06:50→21:32)
[2017-07-02] MEDS: PEPCID IV SCH (09:34)
[2017-07-02] MEDS: SODIUM CHLORIDE FLUSH SYRINGE 10 ML IV PRN (09:35)
[2017-07-02] MEDS: SODIUM CHLORIDE FLUSH SYRINGE 10 ML IV SCH ×2 (09:36→21:51)
--- NOTE | 2017-07-02 10:01 | Progress Note ---
Subjective Principal diagnosis: respiratory failure Interval history: Patient was seen today for follow-up in ICU setting Events of 24 hours noted, interim he has been intubated Renal function stable received one dialysis treatment No episodes of hyperkalemia Interdisciplinary notes were also reviewed Social history: Reviewed Family history: Reviewed Current medication: Reviewed Allergies: Reviewed Physical examination Vitals: Reviewed HEENT: Oral mucosa moist, minimal pallor nor icterus Neck: Supple no thyromegaly JVD Chest: Clear to auscultation anteriorly few crackles in the side and at the lung bases Heart: Regular rate rhythm S1-S2 heard no S3-S4 Abdomen: Soft nontender, ostomy does put out loose stool Extremity: Approximately 1+ edema on dry skin Endocrine: Thyroid not enlarged Musculoskeletal: No joint effusion noted Assessment and plan: Acute renal failure in a patient who does have history of underlying chronic kidney disease require renal placement therapy upon admission due to severe hyperkalemia metabolic acidosis, no emergent indication for renal replacement therapy today we will reevaluate him in the morning as his creatinine and electrolytes remained stable Maintain adequate hydration Interim patient has been intubated but is more alert awake and responsiveive Patient does have ostomy in the abdomen which has liquid stool? Significant volume loss Admitted with encephalopathy slowly improving Hypotension continue to monitor vasoppressors as required Hyperkalemia severe potassium was between 8 and 10 currently better Lactic acidosis currently improving metabolic acidosis in general has improved Overall prognosis remains guarded, Explained to the patient Care plan has been discussed with patient's son who lives in [place] during this admission Patient has been followed by [facility] according to his son for chronic kidney disease obstructive uropathy etc. Like he may require renal replacement therapy again tomorrow morning , We'll continue to follow recommendation from renal standpoint Objective - Vital Signs Vital signs: Vital Signs - 12hr 07/01/17 07/01/17 07/01/17 22:30 23:00 23:14 Temperature Pulse Rate 109 H 104 H 101 H Pulse Rate [ From Monitor] Respiratory 11 L 12 12 Rate Blood Pressure 148/88 146/88 146/91 O2 Sat by Pulse 100 100 100 Oximetry 07/01/17 07/01/17 07/01/17 23:30 23:39 23:40 Temperature 98.1 F 98.7 F Pulse Rate 102 H Pulse Rate [ From Monitor] Respiratory 12 Rate Blood Pressure 156/88 O2 Sat by Pulse 100 Oximetry 07/02/17 07/02/17 07/02/17 00:00 00:30 01:00 Temperature Pulse Rate 104 H 99 H 101 H Pulse Rate [ 100 H From Monitor] Respiratory 9 L 11 L 7 L Rate Blood Pressure 146/88 146/88 158/91 O2 Sat by Pulse 100 100 99 Oximetry 07/02/17 07/02/17 07/02/17 01:31 02:00 02:31 Temperature Pulse Rate 107 H 104 H 103 H Pulse Rate [ From Monitor] Respiratory 9 L 9 L 15 Rate Blood Pressure 158/91 165/93 165/93 O2 Sat by Pulse 100 100 100 Oximetry 07/02/17 07/02/17 07/02/17 03:00 03:30 03:44 Temperature 98.1 F Pulse Rate 102 H 97 H Pulse Rate [ From Monitor] Respiratory 12 12 Rate Blood Pressure 182/103 150/90 O2 Sat by Pulse 100 100 Oximetry 07/02/17 07/02/17 07/02/17 04:01 04:31 05:03 Temperature Pulse Rate 99 H 86 100 H Pulse Rate [ From Monitor] Respiratory 13 15 12 Rate Blood Pressure 150/90 150/90 150/90 O2 Sat by Pulse 98 100 Oximetry 07/02/17 07/02/17 07/02/17 05:31 06:00 08:50 Temperature Pulse Rate 95 H 85 106 H Pulse Rate [ From Monitor] Respiratory 12 11 L 12 Rate Blood Pressure 150/88 137/83 130/82 O2 Sat by Pulse 99 Oximetry 07/02/17 09:12 Temperature Pulse Rate Pulse Rate [ 108 H From Monitor] Respiratory 12 Rate Blood Pressure O2 Sat by Pulse 99 Oximetry - Lab 07/02/17 04:08 07/02/17 04:08 Most recent lab results Calcium 8.9 mg/dL (8.4-10.2) 07/02/17 04:08 Phosphorus 11.40 mg/dL (2.5-4.5) H 06/30/17 15:05
--- NOTE | 2017-07-02 12:02 | Progress Note ---
Assessment and Plan Assessment and plan: Sepsis/septic shock. Continue IV antibiotics. Follow-up blood and urine cultures. Follow lactic acid levels. Patient has been weaned off of pressors. Acute on chronic renal failure in a patient who has known history of chronic kidney disease. Patient with previous hospitalization in January of last year requiring hemodialysis. Patient underwent emergent hemodialysis on this admission. Continue RT per nephrology. Acute hypoxemic respiratory failure. Patient respiratory status has improved. Patient tolerating CPAP. We will likely extubate today. Pulmonary following. Severe hyperkalemia and metabolic acidosis. Patient underwent emergent hemodialysis. Toxic metabolic encephalopathy. CT scan of the head is negative. Continue neuro checks. Seizure precautions. Hypertension. Continue antihypertensive medications. Diabetes mellitus type 2. Continue Accu-Cheks and sliding scale insulin. Chronic pain syndrome. Follow-up in the pain clinic as outpatient. Asthma. Stable. Gout. Stable. History CVA. History Interval history: No new issues overnight. Patient remains intubated but tolerating CPAP this morning. Hospitalist Physical - Constitutional Vitals: Temp Pulse Resp BP Pulse Ox 98.1 F 108 H 10 L 144/103 100 07/02/17 03:44 07/02/17 10:31 07/02/17 10:31 07/02/17 10:31 07/02/17 10:31 General appearance: Present: no acute distress - EENT Eyes: Present: PERRL, EOM intact ENT: hearing intact, clear oral mucosa, dentition normal - Neck Neck: Present: supple, normal ROM - Respiratory Respiratory effort: normal Respiratory: bilateral: CTA - Cardiovascular Rhythm: regular Heart Sounds: Present: S1 & S2. Absent: gallop, rub - Extremities Extremities: no ischemia, No edema, Full ROM - Abdominal General gastrointestinal: soft, non-tender, non-distended, normal bowel sounds - Integumentary Integumentary: Present: clear, warm, dry - Neurologic Neurologic: CNII-XII intact, moves all extremities Results - Labs CBC & Chem 7: 07/02/17 04:08 07/02/17 04:08 Labs: Laboratory Last Values WBC 10.3 K/mm3 (4.5-11.0) 07/02/17 04:08 RBC 3.52 M/mm3 (3.65-5.03) L 07/02/17 04:08 Hgb 9.6 gm/dl (11.8-15.2) L 07/02/17 04:08 Hct 29.0 % (35.5-45.6) L D 07/02/17 04:08 MCV 82 fl (84-94) L 07/02/17 04:08 MCH 27 pg (28-32) L 07/02/17 04:08 MCHC 33 % (32-34) 07/02/17 04:08 RDW 13.5 % (13.2-15.2) 07/02/17 04:08 Plt Count 228 K/mm3 (140-440) 07/02/17 04:08 Lymph % (Auto) 12.4 % (13.4-35.0) L 07/02/17 04:08 [place] % (Auto) 9.0 % (0.0-7.3) H 07/02/17 04:08 Eos % (Auto) 1.2 % (0.0-4.3) 07/02/17 04:08 Baso % (Auto) 0.4 % (0.0-1.8) 07/02/17 04:08 Lymph # 1.3 K/mm3 (1.2-5.4) 07/02/17 04:08 [place] # 0.9 K/mm3 (0.0-0.8) H 07/02/17 04:08 Eos # 0.1 K/mm3 (0.0-0.4) 07/02/17 04:08 Baso # 0.0 K/mm3 (0.0-0.1) 07/02/17 04:08 Add Manual Diff Complete 06/30/17 14:35 Total Counted 100 06/30/17 14:35 Seg Neutrophils % 77.0 % (40.0-70.0) H 07/02/17 04:08 Seg Neuts % (Manual) 81.0 % (40.0-70.0) H 06/30/17 14:35 Band Neutrophils % 2.0 % 06/30/17 14:35 Lymphocytes % (Manual) 10.0 % (13.4-35.0) L 06/30/17 14:35 Reactive Lymphs % (Man) 0 % 06/30/17 14:35 Monocytes % (Manual) 6.0 % (0.0-7.3) 06/30/17 14:35 Eosinophils % (Manual) 1.0 % (0.0-4.3) 06/30/17 14:35 Basophils % (Manual) 0 % (0.0-1.8) 06/30/17 14:35 Metamyelocytes % 0 % 06/30/17 14:35 Myelocytes % 0 % 06/30/17 14:35 Promyelocytes % 0 % 06/30/17 14:35 Blast Cells % 0 % 06/30/17 14:35 Nucleated RBC % Not Reportable 06/30/17 14:35 Seg Neutrophils # 8.0 K/mm3 (1.8-7.7) H 07/02/17 04:08 Seg Neutrophils # Man 13.4 K/mm3 (1.8-7.7) H 06/30/17 14:35 Band Neutrophils # 0.3 K/mm3 06/30/17 14:35 Lymphocytes # (Manual) 1.7 K/mm3 (1.2-5.4) 06/30/17 14:35 Abs React Lymphs (Man) 0.0 K/mm3 06/30/17 14:35 Monocytes # (Manual) 1.0 K/mm3 (0.0-0.8) H 06/30/17 14:35 Eosinophils # (Manual) 0.2 K/mm3 (0.0-0.4) 06/30/17 14:35 Basophils # (Manual) 0.0 K/mm3 (0.0-0.1) 06/30/17 14:35 Metamyelocytes # 0.0 K/mm3 06/30/17 14:35 Myelocytes # 0.0 K/mm3 06/30/17 14:35 Promyelocytes # 0.0 K/mm3 06/30/17 14:35 Blast Cells # 0.0 K/mm3 06/30/17 14:35 WBC Morphology Not Reportable 06/30/17 14:35 Hypersegmented Neuts Not Reportable 06/30/17 14:35 Hyposegmented Neuts Not Reportable 06/30/17 14:35 Hypogranular Neuts Not Reportable 06/30/17 14:35 Smudge Cells Not Reportable 06/30/17 14:35 Toxic Granulation Not Reportable 06/30/17 14:35 Toxic Vacuolation Not Reportable 06/30/17 14:35 Dohle Bodies Not Reportable 06/30/17 14:35 Pelger-Huet Anomaly Not Reportable 06/30/17 14:35 Jaqueline Rods Not Reportable 06/30/17 14:35 Platelet Estimate Not Reportable 06/30/17 14:35 Clumped Platelets Not Reportable 06/30/17 14:35 Plt Clumps, EDTA Not Reportable 06/30/17 14:35 Large Platelets Not Reportable 06/30/17 14:35 Giant Platelets Not Reportable 06/30/17 14:35 Platelet Satelliting Not Reportable 06/30/17 14:35 Plt Morphology Comment Not Reportable 06/30/17 14:35 RBC Morphology Normal 06/30/17 14:35 Dimorphic RBCs Not Reportable 06/30/17 14:35 Polychromasia Not Reportable 06/30/17 14:35 Hypochromasia Not Reportable 06/30/17 14:35 Poikilocytosis Not Reportable 06/30/17 14:35 Anisocytosis Not Reportable 06/30/17 14:35 Microcytosis Not Reportable 06/30/17 14:35 Macrocytosis Not Reportable 06/30/17 14:35 Spherocytes Not Reportable 06/30/17 14:35 Pappenheimer Bodies Not Reportable 06/30/17 14:35 Sickle Cells Not Reportable 06/30/17 14:35 Target Cells Not Reportable 06/30/17 14:35 Tear Drop Cells Not Reportable 06/30/17 14:35 Ovalocytes Not Reportable 06/30/17 14:35 Helmet Cells Not Reportable 06/30/17 14:35 Donahue-Perrin Bodies Not Reportable 06/30/17 14:35 [place] Rings Not Reportable 06/30/17 14:35 Vasu Cells Not Reportable 06/30/17 14:35 Bite Cells Not Reportable 06/30/17 14:35 Crenated Cell Not Reportable 06/30/17 14:35 Elliptocytes Not Reportable 06/30/17 14:35 Acanthocytes (Spur) Not Reportable 06/30/17 14:35 Rouleaux Not Reportable 06/30/17 14:35 Hemoglobin C Crystals Not Reportable 06/30/17 14:35 Schistocytes Not Reportable 06/30/17 14:35 Malaria parasites Not Reportable 06/30/17 14:35 Tobias Bodies Not Reportable 06/30/17 14:35 Hem Pathologist Commnt No 06/30/17 14:35 PT 13.9 Sec. (12.2-14.9) 06/30/17 14:05 INR 1.02 (0.87-1.13) 06/30/17 14:05 POC ABG pH 7.383 (7.35-7.45) 07/02/17 04:58 POC ABG pCO2 39.2 (35-45) 07/02/17 04:58 POC ABG pO2 136 (80-105) H 07/02/17 04:58 POC ABG HCO3 23.4 07/02/17 04:58 POC ABG Total CO2 25 07/02/17 04:58 POC ABG O2 Sat 99 07/02/17 04:58 POC ABG Base Excess -2 07/02/17 04:58 VBG pH 6.967 (7.320-7.420) L* 06/30/17 15:02 FiO2 35 % 07/02/17 04:58 Sodium 142 mmol/L (137-145) 07/02/17 04:08 Potassium 4.1 mmol/L (3.6-5.0) 07/02/17 04:08 Chloride 101.0 mmol/L (98-107) 07/02/17 04:08 Carbon Dioxide 22 mmol/L (22-30) 07/02/17 04:08 Anion Gap 23 mmol/L 07/02/17 04:08 BUN 52 mg/dL (9-20) H 07/02/17 04:08 Creatinine 4.4 mg/dL (0.8-1.5) H 07/02/17 04:08 Estimated GFR 17 ml/min 07/02/17 04:08 BUN/Creatinine Ratio 12 % 07/02/17 04:08 Glucose 149 mg/dL (75-100) H 07/02/17 04:08 POC Glucose 164 (70-105) H 07/02/17 00:22 Lactic Acid 0.90 mmol/L (0.7-2.0) 06/30/17 17:15 Calcium 8.9 mg/dL (8.4-10.2) 07/02/17 04:08 Phosphorus 11.40 mg/dL (2.5-4.5) H 06/30/17 15:05 Total Bilirubin 0.20 mg/dL (0.1-1.2) 06/30/17 14:05 AST 14 units/L (5-40) 06/30/17 14:05 ALT 17 units/L (7-56) 06/30/17 14:05 Alkaline Phosphatase 126 units/L (35-129) 06/30/17 14:05 Ammonia 61.0 umol/L (25-60) H 06/30/17 15:05 Total Creatine Kinase 269 units/L (55-170) H 06/30/17 17:10 Total Protein 8.3 g/dL (6.3-8.2) H 06/30/17 14:05 Albumin 4.1 g/dL (3.9-5) 06/30/17 14:05 Albumin/Globulin Ratio 1.0 % 06/30/17 14:05 Urine Color Yellow (Yellow) 07/01/17 19:45 Urine Turbidity Clear (Clear) 07/01/17 19:45 Urine pH 5.0 (5.0-7.0) 07/01/17 19:45 Ur Specific [place] 1.011 (1.003-1.030) 07/01/17 19:45 Urine Protein <15 mg/dl mg/dL (Negative) 07/01/17 19:45 Urine Glucose (UA) Neg mg/dL (Negative) 07/01/17 19:45 Urine Ketones Neg mg/dL (Negative) 07/01/17 19:45 Urine Blood Sm (Negative) 07/01/17 19:45 Urine Nitrite Neg (Negative) 07/01/17 19:45 Urine Bilirubin Neg (Negative) 07/01/17 19:45 Urine Urobilinogen < 2.0 mg/dL (<2.0) 07/01/17 19:45 Ur Leukocyte Esterase Lg (Negative) 07/01/17 19:45 Urine WBC (Auto) 29.0 /HPF (0.0-6.0) H 07/01/17 19:45 Urine RBC (Auto) 7.0 /HPF (0.0-6.0) 07/01/17 19:45 U Epithel Cells (Auto) 1.0 /HPF (0-13.0) 07/01/17 19:45 Urine Bacteria (Auto) 1+ /HPF (Negative) 07/01/17 19:45 Urine Mucus Few /HPF 07/01/17 19:45 Random Vancomycin 18.6 ug/mL (0-40.0) 07/01/17 08:25 Hepatitis A IgM Ab Non-reactive (NonReactive) 06/30/17 23:45 Hep Bs Antigen Non-reactive (Negative) 06/30/17 23:45 Hep B Core IgM Ab Non-reactive (NonReactive) 06/30/17 23:45 Hepatitis C Antibody Non-reactive (NonReactive) 06/30/17 23:45
--- NOTE | 2017-07-02 12:18 | XRay Report ---
AP CHEST: HISTORY: Aspiration Lines and tubes are unchanged since 07/01/17. Heart and mediastinal structures remain normal. The lungs are clear. No pleural effusion or pneumothorax. IMPRESSION: Unremarkable AP chest.
--- NOTE | 2017-07-02 13:07 | Progress Note ---
Assessment and Plan Sepsis/septic shock. Acute respiratory failure Acute on chronic renal failure Severe hyperkalemia and metabolic acidosis Toxic metabolic encephalopathy. Hypertension. Diabetes mellitus type 2. Chronic pain syndrome. Asthma. Gout History CVA. - VAP bundle addressed - tentative extubation if ABG acceptable - continue bronchodilators with pulmonary hygiene per RT - continue GI & VTE prophylxais - HD/UF per nephrology - hyperkalemia corrected - prn oxygen for sats < 90% - continue glycemic control with SSI - titrate oral anti-HTNsives per nephrology - continue other chronic disease meds per attending - transfer to telemetry later today if does well post extubation Subjective Date of service: 07/02/17 Principal diagnosis: Acute Hypoxemic Respiratory Failure; SHAHEEN on CKD; severe hyperkalemia Interval history: Patient is seen today for: Acute Hypoxemic Respiratory Failure; SHAHEEN on CKD; severe hyperkalemia Seen and examined at bedside; 24hour events reviewed; nursing and respiratory care staff consulted; no adverse overnight events reported to me; resting peacefully on MVS; tolerating SBT very well; denies acute chest pains or increased SOB; No N/V/F/C; s/p HD/UF yesterday Objective Vital Signs - 12hr 07/02/17 07/02/17 07/02/17 01:31 02:00 02:31 Temperature Pulse Rate 107 H 104 H 103 H Pulse Rate [ From Monitor] Respiratory 9 L 9 L 15 Rate Blood Pressure 158/91 165/93 165/93 O2 Sat by Pulse 100 100 100 Oximetry 07/02/17 07/02/17 07/02/17 03:00 03:30 03:44 Temperature 98.1 F Pulse Rate 102 H 97 H Pulse Rate [ From Monitor] Respiratory 12 12 Rate Blood Pressure 182/103 150/90 O2 Sat by Pulse 100 100 Oximetry 07/02/17 07/02/17 07/02/17 04:01 04:31 05:03 Temperature Pulse Rate 99 H 86 100 H Pulse Rate [ From Monitor] Respiratory 13 15 12 Rate Blood Pressure 150/90 150/90 150/90 O2 Sat by Pulse 98 100 Oximetry 07/02/17 07/02/17 07/02/17 05:31 06:00 06:31 Temperature Pulse Rate 95 H 85 82 Pulse Rate [ From Monitor] Respiratory 12 11 L 12 Rate Blood Pressure 150/88 137/83 137/83 O2 Sat by Pulse Oximetry 07/02/17 07/02/17 07/02/17 07:00 07:31 08:00 Temperature Pulse Rate 89 83 97 H Pulse Rate [ From Monitor] Respiratory 12 12 12 Rate Blood Pressure 141/79 141/79 130/82 O2 Sat by Pulse Oximetry 07/02/17 07/02/17 07/02/17 08:31 08:50 09:00 Temperature Pulse Rate 102 H 106 H 105 H Pulse Rate [ From Monitor] Respiratory 12 12 9 L Rate Blood Pressure 130/82 130/82 124/77 O2 Sat by Pulse 99 99 Oximetry 07/02/17 07/02/17 07/02/17 09:12 09:31 10:00 Temperature Pulse Rate 106 H 107 H Pulse Rate [ 108 H From Monitor] Respiratory 12 9 L 8 L Rate Blood Pressure 124/77 144/103 O2 Sat by Pulse 99 99 99 Oximetry 07/02/17 10:31 Temperature Pulse Rate 108 H Pulse Rate [ From Monitor] Respiratory 10 L Rate Blood Pressure 144/103 O2 Sat by Pulse 100 Oximetry Constitutional: no acute distress, alert Eyes: non-icteric ENT: oropharynx moist, other (ETT in place) Neck: supple, no lymphadenopathy, no JVD, other Effort: mildly labored Ascultation: Bilateral: clear Percussion: Bilateral: not dull Cardiovascular: regular rate and rhythm, other (no rubs or murmurs) Gastrointestinal: normoactive bowel sounds, soft, non-tender, non-distended, other (Left groin vascath) Integumentary: normal Extremities: no cyanosis, no edema, pulses normal, no ischemia or petechiae Neurologic: normal mental status, non-focal exam, pupils equal and round, motor strength normal and Psychiatric: mood appropriate, affect normal CBC and BMP: 07/03/17 03:51 07/03/17 03:51 ABG, PT/INR, D-dimer: ABG POC ABG pH 7.383 (7.35-7.45) 07/02/17 04:58 POC ABG pCO2 39.2 (35-45) 07/02/17 04:58 POC ABG pO2 136 (80-105) H 07/02/17 04:58 POC ABG HCO3 23.4 07/02/17 04:58 POC ABG Total CO2 25 07/02/17 04:58 POC ABG O2 Sat 99 07/02/17 04:58 PT/INR, D-dimer PT 13.9 Sec. (12.2-14.9) 06/30/17 14:05 INR 1.02 (0.87-1.13) 06/30/17 14:05 Abnormal lab findings: Abnormal Labs 06/30/17 06/30/17 06/30/17 14:05 14:35 14:35 WBC 16.5 H RBC Hgb 10.6 L Hct MCV MCH 26 L MCHC 29 L Lymph % (Auto) [place] % (Auto) [place] # Seg Neutrophils % Seg Neuts % (Manual) 81.0 H Lymphocytes % (Manual) 10.0 L Seg Neutrophils # Seg Neutrophils # Man 13.4 H Monocytes # (Manual) 1.0 H POC ABG pH POC ABG pCO2 POC ABG pO2 VBG pH Sodium 126 L Potassium 10.0 H* Chloride 90.8 L Carbon Dioxide 6 L* BUN 134 H Creatinine 18.0 H Glucose 203 H POC Glucose Lactic Acid 3.00 H* Phosphorus Ammonia Total Creatine Kinase Total Protein 8.3 H Urine WBC (Auto) 06/30/17 06/30/17 06/30/17 15:02 15:05 15:05 WBC RBC Hgb Hct MCV MCH MCHC Lymph % (Auto) [place] % (Auto) [place] # Seg Neutrophils % Seg Neuts % (Manual) Lymphocytes % (Manual) Seg Neutrophils # Seg Neutrophils # Man Monocytes # (Manual) POC ABG pH POC ABG pCO2 POC ABG pO2 VBG pH 6.967 L* Sodium Potassium Chloride Carbon Dioxide BUN Creatinine Glucose POC Glucose Lactic Acid Phosphorus 11.40 H Ammonia 61.0 H Total Creatine Kinase Total Protein Urine WBC (Auto) 06/30/17 06/30/17 06/30/17 17:10 17:10 20:57 WBC RBC Hgb Hct MCV MCH MCHC Lymph % (Auto) [place] % (Auto) [place] # Seg Neutrophils % Seg Neuts % (Manual) Lymphocytes % (Manual) Seg Neutrophils # Seg Neutrophils # Man Monocytes # (Manual) POC ABG pH POC ABG pCO2 POC ABG pO2 VBG pH Sodium Potassium 8.0 H* Chloride Carbon Dioxide BUN Creatinine Glucose POC Glucose 190 H Lactic Acid Phosphorus Ammonia Total Creatine Kinase 269 H Total Protein Urine WBC (Auto) 06/30/17 07/01/17 07/01/17 21:57 04:18 05:32 WBC RBC Hgb Hct MCV MCH MCHC Lymph % (Auto) [place] % (Auto) [place] # Seg Neutrophils % Seg Neuts % (Manual) Lymphocytes % (Manual) Seg Neutrophils # Seg Neutrophils # Man Monocytes # (Manual) POC ABG pH 6.976 L POC ABG pCO2 28.3 L 32.8 L POC ABG pO2 146 H 415 H VBG pH Sodium Potassium Chloride Carbon Dioxide BUN Creatinine Glucose POC Glucose 153 H Lactic Acid Phosphorus Ammonia Total Creatine Kinase Total Protein Urine WBC (Auto) 07/01/17 07/01/17 07/01/17 08:26 10:22 17:59 WBC RBC Hgb Hct MCV MCH MCHC Lymph % (Auto) [place] % (Auto) [place] # Seg Neutrophils % Seg Neuts % (Manual) Lymphocytes % (Manual) Seg Neutrophils # Seg Neutrophils # Man Monocytes # (Manual) POC ABG pH POC ABG pCO2 POC ABG pO2 VBG pH Sodium Potassium Chloride 96.9 L Carbon Dioxide 19 L D BUN 50 H Creatinine 6.9 H D Glucose 123 H POC Glucose 121 H 167 H Lactic Acid Phosphorus Ammonia Total Creatine Kinase Total Protein Urine WBC (Auto) 07/01/17 07/02/17 07/02/17 19:45 00:22 04:08 WBC RBC 3.52 L Hgb 9.6 L Hct 29.0 L D MCV 82 L MCH 27 L MCHC Lymph % (Auto) 12.4 L [place] % (Auto) 9.0 H [place] # 0.9 H Seg Neutrophils % 77.0 H Seg Neuts % (Manual) Lymphocytes % (Manual) Seg Neutrophils # 8.0 H Seg Neutrophils # Man Monocytes # (Manual) POC ABG pH POC ABG pCO2 POC ABG pO2 VBG pH Sodium Potassium Chloride Carbon Dioxide BUN Creatinine Glucose POC Glucose 164 H Lactic Acid Phosphorus Ammonia Total Creatine Kinase Total Protein Urine WBC (Auto) 29.0 H 07/02/17 07/02/17 07/02/17 04:08 04:58 12:30 WBC RBC Hgb Hct MCV MCH MCHC Lymph % (Auto) [place] % (Auto) [place] # Seg Neutrophils % Seg Neuts % (Manual) Lymphocytes % (Manual) Seg Neutrophils # Seg Neutrophils # Man Monocytes # (Manual) POC ABG pH POC ABG pCO2 POC ABG pO2 136 H VBG pH Sodium Potassium Chloride Carbon Dioxide BUN 52 H Creatinine 4.4 H Glucose 149 H POC Glucose 133 H Lactic Acid Phosphorus Ammonia Total Creatine Kinase Total Protein Urine WBC (Auto) Chest x-ray: image reviewed (ETT in good position; no focal infiltrates) Allied health notes reviewed: nursing
[2017-07-03] MEDS: SODIUM CHLORIDE FLUSH SYRINGE 10 ML IV SCH ×2 (02:29→22:01)
[2017-07-03 04:34] LABS: Calcium 8.6 mg/dL (8.4-10.2)
[2017-07-03 04:49] LABS: Basophils # (Auto) 0.1 K/mm3 (0.0-0.1); Basophils % (Auto) 0.8 % (0.0-1.8); Eosinophils # (Auto) 0.5 K/mm3 (0.0-0.4); Eosinophils % (Auto) 5.4 % (0.0-4.3); Hemoglobin 8.4 gm/dl (11.8-15.2); Lymphocytes # (Auto) 2.3 K/mm3 (1.2-5.4); Lymphocytes % (Auto) 26.5 % (13.4-35.0); Mean Corpuscular HGB Conc 33 % (32-34); Mean Corpuscular Hemoglobin 27 pg (28-32); Mean Corpuscular Volume 84 fl (84-94); Monocytes # (Auto) 0.8 K/mm3 (0.0-0.8); Monocytes % (Auto) 9.7 % (0.0-7.3); Platelet Count 212 K/mm3 (140-440); Red Blood Count 3.11 M/mm3 (3.65-5.03); Red Cell Distribution Width 13.3 % (13.2-15.2)
[2017-07-03] MEDS: ZOSYN/NS 2.25 GM/50ML 2.25 GM/50 ML BAG IV SCH ×3 (05:42→22:00)
[2017-07-03] MEDS: HEPARIN SUB-Q SCH ×5 (05:42→22:02)
[2017-07-03] MEDS: PEPCID IV SCH (10:30)
--- NOTE | 2017-07-03 11:21 | Progress Note ---
Assessment and Plan Impression: * SHAHEEN * Acute resp failure * Sepsis * Metabolic acidosis * Type 2 DM * HTN Plan: * monitor for renal recovery * keep MAP >65 * strict i/os * avoid nephrotoxins * daily lytes * renal function stable today * no hd at this time Subjective Date of service: 07/03/17 Principal diagnosis: respiratory failure Interval history: resting in bed today Objective - Exam Narrative Exam: HEENT: Oral mucosa moist, minimal pallor nor icterus Neck: Supple no thyromegaly JVD Chest: Clear to auscultation anteriorly few crackles in the side and at the lung bases Heart: Regular rate rhythm S1-S2 heard no S3-S4 Abdomen: Soft nontender, ostomy does put out loose stool Extremity: Approximately 1+ edema on dry skin Endocrine: Thyroid not enlarged Musculoskeletal: No joint effusion noted - Vital Signs Vital signs: Vital Signs - 12hr 07/02/17 07/02/17 07/03/17 23:31 23:56 00:00 Temperature 98.7 F Pulse Rate 105 H 102 H Pulse Rate [ From Monitor] Respiratory 12 8 L Rate Blood Pressure 117/74 118/73 O2 Sat by Pulse 95 95 Oximetry 07/03/17 07/03/17 07/03/17 00:31 01:00 01:31 Temperature Pulse Rate 99 H 93 H 88 Pulse Rate [ 93 H From Monitor] Respiratory 9 L 12 10 L Rate Blood Pressure 118/73 126/76 126/76 O2 Sat by Pulse 95 96 96 Oximetry 07/03/17 07/03/17 07/03/17 02:01 02:31 03:01 Temperature Pulse Rate 92 H 93 H 87 Pulse Rate [ From Monitor] Respiratory 9 L 11 L 10 L Rate Blood Pressure 122/80 122/80 135/70 O2 Sat by Pulse 97 96 96 Oximetry 07/03/17 07/03/17 07/03/17 03:31 04:00 04:31 Temperature 98.9 F Pulse Rate 79 77 91 H Pulse Rate [ From Monitor] Respiratory 11 L 12 14 Rate Blood Pressure 135/70 140/90 135/70 O2 Sat by Pulse 97 95 97 Oximetry 07/03/17 07/03/17 07/03/17 05:00 05:31 06:01 Temperature Pulse Rate 82 90 84 Pulse Rate [ 99 H From Monitor] Respiratory 16 10 L 11 L Rate Blood Pressure 141/88 141/88 149/86 O2 Sat by Pulse 98 97 97 Oximetry 07/03/17 07/03/17 07/03/17 06:31 07:00 07:31 Temperature Pulse Rate 87 76 85 Pulse Rate [ From Monitor] Respiratory 8 L 9 L 9 L Rate Blood Pressure 149/86 144/79 144/79 O2 Sat by Pulse 97 95 96 Oximetry 07/03/17 07/03/17 07/03/17 08:01 08:31 09:00 Temperature Pulse Rate 91 H 95 H 95 H Pulse Rate [ From Monitor] Respiratory 9 L 8 L 9 L Rate Blood Pressure 154/79 154/79 143/81 O2 Sat by Pulse 98 96 97 Oximetry 07/03/17 09:31 Temperature Pulse Rate 89 Pulse Rate [ From Monitor] Respiratory 10 L Rate Blood Pressure 143/81 O2 Sat by Pulse 97 Oximetry - Lab 07/03/17 03:51 07/03/17 03:51 Most recent lab results Calcium 8.6 mg/dL (8.4-10.2) 07/03/17 03:51 Phosphorus 11.40 mg/dL (2.5-4.5) H 06/30/17 15:05
[2017-07-03] MEDS ORDERED: VANCOMYCIN PHARMACY TO DOSE IV SCH (12:00)
--- NOTE | 2017-07-03 12:08 | Progress Note ---
Assessment and Plan Assessment and plan: Sepsis. Improving. Continue IV antibiotics. Urine culture reveals gram- negative rods. Follow-up blood and urine cultures and await sensitivities. Sputum culture reveals MRSA. Follow lactic acid levels. Patient has been weaned off of pressors. Acute on chronic renal failure in a patient who has known history of chronic kidney disease. Patient with previous hospitalization in January of last year requiring hemodialysis. Patient underwent emergent hemodialysis on this admission. Continue RT per nephrology. Acute hypoxemic respiratory failure. Patient respiratory status has improved. Patient is extubated. Pulmonary following. MRSA pneumonia. Chest x-ray reveals right lower lobe infiltrate. Continue vancomycin. Severe hyperkalemia and metabolic acidosis. Patient underwent emergent hemodialysis. Toxic metabolic encephalopathy. Resolved. CT scan of the head is negative. Hypertension. Continue antihypertensive medications. Diabetes mellitus type 2. Continue Accu-Cheks and sliding scale insulin. Chronic pain syndrome. Follow-up in the pain clinic as outpatient. Asthma. Stable. Gout. Stable. History CVA. History Interval history: No new issues overnight. Patient is extubated and doing well Hospitalist Physical - Constitutional Vitals: Temp Pulse Resp BP Pulse Ox 98.9 F 89 10 L 143/81 97 07/03/17 04:00 07/03/17 09:31 07/03/17 09:31 07/03/17 09:31 07/03/17 09:31 General appearance: Present: no acute distress - EENT Eyes: Present: PERRL, EOM intact ENT: hearing intact, clear oral mucosa, dentition normal - Neck Neck: Present: supple, normal ROM - Respiratory Respiratory effort: normal Respiratory: bilateral: CTA - Cardiovascular Rhythm: regular Heart Sounds: Present: S1 & S2. Absent: gallop, rub - Extremities Extremities: no ischemia, No edema, Full ROM - Abdominal General gastrointestinal: soft, non-tender, non-distended, normal bowel sounds - Integumentary Integumentary: Present: clear, warm, dry - Neurologic Neurologic: CNII-XII intact, moves all extremities Results - Labs CBC & Chem 7: 07/03/17 03:51 07/03/17 03:51 Labs: Laboratory Last Values WBC 8.7 K/mm3 (4.5-11.0) 07/03/17 03:51 RBC 3.11 M/mm3 (3.65-5.03) L 07/03/17 03:51 Hgb 8.4 gm/dl (11.8-15.2) L 07/03/17 03:51 Hct 26.0 % (35.5-45.6) L 07/03/17 03:51 MCV 84 fl (84-94) 07/03/17 03:51 MCH 27 pg (28-32) L 07/03/17 03:51 MCHC 33 % (32-34) 07/03/17 03:51 RDW 13.3 % (13.2-15.2) 07/03/17 03:51 Plt Count 212 K/mm3 (140-440) 07/03/17 03:51 Lymph % (Auto) 26.5 % (13.4-35.0) 07/03/17 03:51 [place] % (Auto) 9.7 % (0.0-7.3) H 07/03/17 03:51 Eos % (Auto) 5.4 % (0.0-4.3) H 07/03/17 03:51 Baso % (Auto) 0.8 % (0.0-1.8) 07/03/17 03:51 Lymph # 2.3 K/mm3 (1.2-5.4) 07/03/17 03:51 [place] # 0.8 K/mm3 (0.0-0.8) 07/03/17 03:51 Eos # 0.5 K/mm3 (0.0-0.4) H 07/03/17 03:51 Baso # 0.1 K/mm3 (0.0-0.1) 07/03/17 03:51 Add Manual Diff Complete 06/30/17 14:35 Total Counted 100 06/30/17 14:35 Seg Neutrophils % 57.6 % (40.0-70.0) 07/03/17 03:51 Seg Neuts % (Manual) 81.0 % (40.0-70.0) H 06/30/17 14:35 Band Neutrophils % 2.0 % 06/30/17 14:35 Lymphocytes % (Manual) 10.0 % (13.4-35.0) L 06/30/17 14:35 Reactive Lymphs % (Man) 0 % 06/30/17 14:35 Monocytes % (Manual) 6.0 % (0.0-7.3) 06/30/17 14:35 Eosinophils % (Manual) 1.0 % (0.0-4.3) 06/30/17 14:35 Basophils % (Manual) 0 % (0.0-1.8) 06/30/17 14:35 Metamyelocytes % 0 % 06/30/17 14:35 Myelocytes % 0 % 06/30/17 14:35 Promyelocytes % 0 % 06/30/17 14:35 Blast Cells % 0 % 06/30/17 14:35 Nucleated RBC % Not Reportable 06/30/17 14:35 Seg Neutrophils # 5.0 K/mm3 (1.8-7.7) 07/03/17 03:51 Seg Neutrophils # Man 13.4 K/mm3 (1.8-7.7) H 06/30/17 14:35 Band Neutrophils # 0.3 K/mm3 06/30/17 14:35 Lymphocytes # (Manual) 1.7 K/mm3 (1.2-5.4) 06/30/17 14:35 Abs React Lymphs (Man) 0.0 K/mm3 06/30/17 14:35 Monocytes # (Manual) 1.0 K/mm3 (0.0-0.8) H 06/30/17 14:35 Eosinophils # (Manual) 0.2 K/mm3 (0.0-0.4) 06/30/17 14:35 Basophils # (Manual) 0.0 K/mm3 (0.0-0.1) 06/30/17 14:35 Metamyelocytes # 0.0 K/mm3 06/30/17 14:35 Myelocytes # 0.0 K/mm3 06/30/17 14:35 Promyelocytes # 0.0 K/mm3 06/30/17 14:35 Blast Cells # 0.0 K/mm3 06/30/17 14:35 WBC Morphology Not Reportable 06/30/17 14:35 Hypersegmented Neuts Not Reportable 06/30/17 14:35 Hyposegmented Neuts Not Reportable 06/30/17 14:35 Hypogranular Neuts Not Reportable 06/30/17 14:35 Smudge Cells Not Reportable 06/30/17 14:35 Toxic Granulation Not Reportable 06/30/17 14:35 Toxic Vacuolation Not Reportable 06/30/17 14:35 Dohle Bodies Not Reportable 06/30/17 14:35 Pelger-Huet Anomaly Not Reportable 06/30/17 14:35 Jaqueline Rods Not Reportable 06/30/17 14:35 Platelet Estimate Not Reportable 06/30/17 14:35 Clumped Platelets Not Reportable 06/30/17 14:35 Plt Clumps, EDTA Not Reportable 06/30/17 14:35 Large Platelets Not Reportable 06/30/17 14:35 Giant Platelets Not Reportable 06/30/17 14:35 Platelet Satelliting Not Reportable 06/30/17 14:35 Plt Morphology Comment Not Reportable 06/30/17 14:35 RBC Morphology Normal 06/30/17 14:35 Dimorphic RBCs Not Reportable 06/30/17 14:35 Polychromasia Not Reportable 06/30/17 14:35 Hypochromasia Not Reportable 06/30/17 14:35 Poikilocytosis Not Reportable 06/30/17 14:35 Anisocytosis Not Reportable 06/30/17 14:35 Microcytosis Not Reportable 06/30/17 14:35 Macrocytosis Not Reportable 06/30/17 14:35 Spherocytes Not Reportable 06/30/17 14:35 Pappenheimer Bodies Not Reportable 06/30/17 14:35 Sickle Cells Not Reportable 06/30/17 14:35 Target Cells Not Reportable 06/30/17 14:35 Tear Drop Cells Not Reportable 06/30/17 14:35 Ovalocytes Not Reportable 06/30/17 14:35 Helmet Cells Not Reportable 06/30/17 14:35 Donahue-Brea Bodies Not Reportable 06/30/17 14:35 [place] Rings Not Reportable 06/30/17 14:35 [place] Cells Not Reportable 06/30/17 14:35 Bite Cells Not Reportable 06/30/17 14:35 Crenated Cell Not Reportable 06/30/17 14:35 Elliptocytes Not Reportable 06/30/17 14:35 Acanthocytes (Spur) Not Reportable 06/30/17 14:35 Rouleaux Not Reportable 06/30/17 14:35 Hemoglobin C Crystals Not Reportable 06/30/17 14:35 Schistocytes Not Reportable 06/30/17 14:35 Malaria parasites Not Reportable 06/30/17 14:35 Tobias Bodies Not Reportable 06/30/17 14:35 Hem Pathologist Commnt No 06/30/17 14:35 PT 13.9 Sec. (12.2-14.9) 06/30/17 14:05 INR 1.02 (0.87-1.13) 06/30/17 14:05 POC ABG pH 7.389 (7.35-7.45) 07/02/17 12:21 POC ABG pCO2 40.1 (35-45) 07/02/17 12:21 POC ABG pO2 154 (80-105) H 07/02/17 12:21 POC ABG HCO3 24.2 07/02/17 12:21 POC ABG Total CO2 25 07/02/17 12:21 POC ABG O2 Sat 99 07/02/17 12:21 POC ABG Base Excess -1 07/02/17 12:21 VBG pH 6.967 (7.320-7.420) L* 06/30/17 15:02 FiO2 35 % 07/02/17 12:21 Sodium 143 mmol/L (137-145) 07/03/17 03:51 Potassium 3.8 mmol/L (3.6-5.0) 07/03/17 03:51 Chloride 105.4 mmol/L (98-107) 07/03/17 03:51 Carbon Dioxide 23 mmol/L (22-30) 07/03/17 03:51 Anion Gap 18 mmol/L 07/03/17 03:51 BUN 51 mg/dL (9-20) H 07/03/17 03:51 Creatinine 3.3 mg/dL (0.8-1.5) H 07/03/17 03:51 Estimated GFR 24 ml/min 07/03/17 03:51 BUN/Creatinine Ratio 15 % 07/03/17 03:51 Glucose 123 mg/dL (75-100) H 07/03/17 03:51 POC Glucose 145 (70-105) H 07/03/17 11:55 Lactic Acid 0.90 mmol/L (0.7-2.0) 06/30/17 17:15 Calcium 8.6 mg/dL (8.4-10.2) 07/03/17 03:51 Phosphorus 11.40 mg/dL (2.5-4.5) H 06/30/17 15:05 Total Bilirubin 0.20 mg/dL (0.1-1.2) 06/30/17 14:05 AST 14 units/L (5-40) 06/30/17 14:05 ALT 17 units/L (7-56) 06/30/17 14:05 Alkaline Phosphatase 126 units/L (35-129) 06/30/17 14:05 Ammonia 61.0 umol/L (25-60) H 06/30/17 15:05 Total Creatine Kinase 269 units/L (55-170) H 06/30/17 17:10 Total Protein 8.3 g/dL (6.3-8.2) H 06/30/17 14:05 Albumin 4.1 g/dL (3.9-5) 06/30/17 14:05 Albumin/Globulin Ratio 1.0 % 06/30/17 14:05 Urine Color Yellow (Yellow) 07/01/17 19:45 Urine Turbidity Clear (Clear) 07/01/17 19:45 Urine pH 5.0 (5.0-7.0) 07/01/17 19:45 Ur Specific [place] 1.011 (1.003-1.030) 07/01/17 19:45 Urine Protein <15 mg/dl mg/dL (Negative) 07/01/17 19:45 Urine Glucose (UA) Neg mg/dL (Negative) 07/01/17 19:45 Urine Ketones Neg mg/dL (Negative) 07/01/17 19:45 Urine Blood Sm (Negative) 07/01/17 19:45 Urine Nitrite Neg (Negative) 07/01/17 19:45 Urine Bilirubin Neg (Negative) 07/01/17 19:45 Urine Urobilinogen < 2.0 mg/dL (<2.0) 07/01/17 19:45 Ur Leukocyte Esterase Lg (Negative) 07/01/17 19:45 Urine WBC (Auto) 29.0 /HPF (0.0-6.0) H 07/01/17 19:45 Urine RBC (Auto) 7.0 /HPF (0.0-6.0) 07/01/17 19:45 U Epithel Cells (Auto) 1.0 /HPF (0-13.0) 07/01/17 19:45 Urine Bacteria (Auto) 1+ /HPF (Negative) 07/01/17 19:45 Urine Mucus Few /HPF 07/01/17 19:45 Random Vancomycin 18.6 ug/mL (0-40.0) 07/01/17 08:25 Hepatitis A IgM Ab Non-reactive (NonReactive) 06/30/17 23:45 Hep Bs Antigen Non-reactive (Negative) 06/30/17 23:45 Hep B Core IgM Ab Non-reactive (NonReactive) 06/30/17 23:45 Hepatitis C Antibody Non-reactive (NonReactive) 06/30/17 23:45
--- NOTE | 2017-07-03 12:52 | Progress Note ---
Assessment and Plan Sepsis/septic shock. Acute respiratory failure Acute on chronic renal failure Severe hyperkalemia and metabolic acidosis Toxic metabolic encephalopathy. Hypertension. Diabetes mellitus type 2. Chronic pain syndrome. Asthma. Gout History CVA. - VAP bundle addressed - tentative extubation if ABG acceptable - continue bronchodilators with pulmonary hygiene per RT - continue GI & VTE prophylxais - HD/UF per nephrology - hyperkalemia corrected - prn oxygen for sats < 90% - continue glycemic control with SSI - titrate oral anti-HTNsives per nephrology - continue other chronic disease meds per attending - transfer to telemetry later today if does well post extubation Subjective Date of service: 07/03/17 Principal diagnosis: Acute Hypoxemic Respiratory Failure; SHAHEEN on CKD; severe hyperkalemia Interval history: Patient is seen today for: Acute Hypoxemic Respiratory Failure; SHAHEEN on CKD; severe hyperkalemia Seen and examined at bedside; 24hour events reviewed; nursing and respiratory care staff consulted; no adverse overnight events reported to me; resting peacefully on MVS; Objective Vital Signs - 12hr 07/03/17 07/03/17 07/03/17 01:00 01:31 02:01 Temperature Pulse Rate 93 H 88 92 H Pulse Rate [ 93 H From Monitor] Respiratory 12 10 L 9 L Rate Blood Pressure 126/76 126/76 122/80 O2 Sat by Pulse 96 96 97 Oximetry 07/03/17 07/03/17 07/03/17 02:31 03:01 03:31 Temperature Pulse Rate 93 H 87 79 Pulse Rate [ From Monitor] Respiratory 11 L 10 L 11 L Rate Blood Pressure 122/80 135/70 135/70 O2 Sat by Pulse 96 96 97 Oximetry 07/03/17 07/03/17 07/03/17 04:00 04:31 05:00 Temperature 98.9 F Pulse Rate 77 91 H 82 Pulse Rate [ 99 H From Monitor] Respiratory 12 14 16 Rate Blood Pressure 140/90 135/70 141/88 O2 Sat by Pulse 95 97 98 Oximetry 07/03/17 07/03/17 07/03/17 05:31 06:01 06:31 Temperature Pulse Rate 90 84 87 Pulse Rate [ From Monitor] Respiratory 10 L 11 L 8 L Rate Blood Pressure 141/88 149/86 149/86 O2 Sat by Pulse 97 97 97 Oximetry 07/03/17 07/03/17 07/03/17 07:00 07:31 08:01 Temperature Pulse Rate 76 85 91 H Pulse Rate [ From Monitor] Respiratory 9 L 9 L 9 L Rate Blood Pressure 144/79 144/79 154/79 O2 Sat by Pulse 95 96 98 Oximetry 07/03/17 07/03/17 07/03/17 08:31 09:00 09:31 Temperature Pulse Rate 95 H 95 H 89 Pulse Rate [ From Monitor] Respiratory 8 L 9 L 10 L Rate Blood Pressure 154/79 143/81 143/81 O2 Sat by Pulse 96 97 97 Oximetry Constitutional: no acute distress, alert Eyes: non-icteric ENT: oropharynx moist, other (ETT in place) Neck: supple, no lymphadenopathy, no JVD, other Effort: mildly labored Ascultation: Bilateral: clear Percussion: Bilateral: not dull Cardiovascular: regular rate and rhythm, other (no rubs or murmurs) Gastrointestinal: normoactive bowel sounds, soft, non-tender, non-distended, other (Left groin vascath) Integumentary: normal Extremities: no cyanosis, no edema, pulses normal, no ischemia or petechiae Neurologic: normal mental status, non-focal exam, pupils equal and round, motor strength normal and Psychiatric: mood appropriate, affect normal CBC and BMP: 07/03/17 03:51 07/03/17 03:51 ABG, PT/INR, D-dimer: ABG POC ABG pH 7.389 (7.35-7.45) 07/02/17 12:21 POC ABG pCO2 40.1 (35-45) 07/02/17 12:21 POC ABG pO2 154 (80-105) H 07/02/17 12:21 POC ABG HCO3 24.2 07/02/17 12:21 POC ABG Total CO2 25 07/02/17 12:21 POC ABG O2 Sat 99 07/02/17 12:21 PT/INR, D-dimer PT 13.9 Sec. (12.2-14.9) 06/30/17 14:05 INR 1.02 (0.87-1.13) 06/30/17 14:05 Abnormal lab findings: Abnormal Labs 06/30/17 06/30/17 06/30/17 14:05 14:35 14:35 WBC 16.5 H RBC Hgb 10.6 L Hct MCV MCH 26 L MCHC 29 L Lymph % (Auto) [place] % (Auto) Eos % (Auto) [place] # Eos # Seg Neutrophils % Seg Neuts % (Manual) 81.0 H Lymphocytes % (Manual) 10.0 L Seg Neutrophils # Seg Neutrophils # Man 13.4 H Monocytes # (Manual) 1.0 H POC ABG pH POC ABG pCO2 POC ABG pO2 VBG pH Sodium 126 L Potassium 10.0 H* Chloride 90.8 L Carbon Dioxide 6 L* BUN 134 H Creatinine 18.0 H Glucose 203 H POC Glucose Lactic Acid 3.00 H* Phosphorus Ammonia Total Creatine Kinase Total Protein 8.3 H Urine WBC (Auto) 06/30/17 06/30/17 06/30/17 15:02 15:05 15:05 WBC RBC Hgb Hct MCV MCH MCHC Lymph % (Auto) [place] % (Auto) Eos % (Auto) [place] # Eos # Seg Neutrophils % Seg Neuts % (Manual) Lymphocytes % (Manual) Seg Neutrophils # Seg Neutrophils # Man Monocytes # (Manual) POC ABG pH POC ABG pCO2 POC ABG pO2 VBG pH 6.967 L* Sodium Potassium Chloride Carbon Dioxide BUN Creatinine Glucose POC Glucose Lactic Acid Phosphorus 11.40 H Ammonia 61.0 H Total Creatine Kinase Total Protein Urine WBC (Auto) 06/30/17 06/30/17 06/30/17 17:10 17:10 20:57 WBC RBC Hgb Hct MCV MCH MCHC Lymph % (Auto) [place] % (Auto) Eos % (Auto) [place] # Eos # Seg Neutrophils % Seg Neuts % (Manual) Lymphocytes % (Manual) Seg Neutrophils # Seg Neutrophils # Man Monocytes # (Manual) POC ABG pH POC ABG pCO2 POC ABG pO2 VBG pH Sodium Potassium 8.0 H* Chloride Carbon Dioxide BUN Creatinine Glucose POC Glucose 190 H Lactic Acid Phosphorus Ammonia Total Creatine Kinase 269 H Total Protein Urine WBC (Auto) 06/30/17 07/01/17 07/01/17 21:57 04:18 05:32 WBC RBC Hgb Hct MCV MCH MCHC Lymph % (Auto) [place] % (Auto) Eos % (Auto) [place] # Eos # Seg Neutrophils % Seg Neuts % (Manual) Lymphocytes % (Manual) Seg Neutrophils # Seg Neutrophils # Man Monocytes # (Manual) POC ABG pH 6.976 L POC ABG pCO2 28.3 L 32.8 L POC ABG pO2 146 H 415 H VBG pH Sodium Potassium Chloride Carbon Dioxide BUN Creatinine Glucose POC Glucose 153 H Lactic Acid Phosphorus Ammonia Total Creatine Kinase Total Protein Urine WBC (Auto) 07/01/17 07/01/17 07/01/17 08:26 10:22 17:59 WBC RBC Hgb Hct MCV MCH MCHC Lymph % (Auto) [place] % (Auto) Eos % (Auto) [place] # Eos # Seg Neutrophils % Seg Neuts % (Manual) Lymphocytes % (Manual) Seg Neutrophils # Seg Neutrophils # Man Monocytes # (Manual) POC ABG pH POC ABG pCO2 POC ABG pO2 VBG pH Sodium Potassium Chloride 96.9 L Carbon Dioxide 19 L D BUN 50 H Creatinine 6.9 H D Glucose 123 H POC Glucose 121 H 167 H Lactic Acid Phosphorus Ammonia Total Creatine Kinase Total Protein Urine WBC (Auto) 07/01/17 07/02/17 07/02/17 19:45 00:22 04:08 WBC RBC 3.52 L Hgb 9.6 L Hct 29.0 L D MCV 82 L MCH 27 L MCHC Lymph % (Auto) 12.4 L [place] % (Auto) 9.0 H Eos % (Auto) [place] # 0.9 H Eos # Seg Neutrophils % 77.0 H Seg Neuts % (Manual) Lymphocytes % (Manual) Seg Neutrophils # 8.0 H Seg Neutrophils # Man Monocytes # (Manual) POC ABG pH POC ABG pCO2 POC ABG pO2 VBG pH Sodium Potassium Chloride Carbon Dioxide BUN Creatinine Glucose POC Glucose 164 H Lactic Acid Phosphorus Ammonia Total Creatine Kinase Total Protein Urine WBC (Auto) 29.0 H 07/02/17 07/02/17 07/02/17 04:08 04:58 12:21 WBC RBC Hgb Hct MCV MCH MCHC Lymph % (Auto) [place] % (Auto) Eos % (Auto) [place] # Eos # Seg Neutrophils % Seg Neuts % (Manual) Lymphocytes % (Manual) Seg Neutrophils # Seg Neutrophils # Man Monocytes # (Manual) POC ABG pH POC ABG pCO2 POC ABG pO2 136 H 154 H VBG pH Sodium Potassium Chloride Carbon Dioxide BUN 52 H Creatinine 4.4 H Glucose 149 H POC Glucose Lactic Acid Phosphorus Ammonia Total Creatine Kinase Total Protein Urine WBC (Auto) 07/02/17 07/02/17 07/03/17 12:30 17:32 03:51 WBC RBC 3.11 L Hgb 8.4 L Hct 26.0 L MCV MCH 27 L MCHC Lymph % (Auto) [place] % (Auto) 9.7 H Eos % (Auto) 5.4 H [place] # Eos # 0.5 H Seg Neutrophils % Seg Neuts % (Manual) Lymphocytes % (Manual) Seg Neutrophils # Seg Neutrophils # Man Monocytes # (Manual) POC ABG pH POC ABG pCO2 POC ABG pO2 VBG pH Sodium Potassium Chloride Carbon Dioxide BUN Creatinine Glucose POC Glucose 133 H 134 H Lactic Acid Phosphorus Ammonia Total Creatine Kinase Total Protein Urine WBC (Auto) 07/03/17 07/03/17 07/03/17 03:51 05:46 07:57 WBC RBC Hgb Hct MCV MCH MCHC Lymph % (Auto) [place] % (Auto) Eos % (Auto) [place] # Eos # Seg Neutrophils % Seg Neuts % (Manual) Lymphocytes % (Manual) Seg Neutrophils # Seg Neutrophils # Man Monocytes # (Manual) POC ABG pH POC ABG pCO2 POC ABG pO2 VBG pH Sodium Potassium Chloride Carbon Dioxide BUN 51 H Creatinine 3.3 H Glucose 123 H POC Glucose 115 H 159 H Lactic Acid Phosphorus Ammonia Total Creatine Kinase Total Protein Urine WBC (Auto) 07/03/17 11:55 WBC RBC Hgb Hct MCV MCH MCHC Lymph % (Auto) [place] % (Auto) Eos % (Auto) [place] # Eos # Seg Neutrophils % Seg Neuts % (Manual) Lymphocytes % (Manual) Seg Neutrophils # Seg Neutrophils # Man Monocytes # (Manual) POC ABG pH POC ABG pCO2 POC ABG pO2 VBG pH Sodium Potassium Chloride Carbon Dioxide BUN Creatinine Glucose POC Glucose 145 H Lactic Acid Phosphorus Ammonia Total Creatine Kinase Total Protein Urine WBC (Auto) Allied health notes reviewed: nursing
--- NOTE | 2017-07-03 16:12 | Consultation ---
History of Present Illness - Reason for Consult Consult date: 07/03/17 MRSA pna Requesting physician: DERIC QUICK - History of Present Illness 51 y/o Male with history of HTN, CVA, DM, Asthma, Gout, CKD, obstructive uropathy, Chronic Pain treated in Pain Clinic, ARMANDO, prominent left-sided hydronephrosis due to large stone in the left upper ureter; admitted on 2017 due to a week history of the mental status, confusion and ultimately unresponsiveness, patient was found down and unresponsive by family members on the day of admission. Patient is still confused in abuse daily limited. Patient denies any fever, chills, cough but again very poor historian. Of note , patient was admitted [facility] back in February 2017 with altered mental status tattoos some persistent hyperkalemia requiring emergent hemodialysis. Patient was found to have seizures and was given Keppra. In the ED, initial temperature was 97.3, heart rate 95, respiration 22, blood pressure 141/103. Initial white count 16.5. Hemoglobin 10.6. Platelets 341. Sodium 126. Potassium 10. Creatinine 18. Lactate 3. Ammonia 61. Viral hepatitis panel negative. Urinalysis showed 29 white blood cells and large leukocyte esterase. Chest x-ray was negative. 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 Of note patient was intubated and placed on pressors transferred to the ICU. Microbiology: Blood cultures: 06/30 ngtd Urine cultures: 06/30 GNR Respiratory cultures: 06/30 MRSA Current Antimicrobials: Zosyn Vancomycin Previous Antimicrobials: crop scout- Past History Past Medical History: diabetes, hypertension, stroke, other (Gout, ARMANDO) Past Surgical History: bowel surgery, Other (bowel surgery, Other (Right Knee surgery, colostomy, )) Social history: single. denies: smoking Family history: diabetes, hypertension Medications and Allergies Allergies Allergy/AdvReac Type Severity Reaction Status Date / Time shellfish derived Allergy Swelling Verified 10/11/14 19:30 Home Medications Medication Instructions Recorded Confirmed Last Taken Type Duloxetine HCl [Cymbalta] 60 mg PO HS 02/18/17 06/30/17 02/17/17 History Gabapentin [Neurontin] 2 cap PO BID 02/18/17 06/30/17 02/17/17 History Lisinopril [Zestril TAB] 10 mg PO QDAY 06/30/17 06/30/17 Unknown History Active Meds: Active Medications Lipase/Protease/Amylase (Pancreaze Dr 10,500 Unit) 1 each FEEDTUBE PRN PRN PRN Reason: For Clogged Feeding Tube Famotidine (Pepcid) 20 mg IV DAILY [facility] Last Admin: 07/03/17 10:30 Dose: Not Given Heparin Sodium (Porcine) (Heparin) 5,000 unit IV KENNA PRN PRN Reason: hemodialysis Last Admin: 07/01/17 03:03 Dose: 5,000 unit Heparin Sodium (Porcine) (Heparin) 5,000 unit SUB-Q Q8HR [facility] Last Admin: 07/03/17 15:26 Dose: Not Given Piperacillin Sod/Tazobactam Sod (Zosyn/Ns 2.25 Gm/50ml) 2.25 gm in 50 mls @ 100 mls/hr IV Q8HR [facility] Last Admin: 07/03/17 15:29 Dose: 100 mls/hr Norepinephrine (Levophed Drip 4 Mg/Ns 250 Ml) 4 mg in 250 mls @ 7.5 mls/hr IV TITR [facility]; Protocol Last Titration: 07/01/17 17:33 Dose: 0 mcg/min, 0 mls/hr Sodium Chloride (Nacl 0.9%) 100 mls @ 999 mls/hr IV KENNA PRN PRN Reason: Hypotension Sodium Chloride (Nacl 0.9%) 100 mls @ 999 mls/hr IV KENNA PRN PRN Reason: Hypotension Sodium Chloride (Nacl 0.9%) 100 mls @ 999 mls/hr IV KENNA PRN PRN Reason: Hypotension Simple Syrup (Simple Syrup) 15 ml FEEDTUBE PRN PRN PRN Reason: Hypoglycemia Simple Syrup (Simple Syrup) 30 ml FEEDTUBE PRN PRN PRN Reason: Hypoglycemia Sodium Bicarbonate (Sodium Bicarbonate) 325 mg FEEDTUBE PRN PRN PRN Reason: For Clogged Feeding Tube Sodium Chloride (Sodium Chloride Flush Syringe 10 Ml) 10 ml IV BID [facility] Last Admin: 07/03/17 02:29 Dose: Not Given Sodium Chloride (Sodium Chloride Flush Syringe 10 Ml) 10 ml IV PRN PRN PRN Reason: LINE FLUSH Last Admin: 07/02/17 09:35 Dose: 10 ml Vancomycin HCl (Vancomycin Pharmacy To Dose) 1 each IV PKCONSULT [facility] Review of Systems ROS unobtainable: due to mental status Physical Examination - Physical Exam Narrative exam: General appearance: Alert in NAD, conversant, confused Eyes: anicteric sclerae, moist conjunctivae; no lid-lag; PERRLA HENT: Atraumatic; oropharynx clear with moist mucous membranes and no mucosal ulcerations/no oral thrush; normal hard and soft palate. Normal external ears. Neck: Trachea midline; supple, no thyromegaly or lymphadenopathy Lungs: CTA, with normal respiratory effort and no intercostal retractions CV: RRR, + murmurs Abdomen: Soft, non-tender; no masses or hepatosplenomegaly+colostomy Ext: no edema or extremity lymphadenopathy Skin: Normal temperature, turgor and texture; no rash, ulcers or subcutaneous nodules Psych: confused anxious Neuro: alert and oriented x 1. Moving all extermities Lines: left fem HD cath - Constitutional Vitals: Vital Signs Temp Pulse Resp BP Pulse Ox 98.8 F 96 H 10 L 113/71 97 07/03/17 12:00 07/03/17 15:00 07/03/17 15:00 07/03/17 14:01 07/03/17 15:00 Temperature -Last 24 Hours Temperature 98.8 F Temperature 98.7 F Temperature 98.9 F Temperature 98.7 F Temperature 98.8 F Results - Labs CBC & Chem 7: 07/03/17 03:51 07/03/17 03:51 Labs: Abnormal lab results 07/02/17 07/03/17 07/03/17 Range/Units 17:32 03:51 03:51 RBC 3.11 L (3.65-5.03) M/mm3 Hgb 8.4 L (11.8-15.2) gm/dl Hct 26.0 L (35.5-45.6) % MCH 27 L (28-32) pg Churchill % (Auto) 9.7 H (0.0-7.3) % Eos % (Auto) 5.4 H (0.0-4.3) % Eos # 0.5 H (0.0-0.4) K/mm3 BUN 51 H (9-20) mg/dL Creatinine 3.3 H (0.8-1.5) mg/dL Glucose 123 H (75-100) mg/dL POC Glucose 134 H (70-105) 07/03/17 07/03/17 07/03/17 Range/Units 05:46 07:57 11:55 RBC (3.65-5.03) M/mm3 Hgb (11.8-15.2) gm/dl Hct (35.5-45.6) % MCH (28-32) pg Churchill % (Auto) (0.0-7.3) % Eos % (Auto) (0.0-4.3) % Eos # (0.0-0.4) K/mm3 BUN (9-20) mg/dL Creatinine (0.8-1.5) mg/dL Glucose (75-100) mg/dL POC Glucose 115 H 159 H 145 H (70-105) Assessment and Plan Assessment: 1) Sepsis with initial septic shock / hypovolemic shock: Present on admission, manifested by tachycardia, hypotension, leukocytosis, increased lactate. Etiology most likely UTI +/- dehydration. 2) Complicated UTI with history of large left ureteral stone and hydronephrosis 3) MRSA in respiratory sample ? colonizer vs. pathogen, CXR negative x 2 4) Acute encephalopathy: from uremia? seizures? 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 5) CKD with history of obstructive uropathy, prominent left-sided hydronephrosis due to large stone in the left 6) Acute respiratory failure: resolved 7) Recent admission in February 2017 with altered mental status, SHAHEEN and persistent hyperkalemia requiring emergent hemodialysis. Patient was found to have seizures and was given Keppra. 8) High colostomy output ? diarrhea 9) Hyperkalemia 10) Hyponatremia Plan: -follow-up blood cultures, urine culture -obtain C-reactive protein (CRP) -urology consult for eval of presumed obstructive uropathy with SHAHEEN and UTI -neuro consult for eval AMS/?seizure/EEG -stop zosyn -add cefepime renally dosed -continue vanco renally dosed -renal US -monitor ostomy output -contact isolation Discussed over the phone with Dr John john for neuro and urology eval Thank you for your consultation, will follow up with you. Joyce Newman MD Infectious Diseases Specialist [facility], [place], [facility] ([facility]) M [phone] O [phone]
--- NOTE | 2017-07-03 19:20 | Ultrasound Report ---
FINAL REPORT PROCEDURE: US RENAL BILAT TECHNIQUE: Real-time sonography in multiple planes of the kidneys, ureters and urinary bladder was performed with image documentation. CPT 55059 HISTORY: kidney US eval for hydro COMPARISON: No prior studies are available for comparison. FINDINGS: RIGHT kidney: Normal echotexture. No focal renal mass, calculus, or hydronephrosis. Length: 13.4 cm. LEFT kidney: There is hydronephrosis. No masses are identified.. Length: 11.2cm. Bladder: Normal. IMPRESSION: There is moderate left hydronephrosis. No masses are identified. The right kidney has a normal appearance..
[2017-07-03] MEDS: HumaLOG SUB-Q SCH (21:55)
[2017-07-04] MEDS: HumaLOG SUB-Q SCH ×4 (00:29→17:37)
[2017-07-04] MEDS: ZOSYN/NS 2.25 GM/50ML 2.25 GM/50 ML BAG IV SCH (06:03)
[2017-07-04] MEDS: HEPARIN SUB-Q SCH ×3 (06:04→21:55)
[2017-07-04 08:02] LABS: Basophils % (Auto) 0.6 % (0.0-1.8); Eosinophils # (Auto) 0.7 K/mm3 (0.0-0.4); Eosinophils % (Auto) 8.9 % (0.0-4.3); Hematocrit 28.2 % (35.5-45.6); Hemoglobin 9.1 gm/dl (11.8-15.2); Lymphocytes # (Auto) 2.1 K/mm3 (1.2-5.4); Mean Corpuscular HGB Conc 32 % (32-34); Mean Corpuscular Hemoglobin 27 pg (28-32); Mean Corpuscular Volume 84 fl (84-94); Monocytes # (Auto) 0.6 K/mm3 (0.0-0.8); Monocytes % (Auto) 8.1 % (0.0-7.3); Platelet Count 218 K/mm3 (140-440); Red Blood Count 3.35 M/mm3 (3.65-5.03)
[2017-07-04 08:20] LABS: Calcium 9.1 mg/dL (8.4-10.2)
--- NOTE | 2017-07-04 08:29 | Progress Note ---
Assessment and Plan Impression: * SHAHEEN * Acute resp failure * Sepsis * Metabolic acidosis * Type 2 DM * HTN Plan: * monitor for renal recovery * cr is better today * vasc cath needs to be removed * strict i/os * avoid nephrotoxins * daily lytes * no hd at this time Subjective Date of service: 07/04/17 Principal diagnosis: Acute Hypoxemic Respiratory Failure; SHAHEEN on CKD; severe hyperkalemia Interval history: resting in bed today Objective - Exam Narrative Exam: HEENT: Oral mucosa moist, minimal pallor nor icterus Neck: Supple no thyromegaly JVD Chest: Clear to auscultation anteriorly few crackles in the side and at the lung bases Heart: Regular rate rhythm S1-S2 heard no S3-S4 Abdomen: Soft nontender, ostomy does put out loose stool Extremity: Approximately 1+ edema on dry skin Endocrine: Thyroid not enlarged Musculoskeletal: No joint effusion noted - Vital Signs Vital signs: Vital Signs - 12hr 07/03/17 07/03/17 07/03/17 21:00 21:17 22:00 Temperature 98.2 F Pulse Rate 77 Pulse Rate [ 77 Right Femoral] Respiratory 18 16 Rate Blood Pressure 142/72 O2 Sat by Pulse 97 95 Oximetry 07/03/17 07/04/17 07/04/17 23:22 03:00 03:53 Temperature 98.8 F Pulse Rate 75 63 105 H Pulse Rate [ Right Femoral] Respiratory 16 16 Rate Blood Pressure 142/92 O2 Sat by Pulse 97 93 Oximetry 07/04/17 07/04/17 04:00 07:23 Temperature 98.8 F 98.7 F Pulse Rate 59 L Pulse Rate [ 105 H Right Femoral] Respiratory 16 20 Rate Blood Pressure 142/92 140/65 O2 Sat by Pulse 93 95 Oximetry - Lab 07/04/17 07:05 07/04/17 07:05 Most recent lab results Calcium 9.1 mg/dL (8.4-10.2) 07/04/17 07:05 Phosphorus 11.40 mg/dL (2.5-4.5) H 06/30/17 15:05
--- NOTE | 2017-07-04 09:32 | Progress Note ---
Assessment and Plan Sepsis/septic shock. Acute respiratory failure Acute on chronic renal failure Severe hyperkalemia and metabolic acidosis s/p HD Toxic metabolic encephalopathy. Hypertension. Diabetes mellitus type 2. Chronic pain syndrome. Asthma. Gout History CVA. -Antibiotics -supplemental oxygen to keep O2 sats>90% -Nutritional support/enteric feeding -Glycemic control -Gudino catheter in this critically ill patient with need for accurate intake and output monitoring. -continue bronchodilators with pulmonary hygiene per RT - continue GI & VTE prophylxais - HD/UF per nephrology - continue glycemic control with SSI Subjective Date of service: 07/04/17 Principal diagnosis: Acute Hypoxemic Respiratory Failure; SHAHEEN on CKD; severe hyperkalemia Interval history: Patient is seen today for: Acute Hypoxemic Respiratory Failure; SHAHEEN on CKD; severe hyperkalemia Seen and examined at bedside; 24hour events reviewed; Objective Vital Signs - 12hr 07/03/17 07/03/17 07/04/17 22:00 23:22 03:00 Temperature Pulse Rate 75 63 Pulse Rate [ Right Femoral] Respiratory 16 Rate Blood Pressure O2 Sat by Pulse 95 97 Oximetry 07/04/17 07/04/17 07/04/17 03:53 04:00 07:23 Temperature 98.8 F 98.8 F 98.7 F Pulse Rate 105 H 59 L Pulse Rate [ 105 H Right Femoral] Respiratory 16 16 20 Rate Blood Pressure 142/92 142/92 140/65 O2 Sat by Pulse 93 93 95 Oximetry Constitutional: no acute distress, alert Eyes: non-icteric ENT: oropharynx moist Neck: supple, no lymphadenopathy, no JVD, other Effort: mildly labored Ascultation: Bilateral: clear Percussion: Bilateral: not dull Cardiovascular: regular rate and rhythm, other (no rubs or murmurs) Gastrointestinal: normoactive bowel sounds, soft, non-tender, non-distended, other (Left groin vascath) Integumentary: normal Extremities: no cyanosis, no edema, pulses normal, no ischemia or petechiae Neurologic: normal mental status, non-focal exam, pupils equal and round, motor strength normal and Psychiatric: mood appropriate, affect normal CBC and BMP: 07/04/17 07:05 07/04/17 07:05 ABG, PT/INR, D-dimer: ABG POC ABG pH 7.389 (7.35-7.45) 07/02/17 12:21 POC ABG pCO2 40.1 (35-45) 07/02/17 12:21 POC ABG pO2 154 (80-105) H 07/02/17 12:21 POC ABG HCO3 24.2 07/02/17 12:21 POC ABG Total CO2 25 07/02/17 12:21 POC ABG O2 Sat 99 07/02/17 12:21 PT/INR, D-dimer PT 13.9 Sec. (12.2-14.9) 06/30/17 14:05 INR 1.02 (0.87-1.13) 06/30/17 14:05 Abnormal lab findings: Abnormal Labs 06/30/17 06/30/17 06/30/17 14:05 14:35 14:35 WBC 16.5 H RBC Hgb 10.6 L Hct MCV MCH 26 L MCHC 29 L RDW Lymph % (Auto) Harding % (Auto) Eos % (Auto) Harding # Eos # Seg Neutrophils % Seg Neuts % (Manual) 81.0 H Lymphocytes % (Manual) 10.0 L Seg Neutrophils # Seg Neutrophils # Man 13.4 H Monocytes # (Manual) 1.0 H POC ABG pH POC ABG pCO2 POC ABG pO2 VBG pH Sodium 126 L Potassium 10.0 H* Chloride 90.8 L Carbon Dioxide 6 L* BUN 134 H Creatinine 18.0 H Glucose 203 H POC Glucose Lactic Acid 3.00 H* Phosphorus Ammonia Total Creatine Kinase Total Protein 8.3 H Urine WBC (Auto) 06/30/17 06/30/17 06/30/17 15:02 15:05 15:05 WBC RBC Hgb Hct MCV MCH MCHC RDW Lymph % (Auto) Harding % (Auto) Eos % (Auto) Harding # Eos # Seg Neutrophils % Seg Neuts % (Manual) Lymphocytes % (Manual) Seg Neutrophils # Seg Neutrophils # Man Monocytes # (Manual) POC ABG pH POC ABG pCO2 POC ABG pO2 VBG pH 6.967 L* Sodium Potassium Chloride Carbon Dioxide BUN Creatinine Glucose POC Glucose Lactic Acid Phosphorus 11.40 H Ammonia 61.0 H Total Creatine Kinase Total Protein Urine WBC (Auto) 06/30/17 06/30/17 06/30/17 17:10 17:10 20:57 WBC RBC Hgb Hct MCV MCH MCHC RDW Lymph % (Auto) [place] % (Auto) Eos % (Auto) Harding # Eos # Seg Neutrophils % Seg Neuts % (Manual) Lymphocytes % (Manual) Seg Neutrophils # Seg Neutrophils # Man Monocytes # (Manual) POC ABG pH POC ABG pCO2 POC ABG pO2 VBG pH Sodium Potassium 8.0 H* Chloride Carbon Dioxide BUN Creatinine Glucose POC Glucose 190 H Lactic Acid Phosphorus Ammonia Total Creatine Kinase 269 H Total Protein Urine WBC (Auto) 06/30/17 07/01/17 07/01/17 21:57 04:18 05:32 WBC RBC Hgb Hct MCV MCH MCHC RDW Lymph % (Auto) [place]ing % (Auto) Eos % (Auto) Harding # Eos # Seg Neutrophils % Seg Neuts % (Manual) Lymphocytes % (Manual) Seg Neutrophils # Seg Neutrophils # Man Monocytes # (Manual) POC ABG pH 6.976 L POC ABG pCO2 28.3 L 32.8 L POC ABG pO2 146 H 415 H VBG pH Sodium Potassium Chloride Carbon Dioxide BUN Creatinine Glucose POC Glucose 153 H Lactic Acid Phosphorus Ammonia Total Creatine Kinase Total Protein Urine WBC (Auto) 07/01/17 07/01/17 07/01/17 08:26 10:22 17:59 WBC RBC Hgb Hct MCV MCH MCHC RDW Lymph % (Auto) [place] % (Auto) Eos % (Auto) [place]ing # Eos # Seg Neutrophils % Seg Neuts % (Manual) Lymphocytes % (Manual) Seg Neutrophils # Seg Neutrophils # Man Monocytes # (Manual) POC ABG pH POC ABG pCO2 POC ABG pO2 VBG pH Sodium Potassium Chloride 96.9 L Carbon Dioxide 19 L D BUN 50 H Creatinine 6.9 H D Glucose 123 H POC Glucose 121 H 167 H Lactic Acid Phosphorus Ammonia Total Creatine Kinase Total Protein Urine WBC (Auto) 07/01/17 07/02/17 07/02/17 19:45 00:22 04:08 WBC RBC 3.52 L Hgb 9.6 L Hct 29.0 L D MCV 82 L MCH 27 L MCHC RDW Lymph % (Auto) 12.4 L Harding % (Auto) 9.0 H Eos % (Auto) Harding # 0.9 H Eos # Seg Neutrophils % 77.0 H Seg Neuts % (Manual) Lymphocytes % (Manual) Seg Neutrophils # 8.0 H Seg Neutrophils # Man Monocytes # (Manual) POC ABG pH POC ABG pCO2 POC ABG pO2 VBG pH Sodium Potassium Chloride Carbon Dioxide BUN Creatinine Glucose POC Glucose 164 H Lactic Acid Phosphorus Ammonia Total Creatine Kinase Total Protein Urine WBC (Auto) 29.0 H 07/02/17 07/02/17 07/02/17 04:08 04:58 12:21 WBC RBC Hgb Hct MCV MCH MCHC RDW Lymph % (Auto) [place]ing % (Auto) Eos % (Auto) [place]ing # Eos # Seg Neutrophils % Seg Neuts % (Manual) Lymphocytes % (Manual) Seg Neutrophils # Seg Neutrophils # Man Monocytes # (Manual) POC ABG pH POC ABG pCO2 POC ABG pO2 136 H 154 H VBG pH Sodium Potassium Chloride Carbon Dioxide BUN 52 H Creatinine 4.4 H Glucose 149 H POC Glucose Lactic Acid Phosphorus Ammonia Total Creatine Kinase Total Protein Urine WBC (Auto) 07/02/17 07/02/17 07/03/17 12:30 17:32 03:51 WBC RBC 3.11 L Hgb 8.4 L Hct 26.0 L MCV MCH 27 L MCHC RDW Lymph % (Auto) Harding % (Auto) 9.7 H Eos % (Auto) 5.4 H Harding # Eos # 0.5 H Seg Neutrophils % Seg Neuts % (Manual) Lymphocytes % (Manual) Seg Neutrophils # Seg Neutrophils # Man Monocytes # (Manual) POC ABG pH POC ABG pCO2 POC ABG pO2 VBG pH Sodium Potassium Chloride Carbon Dioxide BUN Creatinine Glucose POC Glucose 133 H 134 H Lactic Acid Phosphorus Ammonia Total Creatine Kinase Total Protein Urine WBC (Auto) 07/03/17 07/03/17 07/03/17 03:51 05:46 07:57 WBC RBC Hgb Hct MCV MCH MCHC RDW Lymph % (Auto) [place] % (Auto) Eos % (Auto) [place] # Eos # Seg Neutrophils % Seg Neuts % (Manual) Lymphocytes % (Manual) Seg Neutrophils # Seg Neutrophils # Man Monocytes # (Manual) POC ABG pH POC ABG pCO2 POC ABG pO2 VBG pH Sodium Potassium Chloride Carbon Dioxide BUN 51 H Creatinine 3.3 H Glucose 123 H POC Glucose 115 H 159 H Lactic Acid Phosphorus Ammonia Total Creatine Kinase Total Protein Urine WBC (Auto) 07/03/17 07/03/17 07/03/17 11:55 16:26 21:38 WBC RBC Hgb Hct MCV MCH MCHC RDW Lymph % (Auto) [place] % (Auto) Eos % (Auto) [place]ing # Eos # Seg Neutrophils % Seg Neuts % (Manual) Lymphocytes % (Manual) Seg Neutrophils # Seg Neutrophils # Man Monocytes # (Manual) POC ABG pH POC ABG pCO2 POC ABG pO2 VBG pH Sodium Potassium Chloride Carbon Dioxide BUN Creatinine Glucose POC Glucose 145 H 215 H 158 H Lactic Acid Phosphorus Ammonia Total Creatine Kinase Total Protein Urine WBC (Auto) 07/04/17 07/04/17 07/04/17 05:07 07:05 07:05 WBC RBC 3.35 L Hgb 9.1 L Hct 28.2 L MCV MCH 27 L MCHC RDW 13.0 L Lymph % (Auto) Harding % (Auto) 8.1 H Eos % (Auto) 8.9 H Harding # Eos # 0.7 H Seg Neutrophils % Seg Neuts % (Manual) Lymphocytes % (Manual) Seg Neutrophils # Seg Neutrophils # Man Monocytes # (Manual) POC ABG pH POC ABG pCO2 POC ABG pO2 VBG pH Sodium Potassium Chloride Carbon Dioxide BUN 39 H Creatinine 2.6 H Glucose 119 H POC Glucose 121 H Lactic Acid Phosphorus Ammonia Total Creatine Kinase Total Protein Urine WBC (Auto) Allied health notes reviewed: nursing
[2017-07-04] MEDS ORDERED: VANCOMYCIN 1,250 MG in NACL 0.9% 250ML 250 ML IV ONE (10:00)
[2017-07-04] MEDS: SODIUM CHLORIDE FLUSH SYRINGE 10 ML IV SCH ×2 (11:21→21:55)
[2017-07-04] MEDS: MAXIPIME 1 GM in NACL 0.9% 20 ML IV SCH (11:22)
--- NOTE | 2017-07-04 11:30 | Progress Note ---
Assessment and Plan Assessment and plan: Sepsis. Improving. Continue IV antibiotics. Urine culture reveals gram- negative rods. Follow-up blood and urine cultures and await sensitivities. Sputum culture reveals MRSA. Follow lactic acid levels. Patient has been weaned off of pressors. Acute on chronic renal failure in a patient who has known history of obstructive uropathy, prominent chronic left-sided hydronephrosis due to large stone in the left ureter. Patient with previous hospitalization in January of last year requiring hemodialysis. Patient underwent emergent hemodialysis on this admission. Continue RT per nephrology. Obtain old records from [place] Complicated UTI. Left Hydronephrosis. D/W Dr. Arce for Consultation and he recommends f/u at [place]. Check CT A/P for further eval. Obtain old records from [place] Acute hypoxemic respiratory failure. Patient respiratory status has improved. Patient is extubated. Pulmonary following. MRSA pneumonia. Chest x-ray reveals right lower lobe infiltrate. Continue vancomycin. Severe hyperkalemia and metabolic acidosis. Patient underwent emergent hemodialysis. Toxic metabolic encephalopathy. Resolved. CT scan of the head is negative. Check EEG. Neurology consultation. Hypertension. Continue antihypertensive medications. Diabetes mellitus type 2. Continue Accu-Cheks and sliding scale insulin. Chronic pain syndrome. Follow-up in the pain clinic as outpatient. Asthma. Stable. Gout. Stable. History CVA. History Interval history: No new issues overnight. Patient is extubated and doing well Hospitalist Physical - Constitutional Vitals: Temp Pulse Resp BP Pulse Ox 98.7 F 59 L 20 140/65 95 07/04/17 07:23 07/04/17 07:23 07/04/17 07:23 07/04/17 07:23 07/04/17 07:23 General appearance: Present: no acute distress - EENT Eyes: Present: PERRL, EOM intact ENT: hearing intact, clear oral mucosa, dentition normal - Neck Neck: Present: supple, normal ROM - Respiratory Respiratory effort: normal Respiratory: bilateral: CTA - Cardiovascular Rhythm: regular Heart Sounds: Present: S1 & S2. Absent: gallop, rub - Extremities Extremities: no ischemia, No edema, Full ROM - Abdominal General gastrointestinal: soft, non-tender, non-distended, normal bowel sounds - Integumentary Integumentary: Present: clear, warm, dry - Neurologic Neurologic: CNII-XII intact, moves all extremities Results - Labs CBC & Chem 7: 07/04/17 07:05 07/04/17 07:05 Labs: Laboratory Last Values WBC 8.0 K/mm3 (4.5-11.0) 07/04/17 07:05 RBC 3.35 M/mm3 (3.65-5.03) L 07/04/17 07:05 Hgb 9.1 gm/dl (11.8-15.2) L 07/04/17 07:05 Hct 28.2 % (35.5-45.6) L 07/04/17 07:05 MCV 84 fl (84-94) 07/04/17 07:05 MCH 27 pg (28-32) L 07/04/17 07:05 MCHC 32 % (32-34) 07/04/17 07:05 RDW 13.0 % (13.2-15.2) L 07/04/17 07:05 Plt Count 218 K/mm3 (140-440) 07/04/17 07:05 Lymph % (Auto) 26.0 % (13.4-35.0) 07/04/17 07:05 [place] % (Auto) 8.1 % (0.0-7.3) H 07/04/17 07:05 Eos % (Auto) 8.9 % (0.0-4.3) H 07/04/17 07:05 Baso % (Auto) 0.6 % (0.0-1.8) 07/04/17 07:05 Lymph # 2.1 K/mm3 (1.2-5.4) 07/04/17 07:05 [place] # 0.6 K/mm3 (0.0-0.8) 07/04/17 07:05 Eos # 0.7 K/mm3 (0.0-0.4) H 07/04/17 07:05 Baso # 0.0 K/mm3 (0.0-0.1) 07/04/17 07:05 Add Manual Diff Complete 06/30/17 14:35 Total Counted 100 06/30/17 14:35 Seg Neutrophils % 56.4 % (40.0-70.0) 07/04/17 07:05 Seg Neuts % (Manual) 81.0 % (40.0-70.0) H 06/30/17 14:35 Band Neutrophils % 2.0 % 06/30/17 14:35 Lymphocytes % (Manual) 10.0 % (13.4-35.0) L 06/30/17 14:35 Reactive Lymphs % (Man) 0 % 06/30/17 14:35 Monocytes % (Manual) 6.0 % (0.0-7.3) 06/30/17 14:35 Eosinophils % (Manual) 1.0 % (0.0-4.3) 06/30/17 14:35 Basophils % (Manual) 0 % (0.0-1.8) 06/30/17 14:35 Metamyelocytes % 0 % 06/30/17 14:35 Myelocytes % 0 % 06/30/17 14:35 Promyelocytes % 0 % 06/30/17 14:35 Blast Cells % 0 % 06/30/17 14:35 Nucleated RBC % Not Reportable 06/30/17 14:35 Seg Neutrophils # 4.5 K/mm3 (1.8-7.7) 07/04/17 07:05 Seg Neutrophils # Man 13.4 K/mm3 (1.8-7.7) H 06/30/17 14:35 Band Neutrophils # 0.3 K/mm3 06/30/17 14:35 Lymphocytes # (Manual) 1.7 K/mm3 (1.2-5.4) 06/30/17 14:35 Abs React Lymphs (Man) 0.0 K/mm3 06/30/17 14:35 Monocytes # (Manual) 1.0 K/mm3 (0.0-0.8) H 06/30/17 14:35 Eosinophils # (Manual) 0.2 K/mm3 (0.0-0.4) 06/30/17 14:35 Basophils # (Manual) 0.0 K/mm3 (0.0-0.1) 06/30/17 14:35 Metamyelocytes # 0.0 K/mm3 06/30/17 14:35 Myelocytes # 0.0 K/mm3 06/30/17 14:35 Promyelocytes # 0.0 K/mm3 06/30/17 14:35 Blast Cells # 0.0 K/mm3 06/30/17 14:35 WBC Morphology Not Reportable 06/30/17 14:35 Hypersegmented Neuts Not Reportable 06/30/17 14:35 Hyposegmented Neuts Not Reportable 06/30/17 14:35 Hypogranular Neuts Not Reportable 06/30/17 14:35 Smudge Cells Not Reportable 06/30/17 14:35 Toxic Granulation Not Reportable 06/30/17 14:35 Toxic Vacuolation Not Reportable 06/30/17 14:35 Dohle Bodies Not Reportable 06/30/17 14:35 Pelger-Huet Anomaly Not Reportable 06/30/17 14:35 Jaqueline Rods Not Reportable 06/30/17 14:35 Platelet Estimate Not Reportable 06/30/17 14:35 Clumped Platelets Not Reportable 06/30/17 14:35 Plt Clumps, EDTA Not Reportable 06/30/17 14:35 Large Platelets Not Reportable 06/30/17 14:35 Giant Platelets Not Reportable 06/30/17 14:35 Platelet Satelliting Not Reportable 06/30/17 14:35 Plt Morphology Comment Not Reportable 06/30/17 14:35 RBC Morphology Normal 06/30/17 14:35 Dimorphic RBCs Not Reportable 06/30/17 14:35 Polychromasia Not Reportable 06/30/17 14:35 Hypochromasia Not Reportable 06/30/17 14:35 Poikilocytosis Not Reportable 06/30/17 14:35 Anisocytosis Not Reportable 06/30/17 14:35 Microcytosis Not Reportable 06/30/17 14:35 Macrocytosis Not Reportable 06/30/17 14:35 Spherocytes Not Reportable 06/30/17 14:35 Pappenheimer Bodies Not Reportable 06/30/17 14:35 Sickle Cells Not Reportable 06/30/17 14:35 Target Cells Not Reportable 06/30/17 14:35 Tear Drop Cells Not Reportable 06/30/17 14:35 Ovalocytes Not Reportable 06/30/17 14:35 Helmet Cells Not Reportable 06/30/17 14:35 [place] Bodies Not Reportable 06/30/17 14:35 [place] Rings Not Reportable 06/30/17 14:35 [place] Cells Not Reportable 06/30/17 14:35 Bite Cells Not Reportable 06/30/17 14:35 Crenated Cell Not Reportable 06/30/17 14:35 Elliptocytes Not Reportable 06/30/17 14:35 Acanthocytes (Spur) Not Reportable 06/30/17 14:35 Rouleaux Not Reportable 06/30/17 14:35 Hemoglobin C Crystals Not Reportable 06/30/17 14:35 Schistocytes Not Reportable 06/30/17 14:35 Malaria parasites Not Reportable 06/30/17 14:35 Tobias Bodies Not Reportable 06/30/17 14:35 Hem Pathologist Commnt No 06/30/17 14:35 PT 13.9 Sec. (12.2-14.9) 06/30/17 14:05 INR 1.02 (0.87-1.13) 06/30/17 14:05 POC ABG pH 7.389 (7.35-7.45) 07/02/17 12:21 POC ABG pCO2 40.1 (35-45) 07/02/17 12:21 POC ABG pO2 154 (80-105) H 07/02/17 12:21 POC ABG HCO3 24.2 07/02/17 12:21 POC ABG Total CO2 25 07/02/17 12:21 POC ABG O2 Sat 99 07/02/17 12:21 POC ABG Base Excess -1 07/02/17 12:21 VBG pH 6.967 (7.320-7.420) L* 06/30/17 15:02 FiO2 35 % 07/02/17 12:21 Sodium 140 mmol/L (137-145) 07/04/17 07:05 Potassium 3.9 mmol/L (3.6-5.0) 07/04/17 07:05 Chloride 105.3 mmol/L (98-107) 07/04/17 07:05 Carbon Dioxide 24 mmol/L (22-30) 07/04/17 07:05 Anion Gap 15 mmol/L 07/04/17 07:05 BUN 39 mg/dL (9-20) H 07/04/17 07:05 Creatinine 2.6 mg/dL (0.8-1.5) H 07/04/17 07:05 Estimated GFR 32 ml/min 07/04/17 07:05 BUN/Creatinine Ratio 15 % 07/04/17 07:05 Glucose 119 mg/dL (75-100) H 07/04/17 07:05 POC Glucose 121 (70-105) H 07/04/17 05:07 Lactic Acid 0.90 mmol/L (0.7-2.0) 06/30/17 17:15 Calcium 9.1 mg/dL (8.4-10.2) 07/04/17 07:05 Phosphorus 11.40 mg/dL (2.5-4.5) H 06/30/17 15:05 Total Bilirubin 0.20 mg/dL (0.1-1.2) 06/30/17 14:05 AST 14 units/L (5-40) 06/30/17 14:05 ALT 17 units/L (7-56) 06/30/17 14:05 Alkaline Phosphatase 126 units/L (35-129) 06/30/17 14:05 Ammonia 61.0 umol/L (25-60) H 06/30/17 15:05 Total Creatine Kinase 269 units/L (55-170) H 06/30/17 17:10 Total Protein 8.3 g/dL (6.3-8.2) H 06/30/17 14:05 Albumin 4.1 g/dL (3.9-5) 06/30/17 14:05 Albumin/Globulin Ratio 1.0 % 06/30/17 14:05 Urine Color Yellow (Yellow) 07/01/17 19:45 Urine Turbidity Clear (Clear) 07/01/17 19:45 Urine pH 5.0 (5.0-7.0) 07/01/17 19:45 Ur Specific [place] 1.011 (1.003-1.030) 07/01/17 19:45 Urine Protein <15 mg/dl mg/dL (Negative) 07/01/17 19:45 Urine Glucose (UA) Neg mg/dL (Negative) 07/01/17 19:45 Urine Ketones Neg mg/dL (Negative) 07/01/17 19:45 Urine Blood Sm (Negative) 07/01/17 19:45 Urine Nitrite Neg (Negative) 07/01/17 19:45 Urine Bilirubin Neg (Negative) 07/01/17 19:45 Urine Urobilinogen < 2.0 mg/dL (<2.0) 07/01/17 19:45 Ur Leukocyte Esterase Lg (Negative) 07/01/17 19:45 Urine WBC (Auto) 29.0 /HPF (0.0-6.0) H 07/01/17 19:45 Urine RBC (Auto) 7.0 /HPF (0.0-6.0) 07/01/17 19:45 U Epithel Cells (Auto) 1.0 /HPF (0-13.0) 07/01/17 19:45 Urine Bacteria (Auto) 1+ /HPF (Negative) 07/01/17 19:45 Urine Mucus Few /HPF 07/01/17 19:45 Random Vancomycin 5.7 ug/mL (0-40.0) 07/04/17 07:05 Hepatitis A IgM Ab Non-reactive (NonReactive) 06/30/17 23:45 Hep Bs Antigen Non-reactive (Negative) 06/30/17 23:45 Hep B Core IgM Ab Non-reactive (NonReactive) 06/30/17 23:45 Hepatitis C Antibody Non-reactive (NonReactive) 06/30/17 23:45
[2017-07-04] MEDS ORDERED: TRIPLE ANTIBIOTIC TP STA (11:42)
--- NOTE | 2017-07-04 12:33 | Cat Scan Report ---
CT ABDOMEN AND PELVIS WITHOUT CONTRAST: 07/04/17 CLINICAL:Hydronephrosis by ultrasound. COMPARISON: 07/03/17 renal ultrasound and 02/19/17 CT abdomen and pelvis. TECHNIQUE: Volumetric acquisition and 1.25 millimeter scan reconstructions from the lung bases through the pelvis. The study was performed without oral contrast. FINDINGS: Abdomen:An obstructing calculus in the proximal left ureter measures 1.5 x 1.5 x 3.0 cm. The calculus has not changed in size or position since the prior examination. Severe left hydronephrosis with a greater degree of hydronephrosis compared to the last exam. There is pronounced cortical thinning of the left kidney. Milk of calcium layers within a left lower pole calyx. The left kidney measures 8 cm in length. The right kidney is normal and measures 12.5 cm in length. No other calculi are identified. Normal liver, bile ducts and gallbladder. The gastric wall is diffusely thickened but unchanged compared to last exam. No gastric ulcer or mass. Normal duodenum, pancreas and spleen. Normal adrenal glands. Normal aorta and inferior vena cava. No ascites and no pneumoperitoneum. The small bowel is normal with a right ileostomy. Diverticulosis of the colon but no diverticulitis. Pelvis: The urinary bladder is minimally distended with a relatively thick wall. No bladder calculus. The distal ureters are normal. Normal, prostate and rectum.Sigmoid diverticulosis but no diverticulitis. IMPRESSION: 1. Chronic left hydronephrosis with an obstructing 3.0 x 1.5 x 1.5 cm calculus of the left proximal ureter. No signs of pyonephrosis or pyelonephritis. 2. Diverticulosis but no diverticulitis. 3. Nonspecific gastric wall thickening.
[2017-07-04] MEDS: PEPCID PO SCH (13:34)
--- NOTE | 2017-07-04 15:40 | Consultation ---
History of Present Illness Consult date: 07/04/17 History of present illness: thanks for the consult plan to follow and review results did complete chart review will see for encephalopathy Past History Past Medical History: diabetes, hypertension, stroke, other (Gout, ARMANDO) Past Surgical History: bowel surgery, Other (bowel surgery, Other (Right Knee surgery, colostomy, )) Social history: single. denies: smoking Family history: diabetes, hypertension Medications and Allergies Allergies Allergy/AdvReac Type Severity Reaction Status Date / Time shellfish derived Allergy Swelling Verified 10/11/14 19:30 Home Medications Medication Instructions Recorded Confirmed Last Taken Type Duloxetine HCl [Cymbalta] 60 mg PO HS 02/18/17 06/30/17 02/17/17 History Gabapentin [Neurontin] 2 cap PO BID 02/18/17 06/30/17 02/17/17 History Lisinopril [Zestril TAB] 10 mg PO QDAY 06/30/17 06/30/17 Unknown History Active Meds: Active Medications Famotidine (Pepcid) 20 mg PO DAILY [facility] Last Admin: 07/04/17 13:34 Dose: 20 mg Heparin Sodium (Porcine) (Heparin) 5,000 unit IV KENNA PRN PRN Reason: hemodialysis Last Admin: 07/01/17 03:03 Dose: 5,000 unit Heparin Sodium (Porcine) (Heparin) 5,000 unit SUB-Q Q8HR [facility] Last Admin: 07/04/17 06:04 Dose: Not Given Norepinephrine (Levophed Drip 4 Mg/Ns 250 Ml) 4 mg in 250 mls @ 7.5 mls/hr IV TITR NIALL; Protocol Last Titration: 07/01/17 17:33 Dose: 0 mcg/min, 0 mls/hr Sodium Chloride (Nacl 0.9%) 100 mls @ 999 mls/hr IV KENNA PRN PRN Reason: Hypotension Sodium Chloride (Nacl 0.9%) 100 mls @ 999 mls/hr IV KENNA PRN PRN Reason: Hypotension Sodium Chloride (Nacl 0.9%) 100 mls @ 999 mls/hr IV KENNA PRN PRN Reason: Hypotension Cefepime HCl 1 gm/ Sodium (Chloride) 20 mls @ 2 mls/min IV Q24HR [facility] Last Admin: 07/04/17 11:22 Dose: 2 mls/min Insulin Human Lispro (Humalog) 0 unit SUB-Q Q6HR [facility]; Protocol Last Admin: 07/04/17 13:33 Dose: 2 unit Simple Syrup (Simple Syrup) 30 ml FEEDTUBE PRN PRN PRN Reason: Hypoglycemia Sodium Chloride (Sodium Chloride Flush Syringe 10 Ml) 10 ml IV BID [facility] Last Admin: 07/04/17 11:21 Dose: 10 ml Sodium Chloride (Sodium Chloride Flush Syringe 10 Ml) 10 ml IV PRN PRN PRN Reason: LINE FLUSH Last Admin: 07/02/17 09:35 Dose: 10 ml Vancomycin HCl (Vancomycin Pharmacy To Dose) 1 each IV PKCONSULT [facility] Physical Examination - Vital Signs Vital Signs: Vital Signs Temp Pulse Resp BP 97.3 F L 95 H 22 141/103 06/30/17 13:54 06/30/17 13:54 06/30/17 13:54 06/30/17 13:54 Results - Laboratory Findings CBC and BMP: 07/04/17 07:05 07/04/17 07:05 Abnormal Lab Findings: Abnormal Labs 06/30/17 06/30/17 06/30/17 14:05 14:35 14:35 WBC 16.5 H RBC Hgb 10.6 L Hct MCV MCH 26 L MCHC 29 L RDW Lymph % (Auto) [place] % (Auto) Eos % (Auto) [place] # Eos # Seg Neutrophils % Seg Neuts % (Manual) 81.0 H Lymphocytes % (Manual) 10.0 L Seg Neutrophils # Seg Neutrophils # Man 13.4 H Monocytes # (Manual) 1.0 H POC ABG pH POC ABG pCO2 POC ABG pO2 VBG pH Sodium 126 L Potassium 10.0 H* Chloride 90.8 L Carbon Dioxide 6 L* BUN 134 H Creatinine 18.0 H Glucose 203 H POC Glucose Lactic Acid 3.00 H* Phosphorus Ammonia Total Creatine Kinase Total Protein 8.3 H Urine WBC (Auto) 06/30/17 06/30/17 06/30/17 15:02 15:05 15:05 WBC RBC Hgb Hct MCV MCH MCHC RDW Lymph % (Auto) [place] % (Auto) Eos % (Auto) [place] # Eos # Seg Neutrophils % Seg Neuts % (Manual) Lymphocytes % (Manual) Seg Neutrophils # Seg Neutrophils # Man Monocytes # (Manual) POC ABG pH POC ABG pCO2 POC ABG pO2 VBG pH 6.967 L* Sodium Potassium Chloride Carbon Dioxide BUN Creatinine Glucose POC Glucose Lactic Acid Phosphorus 11.40 H Ammonia 61.0 H Total Creatine Kinase Total Protein Urine WBC (Auto) 06/30/17 06/30/17 06/30/17 17:10 17:10 20:57 WBC RBC Hgb Hct MCV MCH MCHC RDW Lymph % (Auto) [place] % (Auto) Eos % (Auto) [place] # Eos # Seg Neutrophils % Seg Neuts % (Manual) Lymphocytes % (Manual) Seg Neutrophils # Seg Neutrophils # Man Monocytes # (Manual) POC ABG pH POC ABG pCO2 POC ABG pO2 VBG pH Sodium Potassium 8.0 H* Chloride Carbon Dioxide BUN Creatinine Glucose POC Glucose 190 H Lactic Acid Phosphorus Ammonia Total Creatine Kinase 269 H Total Protein Urine WBC (Auto) 06/30/17 07/01/17 07/01/17 21:57 04:18 05:32 WBC RBC Hgb Hct MCV MCH MCHC RDW Lymph % (Auto) [place] % (Auto) Eos % (Auto) [place] # Eos # Seg Neutrophils % Seg Neuts % (Manual) Lymphocytes % (Manual) Seg Neutrophils # Seg Neutrophils # Man Monocytes # (Manual) POC ABG pH 6.976 L POC ABG pCO2 28.3 L 32.8 L POC ABG pO2 146 H 415 H VBG pH Sodium Potassium Chloride Carbon Dioxide BUN Creatinine Glucose POC Glucose 153 H Lactic Acid Phosphorus Ammonia Total Creatine Kinase Total Protein Urine WBC (Auto) 07/01/17 07/01/17 07/01/17 08:26 10:22 17:59 WBC RBC Hgb Hct MCV MCH MCHC RDW Lymph % (Auto) [place] % (Auto) Eos % (Auto) [place] # Eos # Seg Neutrophils % Seg Neuts % (Manual) Lymphocytes % (Manual) Seg Neutrophils # Seg Neutrophils # Man Monocytes # (Manual) POC ABG pH POC ABG pCO2 POC ABG pO2 VBG pH Sodium Potassium Chloride 96.9 L Carbon Dioxide 19 L D BUN 50 H Creatinine 6.9 H D Glucose 123 H POC Glucose 121 H 167 H Lactic Acid Phosphorus Ammonia Total Creatine Kinase Total Protein Urine WBC (Auto) 07/01/17 07/02/17 07/02/17 19:45 00:22 04:08 WBC RBC 3.52 L Hgb 9.6 L Hct 29.0 L D MCV 82 L MCH 27 L MCHC RDW Lymph % (Auto) 12.4 L [place] % (Auto) 9.0 H Eos % (Auto) [place] # 0.9 H Eos # Seg Neutrophils % 77.0 H Seg Neuts % (Manual) Lymphocytes % (Manual) Seg Neutrophils # 8.0 H Seg Neutrophils # Man Monocytes # (Manual) POC ABG pH POC ABG pCO2 POC ABG pO2 VBG pH Sodium Potassium Chloride Carbon Dioxide BUN Creatinine Glucose POC Glucose 164 H Lactic Acid Phosphorus Ammonia Total Creatine Kinase Total Protein Urine WBC (Auto) 29.0 H 07/02/17 07/02/17 07/02/17 04:08 04:58 12:21 WBC RBC Hgb Hct MCV MCH MCHC RDW Lymph % (Auto) [place] % (Auto) Eos % (Auto) [place] # Eos # Seg Neutrophils % Seg Neuts % (Manual) Lymphocytes % (Manual) Seg Neutrophils # Seg Neutrophils # Man Monocytes # (Manual) POC ABG pH POC ABG pCO2 POC ABG pO2 136 H 154 H VBG pH Sodium Potassium Chloride Carbon Dioxide BUN 52 H Creatinine 4.4 H Glucose 149 H POC Glucose Lactic Acid Phosphorus Ammonia Total Creatine Kinase Total Protein Urine WBC (Auto) 07/02/17 07/02/17 07/03/17 12:30 17:32 03:51 WBC RBC 3.11 L Hgb 8.4 L Hct 26.0 L MCV MCH 27 L MCHC RDW Lymph % (Auto) [place] % (Auto) 9.7 H Eos % (Auto) 5.4 H [place] # Eos # 0.5 H Seg Neutrophils % Seg Neuts % (Manual) Lymphocytes % (Manual) Seg Neutrophils # Seg Neutrophils # Man Monocytes # (Manual) POC ABG pH POC ABG pCO2 POC ABG pO2 VBG pH Sodium Potassium Chloride Carbon Dioxide BUN Creatinine Glucose POC Glucose 133 H 134 H Lactic Acid Phosphorus Ammonia Total Creatine Kinase Total Protein Urine WBC (Auto) 07/03/17 07/03/17 07/03/17 03:51 05:46 07:57 WBC RBC Hgb Hct MCV MCH MCHC RDW Lymph % (Auto) [place] % (Auto) Eos % (Auto) [place] # Eos # Seg Neutrophils % Seg Neuts % (Manual) Lymphocytes % (Manual) Seg Neutrophils # Seg Neutrophils # Man Monocytes # (Manual) POC ABG pH POC ABG pCO2 POC ABG pO2 VBG pH Sodium Potassium Chloride Carbon Dioxide BUN 51 H Creatinine 3.3 H Glucose 123 H POC Glucose 115 H 159 H Lactic Acid Phosphorus Ammonia Total Creatine Kinase Total Protein Urine WBC (Auto) 07/03/17 07/03/17 07/03/17 11:55 16:26 21:38 WBC RBC Hgb Hct MCV MCH MCHC RDW Lymph % (Auto) [place] % (Auto) Eos % (Auto) [place] # Eos # Seg Neutrophils % Seg Neuts % (Manual) Lymphocytes % (Manual) Seg Neutrophils # Seg Neutrophils # Man Monocytes # (Manual) POC ABG pH POC ABG pCO2 POC ABG pO2 VBG pH Sodium Potassium Chloride Carbon Dioxide BUN Creatinine Glucose POC Glucose 145 H 215 H 158 H Lactic Acid Phosphorus Ammonia Total Creatine Kinase Total Protein Urine WBC (Auto) 07/04/17 07/04/17 07/04/17 05:07 07:05 07:05 WBC RBC 3.35 L Hgb 9.1 L Hct 28.2 L MCV MCH 27 L MCHC RDW 13.0 L Lymph % (Auto) [place] % (Auto) 8.1 H Eos % (Auto) 8.9 H [place] # Eos # 0.7 H Seg Neutrophils % Seg Neuts % (Manual) Lymphocytes % (Manual) Seg Neutrophils # Seg Neutrophils # Man Monocytes # (Manual) POC ABG pH POC ABG pCO2 POC ABG pO2 VBG pH Sodium Potassium Chloride Carbon Dioxide BUN 39 H Creatinine 2.6 H Glucose 119 H POC Glucose 121 H Lactic Acid Phosphorus Ammonia Total Creatine Kinase Total Protein Urine WBC (Auto) 07/04/17 11:42 WBC RBC Hgb Hct MCV MCH MCHC RDW Lymph % (Auto) [place] % (Auto) Eos % (Auto) [place] # Eos # Seg Neutrophils % Seg Neuts % (Manual) Lymphocytes % (Manual) Seg Neutrophils # Seg Neutrophils # Man Monocytes # (Manual) POC ABG pH POC ABG pCO2 POC ABG pO2 VBG pH Sodium Potassium Chloride Carbon Dioxide BUN Creatinine Glucose POC Glucose 183 H Lactic Acid Phosphorus Ammonia Total Creatine Kinase Total Protein Urine WBC (Auto)
[2017-07-05] MEDS: HumaLOG SUB-Q SCH ×3 (01:20→12:40)
[2017-07-05] MEDS: PEPCID PO SCH (09:32)
[2017-07-05] MEDS: MAXIPIME 1 GM in NACL 0.9% 20 ML IV SCH (09:40)
[2017-07-05] MEDS: SODIUM CHLORIDE FLUSH SYRINGE 10 ML IV SCH ×2 (09:46→11:32)
--- NOTE | 2017-07-05 09:53 | Progress Note ---
Subjective Date of service: 07/05/17 Principal diagnosis: Acute Hypoxemic Respiratory Failure; SHAHEEN on CKD; severe hyperkalemia Interval history: went over the entire history and patient is recovering back to baseline could have been seizure a/w aspiration and ARDS plan f/u Objective - Vital Sign Vital Signs - 12hr 07/05/17 07/05/17 07:45 07:46 Temperature 98.6 F 98.6 F Pulse Rate 68 70 Respiratory 20 18 Rate Blood Pressure 143/78 O2 Sat by Pulse 92 96 Oximetry - Laboratory Findings CBC and BMP: 07/04/17 07:05 07/04/17 07:05 Abnormal Lab Findings: Abnormal Labs 06/30/17 06/30/17 06/30/17 14:05 14:35 14:35 WBC 16.5 H RBC Hgb 10.6 L Hct MCV MCH 26 L MCHC 29 L RDW Lymph % (Auto) Sevier % (Auto) Eos % (Auto) Sevier # Eos # Seg Neutrophils % Seg Neuts % (Manual) 81.0 H Lymphocytes % (Manual) 10.0 L Seg Neutrophils # Seg Neutrophils # Man 13.4 H Monocytes # (Manual) 1.0 H POC ABG pH POC ABG pCO2 POC ABG pO2 VBG pH Sodium 126 L Potassium 10.0 H* Chloride 90.8 L Carbon Dioxide 6 L* BUN 134 H Creatinine 18.0 H Glucose 203 H POC Glucose Lactic Acid 3.00 H* Phosphorus Ammonia Total Creatine Kinase Total Protein 8.3 H Urine WBC (Auto) 06/30/17 06/30/17 06/30/17 15:02 15:05 15:05 WBC RBC Hgb Hct MCV MCH MCHC RDW Lymph % (Auto) Sevier % (Auto) Eos % (Auto) [place]vier # Eos # Seg Neutrophils % Seg Neuts % (Manual) Lymphocytes % (Manual) Seg Neutrophils # Seg Neutrophils # Man Monocytes # (Manual) POC ABG pH POC ABG pCO2 POC ABG pO2 VBG pH 6.967 L* Sodium Potassium Chloride Carbon Dioxide BUN Creatinine Glucose POC Glucose Lactic Acid Phosphorus 11.40 H Ammonia 61.0 H Total Creatine Kinase Total Protein Urine WBC (Auto) 06/30/17 06/30/17 06/30/17 17:10 17:10 20:57 WBC RBC Hgb Hct MCV MCH MCHC RDW Lymph % (Auto) Sevier % (Auto) Eos % (Auto) [place]vier # Eos # Seg Neutrophils % Seg Neuts % (Manual) Lymphocytes % (Manual) Seg Neutrophils # Seg Neutrophils # Man Monocytes # (Manual) POC ABG pH POC ABG pCO2 POC ABG pO2 VBG pH Sodium Potassium 8.0 H* Chloride Carbon Dioxide BUN Creatinine Glucose POC Glucose 190 H Lactic Acid Phosphorus Ammonia Total Creatine Kinase 269 H Total Protein Urine WBC (Auto) 06/30/17 07/01/17 07/01/17 21:57 04:18 05:32 WBC RBC Hgb Hct MCV MCH MCHC RDW Lymph % (Auto) Sevier % (Auto) Eos % (Auto) Sevier # Eos # Seg Neutrophils % Seg Neuts % (Manual) Lymphocytes % (Manual) Seg Neutrophils # Seg Neutrophils # Man Monocytes # (Manual) POC ABG pH 6.976 L POC ABG pCO2 28.3 L 32.8 L POC ABG pO2 146 H 415 H VBG pH Sodium Potassium Chloride Carbon Dioxide BUN Creatinine Glucose POC Glucose 153 H Lactic Acid Phosphorus Ammonia Total Creatine Kinase Total Protein Urine WBC (Auto) 07/01/17 07/01/17 07/01/17 08:26 10:22 17:59 WBC RBC Hgb Hct MCV MCH MCHC RDW Lymph % (Auto) Sevier % (Auto) Eos % (Auto) Sevier # Eos # Seg Neutrophils % Seg Neuts % (Manual) Lymphocytes % (Manual) Seg Neutrophils # Seg Neutrophils # Man Monocytes # (Manual) POC ABG pH POC ABG pCO2 POC ABG pO2 VBG pH Sodium Potassium Chloride 96.9 L Carbon Dioxide 19 L D BUN 50 H Creatinine 6.9 H D Glucose 123 H POC Glucose 121 H 167 H Lactic Acid Phosphorus Ammonia Total Creatine Kinase Total Protein Urine WBC (Auto) 07/01/17 07/02/17 07/02/17 19:45 00:22 04:08 WBC RBC 3.52 L Hgb 9.6 L Hct 29.0 L D MCV 82 L MCH 27 L MCHC RDW Lymph % (Auto) 12.4 L Sevier % (Auto) 9.0 H Eos % (Auto) Sevier # 0.9 H Eos # Seg Neutrophils % 77.0 H Seg Neuts % (Manual) Lymphocytes % (Manual) Seg Neutrophils # 8.0 H Seg Neutrophils # Man Monocytes # (Manual) POC ABG pH POC ABG pCO2 POC ABG pO2 VBG pH Sodium Potassium Chloride Carbon Dioxide BUN Creatinine Glucose POC Glucose 164 H Lactic Acid Phosphorus Ammonia Total Creatine Kinase Total Protein Urine WBC (Auto) 29.0 H 07/02/17 07/02/17 07/02/17 04:08 04:58 12:21 WBC RBC Hgb Hct MCV MCH MCHC RDW Lymph % (Auto) Sevier % (Auto) Eos % (Auto) [place] # Eos # Seg Neutrophils % Seg Neuts % (Manual) Lymphocytes % (Manual) Seg Neutrophils # Seg Neutrophils # Man Monocytes # (Manual) POC ABG pH POC ABG pCO2 POC ABG pO2 136 H 154 H VBG pH Sodium Potassium Chloride Carbon Dioxide BUN 52 H Creatinine 4.4 H Glucose 149 H POC Glucose Lactic Acid Phosphorus Ammonia Total Creatine Kinase Total Protein Urine WBC (Auto) 07/02/17 07/02/17 07/03/17 12:30 17:32 03:51 WBC RBC 3.11 L Hgb 8.4 L Hct 26.0 L MCV MCH 27 L MCHC RDW Lymph % (Auto) Sevier % (Auto) 9.7 H Eos % (Auto) 5.4 H Sevier # Eos # 0.5 H Seg Neutrophils % Seg Neuts % (Manual) Lymphocytes % (Manual) Seg Neutrophils # Seg Neutrophils # Man Monocytes # (Manual) POC ABG pH POC ABG pCO2 POC ABG pO2 VBG pH Sodium Potassium Chloride Carbon Dioxide BUN Creatinine Glucose POC Glucose 133 H 134 H Lactic Acid Phosphorus Ammonia Total Creatine Kinase Total Protein Urine WBC (Auto) 07/03/17 07/03/17 07/03/17 03:51 05:46 07:57 WBC RBC Hgb Hct MCV MCH MCHC RDW Lymph % (Auto) Sevier % (Auto) Eos % (Auto) [place] # Eos # Seg Neutrophils % Seg Neuts % (Manual) Lymphocytes % (Manual) Seg Neutrophils # Seg Neutrophils # Man Monocytes # (Manual) POC ABG pH POC ABG pCO2 POC ABG pO2 VBG pH Sodium Potassium Chloride Carbon Dioxide BUN 51 H Creatinine 3.3 H Glucose 123 H POC Glucose 115 H 159 H Lactic Acid Phosphorus Ammonia Total Creatine Kinase Total Protein Urine WBC (Auto) 07/03/17 07/03/17 07/03/17 11:55 16:26 21:38 WBC RBC Hgb Hct MCV MCH MCHC RDW Lymph % (Auto) Sevier % (Auto) Eos % (Auto) [place] # Eos # Seg Neutrophils % Seg Neuts % (Manual) Lymphocytes % (Manual) Seg Neutrophils # Seg Neutrophils # Man Monocytes # (Manual) POC ABG pH POC ABG pCO2 POC ABG pO2 VBG pH Sodium Potassium Chloride Carbon Dioxide BUN Creatinine Glucose POC Glucose 145 H 215 H 158 H Lactic Acid Phosphorus Ammonia Total Creatine Kinase Total Protein Urine WBC (Auto) 07/04/17 07/04/17 07/04/17 05:07 07:05 07:05 WBC RBC 3.35 L Hgb 9.1 L Hct 28.2 L MCV MCH 27 L MCHC RDW 13.0 L Lymph % (Auto) Sevier % (Auto) 8.1 H Eos % (Auto) 8.9 H Sevier # Eos # 0.7 H Seg Neutrophils % Seg Neuts % (Manual) Lymphocytes % (Manual) Seg Neutrophils # Seg Neutrophils # Man Monocytes # (Manual) POC ABG pH POC ABG pCO2 POC ABG pO2 VBG pH Sodium Potassium Chloride Carbon Dioxide BUN 39 H Creatinine 2.6 H Glucose 119 H POC Glucose 121 H Lactic Acid Phosphorus Ammonia Total Creatine Kinase Total Protein Urine WBC (Auto) 07/04/17 07/04/17 07/04/17 11:42 17:03 21:24 WBC RBC Hgb Hct MCV MCH MCHC RDW Lymph % (Auto) Sevier % (Auto) Eos % (Auto) [place] # Eos # Seg Neutrophils % Seg Neuts % (Manual) Lymphocytes % (Manual) Seg Neutrophils # Seg Neutrophils # Man Monocytes # (Manual) POC ABG pH POC ABG pCO2 POC ABG pO2 VBG pH Sodium Potassium Chloride Carbon Dioxide BUN Creatinine Glucose POC Glucose 183 H 131 H 177 H Lactic Acid Phosphorus Ammonia Total Creatine Kinase Total Protein Urine WBC (Auto) 07/05/17 06:11 WBC RBC Hgb Hct MCV MCH MCHC RDW Lymph % (Auto) Sevier % (Auto) Eos % (Auto) [place] # Eos # Seg Neutrophils % Seg Neuts % (Manual) Lymphocytes % (Manual) Seg Neutrophils # Seg Neutrophils # Man Monocytes # (Manual) POC ABG pH POC ABG pCO2 POC ABG pO2 VBG pH Sodium Potassium Chloride Carbon Dioxide BUN Creatinine Glucose POC Glucose 113 H Lactic Acid Phosphorus Ammonia Total Creatine Kinase Total Protein Urine WBC (Auto)
[2017-07-05] MEDS ORDERED: VANCOMYCIN 1,250 MG in NACL 0.9% 250ML 250 ML IV ONE (10:00)
--- NOTE | 2017-07-05 10:36 | Progress Note ---
Assessment and Plan Impression: * SHAHEEN * Acute resp failure * Sepsis * Metabolic acidosis * Type 2 DM * HTN Plan: * monitor for renal recovery * cr was better at last check * vasc cath has been removed * strict i/os * avoid nephrotoxins * daily lytes * no labs today * ok to dc from renal standpoint Subjective Date of service: 07/05/17 Principal diagnosis: Acute Hypoxemic Respiratory Failure; SHAHEEN on CKD; severe hyperkalemia Interval history: resting in bed today Objective - Exam Narrative Exam: HEENT: Oral mucosa moist, minimal pallor nor icterus Neck: Supple no thyromegaly JVD Chest: Clear to auscultation anteriorly few crackles in the side and at the lung bases Heart: Regular rate rhythm S1-S2 heard no S3-S4 Abdomen: Soft nontender, ostomy does put out loose stool Extremity: Approximately 1+ edema on dry skin Endocrine: Thyroid not enlarged Musculoskeletal: No joint effusion noted - Vital Signs Vital signs: Vital Signs - 12hr 07/05/17 07/05/17 07:45 07:46 Temperature 98.6 F 98.6 F Pulse Rate 68 70 Respiratory 20 18 Rate Blood Pressure 143/78 O2 Sat by Pulse 92 96 Oximetry - Lab 07/04/17 07:05 07/04/17 07:05 Most recent lab results Calcium 9.1 mg/dL (8.4-10.2) 07/04/17 07:05 Phosphorus 11.40 mg/dL (2.5-4.5) H 06/30/17 15:05
--- NOTE | 2017-07-05 11:01 | Consultation ---
HISTORY OF PRESENT ILLNESS: This is a 51-year-old black male that is admitted by the ED of [facility] on 06/30/2017. He is admitted with altered mental status, was found down and confused by family members. Last known well time was about 8 hours before that he was lethargic, disoriented on presentation. He had previously been under treatment for gout and had been taking Neurontin and Protonix and Crestor. The patient has a history of hypertension, had been also on lisinopril. He has a history of hypertension, has had a prior history of stroke and also history of diabetes, but was not taking medications. He had been using CPAP at home, but perhaps was not using it. The patient of unclear. He had recent right knee surgery. On presentation to the Emergency Room, he was found to be lethargic, markedly obtunded. His blood pressure was 100/80, pulse rate 86, respirations 18. At this point, he seems to be somewhat less confused. He has very little recollection for what happened to him. He does not remember not feeling well for several days, but cannot further detail this issue. When questioned about whether he had had using a CPAP, the was not something he recalls and he cannot provide a better history at this point. Motor tone at this point is normal. He has a left visual field cut consistent with his old right frontal lobe infarct. Motor and sensory examination otherwise is normal. 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 I wonder whether he had a seizure with this issue. He certainly has a number of medical factors including sleep apnea as well as that re-impacting his issues. His hematocrit is low at 28. He also has a creatinine of 2.6 and I would mention that given the fact he has renal insufficiency, he should not be taking Neurontin therapy. This for his lethargy, all of which were discussed with him. I will plan to get an EEG. I wonder whether he may have had a stroke. JOB# [id number] MEREDITH/KAILEY
[2017-07-05 11:21] LABS: Basophils # (Auto) 0.1 K/mm3 (0.0-0.1); Basophils % (Auto) 0.8 % (0.0-1.8); Eosinophils # (Auto) 0.5 K/mm3 (0.0-0.4); Eosinophils % (Auto) 7.9 % (0.0-4.3); Hematocrit 29.2 % (35.5-45.6); Hemoglobin 9.4 gm/dl (11.8-15.2); Lymphocytes # (Auto) 1.4 K/mm3 (1.2-5.4); Lymphocytes % (Auto) 22.4 % (13.4-35.0); Mean Corpuscular HGB Conc 32 % (32-34); Mean Corpuscular Hemoglobin 27 pg (28-32); Mean Corpuscular Volume 85 fl (84-94); Monocytes # (Auto) 0.4 K/mm3 (0.0-0.8); Platelet Count 208 K/mm3 (140-440); Red Blood Count 3.46 M/mm3 (3.65-5.03); Red Cell Distribution Width 13.2 % (13.2-15.2)
[2017-07-05 11:31] LABS: Calcium 9.1 mg/dL (8.4-10.2)
--- NOTE | 2017-07-05 11:52 | Discharge Summary ---
Providers - Providers Date of Admission: 06/30/17 15:53 Date of discharge: 07/05/17 Attending physician: SHARA DURAN 06/30/17 18:41 Consult to Physician [CONS] Routine Comment: Consulting Provider: DERIC QUICK Physician Instructions: Reason For Exam: sepsis, arf, esrd 07/03/17 14:01 Consult to Physician [CONS] Routine Comment: Consulting Provider: ROZ MORRISON Physician Instructions: Reason For Exam: pneumonia 07/04/17 11:22 Physical Therapy Evaluation and Treat [CONS] Routine Comment: Reason For Exam: deconditioning 07/04/17 11:30 Consult to Physician [CONS] Routine Comment: Consulting Provider: DEISY SALAMANCA Physician Instructions: Reason For Exam: left hydronephrosis 07/04/17 11:32 Consult to Physician [CONS] Routine Comment: Consulting Provider: SUZIE VELAZQUEZ Physician Instructions: Reason For Exam: AMS Primary care physician: DOMINGO RANDHAWA Hospitalization Reason for admission: Sepsis Condition: Stable Hospital course: 51 y/o Male with history of HTN, CVA, DM, Asthma, Gout, CKD, obstructive uropathy, Chronic Pain treated in Pain Clinic, [facility], prominent left-sided hydronephrosis due to large stone in the left upper ureter; admitted on 2017 due to a week history of the mental status, confusion and ultimately unresponsiveness, patient was found down and unresponsive by family members on the day of admission. Of note, patient was admitted [facility] back in February 2017 with altered mental status tattoos some persistent hyperkalemia requiring emergent hemodialysis. Patient was found to have seizures and was given Keppra. Also, patient reportedly was admitted March 2016 at [facility] with similar presentation. In the ED on this admission, initial temperature was 97.3, heart rate 95, respiration 22, blood pressure 141/103. Initial white count 16.5. Hemoglobin 10.6. Platelets 341. Sodium 126. Potassium 10. Creatinine 18. Lactate 3. Ammonia 61. Viral hepatitis panel negative. Urinalysis showed 29 white blood cells and large leukocyte esterase. Chest x-ray was negative. 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 Patient was admitted with diagnosis of septic shock secondary to complicated UTI with history of large left ureteral stone and hydronephrosis. Patient was also noted to have acute kidney injury/ acute renal failure. Patient does have history of chronic kidney disease with history of obstructive uropathy and prominent left-sided hydronephrosis due to a large stone in the left ureter. On admission, Patient was intubated and placed on pressors transferred to the ICU. Patient was seen by pulmonary, nephrology and infectious disease in consultation. Patient had a vas cath that was placed and underwent emergent hemodialysis. The patient received broad- spectrum antibiotics and cultures revealed Klebsiella UTI and MRSA sputum. MRSA potentially was thought to be colonizer given chest x-ray negative 2. Patient's clinical course improved with discontinuation of mechanical ventilation and patient was transferred to the floor. Kidney function improved to near baseline at a level of 2.6 to discharge. Vas cath was removed. Patient was also seen by neurology and urology in consultation for the mental status change and the left ureteral stone. Neurology felt that patient likely had encephalopathy secondary to sepsis but seizure activity will be ruled out and followed up with an EEG as an outpatient. Urology felt that patient should follow-up back at [facility]. I discussed the importance of follow-up with [facility] and patient agreed. Dedicated discharge time 52 minutes. Disposition: DC-01 TO HOME OR SELFCARE Time spent for discharge: 52 - Discharge Diagnoses (1) ARF (acute renal failure) Status: Acute Qualifiers: Acute renal failure type: with acute tubular necrosis Qualified Code(s): N17.0 - Acute kidney failure with tubular necrosis (2) Encephalopathy Status: Acute (3) Hyperkalemia Status: Acute (4) Metabolic acidosis Status: Acute (5) Sepsis Status: Acute Qualifiers: Sepsis type: sepsis due to unspecified organism Qualified Code(s): A41.9 - Sepsis, unspecified organism (6) Septic shock Status: Acute Core Measure Documentation - Palliative Care Palliative Care/ Comfort Measures: Not Applicable - Core Measures Any of the following diagnoses?: none Exam - Constitutional Vitals: Temp Pulse Resp BP Pulse Ox 98.6 F 70 14 143/78 96 07/05/17 07:46 07/05/17 10:00 07/05/17 08:03 07/05/17 07:45 07/05/17 07:46 General appearance: Present: no acute distress, well-nourished - EENT Eyes: Present: PERRL ENT: hearing intact, clear oral mucosa - Neck Neck: Present: supple, normal ROM - Respiratory Respiratory effort: normal Respiratory: bilateral: CTA - Cardiovascular Heart Sounds: Present: S1 & S2. Absent: rub, click - Extremities Extremities: pulses symmetrical, No edema Peripheral Pulses: within normal limits - Abdominal General gastrointestinal: Present: soft, non-tender, non-distended, normal bowel sounds Male genitourinary: Present: normal - Integumentary Integumentary: Present: clear, warm, dry - Musculoskeletal Musculoskeletal: gait normal, strength equal bilaterally - Psychiatric Psychiatric: appropriate mood/affect, intact judgment & insight - Neurologic Neurologic: CNII-XII intact, moves all extremities Plan Activity: no restrictions Weight Bearing Status: Full Weight Bearing Diet: regular Additional Instructions: F/U with [facility] Follow up with: DOMINGO RANDHAWA MD [Primary Care Provider] - 7 Days SUZIE VELAZQUEZ MD [Staff Physician] - 7 Days ROZ MORRISON MD [Staff Physician] - 7 Days WENDI SHIPLEY MD [Staff Physician] - 7 Days Prescriptions: Sulfamethoxazole/Trimethoprim [Bactrim DS TAB] 1 each PO BID #20 tablet
--- NOTE | 2017-07-05 14:26 | Progress Note ---
Assessment and Plan Assessment: 1) Sepsis with initial septic shock / hypovolemic shock: resolved. Etiology most likely UTI +/- dehydration. 2) Complicated UTI with history of large left ureteral stone and hydronephrosis. Urine cx + Klebsiella sen to cipro 3) MRSA in respiratory sample ? colonizer. CXR negative x 2 4) Acute encephalopathy: from uremia? seizures? 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 5) CKD with history of obstructive uropathy, prominent left-sided hydronephrosis due to large stone in the left 6) Acute respiratory failure: resolved 7) Recent admission in February 2017 with altered mental status, SHAHEEN and persistent hyperkalemia requiring emergent hemodialysis. Patient was found to have seizures and was given Keppra. 8) High colostomy output ? diarrhea 9) Hyperkalemia 10) Hyponatremia Plan: -stop cefepime and vanco -start cipro 500 mg po qday total 10 days until 07/13 Thank you for your consultation, will follow up with you. Joyce Newman MD Infectious Diseases Specialist [facility] M [phone] O [phone] Subjective Date of service: 07/05/17 Principal diagnosis: Acute Hypoxemic Respiratory Failure; SHAHEEN on CKD; severe hyperkalemia Interval history: Feels better, no complaints, no fever, he is about to be d/c home. Microbiology: Blood cultures: 06/30 ngtd Urine cultures: 06/30 Kleb sens to cipro Respiratory cultures: 06/30 MRSA Current Antimicrobials: Cefepine 05/06 Vancomycin 05/05 Previous Antimicrobials: Zosyn Objective - Exam Narrative Exam: General appearance: Alert in NAD, conversant, confused Eyes: anicteric sclerae, moist conjunctivae; no lid-lag; PERRLA HENT: Atraumatic; oropharynx clear with moist mucous membranes and no mucosal ulcerations/no oral thrush; normal hard and soft palate. Normal external ears. Neck: Trachea midline; supple, no thyromegaly or lymphadenopathy Lungs: CTA, with normal respiratory effort and no intercostal retractions CV: RRR, + murmurs Abdomen: Soft, non-tender; no masses or hepatosplenomegaly+colostomy Ext: no edema or extremity lymphadenopathy Skin: Normal temperature, turgor and texture; no rash, ulcers or subcutaneous nodules Psych: confused anxious Neuro: alert and oriented x 1. Moving all extermities Lines: left fem HD cath - Constitutional Vitals: Vital Signs Temp Pulse Resp BP Pulse Ox 98.6 F 70 14 143/78 96 07/05/17 07:46 07/05/17 10:00 07/05/17 08:03 07/05/17 07:45 07/05/17 07:46 Temperature -Last 24 Hours Temperature 98.6 F Temperature 98.6 F Temperature 98.4 F Temperature 98.4 F - Labs CBC & Chem 7: 07/05/17 10:37 07/05/17 10:37 Labs: Abnormal lab results 07/04/17 07/04/17 07/05/17 Range/Units 17:03 21:24 06:11 RBC (3.65-5.03) M/mm3 Hgb (11.8-15.2) gm/dl Hct (35.5-45.6) % MCH (28-32) pg Eos % (Auto) (0.0-4.3) % Eos # (0.0-0.4) K/mm3 Carbon Dioxide (22-30) mmol/L BUN (9-20) mg/dL Creatinine (0.8-1.5) mg/dL Glucose (75-100) mg/dL POC Glucose 131 H 177 H 113 H (70-105) 07/05/17 07/05/17 07/05/17 Range/Units 10:37 10:37 12:09 RBC 3.46 L (3.65-5.03) M/mm3 Hgb 9.4 L (11.8-15.2) gm/dl Hct 29.2 L (35.5-45.6) % MCH 27 L (28-32) pg Eos % (Auto) 7.9 H (0.0-4.3) % Eos # 0.5 H (0.0-0.4) K/mm3 Carbon Dioxide 21 L (22-30) mmol/L BUN 32 H (9-20) mg/dL Creatinine 1.8 H (0.8-1.5) mg/dL Glucose 225 H (75-100) mg/dL POC Glucose 142 H (70-105)
[2017-07-05 15:41] VITALS: BP 137/67
== END 2017-07-05 15:48 | disposition home or self-care (01) | DRG 871 ==
LOC: ED 13:45 → CC1 15:53 → 3A 07-03 15:59
PROVIDERS: ADMIT Internal Medicine; ATTEND Hospitalist
PROC: 06HN33Z Insertion of Infusion Device into Left Femoral Vein, Percutaneous Approach (ICD-10-PCS; 2017-06-30)
PROC: 4A033R1 Measurement of Arterial Saturation, Peripheral, Percutaneous Approach (ICD-10-PCS; 2017-06-30)
PROC: 5A1D70Z Performance of Urinary Filtration, Intermittent, Less than 6 Hours Per Day (ICD-10-PCS; 2017-06-30)
PROC: 5A1945Z Respiratory Ventilation, 24-96 Consecutive Hours (ICD-10-PCS; principal; 2017-07-03)
PROC: 0BH17EZ Insertion of Endotracheal Airway into Trachea, Via Natural or Artificial Opening (ICD-10-PCS; 2017-07-03)
PROC: 5A09357 Assistance with Respiratory Ventilation, Less than 24 Consecutive Hours, Continuous Positive Airway Pressure (ICD-10-PCS; 2017-07-03)
DX: A41.9 Sepsis, unspecified organism (principal); G92 Toxic encephalopathy; R65.21 Severe sepsis with septic shock; J96.01 Acute respiratory failure with hypoxia; J15.212 Pneumonia due to Methicillin resistant Staphylococcus aureus; E87.1 Hypo-osmolality and hyponatremia; N39.0 Urinary tract infection, site not specified; N17.9 Acute kidney failure, unspecified; E87.5 Hyperkalemia; J45.909 Unspecified asthma, uncomplicated; G89.4 Chronic pain syndrome; M10.9 Gout, unspecified; G47.33 Obstructive sleep apnea (adult) (pediatric); I12.9 Hypertensive chronic kidney disease with stage 1 through stage 4 chronic kidney disease, or unspecified chronic kidney disease; N18.9 Chronic kidney disease, unspecified; Z86.73 Personal history of transient ischemic attack (TIA), and cerebral infarction without residual deficits; Z82.49 Family history of ischemic heart disease and other diseases of the circulatory system; Z83.3 Family history of diabetes mellitus; Z91.013 Allergy to seafood; Z79.899 Other long term (current) drug therapy
CPT/HCPCS: 36415; 36600; 70450; 71045; 74018; 74176; 76770; 80048; 80053; 80074; 80202; 81001; 82140; 82550; 82803; 82805; 82962; 84100; 84132; 85007; 85025; 85610; 87040; 87070; 87076; 87086; 87186; 87205; 93005; 93010; 94002; 94003; 94660; 94760; 96365; 96367; 96375; J0171; J0692; J1644; J1815; J2060; J2250; J2543; J2704; J3370; J7030; J7040; J7050

== ENCOUNTER 2017-12-09 14:40 | Inpatient (IN) | payer OTHER ==
[2017-12-09 15:53] LABS: Basophils # (Auto) 0.1 K/mm3 (0.0-0.1); Basophils % (Auto) 0.8 % (0.0-1.8); Eosinophils # (Auto) 0.3 K/mm3 (0.0-0.4); Eosinophils % (Auto) 3.2 % (0.0-4.3); Hematocrit 34.9 % (35.5-45.6); Hemoglobin 11.5 gm/dl (11.8-15.2); Lymphocytes # (Auto) 1.5 K/mm3 (1.2-5.4); Lymphocytes % (Auto) 14.8 % (13.4-35.0); Mean Corpuscular HGB Conc 33 % (32-34); Mean Corpuscular Hemoglobin 28 pg (28-32); Mean Corpuscular Volume 84 fl (84-94); Monocytes # (Auto) 0.5 K/mm3 (0.0-0.8); Monocytes % (Auto) 5.3 % (0.0-7.3); Platelet Count 307 K/mm3 (140-440); Red Blood Count 4.16 M/mm3 (3.65-5.03); Red Cell Distribution Width 14.2 % (13.2-15.2)
[2017-12-09 16:03] LABS: INR 0.89 (0.87-1.13); Partial Thromboplastin Time 22.6 Sec. (24.2-36.6)
[2017-12-09 16:06] LABS: Calcium 10.2 mg/dL (8.4-10.2)
[2017-12-09] MEDS ORDERED: ZOFRAN ONE (16:16)
[2017-12-09] MEDS ORDERED: ZOFRAN IV ONE (16:21)
[2017-12-09] MEDS ORDERED: KEPPRA 1,000 MG/NS 0.75% 100ML 1,000 MG/100 ML BAG IV ONE (16:21)
[2017-12-09] MEDS ORDERED: MORPHINE IV ONE (16:22)
--- NOTE | 2017-12-09 16:26 | Emergency Department Report ---
ED Seizure HPI - General Chief Complaint: Seizure Stated Complaint: SEIZURE Time Seen by Provider: 12/09/17 15:33 Source: family (rad technologist), EMS, old records reviewed (last admission in June 2017 patient had urosepsis, acute renal failure, and obstructive uropathy requiring intubation, pressors, and dialysis during admission.) Mode of arrival: Stretcher Limitations: Altered Mental Status - History of Present Illness Initial Comments: 52-year-old male with a past medical history hypertension, sleep apnea, CVA with residual right-sided deficit, diabetes, asthma, gout, CKD, obstructive uropathy, chronic pain syndrome and previous seizure presents to the hospital status post seizure. This was witnessed by patient's rad technologist. She states that it lasted about 1 minute. Body stiffened up and patient began to have generalized shaking. This was followed by a period of unresponsiveness and snoring respirations. Patient is currently awake although somewhat slow to respond to questions and can follow commands. He did have one episode of vomiting prior to my evaluation. Complains of frontal headache that was mild but worsened after seizure. He also complained of chronic right-sided pain which has been present since his CVA. Patient and rad technologist denies a previous history of seizure however, upon chart review patient presented with seizure in February 2017 and was subsequently admitted to the hospital. Keppra was initiated. Patient is not currently on seizure medication. Patient did not take any of his medications yesterday however, he took his medications 5 minutes prior to his seizure activity today. He presents with elevated blood pressure. - Related Data Home Medications Medication Instructions Recorded Confirmed Last Taken Duloxetine HCl [Cymbalta] 60 mg PO HS 02/18/17 06/30/17 02/17/17 Gabapentin [Neurontin] 2 cap PO BID 02/18/17 06/30/17 02/17/17 Lisinopril [Zestril TAB] 10 mg PO QDAY 06/30/17 06/30/17 Unknown Previous Rx's Medication Instructions Recorded Last Taken Type Sulfamethoxazole/Trimethoprim 1 each PO BID #20 tablet 07/05/17 Unknown Rx [Bactrim DS TAB] Allergies Allergy/AdvReac Type Severity Reaction Status Date / Time shellfish derived Allergy Swelling Verified 10/11/14 19:30 ED Review of Systems ROS: Stated complaint: SEIZURE Other details as noted in HPI Comment: All other systems reviewed and negative ED Past Medical Hx - Past Medical History Hx Hypertension: Yes Hx CVA: Yes (residual right-sided deficits) Hx Congestive Heart Failure: No Hx Diabetes: Yes (no meds) Hx Seizures: Yes Hx Asthma: Yes Hx COPD: No Additional medical history: GOUT, sleep apnea and uses CPAP at home, renal stone causing obstructive uropathy, renal failure requiring dialysis, chronic pain syndrome - Surgical History Additional Surgical History: rt knee surgery - Social History Smoking Status: Unknown if ever smoked - Medications Home Medications: Home Medications Medication Instructions Recorded Confirmed Last Taken Type Duloxetine HCl [Cymbalta] 60 mg PO HS 02/18/17 06/30/17 02/17/17 History Gabapentin [Neurontin] 2 cap PO BID 02/18/17 06/30/17 02/17/17 History Lisinopril [Zestril TAB] 10 mg PO QDAY 06/30/17 06/30/17 Unknown History Sulfamethoxazole/Trimethoprim 1 each PO BID #20 tablet 07/05/17 Unknown Rx [Bactrim DS TAB] ED Physical Exam - General Limitations: Altered Mental Status - Other Other exam information: General: No limitations, patient is alert in no acute distress Head exam: Atraumatic, normocephalic Eyes exam: Normal appearance, pupils equal reactive to light, extraocular movements intact ENT: Moist mucous membrane, normal oropharynx Neck exam: Normal inspection, full range of motion, no meningismus nontender Respiratory exam: Clear to auscultation bilateral, no wheezes, rales, crackles Cardiovascular: Normal rate and rhythm, normal heart sounds Abdomen: Soft, nondistended, and nontender, with normal bowel sounds, no rebound, or guarding Extremity: Full range of motion normal inspection no deformity Back: Normal Inspection, full range of motion, no tenderness Neurologic: Alert, oriented x3, cranial nerves intact, right sided 4/5 upper and lower extremity strength and left-sided strength 5/5 in intensity. Decreased sensation to touch in the right upper and lower extremity. Psychiatric: normal affect, normal mood Skin: Warm, dry, intact ED Course Vital Signs 12/09/17 12/09/17 12/09/17 15:09 15:10 15:15 Temperature 97.7 F Pulse Rate 95 H 82 Respiratory 18 9 L 14 Rate Blood Pressure 164/101 167/107 Blood Pressure [Left] O2 Sat by Pulse 97 95 95 Oximetry 12/09/17 12/09/17 12/09/17 15:17 15:30 15:46 Temperature Pulse Rate 80 88 Respiratory 20 16 10 L Rate Blood Pressure 158/90 158/90 Blood Pressure [Left] O2 Sat by Pulse 100 94 95 Oximetry 12/09/17 12/09/17 12/09/17 16:00 16:16 16:30 Temperature Pulse Rate 72 91 H 91 H Respiratory 17 22 11 L Rate Blood Pressure 158/90 257/171 Blood Pressure [Left] O2 Sat by Pulse 90 95 94 Oximetry 12/09/17 12/09/17 12/09/17 16:46 17:00 17:15 Temperature Pulse Rate 92 H 89 99 H Respiratory 12 8 L 16 Rate Blood Pressure 200/117 200/117 Blood Pressure 162/77 [Left] O2 Sat by Pulse 95 74 L 100 Oximetry 12/09/17 12/09/17 12/09/17 17:16 17:42 17:45 Temperature Pulse Rate 84 92 H 94 H Respiratory 10 L 10 L 10 L Rate Blood Pressure 214/123 214/123 148/96 Blood Pressure [Left] O2 Sat by Pulse 99 95 93 Oximetry 12/09/17 12/09/17 12/09/17 18:00 18:15 18:30 Temperature Pulse Rate 99 H 99 H 99 H Respiratory 11 L 10 L 10 L Rate Blood Pressure 145/94 145/99 160/102 Blood Pressure [Left] O2 Sat by Pulse 94 90 90 Oximetry ED Medical Decision Making - Lab Data Result diagrams: 12/09/17 15:42 12/09/17 15:42 Lab Results 12/09/17 12/09/17 12/09/17 Range/Units 15:42 15:42 15:42 WBC 10.0 (4.5-11.0) K/mm3 RBC 4.16 (3.65-5.03) M/mm3 Hgb 11.5 L (11.8-15.2) gm/dl Hct 34.9 L (35.5-45.6) % MCV 84 (84-94) fl MCH 28 (28-32) pg MCHC 33 (32-34) % RDW 14.2 (13.2-15.2) % Plt Count 307 (140-440) K/mm3 Lymph % (Auto) 14.8 (13.4-35.0) % [place] % (Auto) 5.3 (0.0-7.3) % Eos % (Auto) 3.2 (0.0-4.3) % Baso % (Auto) 0.8 (0.0-1.8) % Lymph # 1.5 (1.2-5.4) K/mm3 [place] # 0.5 (0.0-0.8) K/mm3 Eos # 0.3 (0.0-0.4) K/mm3 Baso # 0.1 (0.0-0.1) K/mm3 Seg Neutrophils % 75.9 H (40.0-70.0) % Seg Neutrophils # 7.6 (1.8-7.7) K/mm3 PT 12.5 (12.2-14.9) Sec. INR 0.89 (0.87-1.13) APTT 22.6 L (24.2-36.6) Sec. Sodium 139 (137-145) mmol/L Potassium 4.9 (3.6-5.0) mmol/L Chloride 99.8 (98-107) mmol/L Carbon Dioxide 21 L (22-30) mmol/L Anion Gap 23 mmol/L BUN 23 H (9-20) mg/dL Creatinine 2.0 H (0.8-1.5) mg/dL Estimated GFR 43 ml/min BUN/Creatinine Ratio 12 % Glucose 233 H (75-100) mg/dL Calcium 10.2 (8.4-10.2) mg/dL Magnesium 2.00 (1.7-2.3) mg/dL Urine Color (Yellow) Urine Turbidity (Clear) Urine pH (5.0-7.0) Ur Specific [place] (1.003-1.030) Urine Protein (Negative) mg/dL Urine Glucose (UA) (Negative) mg/dL Urine Ketones (Negative) mg/dL Urine Blood (Negative) Urine Nitrite (Negative) Urine Bilirubin (Negative) Urine Urobilinogen (<2.0) mg/dL Ur Leukocyte Esterase (Negative) Urine WBC (Auto) (0.0-6.0) /HPF Urine RBC (Auto) (0.0-6.0) /HPF Urine Opiates Screen Urine Methadone Screen Ur Barbiturates Screen Ur Phencyclidine Scrn Ur Amphetamines Screen U Benzodiazepines Scrn Urine Cocaine Screen U Marijuana (THC) Screen Drugs of Abuse Note Plasma/Serum Alcohol (0-0.07) % 12/09/17 12/09/17 12/09/17 Range/Units 15:42 17:00 17:00 WBC (4.5-11.0) K/mm3 RBC (3.65-5.03) M/mm3 Hgb (11.8-15.2) gm/dl Hct (35.5-45.6) % MCV (84-94) fl MCH (28-32) pg MCHC (32-34) % RDW (13.2-15.2) % Plt Count (140-440) K/mm3 Lymph % (Auto) (13.4-35.0) % [place] % (Auto) (0.0-7.3) % Eos % (Auto) (0.0-4.3) % Baso % (Auto) (0.0-1.8) % Lymph # (1.2-5.4) K/mm3 [place] # (0.0-0.8) K/mm3 Eos # (0.0-0.4) K/mm3 Baso # (0.0-0.1) K/mm3 Seg Neutrophils % (40.0-70.0) % Seg Neutrophils # (1.8-7.7) K/mm3 PT (12.2-14.9) Sec. INR (0.87-1.13) APTT (24.2-36.6) Sec. Sodium (137-145) mmol/L Potassium (3.6-5.0) mmol/L Chloride (98-107) mmol/L Carbon Dioxide (22-30) mmol/L Anion Gap mmol/L BUN (9-20) mg/dL Creatinine (0.8-1.5) mg/dL Estimated GFR ml/min BUN/Creatinine Ratio % Glucose (75-100) mg/dL Calcium (8.4-10.2) mg/dL Magnesium (1.7-2.3) mg/dL Urine Color Straw (Yellow) Urine Turbidity Clear (Clear) Urine pH 6.0 (5.0-7.0) Ur Specific [place] 1.011 (1.003-1.030) Urine Protein >500 (Negative) mg/dL Urine Glucose (UA) 50 (Negative) mg/dL Urine Ketones Neg (Negative) mg/dL Urine Blood Mod (Negative) Urine Nitrite Neg (Negative) Urine Bilirubin Neg (Negative) Urine Urobilinogen < 2.0 (<2.0) mg/dL Ur Leukocyte Esterase Neg (Negative) Urine WBC (Auto) 4.0 (0.0-6.0) /HPF Urine RBC (Auto) 23.0 (0.0-6.0) /HPF Urine Opiates Screen Presumptive negative Urine Methadone Screen Presumptive negative Ur Barbiturates Screen Presumptive negative Ur Phencyclidine Scrn Presumptive negative Ur Amphetamines Screen Presumptive negative U Benzodiazepines Scrn Presumptive negative Urine Cocaine Screen Presumptive negative U Marijuana (THC) Screen Presumptive negative Drugs of Abuse Note Disclamer Plasma/Serum Alcohol < 0.01 (0-0.07) % - EKG Data -: EKG Interpreted by Tn EKG shows normal: sinus rhythm, axis (qrs 4), QRS complexes (qrsd 89), ST-T waves (no stemi/t inv) Rate: tachycardia (100) - Radiology Data Radiology results: report reviewed FINAL REPORT EXAM: CT HEAD/BRAIN WO CON HISTORY: seizure TECHNIQUE: CT examination of the head without IV contrast PRIORS: 06/30/2017 FINDINGS: Chronic prior infarct again noted in the left parieto-occipital watershed region with encephalomalacia and volume loss. Stable small chronic lacunar infarct in left caudate body. Stable retention cyst or polyp in right maxillary sinus. Atherosclerotic calcified plaque in the vertebral arteries and carotid siphons. No acute air-fluid level visualized in the included air-filled sinuses. Bone windows demonstrate no acute fracture. There is ventricular and sulcal prominence compatible with global cerebrocortical atrophy. The brain contains no mass, mass effect, hemorrhage, or acute infarct. There is no extra-axial intracranial bleed, brain bleed, or midline shift. IMPRESSION: No acute CVA, intracranial bleed, or brain mass Stable chronic infarcts in left parieto-occipital watershed region and left caudate body - Medical Decision Making seizure Patient initially denied previous history per medical record reveals the patient has presents to the ER with seizures before and was previously placed on Keppra. Not currently taking seizure medication. Received Keppra 1 g IV in the ED with no further seizure activity Headache Worsened after seizure, CT head without acute abnormality. Chronic infarcts noted. Patient had stable chronic neurologic deficits. Patient's blood pressure significantly elevated with recent history of noncompliance. Cardiac drip initiated for hypertensive emergency. Positive associate nausea and vomiting treated with Zofran. Patient also treated with Reglan and Benadryl given a headache with light sensitivity. Patient has stable chronic renal insufficiency. Hyperglycemia noted and patient denies being on any diabetes medication currently. Chronic pain right sided pain status post CVA Patient given morphine without improvement. He states he takes Percocet at home. Provided [address] ED[address] Dr. Romero the hospitalist informed for admission - Differential Diagnosis seizure, encephalopathy, hypertensive emergency, electrolyte abnormality Critical Care Time: No Critical care attestation.: If time is entered above; I have spent that time in minutes in the direct care of this critically ill patient, excluding procedure time. ED Disposition Clinical Impression: Seizure, Hypertensive emergency, Hemiplegia following CVA (cerebrovascular accident), Right sided weakness, Noncompliance with medication regimen, Chronic renal insufficiency, Diabetes, Chronic pain Disposition: OP ADMIT IP TO THIS HOSP Is pt being admited?: Yes Condition: Stable Referrals: PRIMARY CARE, [Primary Care Provider] - 3-5 Days Time of Disposition: 18:25 (Dr Romero/hosp)
[2017-12-09] MEDS ORDERED: CARDENE 50 MG in NACL 0.9% 250ML 230 ML IV SCH (17:00)
[2017-12-09] MEDS ORDERED: PERCOCET 5/325 PO ONE (17:18)
[2017-12-09 17:35] LABS: Bilirubin,Urine NEG (Negative); Blood,Urine MOD (Negative); Color,Urine Straw (Yellow); Protein,Urine >500 mg/dL (Negative); Urobilinogen,Urine < 2.0 mg/dL (<2.0)
[2017-12-09] MEDS ORDERED: BENADRYL IV ONE (17:45)
[2017-12-09] MEDS ORDERED: REGLAN IV ONE (17:45)
[2017-12-09 17:51] LABS: Amphetamine Screen,Urine PRESUMPTIVE NEGATIVE; Benzodiazepines Screen,Urine PRESUMPTIVE NEGATIVE; Cannabinoid Screen,Urine PRESUMPTIVE NEGATIVE; Cocaine Screen,Urine PRESUMPTIVE NEGATIVE; Methadone Screen,Urine PRESUMPTIVE NEGATIVE; Opiate Screen,Urine PRESUMPTIVE NEGATIVE
--- NOTE | 2017-12-09 18:11 | Cat Scan Report ---
FINAL REPORT EXAM: CT HEAD/BRAIN WO CON HISTORY: seizure TECHNIQUE: CT examination of the head without IV contrast PRIORS: 06/30/2017 FINDINGS: Chronic prior infarct again noted in the left parieto-occipital watershed region with encephalomalacia and volume loss. Stable small chronic lacunar infarct in left caudate body. Stable retention cyst or polyp in right maxillary sinus. Atherosclerotic calcified plaque in the vertebral arteries and carotid siphons. No acute air-fluid level visualized in the included air-filled sinuses. Bone windows demonstrate no acute fracture. There is ventricular and sulcal prominence compatible with global cerebrocortical atrophy. The brain contains no mass, mass effect, hemorrhage, or acute infarct. There is no extra-axial intracranial bleed, brain bleed, or midline shift. IMPRESSION: No acute CVA, intracranial bleed, or brain mass Stable chronic infarcts in left parieto-occipital watershed region and left caudate body
[2017-12-09] MEDS ORDERED: AMBIEN PO PRN (19:14)
[2017-12-09] MEDS ORDERED: MORPHINE IV PRN (19:14)
[2017-12-09] MEDS ORDERED: SODIUM CHLORIDE FLUSH SYRINGE 10 ML IV PRN (19:14)
[2017-12-09] MEDS ORDERED: PERCOCET 5/325 PO PRN (19:14)
[2017-12-09] MEDS ORDERED: TYLENOL PO PRN (19:14)
[2017-12-09] MEDS ORDERED: ZOFRAN IV PRN (19:14)
--- NOTE | 2017-12-09 19:14 | History and Physical Report ---
History of Present Illness Date of examination: 12/09/17 Date of admission: 12/09/17 Chief complaint: [id number] History of present illness: ANN: 52-year-old male with a past medical history hypertension, sleep apnea, CVA with residual right-sided deficit, diabetes, asthma, gout, CKD, obstructive uropathy, chronic pain syndrome and previous seizure presents to the hospital status post seizure. This was witnessed by patient's straw hat washer operator. She states that it lasted about 1 minute. Body stiffened up and patient began to have generalized shaking. This was followed by a period of unresponsiveness and snoring respirations. Patient is currently awake although somewhat slow to respond to questions and can follow commands. Past Medical History Hypertension: Yes CVA: Yes (residual right-sided deficits) Diabetes: Yes (no meds) Seizures: Yes Asthma: Yes Additional medical history: GOUT, sleep apnea and uses CPAP at home, renal stone causing obstructive uropathy, renal failure requiring dialysis, chronic pain syndrome - Surgical History Additional Surgical History: rt knee surgery - Social History Smoking Status: Unknown if ever smoked - Medications Home Medications: Home Medications Medication Instructions Recorded Confirmed Last Taken Type Duloxetine HCl [Cymbalta] 60 mg PO HS 02/18/17 06/30/17 02/17/17 History Gabapentin [Neurontin] 2 cap PO BID 02/18/17 06/30/17 02/17/17 History Lisinopril [Zestril TAB] 10 mg PO QDAY 06/30/17 06/30/17 Unknown History Sulfamethoxazole/Trimethoprim 1 each PO BID #20 tablet 07/05/17 Unknown Rx [Bactrim DS TAB] Medications and Allergies Allergies Allergy/AdvReac Type Severity Reaction Status Date / Time shellfish derived Allergy Swelling Verified 10/11/14 19:30 Home Medications Medication Instructions Recorded Confirmed Last Taken Type Duloxetine HCl [Cymbalta] 60 mg PO BID 02/18/17 12/09/17 12/09/17 12:00 History Gabapentin [Neurontin] 400 cap PO TID 02/18/17 12/09/17 12/09/17 12:00 History Lisinopril [Zestril TAB] 10 mg PO QDAY 06/30/17 12/09/17 12/09/17 12:00 History 10 MG Adult Low Dose Aspirin EC 81 tab PO ONCE 0912/09/17 12/09/17 09:00 History Allopurinol 100 tab PO ONCE 12/09/17 12/09/17 12/09/17 12:00 History 100 Carvedilol [Coreg] 3.125 tab PO BID 12/09/17 12/09/17 12/09/17 12:00 History 3.125 Ferrous Sulfate [Iron] 325 mg PO ONCE 12/09/17 12/09/17 12/09/17 12:00 History Glipizide 10 tab PO BID 12/09/17 12/09/17 12/09/17 12:00 History 10 Pantoprazole 40 tab PO ONCE 12/09/17 12/09/17 12/09/17 09:00 History 40 Rosuvastatin (Nf) 20 tab PO ONCE 12/09/17 12/09/17 12/09/17 12:00 History Sodium Bicarbonate 1,200 tab PO BID 12/09/17 12/09/17 12/09/17 12:00 History 1200 Active Meds: Active Medications Nicardipine HCl 50 mg/ Sodium (Chloride) 250 mls @ 25 mls/hr IV TITR NIALL; Protocol Review of Systems All systems: negative Constitutional: no weight loss, no weight gain, no fever, no chills, no fatigue Ears, nose, mouth and throat: no dysphagia, no hoarseness, no sore throat Cardiovascular: no chest pain, no orthopnea, no palpitations, no rapid/ irregular heart beat, no edema, no syncope, no lightheadedness, no shortness of breath Respiratory: no cough, no cough with sputum, no excessive sputum, no hemoptysis , no shortness of breath, no dyspnea on exertion Gastrointestinal: no abdominal pain, no nausea, no vomiting, no diarrhea, no constipation, no change in bowel habits, no hematemesis, no coffee ground emesis Genitourinary Male: no dysuria, no hematuria, no flank pain, no discharge, no urinary frequency, no urinary hesitancy, no nocturia, no incontinence Rectal: no pain Musculoskeletal: no neck stiffness, no neck pain, no shooting arm pain, no arm numbness/tingling, no low back pain, no shooting leg pain, no leg numbness/ tingling, no redness of joints Integumentary: no rash, no pruritis, no redness, no sores Neurological: seizures, no head injury, no syncope Psychiatric: no anxiety, no memory loss, no change in sleep habits, no sleep disturbances Endocrine: no cold intolerance, no heat intolerance, no polyphagia Hematologic/Lymphatic: no easy bruising, no easy bleeding Allergic/Immunologic: no urticaria, no allergic rhinitis, no wheezing Exam - Constitutional Vitals: Temp Pulse Resp BP Pulse Ox 97.7 F 99 H 10 L 160/102 90 12/09/17 15:09 12/09/17 18:30 12/09/17 18:30 12/09/17 18:30 12/09/17 18:30 General appearance: Present: no acute distress, well-nourished - EENT Eyes: Present: PERRL ENT: hearing intact, clear oral mucosa - Neck Neck: Present: supple, normal ROM - Respiratory Respiratory effort: normal Respiratory: bilateral: CTA - Cardiovascular Heart rate: 76 Rhythm: regular Heart Sounds: Present: S1 & S2. Absent: rub, click - Extremities Extremities: no ischemia, pulses symmetrical, No edema Peripheral Pulses: within normal limits - Abdominal General gastrointestinal: Present: soft, non-tender, non-distended, normal bowel sounds Male genitourinary: Present: normal - Integumentary Integumentary: Present: clear, warm, dry - Musculoskeletal Musculoskeletal: gait normal, strength equal bilaterally - Psychiatric Psychiatric: appropriate mood/affect, intact judgment & insight - Neurologic Neurologic: CNII-XII intact, moves all extremities - Allied Health Allied health notes reviewed: nursing, case management Results - Labs CBC & Chem 7: 12/10/17 05:47 12/10/17 05:47 Labs: Laboratory Last Values WBC 10.0 K/mm3 (4.5-11.0) 12/09/17 15:42 RBC 4.16 M/mm3 (3.65-5.03) 12/09/17 15:42 Hgb 11.5 gm/dl (11.8-15.2) L 12/09/17 15:42 Hct 34.9 % (35.5-45.6) L 12/09/17 15:42 MCV 84 fl (84-94) 12/09/17 15:42 MCH 28 pg (28-32) 12/09/17 15:42 MCHC 33 % (32-34) 12/09/17 15:42 RDW 14.2 % (13.2-15.2) 12/09/17 15:42 Plt Count 307 K/mm3 (140-440) 12/09/17 15:42 Lymph % (Auto) 14.8 % (13.4-35.0) 12/09/17 15:42 [place] % (Auto) 5.3 % (0.0-7.3) 12/09/17 15:42 Eos % (Auto) 3.2 % (0.0-4.3) 12/09/17 15:42 Baso % (Auto) 0.8 % (0.0-1.8) 12/09/17 15:42 Lymph # 1.5 K/mm3 (1.2-5.4) 12/09/17 15:42 [place] # 0.5 K/mm3 (0.0-0.8) 12/09/17 15:42 Eos # 0.3 K/mm3 (0.0-0.4) 12/09/17 15:42 Baso # 0.1 K/mm3 (0.0-0.1) 12/09/17 15:42 Seg Neutrophils % 75.9 % (40.0-70.0) H 12/09/17 15:42 Seg Neutrophils # 7.6 K/mm3 (1.8-7.7) 12/09/17 15:42 PT 12.5 Sec. (12.2-14.9) 12/09/17 15:42 INR 0.89 (0.87-1.13) 12/09/17 15:42 APTT 22.6 Sec. (24.2-36.6) L 12/09/17 15:42 Sodium 139 mmol/L (137-145) 12/09/17 15:42 Potassium 4.9 mmol/L (3.6-5.0) 12/09/17 15:42 Chloride 99.8 mmol/L (98-107) 12/09/17 15:42 Carbon Dioxide 21 mmol/L (22-30) L 12/09/17 15:42 Anion Gap 23 mmol/L 12/09/17 15:42 BUN 23 mg/dL (9-20) H 12/09/17 15:42 Creatinine 2.0 mg/dL (0.8-1.5) H 12/09/17 15:42 Estimated GFR 43 ml/min 12/09/17 15:42 BUN/Creatinine Ratio 12 % 12/09/17 15:42 Glucose 233 mg/dL (75-100) H 12/09/17 15:42 Calcium 10.2 mg/dL (8.4-10.2) 12/09/17 15:42 Magnesium 2.00 mg/dL (1.7-2.3) 12/09/17 15:42 Urine Color Straw (Yellow) 12/09/17 17:00 Urine Turbidity Clear (Clear) 12/09/17 17:00 Urine pH 6.0 (5.0-7.0) 12/09/17 17:00 Ur Specific [place] 1.011 (1.003-1.030) 12/09/17 17:00 Urine Protein >500 mg/dL (Negative) 12/09/17 17:00 Urine Glucose (UA) 50 mg/dL (Negative) 12/09/17 17:00 Urine Ketones Neg mg/dL (Negative) 12/09/17 17:00 Urine Blood Mod (Negative) 12/09/17 17:00 Urine Nitrite Neg (Negative) 12/09/17 17:00 Urine Bilirubin Neg (Negative) 12/09/17 17:00 Urine Urobilinogen < 2.0 mg/dL (<2.0) 12/09/17 17:00 Ur Leukocyte Esterase Neg (Negative) 12/09/17 17:00 Urine WBC (Auto) 4.0 /HPF (0.0-6.0) 12/09/17 17:00 Urine RBC (Auto) 23.0 /HPF (0.0-6.0) 12/09/17 17:00 Urine Opiates Screen Presumptive negative 12/09/17 17:00 Urine Methadone Screen Presumptive negative 12/09/17 17:00 Ur Barbiturates Screen Presumptive negative 12/09/17 17:00 Ur Phencyclidine Scrn Presumptive negative 12/09/17 17:00 Ur Amphetamines Screen Presumptive negative 12/09/17 17:00 U Benzodiazepines Scrn Presumptive negative 12/09/17 17:00 Urine Cocaine Screen Presumptive negative 12/09/17 17:00 U Marijuana (THC) Screen Presumptive negative 12/09/17 17:00 Drugs of Abuse Note Disclamer 12/09/17 17:00 Plasma/Serum Alcohol < 0.01 % (0-0.07) 12/09/17 15:42 - Imaging and Cardiology EKG: report reviewed Assessment and Plan Assessment and plan: Critical care Statement: The high probability of a clinically significant, sudden or life threatening deterioration of the [Pulmonary, cadiac, renal] system(s) required my full and direct attention, intervention and personal management. The aggregate critical care time was [65] minutes. This time is in addition to time spent performing reported procedures but includes the following: [x] Data Review and interpretation [x] Patient assessment and monitoring of vital signs [x] Documentation [x] Medication orders and management Advance Directives: Yes (Full code) VTE prophylaxis?: Chemical Plan of care discussed with patient/family: Yes - Patient Problems (1) Hypertensive emergency Current Visit: Yes Status: Acute Plan to address problem: Patients initial BP was 257/171.Jumped up suddenly from 158/90 mm HG Started on Cardene drip Also initiated on Losartan coreg and Norvasc Norvasc maybe discontinued if BP goes Low (2) Seizure disorder Current Visit: Yes Status: Acute Plan to address problem: IV Keppra for now (3) T2DM (type 2 diabetes mellitus) Current Visit: Yes Status: Chronic Qualifiers: Diabetes mellitus extermination supervisor insulin use: without longterm use Plan to address problem: Coverage for now (4) CVA (cerebrovascular accident) Current Visit: Yes Status: Inactive Qualifiers: CVA mechanism: thrombosis Laterality of affected vessel: left Plan to address problem: Hemiparesis present Supportive care (5) Gout Current Visit: Yes Status: Inactive Plan to address problem: Cont allopurinol (6) DVT prophylaxis Current Visit: Yes Status: Acute Plan to address problem: On L<ovenox
[2017-12-09] MEDS: NORVASC PO SCH (20:51)
[2017-12-09] MEDS: COZAAR PO SCH (20:52)
[2017-12-09] MEDS: NEURONTIN PO SCH (21:28)
[2017-12-09] MEDS: COREG PO SCH (21:28)
[2017-12-09] MEDS: CYMBALTA PO SCH (21:29)
[2017-12-09] MEDS: SODIUM CHLORIDE FLUSH SYRINGE 10 ML IV SCH (22:00)
[2017-12-09] MEDS ORDERED: NON-FORMULARY (Duloxetine Hcl [Cymbalta] 60 MG) PO SCH (22:00)
[2017-12-10 06:25] LABS: Basophils # (Auto) 0.1 K/mm3 (0.0-0.1); Basophils % (Auto) 0.7 % (0.0-1.8); Eosinophils # (Auto) 0.3 K/mm3 (0.0-0.4); Eosinophils % (Auto) 3.5 % (0.0-4.3); Hematocrit 33.7 % (35.5-45.6); Hemoglobin 10.9 gm/dl (11.8-15.2); Lymphocytes # (Auto) 2.2 K/mm3 (1.2-5.4); Lymphocytes % (Auto) 27.1 % (13.4-35.0); Mean Corpuscular HGB Conc 32 % (32-34); Mean Corpuscular Hemoglobin 27 pg (28-32); Mean Corpuscular Volume 83 fl (84-94); Monocytes # (Auto) 0.8 K/mm3 (0.0-0.8); Monocytes % (Auto) 9.8 % (0.0-7.3); Platelet Count 334 K/mm3 (140-440); Red Blood Count 4.04 M/mm3 (3.65-5.03); Red Cell Distribution Width 14.5 % (13.2-15.2)
[2017-12-10 06:47] LABS: Calcium 9.8 mg/dL (8.4-10.2)
[2017-12-10 06:48] LABS: Albumin 4.2 g/dL (3.9-5)
[2017-12-10] MEDS ORDERED: HALFPRIN EC PO ONE (07:00)
[2017-12-10] MEDS ORDERED: PROTONIX PO ONE (07:00)
[2017-12-10] MEDS ORDERED: KEPPRA 750 MG in NACL 0.9% 100 ML IV SCH (08:00)
[2017-12-10] MEDS ORDERED: LOVENOX SUB-Q SCH ×2 (10:00)
--- NOTE | 2017-12-10 10:54 | Consultation ---
History of Present Illness - Reason for Consult Consult date: 12/10/17 acute renal failure, chronic renal failure Requesting physician: TERI JAY - History of Present Illness 52-year-old male with a past medical history hypertension, sleep apnea, CVA with residual right-sided deficit, diabetes, asthma, gout, CKD, obstructive uropathy, chronic pain syndrome and previous seizure presents to the hospital status post seizure. This was witnessed by patient's welfare interviewer. She states that it lasted about 1 minute. Body stiffened up and patient began to have generalized shaking. This was followed by a period of unresponsiveness and snoring respirations. Patient is currently awake although somewhat slow to respond to questions and can follow commands. He did have one episode of vomiting prior to my evaluation. Complains of frontal headache that was mild but worsened after seizure. He also complained of chronic right-sided pain which has been present since his CVA. Patient and welfare interviewer denies a previous history of seizure however, upon chart review patient presented with seizure in February 2017 and was subsequently admitted to the hospital. Keppra was initiated. Patient is not currently on seizure medication. Patient did not take any of his medications yesterday however, he took his medications 5 minutes prior to his seizure activity today. He presents with elevated blood pressure. ROS: Stated complaint: SEIZURE Other details as noted in HPI Comment: All other systems reviewed and negative - Past Medical History Hx Hypertension: Yes Hx CVA: Yes (residual right-sided deficits) Hx Congestive Heart Failure: No Hx Diabetes: Yes (no meds) Hx Seizures: Yes Hx Asthma: Yes Hx COPD: No Additional medical history: GOUT, sleep apnea and uses CPAP at home, renal stone causing obstructive uropathy, renal failure requiring dialysis, chronic pain syndrome - Surgical History Additional Surgical History: rt knee surgery - Social History Smoking Status: Unknown if ever smoked Medications and Allergies Allergies Allergy/AdvReac Type Severity Reaction Status Date / Time shellfish derived Allergy Swelling Verified 10/11/14 19:30 Home Medications Medication Instructions Recorded Confirmed Last Taken Type Duloxetine HCl [Cymbalta] 60 mg PO BID 02/18/17 12/09/17 12/09/17 12:00 History Gabapentin [Neurontin] 400 cap PO TID 02/18/17 12/09/17 12/09/17 12:00 History Lisinopril [Zestril TAB] 10 mg PO QDAY 06/30/17 12/09/17 12/09/17 12:00 History 10 MG Adult Low Dose Aspirin EC 81 tab PO ONCE 12/09/17 12/09/17 12/09/17 09:00 History Allopurinol 100 tab PO ONCE 12/09/17 12/09/17 12/09/17 12:00 History 100 Carvedilol [Coreg] 3.125 tab PO BID 12/09/17 12/09/17 12/09/17 12:00 History 3.125 Ferrous Sulfate [Iron] 325 mg PO ONCE 12/09/17 12/09/17 12/09/17 12:00 History Glipizide 10 tab PO BID 12/09/17 12/09/17 12/09/17 12:00 History 10 Pantoprazole 40 tab PO ONCE 12/09/17 12/09/17 12/09/17 09:00 History 40 Rosuvastatin (Nf) 20 tab PO ONCE 12/09/17 12/09/17 12/09/17 12:00 History Sodium Bicarbonate 1,200 tab PO BID 12/09/17 12/09/17 12/09/17 12:00 History 1200 Active Meds: Active Medications Acetaminophen (Tylenol) 650 mg PO Q4H PRN PRN Reason: Pain MILD(1-3)/Fever >100.5/[place] Allopurinol (Zyloprim) 100 mg PO QDAY [facility] Amlodipine Besylate (Norvasc) 10 mg PO QDAY [facility] Last Admin: 12/09/17 20:51 Dose: 10 mg Carvedilol (Coreg) 12.5 mg PO BID [facility] Last Admin: 12/09/17 21:28 Dose: 12.5 mg Duloxetine HCl (Cymbalta) 60 mg PO QHS [facility] Last Admin: 12/09/17 21:29 Dose: 60 mg Enoxaparin Sodium (Lovenox) 40 mg SUB-Q QDAY@1000 [place] Gabapentin (Neurontin) 600 mg PO BID [facility] Last Admin: 12/09/17 21:28 Dose: 600 mg Nicardipine HCl 50 mg/ Sodium (Chloride) 250 mls @ 25 mls/hr IV TITR [facility]; Protocol Last Titration: 12/09/17 21:29 Dose: 0 mg/hr, 0 mls/hr Levetiracetam 750 mg/ Sodium (Chloride) 107.5 mls @ 400 mls/hr IV Q12H [facility] Last Admin: 12/10/17 07:51 Dose: 400 mls/hr Losartan Potassium (Cozaar) 100 mg PO QDAY [facility] Last Admin: 12/09/17 20:52 Dose: 100 mg Morphine Sulfate (Morphine) 2 mg IV Q4H PRN PRN Reason: Pain, Moderate (4-6) Ondansetron HCl (Zofran) 4 mg IV Q8H PRN PRN Reason: Nausea And Vomiting Oxycodone/Acetaminophen (Percocet 5/325) 1 tab PO Q6H PRN PRN Reason: Pain, Moderate (4-6) Sodium Bicarbonate (Sodium Bicarbonate) 1,300 mg PO BID [facility] Sodium Chloride (Sodium Chloride Flush Syringe 10 Ml) 10 ml IV BID [facility] Last Admin: 12/09/17 22:00 Dose: 10 ml Sodium Chloride (Sodium Chloride Flush Syringe 10 Ml) 10 ml IV PRN PRN PRN Reason: LINE FLUSH Zolpidem Tartrate (Ambien) 5 mg PO QHS PRN PRN Reason: Insomnia Exam - Vital Signs Vital signs: Vital Signs Temp Pulse Resp BP Pulse Ox 97.7 F 95 H 18 164/101 97 12/09/17 15:12/09/17 15:12/09/17 15:12/09/17 15:12/09/17 15:09 - Physical Exam Narrative exam: General: No limitations, patient is alert in no acute distress Head exam: Atraumatic, normocephalic Eyes exam: Normal appearance, pupils equal reactive to light, extraocular movements intact ENT: Moist mucous membrane, normal oropharynx Neck exam: Normal inspection, full range of motion, no meningismus nontender Respiratory exam: Clear to auscultation bilateral, no wheezes, rales, crackles Cardiovascular: Normal rate and rhythm, normal heart sounds Abdomen: Soft, nondistended, and nontender, with normal bowel sounds, no rebound, or guarding Extremity: Full range of motion normal inspection no deformity Back: Normal Inspection, full range of motion, no tenderness Neurologic: Alert, oriented x3, cranial nerves intact, right sided 4/5 upper and lower extremity strength and left-sided strength 5/5 in intensity. Decreased sensation to touch in the right upper and lower extremity. Psychiatric: normal affect, normal mood Skin: Warm, dry, intact Results - Lab Results 12/10/17 05:47 12/10/17 05:47 Most recent lab results Calcium 9.8 mg/dL (8.4-10.2) 12/10/17 05:47 Magnesium 2.00 mg/dL (1.7-2.3) 12/09/17 15:42 Assessment and Plan Impression: * LIZETTE on ckd * hyperklalemia * seizure disorder * Metabolic acidosis * Type 2 DM * HTN urgency Plan: * cr is worse today * hyperkalemia is improved * control bp, hold arb in lizette * no indication for cardiopulmonary specialist * strict i/os * avoid nephrotoxins * daily lytes
[2017-12-10] MEDS: SODIUM BICARBONATE PO SCH ×2 (10:57→21:41)
[2017-12-10] MEDS: COZAAR PO SCH (10:57)
[2017-12-10] MEDS: ZYLOPRIM PO SCH (10:58)
[2017-12-10] MEDS: NEURONTIN PO SCH ×2 (10:58→21:41)
[2017-12-10] MEDS: NORVASC PO SCH (10:58)
[2017-12-10] MEDS: COREG PO SCH ×2 (10:59→21:41)
[2017-12-10] MEDS: SODIUM CHLORIDE FLUSH SYRINGE 10 ML IV SCH ×2 (11:02→21:42)
[2017-12-10] MEDS: HALFPRIN EC PO SCH (13:19)
--- NOTE | 2017-12-10 13:37 | Consultation ---
History of Present Illness - Reason for Consult Consult date: 12/10/17 Hypertensive Emergency and Seizure Requesting physician: TERI JAY - History of Present Illness 52 y/o male admitted with hypertensive emergency and seizure. This seizure was witnessed by the decating machine operator. Brought in for seizure. found to be hypertensive and started on cardene drip which warranted an ICU admission. BP is better, off cardene drip. Has his CPAP machine in room. Past History Past Medical History: hypertension, seizures, other (ARMANDO, CVA) Family history: no significant family history Medications and Allergies Allergies Allergy/AdvReac Type Severity Reaction Status Date / Time shellfish derived Allergy Swelling Verified 10/11/14 19:30 Home Medications Medication Instructions Recorded Confirmed Last Taken Type Duloxetine HCl [Cymbalta] 60 mg PO BID 02/18/17 12/09/17 12/09/17 12:00 History Gabapentin [Neurontin] 400 cap PO TID 02/18/17 12/09/17 12/09/17 12:00 History Lisinopril [Zestril TAB] 10 mg PO QDAY 06/30/17 12/09/17 12/09/17 12:00 History 10 MG Adult Low Dose Aspirin EC 81 tab PO ONCE 12/09/17 12/09/17 12/09/17 09:00 History Allopurinol 100 tab PO ONCE 12/09/17 12/09/17 12/09/17 12:00 History 100 Carvedilol [Coreg] 3.125 tab PO BID 12/09/17 12/09/17 12/09/17 12:00 History 3.125 Ferrous Sulfate [Iron] 325 mg PO ONCE 12/09/17 12/09/17 12/09/17 12:00 History Glipizide 10 tab PO BID 12/09/17 12/09/17 12/09/17 12:00 History 10 Pantoprazole 40 tab PO ONCE 12/09/17 12/09/17 12/09/17 09:00 History 40 Rosuvastatin (Nf) 20 tab PO ONCE 12/09/17 12/09/17 12/09/17 12:00 History Sodium Bicarbonate 1,200 tab PO BID 12/09/17 12/09/17 12/09/17 12:00 History 1200 Active Meds: Active Medications Acetaminophen (Tylenol) 650 mg PO Q4H PRN PRN Reason: Pain MILD(1-3)/Fever >100.5/[place] Allopurinol (Zyloprim) 100 mg PO QDAY [facility] Last Admin: 12/10/17 10:58 Dose: 100 mg Amlodipine Besylate (Norvasc) 10 mg PO QDAY [facility] Last Admin: 12/10/17 10:58 Dose: 10 mg Aspirin (Halfprin Ec) 81 mg PO QDAY [facility] Last Admin: 12/10/17 13:19 Dose: 81 mg Atorvastatin Calcium (Lipitor) 20 mg PO QHS [facility] Carvedilol (Coreg) 12.5 mg PO BID [facility] Last Admin: 12/10/17 10:59 Dose: 12.5 mg Duloxetine HCl (Cymbalta) 60 mg PO QHS [facility] Last Admin: 12/09/17 21:29 Dose: 60 mg Enoxaparin Sodium (Lovenox) 40 mg SUB-Q QDAY@1000 [facility] Last Admin: 12/10/17 10:56 Dose: 40 mg Gabapentin (Neurontin) 600 mg PO BID [facility] Last Admin: 12/10/17 10:58 Dose: 600 mg Nicardipine HCl 50 mg/ Sodium (Chloride) 250 mls @ 25 mls/hr IV TITR [facility]; Protocol Last Titration: 12/09/17 21:29 Dose: 0 mg/hr, 0 mls/hr Levetiracetam 750 mg/ Sodium (Chloride) 107.5 mls @ 400 mls/hr IV Q12H [facility] Last Admin: 12/10/17 07:51 Dose: 400 mls/hr Losartan Potassium (Cozaar) 100 mg PO QDAY [facility] Last Admin: 12/10/17 10:57 Dose: 100 mg Morphine Sulfate (Morphine) 2 mg IV Q4H PRN PRN Reason: Pain, Moderate (4-6) Ondansetron HCl (Zofran) 4 mg IV Q8H PRN PRN Reason: Nausea And Vomiting Oxycodone/Acetaminophen (Percocet 5/325) 1 tab PO Q6H PRN PRN Reason: Pain, Moderate (4-6) Sodium Bicarbonate (Sodium Bicarbonate) 1,300 mg PO BID [facility] Last Admin: 12/10/17 10:57 Dose: 1,300 mg Sodium Chloride (Sodium Chloride Flush Syringe 10 Ml) 10 ml IV BID [facility] Last Admin: 12/10/17 11:02 Dose: 10 ml Sodium Chloride (Sodium Chloride Flush Syringe 10 Ml) 10 ml IV PRN PRN PRN Reason: LINE FLUSH Zolpidem Tartrate (Ambien) 5 mg PO QHS PRN PRN Reason: Insomnia Exam - Constitutional Vitals: Temp Pulse Resp BP Pulse Ox 98.3 F 92 H 12 127/56 94 12/10/17 12:00 12/10/17 12:40 12/10/17 12:40 12/10/17 12:40 12/10/17 12:40 General appearance: Present: no acute distress, well-nourished - EENT Eyes: Present: PERRL, EOM intact ENT: hearing intact, clear oral mucosa - Neck Neck: Present: supple, normal ROM - Respiratory Respiratory effort: normal Respiratory: bilateral: CTA - Cardiovascular Rhythm: regular - Extremities Extremities: no ischemia - Abdominal General gastrointestinal: Present: soft Male genitourinary: Present: deferred - Rectal Rectal Exam: deferred Results - Labs CBC & Chem 7: 12/10/17 05:47 12/10/17 05:47 Labs: Abnormal lab results 12/09/17 12/09/17 12/09/17 Range/Units 15:42 15:42 15:42 Hgb 11.5 L (11.8-15.2) gm/dl Hct 34.9 L (35.5-45.6) % MCV (84-94) fl MCH (28-32) pg [place] % (Auto) (0.0-7.3) % Seg Neutrophils % 75.9 H (40.0-70.0) % APTT 22.6 L (24.2-36.6) Sec. Carbon Dioxide 21 L (22-30) mmol/L BUN 23 H (9-20) mg/dL Creatinine 2.0 H (0.8-1.5) mg/dL Glucose 233 H (75-100) mg/dL Hemoglobin A1c (4-6) % 12/09/17 12/10/17 12/10/17 Range/Units 15:42 05:47 05:47 Hgb 10.9 L (11.8-15.2) gm/dl Hct 33.7 L (35.5-45.6) % MCV 83 L (84-94) fl MCH 27 L (28-32) pg [place] % (Auto) 9.8 H (0.0-7.3) % Seg Neutrophils % (40.0-70.0) % APTT (24.2-36.6) Sec. Carbon Dioxide (22-30) mmol/L BUN 26 H (9-20) mg/dL Creatinine 2.6 H (0.8-1.5) mg/dL Glucose 117 H (75-100) mg/dL Hemoglobin A1c 6.6 H (4-6) % Assessment and Plan 52 y/o male with seizure and hypertensive urgency 1. Off cardene drip 2. No further seizure 3. Stable for transfer out of ICU.
--- NOTE | 2017-12-10 16:16 | Progress Note ---
Assessment and Plan Assessment and plan: 52-year-old male with a past medical history hypertension, sleep apnea, CVA with residual right-sided deficit, diabetes, asthma, gout, CKD, obstructive uropathy, chronic pain syndrome and previous seizure presents to the hospital status post seizure. This was witnessed by patient's sign builder supervisor. She states that it lasted about 1 minute. Body stiffened up and patient began to have generalized shaking. This was followed by a period of unresponsiveness and snoring respirations. Patient's systolic blood pressure was 225 and patient was placed on Cardene drip and admitted to ICU Hypertensive urgency - Patient was treated with Cardene drip, currently patient is off Cardene drip - Blood pressure is controlled with his home medications Metabolic encephalopathy - Resolved, likely due to postictal Seizure disorder, new onset - Patient said he has previous episode of seizure, so this one is his second time - I started him on Keppra -Neurology consulted Diabetes mellitus - Sliding-scale insulin Acute on chronic kidney failure - Nephrology consulted - We'll follow BMP in the morning History of CVA - Continue statin and aspirin - PT evaluation DVT prophylaxis - On Lovenox Disposition - Transferred to the telemetry floor History Interval history: Patient was seen and evaluated at the bedside, patient was alert and oriented. No seizure episode. I have discussed the management plan with the patient and his son on the phone. Hospitalist Physical - Physical exam Narrative exam: Not in cardiopulmonary distress. The patient appeared well nourished and normally developed. Vital signs as documented. Head exam is unremarkable. No scleral icterus . Neck is without jugular venous distension, thyromegaly, or carotid bruits. Lungs are clear to auscultation. Cardiac exam reveals regular rate and Rhythm. First and second heart sounds normal. No murmurs, rubs or gallops. Abdominal exam reveals normal bowel sounds, no masses, no organomegaly and no aortic enlargement. Extremities are nonedematous and both femoral and pedal pulses are normal. WALL MAN: Alert and oriented 3. No focal weakness. - Constitutional Vitals: Temp Pulse Resp BP Pulse Ox 98.3 F 92 H 12 127/56 94 12/10/17 12:00 12/10/17 12:40 12/10/17 12:40 12/10/17 12:40 12/10/17 12:40 General appearance: Present: no acute distress, well-nourished Results - Labs CBC & Chem 7: 12/10/17 05:47 12/10/17 05:47 Labs: Laboratory Last Values WBC 8.3 K/mm3 (4.5-11.0) 12/10/17 05:47 RBC 4.04 M/mm3 (3.65-5.03) 12/10/17 05:47 Hgb 10.9 gm/dl (11.8-15.2) L 12/10/17 05:47 Hct 33.7 % (35.5-45.6) L 12/10/17 05:47 MCV 83 fl (84-94) L 12/10/17 05:47 MCH 27 pg (28-32) L 12/10/17 05:47 MCHC 32 % (32-34) 12/10/17 05:47 RDW 14.5 % (13.2-15.2) 12/10/17 05:47 Plt Count 334 K/mm3 (140-440) 12/10/17 05:47 Lymph % (Auto) 27.1 % (13.4-35.0) 12/10/17 05:47 [place] % (Auto) 9.8 % (0.0-7.3) H 12/10/17 05:47 Eos % (Auto) 3.5 % (0.0-4.3) 12/10/17 05:47 Baso % (Auto) 0.7 % (0.0-1.8) 12/10/17 05:47 Lymph # 2.2 K/mm3 (1.2-5.4) 12/10/17 05:47 [place] # 0.8 K/mm3 (0.0-0.8) 12/10/17 05:47 Eos # 0.3 K/mm3 (0.0-0.4) 12/10/17 05:47 Baso # 0.1 K/mm3 (0.0-0.1) 12/10/17 05:47 Seg Neutrophils % 58.9 % (40.0-70.0) 12/10/17 05:47 Seg Neutrophils # 4.9 K/mm3 (1.8-7.7) 12/10/17 05:47 PT 12.5 Sec. (12.2-14.9) 12/09/17 15:42 INR 0.89 (0.87-1.13) 12/09/17 15:42 APTT 22.6 Sec. (24.2-36.6) L 12/09/17 15:42 Sodium 141 mmol/L (137-145) 12/10/17 05:47 Potassium 4.6 mmol/L (3.6-5.0) 12/10/17 05:47 Chloride 102.7 mmol/L (98-107) 12/10/17 05:47 Carbon Dioxide 23 mmol/L (22-30) 12/10/17 05:47 Anion Gap 20 mmol/L 12/10/17 05:47 BUN 26 mg/dL (9-20) H 12/10/17 05:47 Creatinine 2.6 mg/dL (0.8-1.5) H 12/10/17 05:47 Estimated GFR 32 ml/min 12/10/17 05:47 BUN/Creatinine Ratio 10 % 12/10/17 05:47 Glucose 117 mg/dL (75-100) H 12/10/17 05:47 POC Glucose 200 (70-105) H 12/09/17 16:10 Hemoglobin A1c 6.6 % (4-6) H 12/09/17 15:42 Calcium 9.8 mg/dL (8.4-10.2) 12/10/17 05:47 Magnesium 2.00 mg/dL (1.7-2.3) 12/09/17 15:42 Total Bilirubin 0.30 mg/dL (0.1-1.2) 12/10/17 05:47 AST 13 units/L (5-40) 12/10/17 05:47 ALT 12 units/L (7-56) 12/10/17 05:47 Alkaline Phosphatase 110 units/L (35-129) 12/10/17 05:47 Total Protein 7.8 g/dL (6.3-8.2) 12/10/17 05:47 Albumin 4.2 g/dL (3.9-5) 12/10/17 05:47 Albumin/Globulin Ratio 1.2 % 12/10/17 05:47 Urine Color Straw (Yellow) 12/09/17 17:00 Urine Turbidity Clear (Clear) 12/09/17 17:00 Urine pH 6.0 (5.0-7.0) 12/09/17 17:00 Ur Specific [place] 1.011 (1.003-1.030) 12/09/17 17:00 Urine Protein >500 mg/dL (Negative) 12/09/17 17:00 Urine Glucose (UA) 50 mg/dL (Negative) 12/09/17 17:00 Urine Ketones Neg mg/dL (Negative) 12/09/17 17:00 Urine Blood Mod (Negative) 12/09/17 17:00 Urine Nitrite Neg (Negative) 12/09/17 17:00 Urine Bilirubin Neg (Negative) 12/09/17 17:00 Urine Urobilinogen < 2.0 mg/dL (<2.0) 12/09/17 17:00 Ur Leukocyte Esterase Neg (Negative) 12/09/17 17:00 Urine WBC (Auto) 4.0 /HPF (0.0-6.0) 12/09/17 17:00 Urine RBC (Auto) 23.0 /HPF (0.0-6.0) 12/09/17 17:00 Urine Opiates Screen Presumptive negative 12/09/17 17:00 Urine Methadone Screen Presumptive negative 12/09/17 17:00 Ur Barbiturates Screen Presumptive negative 12/09/17 17:00 Ur Phencyclidine Scrn Presumptive negative 12/09/17 17:00 Ur Amphetamines Screen Presumptive negative 12/09/17 17:00 U Benzodiazepines Scrn Presumptive negative 12/09/17 17:00 Urine Cocaine Screen Presumptive negative 12/09/17 17:00 U Marijuana (THC) Screen Presumptive negative 12/09/17 17:00 Drugs of Abuse Note Disclamer 12/09/17 17:00 Plasma/Serum Alcohol < 0.01 % (0-0.07) 12/09/17 15:42
--- NOTE | 2017-12-10 16:27 | Progress Note ---
Subjective Date of service: 12/10/17 Interval history: patient is well known to me he is re-assessed and is on the CPAP at present and breathing is stable currently no seizures equal motor tone/ no clonic activity good memory and speech Impression: seizure control good plan diagnostic work up is ordered thanks Objective - Vital Sign Vital Signs - 12hr 12/10/17 12/10/17 12/10/17 04:30 04:40 04:50 Temperature Pulse Rate 82 85 84 Pulse Rate [ From Monitor] Respiratory 7 L 7 L 7 L Rate Blood Pressure 98/63 98/63 98/63 O2 Sat by Pulse 96 96 96 Oximetry 12/10/17 12/10/17 12/10/17 05:00 05:10 05:20 Temperature Pulse Rate 85 84 85 Pulse Rate [ From Monitor] Respiratory 6 L 8 L 6 L Rate Blood Pressure 98/68 98/68 98/68 O2 Sat by Pulse 94 95 96 Oximetry 12/10/17 12/10/17 12/10/17 05:30 05:40 05:50 Temperature Pulse Rate 86 85 86 Pulse Rate [ From Monitor] Respiratory 14 7 L 9 L Rate Blood Pressure 98/68 98/68 98/68 O2 Sat by Pulse 94 96 97 Oximetry 12/10/17 12/10/17 12/10/17 06:00 06:10 06:20 Temperature Pulse Rate 85 85 87 Pulse Rate [ From Monitor] Respiratory 7 L 7 L 7 L Rate Blood Pressure 108/77 108/77 108/77 O2 Sat by Pulse 88 96 96 Oximetry 12/10/17 12/10/17 12/10/17 06:30 06:40 06:50 Temperature Pulse Rate 89 88 88 Pulse Rate [ From Monitor] Respiratory 7 L 8 L 6 L Rate Blood Pressure 108/77 108/77 108/77 O2 Sat by Pulse 96 95 95 Oximetry 12/10/17 12/10/17 12/10/17 07:00 07:10 07:20 Temperature Pulse Rate 94 H 92 H 84 Pulse Rate [ From Monitor] Respiratory 12 6 L 9 L Rate Blood Pressure 119/79 98/68 98/68 O2 Sat by Pulse 93 95 93 Oximetry 12/10/17 12/10/17 12/10/17 07:30 07:40 07:50 Temperature Pulse Rate 86 94 H 96 H Pulse Rate [ From Monitor] Respiratory 6 L 6 L 10 L Rate Blood Pressure 98/68 98/68 98/68 O2 Sat by Pulse 95 97 Oximetry 12/10/17 12/10/17 12/10/17 08:00 08:10 08:20 Temperature 97.8 F Pulse Rate 102 H 89 88 Pulse Rate [ 95 H From Monitor] Respiratory 15 12 8 L Rate Blood Pressure 98/68 119/79 119/79 O2 Sat by Pulse 95 94 92 Oximetry 12/10/17 12/10/17 12/10/17 08:30 08:40 08:50 Temperature Pulse Rate 99 H 104 H 99 H Pulse Rate [ From Monitor] Respiratory 12 10 L 11 L Rate Blood Pressure 119/79 119/79 119/79 O2 Sat by Pulse 91 93 92 Oximetry 12/10/17 12/10/17 12/10/17 09:00 09:10 09:20 Temperature Pulse Rate 102 H 104 H 106 H Pulse Rate [ From Monitor] Respiratory 13 9 L 13 Rate Blood Pressure 124/82 124/82 124/82 O2 Sat by Pulse 92 95 96 Oximetry 12/10/17 12/10/17 12/10/17 09:30 09:40 09:50 Temperature Pulse Rate 108 H 104 H 101 H Pulse Rate [ From Monitor] Respiratory 12 11 L 11 L Rate Blood Pressure 124/82 124/82 124/82 O2 Sat by Pulse 97 94 96 Oximetry 12/10/17 12/10/17 12/10/17 10:00 10:10 10:20 Temperature Pulse Rate 102 H 94 H 94 H Pulse Rate [ From Monitor] Respiratory 9 L 12 10 L Rate Blood Pressure 124/82 117/80 117/80 O2 Sat by Pulse 97 Oximetry 12/10/17 12/10/17 12/10/17 10:30 10:40 10:50 Temperature Pulse Rate 103 H 96 H 99 H Pulse Rate [ From Monitor] Respiratory 23 14 13 Rate Blood Pressure 117/80 117/80 117/80 O2 Sat by Pulse 95 95 Oximetry 12/10/17 12/10/17 12/10/17 10:57 10:58 10:59 Temperature Pulse Rate 99 H 99 H 99 H Pulse Rate [ From Monitor] Respiratory Rate Blood Pressure 117/80 117/80 117/80 O2 Sat by Pulse Oximetry 12/10/17 12/10/17 12/10/17 11:00 11:10 11:20 Temperature Pulse Rate 100 H 100 H 102 H Pulse Rate [ From Monitor] Respiratory 15 12 17 Rate Blood Pressure 117/80 127/56 127/56 O2 Sat by Pulse 96 94 97 Oximetry 12/10/17 12/10/17 12/10/17 11:30 11:40 11:50 Temperature Pulse Rate 101 H 106 H 99 H Pulse Rate [ From Monitor] Respiratory 22 9 L 17 Rate Blood Pressure 127/56 127/56 127/56 O2 Sat by Pulse 96 95 93 Oximetry 12/10/17 12/10/17 12/10/17 12:00 12:10 12:20 Temperature 98.3 F Pulse Rate 94 H 102 H 106 H Pulse Rate [ From Monitor] Respiratory 11 L 14 13 Rate Blood Pressure 127/56 127/56 127/56 O2 Sat by Pulse 91 91 95 Oximetry 12/10/17 12/10/17 12:30 12:40 Temperature Pulse Rate 98 H 92 H Pulse Rate [ From Monitor] Respiratory 12 12 Rate Blood Pressure 127/56 127/56 O2 Sat by Pulse 93 94 Oximetry - Laboratory Findings CBC and BMP: 12/10/17 05:47 12/10/17 05:47 Abnormal Lab Findings: Abnormal Labs 12/09/17 12/09/17 12/09/17 15:42 15:42 15:42 Hgb 11.5 L Hct 34.9 L MCV MCH [place] % (Auto) Seg Neutrophils % 75.9 H APTT 22.6 L Carbon Dioxide 21 L BUN 23 H Creatinine 2.0 H Glucose 233 H POC Glucose Hemoglobin A1c 12/09/17 12/09/17 12/10/17 15:42 16:10 05:47 Hgb 10.9 L Hct 33.7 L MCV 83 L MCH 27 L [place] % (Auto) 9.8 H Seg Neutrophils % APTT Carbon Dioxide BUN Creatinine Glucose POC Glucose 200 H Hemoglobin A1c 6.6 H 12/10/17 05:47 Hgb Hct MCV MCH [place] % (Auto) Seg Neutrophils % APTT Carbon Dioxide BUN 26 H Creatinine 2.6 H Glucose 117 H POC Glucose Hemoglobin A1c
[2017-12-10] MEDS: KEPPRA PO SCH (21:41)
[2017-12-10] MEDS: CYMBALTA PO SCH (21:41)
--- NOTE | 2017-12-11 08:28 | Progress Note ---
Assessment and Plan Assessment and plan: 52-year-old male with a past medical history hypertension, sleep apnea, CVA with residual right-sided deficit, diabetes, asthma, gout, CKD, obstructive uropathy, chronic pain syndrome and previous seizure presents to the hospital status post seizure. This was witnessed by patient's transactional attorney. She states that it lasted about 1 minute. Body stiffened up and patient began to have generalized shaking. This was followed by a period of unresponsiveness and snoring respirations. Patient's systolic blood pressure was 225 and patient was placed on Cardene drip and admitted to ICU Hypertensive urgency - Patient was treated with Cardene drip, currently patient is off Cardene drip - Blood pressure is controlled with his home medications Metabolic encephalopathy - Resolved, likely due to postictal Seizure disorder, new onset - Patient said he has previous episode of seizure, so this one is his second time - I started him on Keppra -Neurology consulted Diabetes mellitus - Sliding-scale insulin Acute on chronic kidney failure - Nephrology consulted - Cr is worsened History of CVA - Continue statin and aspirin - PT evaluation DVT prophylaxis - On Lovenox Disposition - Per nephrology History Interval history: Patient was seen and evaluated at the bedside, patient was alert and oriented. No seizure episode. I have discussed the management plan with the patient. Hospitalist Physical - Physical exam Narrative exam: Not in cardiopulmonary distress. The patient appeared well nourished and normally developed. Vital signs as documented. Head exam is unremarkable. No scleral icterus . Neck is without jugular venous distension, thyromegaly, or carotid bruits. Lungs are clear to auscultation. Cardiac exam reveals regular rate and Rhythm. First and second heart sounds normal. No murmurs, rubs or gallops. Abdominal exam reveals normal bowel sounds, no masses, no organomegaly and no aortic enlargement. Extremities are nonedematous and both femoral and pedal pulses are normal. 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 No focal weakness. - Constitutional Vitals: Temp Pulse Resp BP Pulse Ox 98.4 F 83 18 111/76 98 12/11/17 05:21 12/11/17 05:21 12/11/17 05:21 12/11/17 05:21 12/11/17 05:21 General appearance: Present: no acute distress, well-nourished Results - Labs CBC & Chem 7: 12/10/17 05:47 12/11/17 05:22 Labs: Laboratory Last Values WBC 8.3 K/mm3 (4.5-11.0) 12/10/17 05:47 RBC 4.04 M/mm3 (3.65-5.03) 12/10/17 05:47 Hgb 10.9 gm/dl (11.8-15.2) L 12/10/17 05:47 Hct 33.7 % (35.5-45.6) L 12/10/17 05:47 MCV 83 fl (84-94) L 12/10/17 05:47 MCH 27 pg (28-32) L 12/10/17 05:47 MCHC 32 % (32-34) 12/10/17 05:47 RDW 14.5 % (13.2-15.2) 12/10/17 05:47 Plt Count 334 K/mm3 (140-440) 12/10/17 05:47 Lymph % (Auto) 27.1 % (13.4-35.0) 12/10/17 05:47 [place] % (Auto) 9.8 % (0.0-7.3) H 12/10/17 05:47 Eos % (Auto) 3.5 % (0.0-4.3) 12/10/17 05:47 Baso % (Auto) 0.7 % (0.0-1.8) 12/10/17 05:47 Lymph # 2.2 K/mm3 (1.2-5.4) 12/10/17 05:47 [place] # 0.8 K/mm3 (0.0-0.8) 12/10/17 05:47 Eos # 0.3 K/mm3 (0.0-0.4) 12/10/17 05:47 Baso # 0.1 K/mm3 (0.0-0.1) 12/10/17 05:47 Seg Neutrophils % 58.9 % (40.0-70.0) 12/10/17 05:47 Seg Neutrophils # 4.9 K/mm3 (1.8-7.7) 12/10/17 05:47 PT 12.5 Sec. (12.2-14.9) 12/09/17 15:42 INR 0.89 (0.87-1.13) 12/09/17 15:42 APTT 22.6 Sec. (24.2-36.6) L 12/09/17 15:42 Sodium 143 mmol/L (137-145) 12/11/17 05:22 Potassium 4.6 mmol/L (3.6-5.0) 12/11/17 05:22 Chloride 104.8 mmol/L (98-107) 12/11/17 05:22 Carbon Dioxide 25 mmol/L (22-30) 12/11/17 05:22 Anion Gap 18 mmol/L 12/11/17 05:22 BUN 34 mg/dL (9-20) H 12/11/17 05:22 Creatinine 3.0 mg/dL (0.8-1.5) H 12/11/17 05:22 Estimated GFR 27 ml/min 12/11/17 05:22 BUN/Creatinine Ratio 11 % 12/11/17 05:22 Glucose 136 mg/dL (75-100) H 12/11/17 05:22 POC Glucose 200 (70-105) H 12/09/17 16:10 Hemoglobin A1c 6.6 % (4-6) H 12/09/17 15:42 Calcium 9.0 mg/dL (8.4-10.2) 12/11/17 05:22 Magnesium 2.00 mg/dL (1.7-2.3) 12/09/17 15:42 Total Bilirubin 0.30 mg/dL (0.1-1.2) 12/10/17 05:47 AST 13 units/L (5-40) 12/10/17 05:47 ALT 12 units/L (7-56) 12/10/17 05:47 Alkaline Phosphatase 110 units/L (35-129) 12/10/17 05:47 Total Protein 7.8 g/dL (6.3-8.2) 12/10/17 05:47 Albumin 4.2 g/dL (3.9-5) 12/10/17 05:47 Albumin/Globulin Ratio 1.2 % 12/10/17 05:47 Urine Color Straw (Yellow) 12/09/17 17:00 Urine Turbidity Clear (Clear) 12/09/17 17:00 Urine pH 6.0 (5.0-7.0) 12/09/17 17:00 Ur Specific [place] 1.011 (1.003-1.030) 12/09/17 17:00 Urine Protein >500 mg/dL (Negative) 12/09/17 17:00 Urine Glucose (UA) 50 mg/dL (Negative) 12/09/17 17:00 Urine Ketones Neg mg/dL (Negative) 12/09/17 17:00 Urine Blood Mod (Negative) 12/09/17 17:00 Urine Nitrite Neg (Negative) 12/09/17 17:00 Urine Bilirubin Neg (Negative) 12/09/17 17:00 Urine Urobilinogen < 2.0 mg/dL (<2.0) 12/09/17 17:00 Ur Leukocyte Esterase Neg (Negative) 12/09/17 17:00 Urine WBC (Auto) 4.0 /HPF (0.0-6.0) 12/09/17 17:00 Urine RBC (Auto) 23.0 /HPF (0.0-6.0) 12/09/17 17:00 Urine Opiates Screen Presumptive negative 12/09/17 17:00 Urine Methadone Screen Presumptive negative 12/09/17 17:00 Ur Barbiturates Screen Presumptive negative 12/09/17 17:00 Ur Phencyclidine Scrn Presumptive negative 12/09/17 17:00 Ur Amphetamines Screen Presumptive negative 12/09/17 17:00 U Benzodiazepines Scrn Presumptive negative 12/09/17 17:00 Urine Cocaine Screen Presumptive negative 12/09/17 17:00 U Marijuana (THC) Screen Presumptive negative 12/09/17 17:00 Drugs of Abuse Note Disclamer 12/09/17 17:00 Plasma/Serum Alcohol < 0.01 % (0-0.07) 12/09/17 15:42
--- NOTE | 2017-12-11 10:49 | Progress Note ---
Subjective Interval history: Patient was seen today for follow-up on multiple renal related issues Events of this hospitalization noted Patient denies having any chest pain pressure or shortness of breath patient wants to go home Vitals labs intake output medications were reviewed Social history: Reviewed Allergies: Reviewed Family history: Reviewed Physical examination HEENT: Oral mucosa moist no pallor or icterus Neck: Supple no JVD Chest: Clear to auscultation anteriorly CVS: Regular rate and rhythm S1 and S2 heard Abdomen: Soft nontender no suprapubic masses no organomegaly appreciable Extremity: Dry skin less than 1+ peripheral edema Musculoskeletal: No joint effusion noted in knees and ankle Neurological: Alert awake Dermatology: No petechial rashes Psychiatry: No evidence of any agitation and aggression noted Assessment and plan Acute Renal failure creatinine was 2.6 with a BUN of 26 potassium 4.6 upon admission , creatinine did come down to 2.0 on 12/09 but currently around 3.0 Review of the record shows that patient's creatinine was 1.8 in June 2017 Patient does need a follow-up renal ultrasonogram Renal ultrasonogram obtained June 2017 showed evidence of obstructive uropathy February 2017 acute renal failure creatinine was 6.3 Patient will need a renal ultrasonogram follow-up on the labs avoidance of nephrotoxic medication blood pressure on the low side Urinalysis showed more than 500 mg of proteinuria would like to do a protein creatinine ratio to make sure he does not have nephrotic range proteinuria Further workup is indicated for renal failure Noted to be anemic with hemoglobin of 10.9 upon arrival Admitted with seizure disorder Metabolic acidosis: Currently improved bicarbonate is 25 Urinalysis shows evidence of proteinuria, will need to do a protein creatinine ratio Accelerated hypertension: Requires better control and follow-up? Compliance. Currently doing much better blood pressure is 105/80 Multiple comorbidities underlying: Hypertension, sleep apnea, CVA with right- sided deficit Asthma gout chronic kidney disease obstructive uropathy Patient was adequately counseled and educated regarding multiple renal related issues Pertinent lab findings were discussed with patient, patient does exhibit good understanding of renal issues We'll continue to follow and make recommendation from renal standpoint Objective - Vital Signs Vital signs: Vital Signs - 12hr 12/10/17 12/11/17 12/11/17 23:07 00:05 05:21 Temperature 98.2 F 98.4 F Pulse Rate 91 H 81 83 Respiratory 18 16 18 Rate Blood Pressure 116/73 111/76 O2 Sat by Pulse 93 97 98 Oximetry 09/28/18 08:27 Temperature 98.3 F Pulse Rate 89 Respiratory 18 Rate Blood Pressure 105/80 O2 Sat by Pulse 98 Oximetry - Lab 12/10/17 05:47 12/11/17 05:22 Most recent lab results Calcium 9.0 mg/dL (8.4-10.2) 12/11/17 05:22 Magnesium 2.00 mg/dL (1.7-2.3) 12/09/17 15:42
[2017-12-11] MEDS ORDERED: NORVASC PO SCH (10:50)
[2017-12-11] MEDS: NEURONTIN PO SCH ×2 (10:52→21:22)
[2017-12-11] MEDS: KEPPRA PO SCH ×2 (10:53→21:23)
[2017-12-11] MEDS: LOVENOX SUB-Q SCH ×2 (10:54→10:59)
[2017-12-11] MEDS: NORVASC PO SCH (10:54)
[2017-12-11] MEDS: HALFPRIN EC PO SCH (10:55)
[2017-12-11] MEDS: ZYLOPRIM PO SCH (10:55)
[2017-12-11] MEDS: SODIUM BICARBONATE PO SCH ×2 (10:56→21:22)
[2017-12-11] MEDS: COREG PO SCH ×2 (10:56→21:22)
[2017-12-11] MEDS: SODIUM CHLORIDE FLUSH SYRINGE 10 ML IV SCH ×2 (10:56→21:23)
--- NOTE | 2017-12-11 11:32 | Progress Note ---
Assessment and Plan 52 y/o male with seizure and hypertensive urgency 1. Known ARMANDO, continue home CPAP 2. Will sign off, call if questions. Subjective Date of service: 12/11/17 Interval history: Successful transition out of ICU. Stable, with no acute events. Neurology seeing as well as renal. Pulm status is stable Objective - Constitutional Vitals: Vital Signs - 12hr 12/11/17 12/11/17 12/11/17 00:05 05:21 08:27 Temperature 98.4 F 98.3 F Pulse Rate 81 83 89 Respiratory 16 18 Rate Blood Pressure 111/76 105/80 O2 Sat by Pulse 97 98 98 Oximetry 12/11/17 12/11/17 10:54 10:56 Temperature Pulse Rate 89 89 Respiratory Rate Blood Pressure 105/80 105/80 O2 Sat by Pulse Oximetry General appearance: Present: no acute distress - EENT Eyes: PERRL, EOM intact ENT: hearing intact - Neck Neck: supple, normal ROM - Respiratory Respiratory effort: normal Respiratory: bilateral: CTA - Labs CBC & Chem 7: 12/10/17 05:47 12/11/17 05:22 Labs: Abnormal lab results 12/09/17 12/11/17 Range/Units 16:10 05:22 BUN 34 H (9-20) mg/dL Creatinine 3.0 H (0.8-1.5) mg/dL Glucose 136 H (75-100) mg/dL POC Glucose 200 H (70-105)
--- NOTE | 2017-12-11 14:19 | Query- Renal Failure ---
Dear _Arabella Date:__12/11/2017 Hvac Field Service Technician/CDS:__Leslie Phone#:_[phone] Exercise your independent professional judgment when responding to query. Questions asked do not imply a particular answer is desired or expected. We greatly appreciate your clarification on this issue. Clinical Documentation States: 52-year-old male presents to the hospital status post seizure. The Hospitalist (Dr. Dyer) progress note on 12/11/2017 stated "Acute on chronic kidney failure - Nephrology consulted - Cr is worsened." Clinical Findings Show: Creatinine 12/09 2.0 12/10 2.6 12/11 3.0 Please clarify if you mean: Acute Renal Failure with or due to: [ ] Tubular Necrosis [ ] Medullary Necrosis [ x] Vasomotor Nephropathy [ ] Shock Kidney [ ] Tubular Nephrosis [ ] Renal Tubular Stasis [ ] Cortical Necrosis [ ] Acute Renal Failure (unspecified) [ ] Lower Tubular Nephrosis [ ] Other: [ ] Not Applicable Present on Admission: [ x] Yes (Y) [ ] Clinically undeterminable (W) [ ] No (N) Please also document response in your Progress Notes and/or Discharge Summary and indicate if the condition was present on admission. MTDD
--- NOTE | 2017-12-11 14:21 | Ultrasound Report ---
ULTRASOUND RENAL BILATERAL HISTORY: Acute renal failure. TECHNIQUE: transabdominal ultrasound with color Doppler interrogation. FINDINGS: The right kidney is normal size, contour and position. There is mild increased right renal echotexture consistent with nonspecific renal parenchymal disease. No focal right renal lesion or hydronephrosis. The left kidney is atrophic with diffuse cortical thinning. Moderate to severe left hydronephrosis is unchanged since 07/03/17 exam. There appear to be a few shadowing renal stones at the inferior pole of the left kidney measuring up to 6 mm. IMPRESSION: Slightly echogenic kidneys consistent with nonspecific renal parenchymal disease. Severely atrophic left kidney with evidence of chronic obstructive uropathy. Left nephrolithiasis.
[2017-12-11] MEDS: CYMBALTA PO SCH (21:22)
[2017-12-12 07:37] LABS: Calcium 9.4 mg/dL (8.4-10.2)
--- NOTE | 2017-12-12 09:25 | Progress Note ---
Subjective Interval history: Patient was seen today for follow-up on multiple renal related issues Events of this hospitalization noted, denies any acute complaints Patient denies having any chest pain pressure or shortness of breath patient wants to go home Vitals labs intake output medications were reviewed Social history: Reviewed Allergies: Reviewed Family history: Reviewed Physical examination HEENT: Oral mucosa moist no pallor or icterus Neck: Supple no JVD Chest: Clear to auscultation anteriorly CVS: Regular rate and rhythm S1 and S2 heard Abdomen: Soft nontender no suprapubic masses no organomegaly appreciable Extremity: Dry skin less than 1+ peripheral edema Musculoskeletal: No joint effusion noted in knees and ankle Neurological: Alert awake Dermatology: No petechial rashes Psychiatry: No evidence of any agitation and aggression noted Assessment and plan Acute Renal failure creatinine was 2.6 with a BUN of 26 potassium 4.6 upon admission Patient's creatinine is currently around 2.7 which is better than yesterday which was 3.0 Kidney ultrasonogram report shows evidence of obstructive uropathy, severely atrophic left kidney and left nephrolithiasis with increased echogenicity, Patient does need to see urologist please consider consultation Review of the record shows that patient's creatinine was 1.8 in June 2017 Renal ultrasonogram obtained June 2017 showed evidence of obstructive uropathy February 2017 acute renal failure creatinine was 6.3 Patient will need a renal ultrasonogram follow-up on the labs avoidance of nephrotoxic medication blood pressure on the low side Urinalysis showed more than 500 mg of proteinuria would like to do a protein creatinine ratio to make sure he does not have nephrotic range proteinuria Further workup is indicated for renal failure Noted to be anemic with hemoglobin of 10.9 upon arrival Admitted with seizure disorder Metabolic acidosis: Currently improved bicarbonate is 25 Urinalysis shows evidence of proteinuria, will need to do a protein creatinine ratio Accelerated hypertension: Requires better control and follow-up? Compliance. Currently doing much better blood pressure is 105/80 Multiple comorbidities underlying: Hypertension, sleep apnea, CVA with right- sided deficit Asthma gout chronic kidney disease obstructive uropathy Patient was adequately counseled and educated regarding multiple renal related issues Pertinent lab findings were discussed with patient, patient does exhibit good understanding of renal issues We'll continue to follow and make recommendation from renal standpoint Objective - Vital Signs Vital signs: Vital Signs - 12hr 12/11/17 12/11/17 12/11/17 22:10 23:00 23:42 Temperature 98.2 F Pulse Rate 99 H 87 90 Respiratory 18 16 Rate Blood Pressure 100/67 O2 Sat by Pulse 99 96 Oximetry 12/12/17 04:17 Temperature 98.3 F Pulse Rate 82 Respiratory 16 Rate Blood Pressure 115/78 O2 Sat by Pulse 96 Oximetry - Lab 12/10/17 05:47 12/12/17 06:08 Most recent lab results Calcium 9.4 mg/dL (8.4-10.2) 12/12/17 06:08 Magnesium 2.00 mg/dL (1.7-2.3) 12/09/17 15:42
[2017-12-12 09:54] VITALS: BP 123/81
[2017-12-12] MEDS: LOVENOX SUB-Q SCH (10:00)
[2017-12-12] MEDS ORDERED: NORVASC PO SCH (10:00)
[2017-12-12] MEDS: SODIUM CHLORIDE FLUSH SYRINGE 10 ML IV SCH (10:02)
[2017-12-12] MEDS: NEURONTIN PO SCH (10:49)
[2017-12-12] MEDS: HALFPRIN EC PO SCH (10:49)
[2017-12-12] MEDS: KEPPRA PO SCH (10:50)
[2017-12-12] MEDS: SODIUM BICARBONATE PO SCH (10:50)
[2017-12-12] MEDS: COREG PO SCH (10:51)
--- NOTE | 2017-12-12 10:51 | Discharge Summary ---
Providers - Providers Date of Admission: 12/09/17 19:14 Attending physician: FARHAN LIND MD 12/10/17 08:25 Consult to Physician [CONS] Routine Comment: Consulting Provider: WENDI SHIPLEY Physician Instructions: Reason For Exam: acute on chronic kidnesy disease 12/10/17 08:26 Consult to Physician [CONS] Routine Comment: Consulting Provider: SUZIE VELAZQUEZ Physician Instructions: Reason For Exam: seizure disorder 12/10/17 11:23 Physical Therapy Evaluation and Treat [CONS] Routine Comment: Reason For Exam: Debility Primary care physician: PROPOSITION PLAYER Hospitalization Reason for admission: AMS, seizure disorder, acute on chronic renal failure Condition: Stable Disposition: DC-01 TO HOME OR SELFCARE Time spent for discharge: 34 minutes - Discharge Diagnoses (1) History of CVA with residual deficit Status: Acute (2) Chronic renal insufficiency Status: Acute (3) Seizure Status: Acute (4) Altered mental status Status: Acute Core Measure Documentation - Palliative Care Palliative Care/ Comfort Measures: Not Applicable - Core Measures Any of the following diagnoses?: history only Exam - Physical Exam Narrative exam: Not in cardiopulmonary distress. The patient appeared well nourished and normally developed. Vital signs as documented. Head exam is unremarkable. No scleral icterus . Neck is without jugular venous distension, thyromegaly, or carotid bruits. Lungs are clear to auscultation. Cardiac exam reveals regular rate and Rhythm. First and second heart sounds normal. No murmurs, rubs or gallops. Abdominal exam reveals normal bowel sounds, no masses, no organomegaly and no aortic enlargement. Extremities are nonedematous and both femoral and pedal pulses are normal. 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 Mild right sided weakness compared to the left. - Constitutional Vitals: Temp Pulse Resp BP Pulse Ox 97.9 F 78 12 123/81 98 12/12/17 07:50 12/12/17 07:50 12/12/17 07:50 12/12/17 07:50 12/12/17 07:50 Plan Activity: no restrictions Weight Bearing Status: Full Weight Bearing Diet: low salt, diabetic, renal Additional Instructions: Patient said he will follow with his PCP and urologist at [facility]. Follow up with: SANTOS WAGNER MD [Primary Care Provider] - 7 Days Prescriptions: levETIRAcetam [Keppra TAB] 500 mg PO BID #60 tablet
[2017-12-12] MEDS: ZYLOPRIM PO SCH (12:50)
== END 2017-12-12 13:10 | disposition home or self-care (01) | DRG 100 ==
LOC: ED 14:40 → CC1 19:14 → 4A 12-10 20:07
PROVIDERS: ADMIT Internal Medicine; ATTEND Internal Medicine
PROC: 5A09357 Assistance with Respiratory Ventilation, Less than 24 Consecutive Hours, Continuous Positive Airway Pressure (ICD-10-PCS; principal; 2017-12-10)
PROC: 5A09357 Assistance with Respiratory Ventilation, Less than 24 Consecutive Hours, Continuous Positive Airway Pressure (ICD-10-PCS; 2017-12-11)
DX: G40.909 Epilepsy, unspecified, not intractable, without status epilepticus (principal); N17.0 Acute kidney failure with tubular necrosis; I16.1 Hypertensive emergency; I69.351 Hemiplegia and hemiparesis following cerebral infarction affecting right dominant side; E87.2 Acidosis; E11.22 Type 2 diabetes mellitus with diabetic chronic kidney disease; I12.9 Hypertensive chronic kidney disease with stage 1 through stage 4 chronic kidney disease, or unspecified chronic kidney disease; J45.909 Unspecified asthma, uncomplicated; M10.9 Gout, unspecified; G89.4 Chronic pain syndrome; N18.9 Chronic kidney disease, unspecified; N13.9 Obstructive and reflux uropathy, unspecified; E87.5 Hyperkalemia; I16.0 Hypertensive urgency; G47.33 Obstructive sleep apnea (adult) (pediatric); Z87.442 Personal history of urinary calculi; Z79.899 Other long term (current) drug therapy; Z79.84 Long term (current) use of oral hypoglycemic drugs; Z91.013 Allergy to seafood; Z91.14 Patient's other noncompliance with medication regimen
CPT/HCPCS: 36415; 70450; 76770; 80048; 80053; 80307; 80320; 81001; 82962; 83036; 83735; 85025; 85610; 85730; 93005; 93010; 94660; 96365; 96375; A9270-GY; G0480; J1200; J1650; J1953; J2270; J2405; J2765; J7050

== ENCOUNTER 2018-03-18 03:47 | Inpatient (IN) | payer OTHER ==
[2018-03-18 04:01] LABS: Basophils # (Auto) 0.1 K/mm3 (0.0-0.1); Basophils % (Auto) 0.9 % (0.0-1.8); Eosinophils # (Auto) 0.4 K/mm3 (0.0-0.4); Hematocrit 36.4 % (35.5-45.6); Hemoglobin 11.7 gm/dl (11.8-15.2); Lymphocytes # (Auto) 3.2 K/mm3 (1.2-5.4); Lymphocytes % (Auto) 27.1 % (13.4-35.0); Mean Corpuscular HGB Conc 32 % (32-34); Mean Corpuscular Volume 85 fl (84-94); Monocytes # (Auto) 0.7 K/mm3 (0.0-0.8); Platelet Count 281 K/mm3 (140-440); Red Blood Count 4.26 M/mm3 (3.65-5.03); Red Cell Distribution Width 13.3 % (13.2-15.2)
--- NOTE | 2018-03-18 04:13 | Cat Scan Report ---
FINAL REPORT PROCEDURE: CT HEAD/BRAIN WO CON TECHNIQUE: Computerized tomography of the head was performed without contrast material. HISTORY: RT SIDE DEFICITS COMPARISON: 12/09/2017 FINDINGS: Skull and scalp: Normal. Paranasal sinuses: Normal. Ventricles and subarachnoid spaces: Normal. Cerebrum: No evidence of hemorrhage, acute infarction or mass. There is an area of hypoattenuation in the left parietal occipital region consistent with previous infarction.. Cerebellum and brainstem: No evidence of hemorrhage, acute infarction or mass. Vasculature: Normal. Comments: None. IMPRESSION: There is no evidence of acute intracranial process. Old infarction in the left parietal occipital lob es.
[2018-03-18 04:16] LABS: Calcium 9.7 mg/dL (8.4-10.2)
[2018-03-18 04:17] LABS: INR 0.84 (0.87-1.13)
[2018-03-18 04:18] LABS: Partial Thromboplastin Time 26.4 Sec. (24.2-36.6)
[2018-03-18 04:20] LABS: Alanine Aminotransferase 23 units/L (7-56); Albumin 4.6 g/dL (3.9-5)
[2018-03-18 04:21] LABS: Bilirubin,Direct < 0.2 mg/dL (0-0.2)
[2018-03-18] MEDS ORDERED: APRESOLINE IV ONE (04:28)
[2018-03-18] MEDS ORDERED: BABY ASPIRIN PO ONE (04:29)
[2018-03-18] MEDS ORDERED: ZOFRAN ONE (04:36)
[2018-03-18] MEDS ORDERED: ZOFRAN IV ONE (04:37)
--- NOTE | 2018-03-18 05:55 | Emergency Department Report ---
HPI - General Chief Complaint: Neuro Symptoms/Deficit Time Seen by Provider: 03/18/18 03:53 - HPI HPI: 52-year-old -[place] African male presents to the emergency department via EMS from home as a code stroke. The patient apparently called his son, who was in [place], and the son noticed that he was having difficulty talking/conversing. The son then called the [place] PD who then contacted our local EMS who checked on the patient and found him to be altered and brought him in for further evaluation. There was some discussion about possible right-sided weakness. However the patient definitely has a facial droop, nausea and vomiting, and some aphasia. The patient has a past medical history of chronic kidney disease, asthma, gout, hypertension, obstructive sleep apnea, diabetes and he does have a history of a previous stroke in 2017. I spoke with the patient's son who says that at that time he had expressive aphasia and right-sided weakness. He still apparently does have some mild residual deficits but the son says that he spent some time with physical therapy and rehabilitation and the residual deficits were minor. ED Past Medical Hx - Past Medical History Previous Medical History?: Yes Hx Hypertension: Yes Hx CVA: Yes (residual right-sided deficits) Hx Congestive Heart Failure: No Hx Diabetes: Yes (NIDDM) Hx Seizures: Yes Hx Asthma: Yes Hx COPD: No Additional medical history: GOUT, sleep apnea and uses CPAP at home, renal stone causing obstructive uropathy, renal failure requiring dialysis, chronic pain syndrome - Surgical History Past Surgical History?: Yes Additional Surgical History: rt knee surgery - Social History Smoking Status: Never Smoker - Medications Home Medications: Home Medications Medication Instructions Recorded Confirmed Last Taken Type Duloxetine HCl [Cymbalta] 60 mg PO BID 02/18/17 12/09/17 12/09/17 12:00 History Gabapentin [Neurontin] 400 cap PO TID 02/18/17 12/09/17 12/09/17 12:00 History Lisinopril [Zestril TAB] 10 mg PO QDAY 06/30/17 12/09/17 12/09/17 12:00 History 10 MG Adult Low Dose Aspirin EC 81 tab PO ONCE 12/09/17 12/09/17 12/09/17 09:00 History Allopurinol 100 tab PO ONCE 12/09/17 12/09/17 12/09/17 12:00 History 100 Carvedilol [Coreg] 3.125 tab PO BID 12/09/17 12/09/17 12/09/17 12:00 History 3.125 Ferrous Sulfate [Iron] 325 mg PO ONCE 12/09/17 12/09/17 12/09/17 12:00 History Glipizide 10 tab PO BID 12/09/17 12/09/17 12/09/17 12:00 History 10 Pantoprazole 40 tab PO ONCE 12/09/17 12/09/17 12/09/17 09:00 History 40 Rosuvastatin (Nf) 20 tab PO ONCE 12/09/17 12/09/17 12/09/17 12:00 History Sodium Bicarbonate 1,200 tab PO BID 12/09/17 12/09/17 12/09/17 12:00 History 1200 levETIRAcetam [Keppra TAB] 500 mg PO BID #60 tablet 12/12/17 Unknown Rx ED Review of Systems ROS: Stated complaint: POSS CVA Other details as noted in HPI Comment: Unobtainable due to pts medical conditions Physical Exam - Physical Exam Vital Signs: Vital Signs 03/18/18 03/18/18 03/18/18 04:05 04:15 04:17 Temperature 97.7 F Pulse Rate 87 91 H Respiratory 13 18 Rate Blood Pressure 215/128 206/133 O2 Sat by Pulse 99 94 97 Oximetry 03/18/18 03/18/18 03/18/18 04:29 04:31 04:45 Temperature Pulse Rate 85 88 97 H Respiratory 15 15 Rate Blood Pressure 212/125 212/125 206/119 O2 Sat by Pulse 98 98 Oximetry 03/18/18 05:01 Temperature Pulse Rate 100 H Respiratory 16 Rate Blood Pressure 202/109 O2 Sat by Pulse Oximetry Physical Exam: GENERAL: Patient is ill-appearing. HEENT: Normocephalic. Atraumatic. Patient has moist mucous membranes. EYES: Extraocular motions are intact. Pupils are equal and reactive to light bilaterally. NECK: Supple. Trachea is midline. CHEST/LUNGS: Clear to auscultation. There is no respiratory distress noted. HEART/CARDIOVASCULAR: Regular. There is no tachycardia. There is no obvious murmur. ABDOMEN: Abdomen is soft, nontender. Patient has normal bowel sounds. There is no abdominal distention. SKIN: Skin is warm and dry. NEURO: Patient is awake and able to follow some commands. Patient has a mild left-sided nasolabial for paresis. He displays aphasia. MUSCULOSKELETAL: There is no tenderness or deformity. There is no limitation range of motion. There is no evidence of acute injury. ED Course Vital Signs 03/18/18 03/18/18 03/18/18 04:05 04:15 04:17 Temperature 97.7 F Pulse Rate 87 91 H Respiratory 13 18 Rate Blood Pressure 215/128 206/133 O2 Sat by Pulse 99 94 97 Oximetry 03/18/18 03/18/18 03/18/18 04:29 04:31 04:45 Temperature Pulse Rate 85 88 97 H Respiratory 15 15 Rate Blood Pressure 212/125 212/125 206/119 O2 Sat by Pulse 98 98 Oximetry 03/18/18 05:01 Temperature Pulse Rate 100 H Respiratory 16 Rate Blood Pressure 202/109 O2 Sat by Pulse Oximetry - Consultations Consultation #1: As soon as the CT scan of the head without contrast was completed, I contacted and spoke with Dr. Mcconnell of the telemedicine neurology service. Dr. Mcconnell agrees that the patient does not appear to be a TPA candidate as there is no last known well time since he called his son around 2:45 AM but we do not know when he was normal before that. He also does not feel that a CT angiography study of the head and neck is necessary at this time since the patient is showing some improvement, does not have any hemiparesis or significant lateralizing deficits, and since the patient has renal insufficiency. He recommends some blood pressure control as the patient's symptoms may be secondary to hypertensive encephalopathy and then admission to the hospital for further workup. 03/18/18 06:09 ED Medical Decision Making - Lab Data Result diagrams: 03/18/18 03:55 03/18/18 03:55 - EKG Data -: EKG Interpreted by K[facility] EKG shows normal: sinus rhythm, axis, intervals, QRS complexes, ST-T waves (T inversions to the lateral and inferior leads. Mild ST depressions to the lateral leads but no reciprocal elevations.) Rate: normal - EKG Data Interpretation: other (sinus rhythm, normal axis, normal intervals. T-wave inversions to the inferior and lateral leads. Mild ST depressions to the lateral leads are no worse elevations.) - Radiology Data Radiology results: report reviewed PROCEDURE: CT HEAD/BRAIN WO CON TECHNIQUE: Computerized tomography of the head was performed without contrast material. HISTORY: RT SIDE DEFICITS COMPARISON: 12/09/2017 FINDINGS: Skull and scalp: Normal. Paranasal sinuses: Normal. Ventricles and subarachnoid spaces: Normal. Cerebrum: No evidence of hemorrhage, acute infarction or mass. There is an area of hypoattenuation in the left parietal occipital region consistent with previous infarction.. Cerebellum and brainstem: No evidence of hemorrhage, acute infarction or mass. Vasculature: Normal. Comments: None. IMPRESSION: There is no evidence of acute intracranial process. Old infarction in the left parietal occipital lobes. Transcribed By: [facility] Dictated By: ERIC JALLOH MD Electronically Authenticated By: ERIC JALLOH MD Signed Date/Time: 03/18/18 6020 - Medical Decision Making Patient presented to the emergency department as a code stroke. At first there was concern for right-sided deficits, effusion and facial asymmetry. However the patient is seen using all 4 extremities extremities equally. The patient does have what appears to be some left-sided nasolabial fold paresis but this also appears to be transient. The patient does have some expressive aphasia but he has shown some improvement. When he first arrived by EMS, the patient was unable to say just about anything. Shortly after returning from the CT scan, the patient was seen standing up, going through his clothes, looking for his cell phone and then asking for his cell phone. CT of the head did not show any acute bleed, shift, mass, ischemia or any other acute process. The patient's labs are mostly unremarkable. He has a very mild leukocytosis of 12,000. He has some chronic kidney disease but does have a history of this. His blood sugar is about 290 but he does not appear to be in diabetic ketoacidosis. Per the consultation section, I spoke with the telemedicine neurologist who agrees that the patient is not a TPA candidate and did not feel that it was prudent to do a CT angiography study of the head and neck. Patient was given a dose of hydralazine which did not make any improvement in the patient's blood pressure so a Cardene drip was started with a goal of about 170 systolic for some permissive hypertension. The patient will be admitted the hospital for further evaluation and treatment. Patient was presented to the overnight hospitalist, Dr. Demarco, who will either admit the patient make sure the patient is given to the morning hospitalist team. - Differential Diagnosis CVA, TIA, hypertensive encephalopathy, dysrhythmia Critical Care Time: Yes Critical care time in (mins) excluding proc time.: 35 Critical care attestation.: If time is entered above; I have spent that time in minutes in the direct care of this critically ill patient, excluding procedure time. Critical care time was spent on this patient during his initial evaluation, multiple re- evaluations, ordering and interpretation of labs and imaging, discussion with the telemedicine neurologist, discussion with the patient's son, ordering of medications. Critical Care Time: 35 minutes ED Disposition Clinical Impression: Hypertensive emergency, Aphasia CVA (cerebral vascular accident) Qualifiers: CVA mechanism: unspecified Qualified Code(s): I63.9 - Cerebral infarction, unsp ecified CKD (chronic kidney disease) Qualifiers: Chronic kidney disease stage: unspecified stage Qualified Code(s): N18.9 - Chronic kidney disease, unspecified Disposition: OP ADMIT IP TO THIS HOSP Is pt being admited?: Yes Condition: Serious Instructions: Hypertension (ED) Referrals: PRIMARY CARE, [Primary Care Provider] - 3-5 Days Time of Disposition: 06:16 - Assessment Assessment Interval: Baseline - Level of Consciousness 1a. Level of Consciousness: alert/keenly responsive - LOC Questions 1b. LOC Questions: answers no questions correctly - LOC Command 1c. LOC Commands: performs tasks correctly - Best Gaze 2. Best Gaze: normal - Visual 3. Visual: no visual loss - Facial Palsy 4. Facial Palsy: minor paralysis - Motor Arm 5b. Motor Arm Right: no drift 5a. Motor Arm Left: no drift - Motor Leg 6b. Motor Leg Right: no drift 6a. Motor Leg Left: no drift - Limb Ataxia 7. Limb Ataxia: absent - Sensory 8. Sensory: normal - Best Language 9. Best Language: severe aphasia - Dysarthria 10. Dysarthria: mild/moderate dysarthria - Extinction and Inattention 11. Extinction/Inattention: no abnormality - Scoring Total Score: 6 Stroke Severity: Moderate Stroke
[2018-03-18] MEDS ORDERED: CARDENE 50 MG in NACL 0.9% 250ML 230 ML IV SCH (06:00)
[2018-03-18] MEDS ORDERED: APRESOLINE IV PRN (06:20)
[2018-03-18] MEDS ORDERED: TYLENOL ONE (09:28)
[2018-03-18] MEDS ORDERED: TYLENOL PO ONE (09:29)
[2018-03-18] MEDS ORDERED: MORPHINE IV PRN (09:38)
[2018-03-18] MEDS ORDERED: SODIUM CHLORIDE FLUSH SYRINGE 10 ML IV PRN (09:38)
[2018-03-18] MEDS ORDERED: ZOFRAN IV PRN (09:38)
--- NOTE | 2018-03-18 09:38 | History and Physical Report ---
History of Present Illness Date of examination: 03/18/18 Date of admission: 03/18/18 06:21 Chief complaint: Altered mental status, slurred speech History of present illness: Patient is 52 yo with history of hypertension, diabetes, previous stroke with right sided weakness, CKD. Apparently he was talking to son on phone, had slurred speech, therefore paramedics were called and he was brought in. He was evaluated in Ed and found to be confused,very high BP 215/128. He was started on Nicardipine drip. CT Head was negative for new stroke but showed old stroke. Will admit for further management. Patient is confused. he cannot give any history. Past History Past Medical History: diabetes, hypertension, hyperlipidemia, renal failure (CKD), seizures, stroke (With residual right sided weakness ), other (sleep apnea, uses CPAP) Past Surgical History: Other (Right knee surgery) Social history: full code Family history: no significant family history Medications and Allergies Allergies Allergy/AdvReac Type Severity Reaction Status Date / Time shellfish derived Allergy Swelling Verified 10/11/14 19:30 Home Medications Medication Instructions Recorded Confirmed Last Taken Type Duloxetine HCl [Cymbalta] 60 mg PO BID 02/18/17 03/20/18 12/09/17 12:00 History Gabapentin [Neurontin] 400 cap PO TID 02/18/17 03/20/18 12/09/17 12:00 History Lisinopril [Zestril TAB] 10 mg PO QDAY 06/30/17 03/20/18 12/09/17 12:00 History 10 MG Adult Low Dose Aspirin EC 81 tab PO ONCE 12/09/17 03/20/18 12/09/17 09:00 History Allopurinol 100 tab PO ONCE 12/09/17 03/20/18 12/09/17 12:00 History 100 Carvedilol [Coreg] 3.125 tab PO BID 12/09/17 03/20/18 12/09/17 12:00 History 3.125 Ferrous Sulfate [Iron] 325 mg PO ONCE 12/09/17 03/20/18 12/09/17 12:00 History Glipizide 10 tab PO BID 12/09/17 03/20/18 12/09/17 12:00 History 10 Pantoprazole 40 tab PO ONCE 12/09/17 03/20/18 12/09/17 09:00 History 40 Rosuvastatin (Nf) 20 tab PO ONCE 12/09/17 03/20/18 12/09/17 12:00 History Sodium Bicarbonate 1,200 tab PO BID 12/09/17 03/20/18 12/09/17 12:00 History 1200 levETIRAcetam [Keppra TAB] 500 mg PO BID #60 tablet 12/12/17 03/20/18 Unknown Rx Active Meds: Active Medications Nicardipine HCl 50 mg/ Sodium (Chloride) 250 mls @ 25 mls/hr IV TITR NIALL; Protocol Last Admin: 03/18/18 06:31 Dose: 5 mg/hr, 25 mls/hr Documented by: Review of Systems ROS unobtainable: due to mental status Exam - Physical Exam Narrative exam: EN: Not in acute distress, HEENT: Normocephalic, atraumatic, Neck: supple, No JVD Lungs: Clear to auscultation, no wheeze Heart:S1 and S2 regular, no murmurs, rubs or gallop, Abd:soft, non tender, non distended, normal bowel sounds Ext: No edema, no clubbing or cyanosis Neuro: Lethargic,confused, aphasia,right sided weakness - Constitutional Vitals: Temp Pulse Resp BP Pulse Ox 97.7 F 107 H 9 L 175/96 93 03/18/18 04:17 03/18/18 09:00 03/18/18 09:00 03/18/18 09:00 03/18/18 09:00 Results - Labs CBC & Chem 7: 03/20/18 03:34 03/20/18 03:34 Labs: Abnormal lab results 03/18/18 03/18/18 03/18/18 Range/Units 03:54 03:55 03:55 WBC 12.0 H (4.5-11.0) K/mm3 Hgb 11.7 L (11.8-15.2) gm/dl MCH 27 L (28-32) pg PT 11.9 L (12.2-14.9) Sec. INR 0.84 L (0.87-1.13) BUN (9-20) mg/dL Creatinine (0.8-1.5) mg/dL Glucose (75-100) mg/dL POC Glucose 286 H (70-105) Alkaline Phosphatase (35-129) units/L 03/18/18 03/18/18 Range/Units 03:55 03:55 WBC (4.5-11.0) K/mm3 Hgb (11.8-15.2) gm/dl MCH (28-32) pg PT (12.2-14.9) Sec. INR (0.87-1.13) BUN 23 H (9-20) mg/dL Creatinine 1.9 H (0.8-1.5) mg/dL Glucose 293 H (75-100) mg/dL POC Glucose (70-105) Alkaline Phosphatase 142 H (35-129) units/L Assessment and Plan Hypertensive emergency. Admit to ICU started on nicardpinine drip. Add Hydralazine po Slurred speech. To r/o stroke. he has history of stroke given Aspirin Encephalopathy. May be due to HTN emergency Diabetes mellitus type 2. Fingerstick glucose ac hs CKD. May consult Nephro if gets worse. Seizure disorder Resume keppra Asthma Stable. History of stroke With residual right sided weakness Sleep apnea Full code status The high probability of a clinically significant, sudden or life threatening deterioration of the [4] system(s) required my full and direct attention, intervention and personal management. The aggregate critical care time was [72] minutes. This time is in addition to time spent performing reported procedures but includes the following: [x] Data Review and interpretation [x] Patient assessment and monitoring of vital signs x Documentation x Medication orders and management
[2018-03-18] MEDS: COREG PO SCH (09:59)
[2018-03-18] MEDS: KEPPRA PO SCH (09:59)
[2018-03-18] MEDS: SODIUM CHLORIDE FLUSH SYRINGE 10 ML IV SCH (09:59)
[2018-03-18] MEDS: APRESOLINE PO SCH ×2 (09:59→14:03)
[2018-03-18] MEDS: XANAX PO PRN (10:30)
[2018-03-18 10:58] LABS: Bilirubin,Urine NEG (Negative); Blood,Urine SM (Negative); Color,Urine Straw (Yellow); Urobilinogen,Urine < 2.0 mg/dL (<2.0)
[2018-03-18 11:14] LABS: Protein,Urine >500 mg/dL (Negative)
[2018-03-18 11:25] LABS: Amphetamine Screen,Urine PRESUMPTIVE NEGATIVE; Benzodiazepines Screen,Urine PRESUMPTIVE NEGATIVE; Cocaine Screen,Urine PRESUMPTIVE NEGATIVE; Methadone Screen,Urine PRESUMPTIVE NEGATIVE; Opiate Screen,Urine PRESUMPTIVE NEGATIVE
[2018-03-18 12:03] LABS: Cannabinoid Screen,Urine PRESUMPTIVE POSITIVE
[2018-03-18] MEDS ORDERED: MORPHINE ONE (13:57)
[2018-03-18] MEDS ORDERED: APRESOLINE ONE ×3 (13:58→20:15)
[2018-03-18] MEDS: APRESOLINE IV PRN (17:47)
[2018-03-18] MEDS ORDERED: CARDIZEM IV ONE (20:00)
[2018-03-18] MEDS: APRESOLINE IV SCH (20:15)
[2018-03-18] MEDS ORDERED: NORMODYNE IV ONE ×2 (20:24→21:56)
--- NOTE | 2018-03-18 20:29 | XRay Report ---
FINAL REPORT EXAM: XR CHEST 1V AP HISTORY: Hypertension TECHNIQUE: AP portable view of the chest PRIORS: CXR 07/01/2017 FINDINGS: Lines, tubes, and devices: N/A Lungs and pleura: Trachea is normal in position. Lungs are clear of infiltrate, pleural effusion, vas cular congestion, or pneumothorax. No change. Cardiomediastinal silhouette: Cardiac and mediastinal silhouettes are unremarkable. Other: Bony structures are intact. IMPRESSION: No acute cardiopulmonary process seen. No change.
[2018-03-18] MEDS ORDERED: CARDIZEM ONE (22:23)
[2018-03-19] MEDS: KEPPRA PO SCH ×3 (00:15→22:22)
[2018-03-19] MEDS: APRESOLINE IV PRN (00:15)
[2018-03-19] MEDS: APRESOLINE PO SCH ×4 (00:21→22:23)
[2018-03-19] MEDS: COREG PO SCH ×3 (00:22→22:22)
[2018-03-19] MEDS: SODIUM CHLORIDE FLUSH SYRINGE 10 ML IV SCH ×3 (00:26→22:23)
[2018-03-19] MEDS: APRESOLINE IV SCH (00:27)
[2018-03-19 05:21] LABS: Basophils # (Auto) 0.1 K/mm3 (0.0-0.1); Basophils % (Auto) 0.7 % (0.0-1.8); Hematocrit 37.1 % (35.5-45.6); Hemoglobin 12.1 gm/dl (11.8-15.2); Lymphocytes # (Auto) 2.1 K/mm3 (1.2-5.4); Lymphocytes % (Auto) 12.7 % (13.4-35.0); Mean Corpuscular HGB Conc 33 % (32-34); Mean Corpuscular Volume 84 fl (84-94); Monocytes # (Auto) 1.2 K/mm3 (0.0-0.8); Monocytes % (Auto) 7.3 % (0.0-7.3); Platelet Count 389 K/mm3 (140-440); Red Blood Count 4.42 M/mm3 (3.65-5.03); Red Cell Distribution Width 13.5 % (13.2-15.2)
[2018-03-19 05:47] LABS: Calcium 9.9 mg/dL (8.4-10.2)
[2018-03-19 10:25] LABS: Chol/HDL Ratio 4.17 %
[2018-03-19] MEDS: XANAX PO PRN (10:58)
[2018-03-19] MEDS: HALFPRIN EC PO SCH (16:41)
--- NOTE | 2018-03-19 22:59 | Progress Note ---
Assessment and Plan Assessment and plan: Hypertensive emergency. Downgraded from ICU to Tele Off Nicardpinine drip. On Hydralazine, Coreg, Hydralazine po Slurred speech. To r/o stroke. he has history of stroke Cont Aspirin Order MRI Brain Encephalopathy. May be due to HTN emergency Diabetes mellitus type 2. Fingerstick glucose ac hs Acute on CKD. May consult Nephro if gets worse. Seizure disorder Resume keppra Asthma Stable. History of stroke With residual right sided weakness Sleep apnea Full code status History Interval history: still confused, lethargic Hospitalist Physical - Physical exam Narrative exam: EN: Not in acute distress, HEENT: Normocephalic, atraumatic, Neck: supple, No JVD Lungs: Clear to auscultation, no wheeze Heart:S1 and S2 regular, no murmurs, rubs or gallop, Abd:soft, non tender, non distended, normal bowel sounds Ext: No edema, no clubbing or cyanosis Neuro: Lethargic,confused, aphasia,right sided weakness - Constitutional Vitals: Temp Pulse Resp BP Pulse Ox 99.8 F H 114 H 18 147/98 91 03/19/18 20:25 03/19/18 22:23 03/19/18 20:25 03/19/18 22:23 03/19/18 20:25 Results - Labs CBC & Chem 7: 03/20/18 03:34 03/20/18 03:34 Labs: Laboratory Last Values WBC 16.6 K/mm3 (4.5-11.0) H 03/19/18 04:28 RBC 4.42 M/mm3 (3.65-5.03) 03/19/18 04:28 Hgb 12.1 gm/dl (11.8-15.2) 03/19/18 04:28 Hct 37.1 % (35.5-45.6) 03/19/18 04:28 MCV 84 fl (84-94) 03/19/18 04:28 MCH 27 pg (28-32) L 03/19/18 04:28 MCHC 33 % (32-34) 03/19/18 04:28 RDW 13.5 % (13.2-15.2) 03/19/18 04:28 Plt Count 389 K/mm3 (140-440) 03/19/18 04:28 Lymph % (Auto) 12.7 % (13.4-35.0) L 03/19/18 04:28 [place] % (Auto) 7.3 % (0.0-7.3) 03/19/18 04:28 Eos % (Auto) 0.0 % (0.0-4.3) 03/19/18 04:28 Baso % (Auto) 0.7 % (0.0-1.8) 03/19/18 04:28 Lymph # 2.1 K/mm3 (1.2-5.4) 03/19/18 04:28 [place] # 1.2 K/mm3 (0.0-0.8) H 03/19/18 04:28 Eos # 0.0 K/mm3 (0.0-0.4) 03/19/18 04:28 Baso # 0.1 K/mm3 (0.0-0.1) 03/19/18 04:28 Seg Neutrophils % 79.3 % (40.0-70.0) H 03/19/18 04:28 Seg Neutrophils # 13.2 K/mm3 (1.8-7.7) H 03/19/18 04:28 PT 11.9 Sec. (12.2-14.9) L 03/18/18 03:55 INR 0.84 (0.87-1.13) L 03/18/18 03:55 APTT 26.4 Sec. (24.2-36.6) 03/18/18 03:55 Thrombin Time 16.5 Sec. (15.1-19.6) 03/18/18 03:55 Sodium 141 mmol/L (137-145) 03/19/18 04:28 Potassium 4.2 mmol/L (3.6-5.0) 03/19/18 04:28 Chloride 96.5 mmol/L (98-107) L 03/19/18 04:28 Carbon Dioxide 24 mmol/L (22-30) 03/19/18 04:28 Anion Gap 25 mmol/L 03/19/18 04:28 BUN 34 mg/dL (9-20) H 03/19/18 04:28 Creatinine 2.6 mg/dL (0.8-1.5) H 03/19/18 04:28 Estimated GFR 32 ml/min 03/19/18 04:28 BUN/Creatinine Ratio 13 % 03/19/18 04:28 Glucose 346 mg/dL (75-100) H 03/19/18 04:28 POC Glucose 249 (70-105) H 03/19/18 21:26 Calcium 9.9 mg/dL (8.4-10.2) 03/19/18 04:28 Total Bilirubin 0.20 mg/dL (0.1-1.2) 03/18/18 03:55 Direct Bilirubin < 0.2 mg/dL (0-0.2) 03/18/18 03:55 Indirect Bilirubin 0.0 mg/dL 03/18/18 03:55 AST 20 units/L (5-40) 03/18/18 03:55 ALT 23 units/L (7-56) 03/18/18 03:55 Alkaline Phosphatase 142 units/L (35-129) H 03/18/18 03:55 Troponin T 0.017 ng/mL (0.00-0.029) 03/18/18 03:55 Total Protein 7.4 g/dL (6.3-8.2) 03/18/18 03:55 Albumin 4.6 g/dL (3.9-5) 03/18/18 03:55 Albumin/Globulin Ratio 1.6 % 03/18/18 03:55 Triglycerides 338 mg/dL (2-149) H 03/19/18 04:29 Cholesterol 259 mg/dL (50-199) H 03/19/18 04:29 LDL Cholesterol Direct 144 mg/dL (50-130) H 03/19/18 04:29 HDL Cholesterol 62 mg/dL (40-59) H 03/19/18 04:29 Cholesterol/HDL Ratio 4.17 % 03/19/18 04:29 Urine Color Straw (Yellow) 03/18/18 Unknown Urine Turbidity Clear (Clear) 03/18/18 Unknown Urine pH 6.0 (5.0-7.0) 03/18/18 Unknown Ur Specific [place] 1.011 (1.003-1.030) 03/18/18 Unknown Urine Protein >500 mg/dL (Negative) 03/18/18 Unknown Urine Glucose (UA) >=500 mg/dL (Negative) 03/18/18 Unknown Urine Ketones Tr mg/dL (Negative) 03/18/18 Unknown Urine Blood Sm (Negative) 03/18/18 Unknown Urine Nitrite Neg (Negative) 03/18/18 Unknown Urine Bilirubin Neg (Negative) 03/18/18 Unknown Urine Urobilinogen < 2.0 mg/dL (<2.0) 03/18/18 Unknown Ur Leukocyte Esterase Neg (Negative) 03/18/18 Unknown Urine WBC (Auto) 1.0 /HPF (0.0-6.0) 03/18/18 Unknown Urine RBC (Auto) 4.0 /HPF (0.0-6.0) 03/18/18 Unknown Urine Opiates Screen Presumptive negative 03/18/18 Unknown Urine Methadone Screen Presumptive negative 03/18/18 Unknown Ur Barbiturates Screen Presumptive negative 03/18/18 Unknown Ur Phencyclidine Scrn Presumptive negative 03/18/18 Unknown Ur Amphetamines Screen Presumptive negative 03/18/18 Unknown U Benzodiazepines Scrn Presumptive negative 03/18/18 Unknown Urine Cocaine Screen Presumptive negative 03/18/18 Unknown U Marijuana (THC) Screen Presumptive positive 03/18/18 Unknown Drugs of Abuse Note Disclamer 03/18/18 Unknown Plasma/Serum Alcohol < 0.01 % (0-0.07) 03/18/18 03:55
[2018-03-20 04:18] LABS: Hematocrit 38.6 % (35.5-45.6); Hemoglobin 12.4 gm/dl (11.8-15.2); Mean Corpuscular HGB Conc 32 % (32-34); Mean Corpuscular Volume 86 fl (84-94); Platelet Count 345 K/mm3 (140-440); Red Blood Count 4.51 M/mm3 (3.65-5.03); Red Cell Distribution Width 13.9 % (13.2-15.2)
[2018-03-20 04:33] LABS: Calcium 9.8 mg/dL (8.4-10.2)
[2018-03-20] MEDS: TYLENOL PO PRN (04:54)
[2018-03-20] MEDS: APRESOLINE PO SCH ×3 (05:01→21:42)
[2018-03-20] MEDS ORDERED: ZOSYN/NS 3.375GM/50ML 3.375 GM/50 ML BAG IV SCH (06:00)
[2018-03-20] MEDS: KEPPRA PO SCH ×2 (09:04→21:43)
[2018-03-20] MEDS: COREG PO SCH ×2 (09:04→21:43)
[2018-03-20] MEDS: SODIUM CHLORIDE FLUSH SYRINGE 10 ML IV SCH ×2 (09:05→21:43)
[2018-03-20] MEDS: HALFPRIN EC PO SCH (09:05)
--- NOTE | 2018-03-20 12:52 | Consultation ---
History of Present Illness - Reason for Consult Consult date: 03/20/18 acute renal failure, chronic renal failure Requesting physician: DOMINGO CLINTON - History of Present Illness 52-year-old -[place] male presents to the emergency department via EMS from home as a code stroke. The patient apparently called his son, who was in [place], and the son noticed that he was having difficulty talking/conversing. The son then called the [place] PD who then contacted our local EMS who checked on the patient and found him to be altered and brought him in for further evaluation. There was some discussion about possible right-sided weakness. However the patient definitely had a facial droop, nausea and vomiting, and some aphasia. The patient has a past medical history of chronic kidney disease, asthma, gout, hypertension, obstructive sleep apnea, diabetes and he does have a history of a previous stroke in 2017. Patient is not answering any questions at this time. Unable to get any additional information from him. His serum creatinine noted to be rising and therefore this consultation. According to nurses assistance, patient is having diarrhea. She has not noticed much urine in the diapers. His serum creatinine was 1.9 on admission and it has gone up to 3.2 and therefore this consultation. Review of records indicate that his serum creatinine was approximately 2 back in June 2017 Past History Past Medical History: diabetes, hypertension, renal failure, stroke Past Surgical History: Other (unknown. Patient has a midline abdominal scar) Social history: other (unknown) Family history: other (unknown) Medications and Allergies Allergies Allergy/AdvReac Type Severity Reaction Status Date / Time shellfish derived Allergy Swelling Verified 10/11/14 19:30 Home Medications Medication Instructions Recorded Confirmed Last Taken Type Duloxetine HCl [Cymbalta] 60 mg PO BID 02/18/17 03/20/18 12/09/17 12:00 History Gabapentin [Neurontin] 400 cap PO TID 02/18/17 03/20/18 12/09/17 12:00 History Lisinopril [Zestril TAB] 10 mg PO QDAY 06/30/17 03/20/18 12/09/17 12:00 History 10 MG Adult Low Dose Aspirin EC 81 tab PO ONCE 12/09/17 03/20/18 12/09/17 09:00 History Allopurinol 100 tab PO ONCE 12/09/17 03/20/18 12/09/17 12:00 History 100 Carvedilol [Coreg] 3.125 tab PO BID 12/09/17 03/20/18 12/09/17 12:00 History 3.125 Ferrous Sulfate [Iron] 325 mg PO ONCE 12/09/17 03/20/18 12/09/17 12:00 History Glipizide 10 tab PO BID 12/09/17 03/20/18 12/09/17 12:00 History 10 Pantoprazole 40 tab PO ONCE 12/09/17 03/20/18 12/09/17 09:00 History 40 Rosuvastatin (Nf) 20 tab PO ONCE 12/09/17 03/20/18 12/09/17 12:00 History Sodium Bicarbonate 1,200 tab PO BID 12/09/17 03/20/18 12/09/17 12:00 History 1200 levETIRAcetam [Keppra TAB] 500 mg PO BID #60 tablet 12/12/17 03/20/18 Unknown Rx Active Meds: Active Medications Acetaminophen (Tylenol) 650 mg PO Q6H PRN PRN Reason: Pain MILD(1-3)/Fever >100.5/BERTRAND Last Admin: 03/20/18 04:54 Dose: 650 mg Documented by: Alprazolam (Xanax) 0.25 mg PO Q8H PRN PRN Reason: Anxiety Last Admin: 03/19/18 10:58 Dose: 0.25 mg Documented by: Aspirin (Halfprin Ec) 81 mg PO QDAY [facility] Last Admin: 03/20/18 09:05 Dose: 81 mg Documented by: Carvedilol (Coreg) 6.25 mg PO BID [facility] Last Admin: 03/20/18 09:04 Dose: 6.25 mg Documented by: Hydralazine HCl (Apresoline) 50 mg PO Q8HR [facility] Last Admin: 03/20/18 05:01 Dose: 50 mg Documented by: Hydralazine HCl (Apresoline) 10 mg IV Q4HR PRN PRN Reason: SBP>170 or DBP>110 Last Admin: 03/19/18 00:15 Dose: 10 mg Documented by: Piperacillin Sod/Tazobactam Sod (Zosyn/Ns 3.375gm/50ml) 3.375 gm in 50 mls @ 100 mls/hr IV Q8HR [facility]; Protocol Last Admin: 03/20/18 06:15 Dose: 100 mls/hr Documented by: Insulin Human Isoph/Insulin Regular (Humulin 70/30) 12 unit SUB-Q BIDDIAB [facility] Last Admin: 03/20/18 08:17 Dose: 12 unit Documented by: Levetiracetam (Keppra) 500 mg PO BID [facility] Last Admin: 03/20/18 09:04 Dose: 500 mg Documented by: Morphine Sulfate (Morphine) 2 mg IV Q4H PRN PRN Reason: Pain, Moderate (4-6) Last Admin: 03/18/18 14:03 Dose: 2 mg Documented by: Ondansetron HCl (Zofran) 4 mg IV Q8H PRN PRN Reason: Nausea And Vomiting Sodium Chloride (Sodium Chloride Flush Syringe 10 Ml) 10 ml IV BID [facility] Last Admin: 03/20/18 09:05 Dose: 10 ml Documented by: Sodium Chloride (Sodium Chloride Flush Syringe 10 Ml) 10 ml IV PRN PRN PRN Reason: LINE FLUSH Review of Systems ROS unobtainable: due to mental status Exam - Vital Signs Vital signs: Vital Signs Temp 98.6 F 03/18/18 03:53 - General Appearance General appearance: well-developed, well-nourished, appears stated age EENT: PERRL, mucous membranes moist Neck: Present: neck supple, trachea midline. Absent: JVD/HJR, Masses Respiratory: Clear to Ascultation Heart: regular, normal heart rate, S1S2, no murmurs Gastrointestinal: Present: normal, normoactive bowel sounds, other (midline abdominal scar noted) Integumentary: other Results - Lab Results 03/20/18 03:34 03/20/18 03:34 Most recent lab results Calcium 9.8 mg/dL (8.4-10.2) 03/20/18 03:34 Assessment and Plan Impression * Acute on chronic renal failure. Baseline creatinine approximately 2.0 * Altered mental status * Hypertension * Diabetes * CVA Recommendations * Check a UA as well as a fractional excretion of sodium * Check renal ultrasound with postvoid residual * Hydrate patient gently * Hold RAMIRO inhibitor for now * Avoid nephrotoxins * Monitor fluid status and electrolytes closely * Thank you very much for the consultation. Shall follow along with you
[2018-03-20] MEDS: NACL 0.45% 1000 ML 1,000 ML IV SCH (14:39)
[2018-03-20] MEDS: ZOSYN/NS 2.25 GM/50ML 2.25 GM/50 ML BAG IV SCH (17:59)
--- NOTE | 2018-03-20 20:22 | Ultrasound Report ---
FINAL REPORT PROCEDURE: US RENAL BILAT TECHNIQUE: Real-time sonography in multiple planes of the kidneys, ureters and urinary bladder was p erformed with image documentation. CPT 80626 HISTORY: renal failure COMPARISON: 07/03/2017 FINDINGS: RIGHT kidney: Normal echotexture. No focal renal mass, calculus, or hydronephrosis. Length: 10.9 x 3. 8 x 5.2 cm. LEFT kidney: There is severe degree hydronephrosis with the severe degree parenchymal thinning. There are no calculi. Length: 9.5 x 5.9 x 7.0cm. Bladder: Normal. Incidental note is made of increased hepatic parenchymal echotexture IMPRESSION: Severe degree left hydronephrosis with atrophic parenchyma as seen on the prior study. Right kidney is unremarkable Fatty infiltration of liver
[2018-03-21] MEDS: ZOSYN/NS 2.25 GM/50ML 2.25 GM/50 ML BAG IV SCH ×5 (00:22→23:00)
--- NOTE | 2018-03-21 01:48 | Progress Note ---
Assessment and Plan Assessment and plan: Hypertensive emergency. Downgraded from ICU to Tele Off Nicardpinine drip. On Hydralazine, Coreg, Hydralazine po Slurred speech. To r/o stroke. he has history of stroke Cont Aspirin Order MRI Brain Encephalopathy. May be due to HTN emergency Diabetes mellitus type 2. Fingerstick glucose ac hs Acute on CKD. Consult Nephrology. Discussed with Dr. De La Rosa Seizure disorder Resume keppra Asthma Stable. History of stroke With residual right sided weakness Sleep apnea Full code status History Interval history: still confused, lethargic Hospitalist Physical - Physical exam Narrative exam: EN: Not in acute distress, HEENT: Normocephalic, atraumatic, Neck: supple, No JVD Lungs: Clear to auscultation, no wheeze Heart:S1 and S2 regular, no murmurs, rubs or gallop, Abd:soft, non tender, non distended, normal bowel sounds Ext: No edema, no clubbing or cyanosis Neuro: Lethargic,confused, aphasia,right sided weakness - Constitutional Vitals: Temp Pulse Resp BP Pulse Ox 98.2 F 89 18 122/72 97 03/20/18 22:57 03/20/18 22:57 03/20/18 22:57 03/20/18 22:57 03/20/18 22:57 Results - Labs CBC & Chem 7: 03/21/18 05:38 03/21/18 05:38 Labs: Laboratory Last Values WBC 15.9 K/mm3 (4.5-11.0) H 03/20/18 03:34 RBC 4.51 M/mm3 (3.65-5.03) 03/20/18 03:34 Hgb 12.4 gm/dl (11.8-15.2) 03/20/18 03:34 Hct 38.6 % (35.5-45.6) 03/20/18 03:34 MCV 86 fl (84-94) 03/20/18 03:34 MCH 27 pg (28-32) L 03/20/18 03:34 MCHC 32 % (32-34) 03/20/18 03:34 RDW 13.9 % (13.2-15.2) 03/20/18 03:34 Plt Count 345 K/mm3 (140-440) 03/20/18 03:34 Lymph % (Auto) 12.7 % (13.4-35.0) L 03/19/18 04:28 [place] % (Auto) 7.3 % (0.0-7.3) 03/19/18 04:28 Eos % (Auto) 0.0 % (0.0-4.3) 03/19/18 04:28 Baso % (Auto) 0.7 % (0.0-1.8) 03/19/18 04:28 Lymph # 2.1 K/mm3 (1.2-5.4) 03/19/18 04:28 [place] # 1.2 K/mm3 (0.0-0.8) H 03/19/18 04:28 Eos # 0.0 K/mm3 (0.0-0.4) 03/19/18 04:28 Baso # 0.1 K/mm3 (0.0-0.1) 03/19/18 04:28 Seg Neutrophils % 79.3 % (40.0-70.0) H 03/19/18 04:28 Seg Neutrophils # 13.2 K/mm3 (1.8-7.7) H 03/19/18 04:28 PT 11.9 Sec. (12.2-14.9) L 03/18/18 03:55 INR 0.84 (0.87-1.13) L 03/18/18 03:55 APTT 26.4 Sec. (24.2-36.6) 03/18/18 03:55 Thrombin Time 16.5 Sec. (15.1-19.6) 03/18/18 03:55 Sodium 142 mmol/L (137-145) 03/20/18 03:34 Potassium 4.0 mmol/L (3.6-5.0) 03/20/18 03:34 Chloride 100.4 mmol/L (98-107) 03/20/18 03:34 Carbon Dioxide 25 mmol/L (22-30) 03/20/18 03:34 Anion Gap 21 mmol/L 03/20/18 03:34 BUN 50 mg/dL (9-20) H 03/20/18 03:34 Creatinine 3.2 mg/dL (0.8-1.5) H 03/20/18 03:34 Estimated GFR 25 ml/min 03/20/18 03:34 BUN/Creatinine Ratio 16 % 03/20/18 03:34 Glucose 279 mg/dL (75-100) H 03/20/18 03:34 POC Glucose 239 (70-105) H 03/20/18 21:16 Calcium 9.8 mg/dL (8.4-10.2) 03/20/18 03:34 Total Bilirubin 0.20 mg/dL (0.1-1.2) 03/18/18 03:55 Direct Bilirubin < 0.2 mg/dL (0-0.2) 03/18/18 03:55 Indirect Bilirubin 0.0 mg/dL 03/18/18 03:55 AST 20 units/L (5-40) 03/18/18 03:55 ALT 23 units/L (7-56) 03/18/18 03:55 Alkaline Phosphatase 142 units/L (35-129) H 03/18/18 03:55 Troponin T 0.017 ng/mL (0.00-0.029) 03/18/18 03:55 Total Protein 7.4 g/dL (6.3-8.2) 03/18/18 03:55 Albumin 4.6 g/dL (3.9-5) 03/18/18 03:55 Albumin/Globulin Ratio 1.6 % 03/18/18 03:55 Triglycerides 338 mg/dL (2-149) H 03/19/18 04:29 Cholesterol 259 mg/dL (50-199) H 03/19/18 04:29 LDL Cholesterol Direct 144 mg/dL (50-130) H 03/19/18 04:29 HDL Cholesterol 62 mg/dL (40-59) H 03/19/18 04:29 Cholesterol/HDL Ratio 4.17 % 03/19/18 04:29 Urine Color Straw (Yellow) 03/18/18 Unknown Urine Turbidity Clear (Clear) 03/18/18 Unknown Urine pH 6.0 (5.0-7.0) 03/18/18 Unknown Ur Specific [place] 1.011 (1.003-1.030) 03/18/18 Unknown Urine Protein >500 mg/dL (Negative) 03/18/18 Unknown Urine Glucose (UA) >=500 mg/dL (Negative) 03/18/18 Unknown Urine Ketones Tr mg/dL (Negative) 03/18/18 Unknown Urine Blood Sm (Negative) 03/18/18 Unknown Urine Nitrite Neg (Negative) 03/18/18 Unknown Urine Bilirubin Neg (Negative) 03/18/18 Unknown Urine Urobilinogen < 2.0 mg/dL (<2.0) 03/18/18 Unknown Ur Leukocyte Esterase Neg (Negative) 03/18/18 Unknown Urine WBC (Auto) 1.0 /HPF (0.0-6.0) 03/18/18 Unknown Urine RBC (Auto) 4.0 /HPF (0.0-6.0) 03/18/18 Unknown Urine Opiates Screen Presumptive negative 03/18/18 Unknown Urine Methadone Screen Presumptive negative 03/18/18 Unknown Ur Barbiturates Screen Presumptive negative 03/18/18 Unknown Ur Phencyclidine Scrn Presumptive negative 03/18/18 Unknown Ur Amphetamines Screen Presumptive negative 03/18/18 Unknown U Benzodiazepines Scrn Presumptive negative 03/18/18 Unknown Urine Cocaine Screen Presumptive negative 03/18/18 Unknown U Marijuana (THC) Screen Presumptive positive 03/18/18 Unknown Drugs of Abuse Note Disclamer 03/18/18 Unknown Plasma/Serum Alcohol < 0.01 % (0-0.07) 03/18/18 03:55
[2018-03-21] MEDS: APRESOLINE PO SCH ×3 (05:06→22:51)
[2018-03-21] MEDS: NACL 0.45% 1000 ML 1,000 ML IV SCH (05:48)
[2018-03-21 06:16] LABS: Hematocrit 36.8 % (35.5-45.6); Hemoglobin 11.9 gm/dl (11.8-15.2); Mean Corpuscular HGB Conc 32 % (32-34); Mean Corpuscular Volume 85 fl (84-94); Platelet Count 304 K/mm3 (140-440); Red Blood Count 4.32 M/mm3 (3.65-5.03); Red Cell Distribution Width 13.9 % (13.2-15.2)
[2018-03-21 06:46] LABS: Calcium 8.8 mg/dL (8.4-10.2)
[2018-03-21] MEDS: KEPPRA PO SCH ×2 (09:40→22:52)
[2018-03-21] MEDS: COREG PO SCH ×2 (09:40→22:51)
[2018-03-21] MEDS: HEPARIN SUB-Q SCH ×2 (09:41→22:52)
[2018-03-21] MEDS: HALFPRIN EC PO SCH (09:41)
[2018-03-21] MEDS: SODIUM CHLORIDE FLUSH SYRINGE 10 ML IV SCH ×2 (09:54→23:00)
--- NOTE | 2018-03-21 11:15 | Progress Note ---
Assessment and Plan Impression * Acute on chronic renal failure. Baseline creatinine approximately 2.0 * Altered mental status * Hypertension * Diabetes * CVA * severe left hydronephrosi Recommendations * urine studies consistent with prerenal state * Continue IV hydration * Renal ultrasound shows severe left-sided hydronephrosis * Check a CT scan without contrast. Recommend urology evaluation * Hold RAMIRO inhibitor for now * Avoid nephrotoxins * Monitor fluid status and electrolytes closely Subjective Date of service: 03/21/18 Interval history: patient appears comfortable today. Denies any shortness of breath Objective - Vital Signs Vital signs: Vital Signs - 12hr 03/21/18 03/21/18 03/21/18 03:00 05:06 07:55 Temperature 97.6 F 98.3 F Pulse Rate 87 87 98 H Respiratory 16 18 Rate Blood Pressure 138/81 138/80 128/77 O2 Sat by Pulse 95 94 Oximetry 03/21/18 09:40 Temperature Pulse Rate Respiratory Rate Blood Pressure 128/77 O2 Sat by Pulse Oximetry - General Appearance General appearance: well-developed, well-nourished, appears stated age EENT: PERRL, mucous membranes moist Neck: no JVD, no thyromegaly, no carotid bruit, supple Respiratory: Present: Clear to Ascultation Cardiology: regular, normal heart rate Gastrointestinal: normal Integumentary: other (no edema) - Lab 03/21/18 05:38 03/21/18 14:14 Most recent lab results Calcium 8.8 mg/dL (8.4-10.2) 03/21/18 05:38 Medications & Allergies - Medications Allergies/Adverse Reactions: Allergies shellfish derived Allergy (Verified 10/11/14 19:30) Swelling Home Medications: Home Medications Medication Instructions Recorded Confirmed Last Taken Type Duloxetine HCl [Cymbalta] 60 mg PO BID 02/18/17 03/20/18 12/09/17 12:00 History Gabapentin [Neurontin] 400 cap PO TID 02/18/17 03/20/18 12/09/17 12:00 History Lisinopril [Zestril TAB] 10 mg PO QDAY 06/30/17 03/20/18 12/09/17 12:00 History 10 MG Adult Low Dose Aspirin EC 81 tab PO ONCE 12/09/17 03/20/18 12/09/17 09:00 History Allopurinol 100 tab PO ONCE 12/09/17 03/20/18 12/09/17 12:00 History 100 Carvedilol [Coreg] 3.125 tab PO BID 12/09/17 03/20/18 12/09/17 12:00 History 3.125 Ferrous Sulfate [Iron] 325 mg PO ONCE 12/09/17 03/20/18 12/09/17 12:00 History Glipizide 10 tab PO BID 12/09/17 03/20/18 12/09/17 12:00 History 10 Pantoprazole 40 tab PO ONCE 12/09/17 03/20/18 12/09/17 09:00 History 40 Rosuvastatin (Nf) 20 tab PO ONCE 12/09/17 03/20/18 12/09/17 12:00 History Sodium Bicarbonate 1,200 tab PO BID 12/09/17 03/20/18 12/09/17 12:00 History 1200 levETIRAcetam [Keppra TAB] 500 mg PO BID #60 tablet 12/12/17 03/20/18 Unknown Rx Active Medications: Generic Name Dose Route Start Last Admin Trade Name Freq PRN Reason Stop Dose Admin Acetaminophen 650 mg 03/18/18 09:38 03/20/18 04:54 Tylenol PO 650 mg Q6H PRN Administration Pain MILD(1-3)/Fever >100.5/BERTRAND Alprazolam 0.25 mg 03/18/18 09:38 03/19/18 10:58 Xanax PO 0.25 mg Q8H PRN Administration Anxiety Aspirin 81 mg 03/19/18 11:30 03/21/18 09:41 Halfprin Ec PO 81 mg QDAY [facility] Administration Carvedilol 6.25 mg 03/18/18 10:00 03/21/18 09:40 Coreg PO 6.25 mg BID [facility] Administration Heparin Sodium (Porcine) 5,000 unit 03/21/18 10:00 03/21/18 09:41 Heparin SUB-Q 5,000 unit Q12HR [facility] Administration Hydralazine HCl 50 mg 03/18/18 10:00 03/21/18 05:06 Apresoline PO 50 mg Q8HR [facility] Administration Hydralazine HCl 10 mg 03/18/18 09:41 03/19/18 00:15 Apresoline IV 10 mg Q4HR PRN Administration SBP>170 or DBP>110 Sodium Chloride 1,000 mls @ 100 mls/hr 03/20/18 13:00 03/21/18 05:48 Nacl 0.45% 1000 Ml IV 100 mls/hr DIRECT [facility] Administration Piperacillin Sod/Tazobactam Sod 2.25 gm in 50 mls @ 100 mls/hr 03/20/18 18:00 03/21/18 05:07 Zosyn/Ns 2.25 Gm/50ml IV 100 mls/hr Q6HR [facility] Administration Insulin Human Isoph/Insulin Regular 16 unit 03/21/18 08:00 03/21/18 09:54 Humulin 70/30 SUB-Q 16 unit BIDDIAB [facility] Administration Levetiracetam 500 mg 03/18/18 10:00 03/21/18 09:40 Keppra PO 500 mg BID [facility] Administration Morphine Sulfate 2 mg 03/18/18 09:38 03/18/18 14:03 Morphine IV 2 mg Q4H PRN Administration Pain, Moderate (4-6) Ondansetron HCl 4 mg 03/18/18 09:38 Zofran IV Q8H PRN Nausea And Vomiting Sodium Chloride 10 ml 03/18/18 10:00 03/21/18 09:54 Sodium Chloride Flush Syringe 10 Ml IV 10 ml BID [facility] Administration Sodium Chloride 10 ml 03/18/18 09:38 Sodium Chloride Flush Syringe 10 Ml IV PRN PRN LINE FLUSH
[2018-03-21 14:04] LABS: Bilirubin,Urine NEG (Negative); Blood,Urine NEG (Negative); Color,Urine Yellow (Yellow); Urobilinogen,Urine < 2.0 mg/dL (<2.0)
[2018-03-21 14:06] LABS: Creatinine,Urine 123.3 mg/dL (0.1-20.0); Fractional Sodium Excretion 0.4
[2018-03-21] MEDS ORDERED: D50W (25GM) Syringe IV PRN (14:45)
--- NOTE | 2018-03-21 15:15 | Cat Scan Report ---
FINAL REPORT EXAM: CT ABDOMEN PELVIS WO CON HISTORY: hydronephrosis COMPARISON: Renal ultrasound performed on 03/20/[address] of the abdomen pelvis performed on 02/19 TECHNIQUE: Multiple contiguous axial images were obtained from the lung bases to the pubic symphysis without administration of IV contrast. Reformatted sagittal and coronal images were available for re view. FINDINGS: Lung bases: Minimal dependent atelectasis. Visualized heart and mediastinum: Normal noncontrast appearance. Liver: Mildly enlarged, measuring up to 19 centimeters in craniocaudal dimension. Spleen: Normal noncontrast appearance. Pancreas: Normal noncontrast appearance. Gallbladder and Biliary Tree: No calcified gallstones. No biliary ductal dilatation. Adrenal glands: Normal. Kidneys: Again seen is an atrophic left kidney with marked hydronephrosis. There is a 3.1 centimeter calcified stone in the proximal left ureter. Overall findings are unchanged since the previous study. Bladder: Normal. Pelvic organs: Normal. Bowel: No focal wall thickening. Postsurgical changes of the rectosigmoid junction with mild narrowin g at the anastomosis. There is diverticulosis of the colon without evidence of diverticulitis. There are internal air-fluid levels within the colon.. Peritoneum: No significant mesenteric adenopathy. No free air or free fluid. Vasculature: Abdominal aorta is normal in caliber without evidence of aneurysm. Normal noncontrast ap pearance of the portal venous system and inferior vena cava. Bones and soft tissues: No suspicious osseous lesions. No acute fracture or dislocation. Midline abdo tee scar as well as scar in the right anterior abdominal wall at the site of prior ventral hernia. IMPRESSION: 1. Unchanged 3.1 centimeter calcified stone in the proximal left ureter. 2. Unchanged marked left hydronephrosis and atrophic left kidney. 3. Mild hepatomegaly. 4. Postsurgical changes of the rectosigmoid junction with mild narrowing of the anastomosis. 5. Air-fluid levels within the colon suggestive of diarrhea. 6. Diverticulosis of the colon without evidence of diverticulitis.
--- NOTE | 2018-03-21 15:16 | Progress Note ---
Assessment and Plan Assessment and plan: Hypertensive emergency. Downgraded from ICU to Tele BP improving Off Nicardpinine drip. On Hydralazine, Coreg, Hydralazine po Slurred speech. To r/o stroke. he has history of stroke Cont Aspirin MRI Brain to be done tomorrow Encephalopathy. May be due to HTN emergency Diabetes mellitus type 2. Fingerstick glucose ac hs Acute on CKD. Consult Nephrology. Discussed with Dr. De La Rosa Seizure disorder Resume keppra Asthma Stable. History of stroke With residual right sided weakness Sleep apnea Full code status History Interval history: still confused, lethargic Hospitalist Physical - Physical exam Narrative exam: GEN: Not in acute distress, Obese HEENT: Normocephalic, atraumatic, Neck: supple, No JVD Lungs: Clear to auscultation, no wheeze Heart:S1 and S2 regular, no murmurs, rubs or gallop, Abd:soft, non tender, non distended, normal bowel sounds Ext: No edema, no clubbing or cyanosis Neuro: Less confused, awake,alert, mild right sided weakness - Constitutional Vitals: Temp Pulse Resp BP Pulse Ox 97.4 F L 87 18 122/62 96 03/21/18 11:43 03/21/18 11:43 03/21/18 11:43 03/21/18 14:13 03/21/18 11:43 Results - Labs CBC & Chem 7: 03/22/18 04:44 03/22/18 04:44 Labs: Laboratory Last Values WBC 12.3 K/mm3 (4.5-11.0) H 03/21/18 05:38 RBC 4.32 M/mm3 (3.65-5.03) 03/21/18 05:38 Hgb 11.9 gm/dl (11.8-15.2) 03/21/18 05:38 Hct 36.8 % (35.5-45.6) 03/21/18 05:38 MCV 85 fl (84-94) 03/21/18 05:38 MCH 28 pg (28-32) 03/21/18 05:38 MCHC 32 % (32-34) 03/21/18 05:38 RDW 13.9 % (13.2-15.2) 03/21/18 05:38 Plt Count 304 K/mm3 (140-440) 03/21/18 05:38 Lymph % (Auto) 12.7 % (13.4-35.0) L 03/19/18 04:28 [place] % (Auto) 7.3 % (0.0-7.3) 03/19/18 04:28 Eos % (Auto) 0.0 % (0.0-4.3) 03/19/18 04:28 Baso % (Auto) 0.7 % (0.0-1.8) 03/19/18 04:28 Lymph # 2.1 K/mm3 (1.2-5.4) 03/19/18 04:28 [place] # 1.2 K/mm3 (0.0-0.8) H 03/19/18 04:28 Eos # 0.0 K/mm3 (0.0-0.4) 03/19/18 04:28 Baso # 0.1 K/mm3 (0.0-0.1) 03/19/18 04:28 Seg Neutrophils % 79.3 % (40.0-70.0) H 03/19/18 04:28 Seg Neutrophils # 13.2 K/mm3 (1.8-7.7) H 03/19/18 04:28 PT 11.9 Sec. (12.2-14.9) L 03/18/18 03:55 INR 0.84 (0.87-1.13) L 03/18/18 03:55 APTT 26.4 Sec. (24.2-36.6) 03/18/18 03:55 Thrombin Time 16.5 Sec. (15.1-19.6) 03/18/18 03:55 Sodium 137 mmol/L (137-145) 03/21/18 05:38 Potassium 3.9 mmol/L (3.6-5.0) 03/21/18 05:38 Chloride 97.0 mmol/L (98-107) L 03/21/18 05:38 Carbon Dioxide 24 mmol/L (22-30) 03/21/18 05:38 Anion Gap 20 mmol/L 03/21/18 05:38 BUN 54 mg/dL (9-20) H 03/21/18 05:38 Creatinine 3.1 mg/dL (0.8-1.5) H 03/21/18 05:38 Estimated GFR 26 ml/min 03/21/18 05:38 BUN/Creatinine Ratio 17 % 03/21/18 05:38 Glucose 233 mg/dL (75-100) H 03/21/18 05:38 POC Glucose 248 (70-105) H 03/21/18 11:47 Calcium 8.8 mg/dL (8.4-10.2) 03/21/18 05:38 Total Bilirubin 0.20 mg/dL (0.1-1.2) 03/18/18 03:55 Direct Bilirubin < 0.2 mg/dL (0-0.2) 03/18/18 03:55 Indirect Bilirubin 0.0 mg/dL 03/18/18 03:55 AST 20 units/L (5-40) 03/18/18 03:55 ALT 23 units/L (7-56) 03/18/18 03:55 Alkaline Phosphatase 142 units/L (35-129) H 03/18/18 03:55 Troponin T 0.017 ng/mL (0.00-0.029) 03/18/18 03:55 Total Protein 7.4 g/dL (6.3-8.2) 03/18/18 03:55 Albumin 4.6 g/dL (3.9-5) 03/18/18 03:55 Albumin/Globulin Ratio 1.6 % 03/18/18 03:55 Triglycerides 338 mg/dL (2-149) H 03/19/18 04:29 Cholesterol 259 mg/dL (50-199) H 03/19/18 04:29 LDL Cholesterol Direct 144 mg/dL (50-130) H 03/19/18 04:29 HDL Cholesterol 62 mg/dL (40-59) H 03/19/18 04:29 Cholesterol/HDL Ratio 4.17 % 03/19/18 04:29 Urine Color Yellow (Yellow) 03/21/18 12:54 Urine Turbidity Clear (Clear) 03/21/18 12:54 Urine pH 5.0 (5.0-7.0) 03/21/18 12:54 Ur Specific [place] 1.013 (1.003-1.030) 03/21/18 12:54 Urine Protein 100 mg/dl mg/dL (Negative) 03/21/18 12:54 Urine Glucose (UA) 50 mg/dL (Negative) 03/21/18 12:54 Urine Ketones Neg mg/dL (Negative) 03/21/18 12:54 Urine Blood Neg (Negative) 03/21/18 12:54 Urine Nitrite Neg (Negative) 03/21/18 12:54 Urine Bilirubin Neg (Negative) 03/21/18 12:54 Urine Urobilinogen < 2.0 mg/dL (<2.0) 03/21/18 12:54 Ur Leukocyte Esterase Neg (Negative) 03/21/18 12:54 Urine WBC (Auto) 4.0 /HPF (0.0-6.0) 03/21/18 12:54 Urine RBC (Auto) 2.0 /HPF (0.0-6.0) 03/21/18 12:54 U Epithel Cells (Auto) < 1.0 /HPF (0-13.0) 03/21/18 12:54 Urine Creatinine 123.3 mg/dL (0.1-20.0) H 03/21/18 12:54 Urine Sodium 27 mmol/L 03/21/18 12:54 Fraction Sodium Excret 0.4 03/21/18 12:54 Urine Opiates Screen Presumptive negative 03/18/18 Unknown Urine Methadone Screen Presumptive negative 03/18/18 Unknown Ur Barbiturates Screen Presumptive negative 03/18/18 Unknown Ur Phencyclidine Scrn Presumptive negative 03/18/18 Unknown Ur Amphetamines Screen Presumptive negative 03/18/18 Unknown U Benzodiazepines Scrn Presumptive negative 03/18/18 Unknown Urine Cocaine Screen Presumptive negative 03/18/18 Unknown U Marijuana (THC) Screen Presumptive positive 03/18/18 Unknown Drugs of Abuse Note Disclamer 03/18/18 Unknown Plasma/Serum Alcohol < 0.01 % (0-0.07) 03/18/18 03:55
[2018-03-21] MEDS: HumaLOG SUB-Q SCH ×2 (17:16→23:07)
[2018-03-22] MEDS: NACL 0.45% 1000 ML 1,000 ML IV SCH (01:47)
[2018-03-22] MEDS: ZOSYN/NS 2.25 GM/50ML 2.25 GM/50 ML BAG IV SCH ×2 (05:46→13:36)
[2018-03-22] MEDS: APRESOLINE PO SCH ×3 (05:47→22:04)
[2018-03-22 05:52] LABS: Hematocrit 36.5 % (35.5-45.6); Hemoglobin 11.6 gm/dl (11.8-15.2); Mean Corpuscular HGB Conc 32 % (32-34); Mean Corpuscular Volume 86 fl (84-94); Platelet Count 272 K/mm3 (140-440); Red Blood Count 4.23 M/mm3 (3.65-5.03); Red Cell Distribution Width 13.6 % (13.2-15.2)
[2018-03-22 06:11] LABS: Calcium 8.7 mg/dL (8.4-10.2)
[2018-03-22] MEDS: TYLENOL PO PRN (08:21)
[2018-03-22] MEDS: HumaLOG SUB-Q SCH ×4 (08:22→21:56)
--- NOTE | 2018-03-22 08:33 | Progress Note ---
Assessment and Plan Impression * Acute on chronic renal failure. Baseline creatinine approximately 2.0 * Altered mental status * Hypertension * Diabetes * CVA * severe left hydronephrosi Recommendations * urine studies consistent with prerenal state * Renal function seems to be improving. * Renal ultrasound shows severe left-sided hydronephrosis * CT scan results noted. Appears to be a chronic finding. Check a nuclear medicine renal scan to assess but function * Hold RAMIRO inhibitor for now * Avoid nephrotoxins * Monitor fluid status and electrolytes closely Subjective Date of service: 03/22/18 Interval history: Patient is comfortable today. Denies any shortness of breath. No nausea or vomiting. Objective - Vital Signs Vital signs: Vital Signs - 12hr 03/21/18 03/22/18 03/22/18 22:55 04:14 07:44 Temperature 98.1 F 98.2 F 98.4 F Pulse Rate 90 89 94 H Respiratory 14 16 20 Rate Blood Pressure 142/79 129/94 128/65 O2 Sat by Pulse 96 95 96 Oximetry - General Appearance General appearance: well-developed, well-nourished, appears stated age EENT: PERRL, mucous membranes moist Neck: no JVD, no thyromegaly, no carotid bruit, supple Respiratory: Present: Clear to Ascultation Cardiology: regular, normal heart rate, S1S2, no murmurs Gastrointestinal: normal, normoactive bowel sounds Integumentary: other (no edema.) - Lab 03/22/18 04:44 03/22/18 04:44 Most recent lab results Calcium 8.7 mg/dL (8.4-10.2) 03/22/18 04:44 Urine Creatinine 123.3 mg/dL (0.1-20.0) H 03/21/18 12:54 Urine Sodium 27 mmol/L 03/21/18 12:54 Medications & Allergies - Medications Allergies/Adverse Reactions: Allergies shellfish derived Allergy (Verified 10/11/14 19:30) Swelling Home Medications: Home Medications Medication Instructions Recorded Confirmed Last Taken Type Duloxetine HCl [Cymbalta] 60 mg PO BID 02/18/17 03/20/18 12/09/17 12:00 History Gabapentin [Neurontin] 400 cap PO TID 02/18/17 03/20/18 12/09/17 12:00 History Lisinopril [Zestril TAB] 10 mg PO QDAY 06/30/17 03/20/18 12/09/17 12:00 History 10 MG Adult Low Dose Aspirin EC 81 tab PO ONCE 12/09/17 03/20/18 12/09/17 09:00 History Allopurinol 100 tab PO ONCE 12/09/17 03/20/18 12/09/17 12:00 History 100 Carvedilol [Coreg] 3.125 tab PO BID 12/09/17 03/20/18 12/09/17 12:00 History 3.125 Ferrous Sulfate [Iron] 325 mg PO ONCE 12/09/17 03/20/18 12/09/17 12:00 History Glipizide 10 tab PO BID 12/09/17 03/20/18 12/09/17 12:00 History 10 Pantoprazole 40 tab PO ONCE 12/09/17 03/20/18 12/09/17 09:00 History 40 Rosuvastatin (Nf) 20 tab PO ONCE 12/09/17 03/20/18 12/09/17 12:00 History Sodium Bicarbonate 1,200 tab PO BID 12/09/17 03/20/18 12/09/17 12:00 History 1200 levETIRAcetam [Keppra TAB] 500 mg PO BID #60 tablet 12/12/17 03/20/18 Unknown Rx Active Medications: Generic Name Dose Route Start Last Admin Trade Name Freq PRN Reason Stop Dose Admin Acetaminophen 650 mg 03/18/18 09:38 03/22/18 08:21 Tylenol PO 650 mg Q6H PRN Administration Pain MILD(1-3)/Fever >100.5/BERTRAND Alprazolam 0.25 mg 03/18/18 09:38 03/19/18 10:58 Xanax PO 0.25 mg Q8H PRN Administration Anxiety Aspirin 81 mg 03/19/18 11:30 03/21/18 09:41 Halfprin Ec PO 81 mg QDAY NIALL Administration Carvedilol 6.25 mg 03/18/18 10:00 03/21/18 22:51 Coreg PO 6.25 mg BID NIALL Administration Dextrose 50 ml 03/21/18 14:45 D50w (25gm) Syringe IV PRN PRN Hypoglycemia Heparin Sodium (Porcine) 5,000 unit 03/21/18 10:00 03/21/18 22:52 Heparin SUB-Q 5,000 unit Q12HR NIALL Administration Hydralazine HCl 50 mg 03/18/18 10:00 03/22/18 05:47 Apresoline PO 50 mg Q8HR NIALL Administration Hydralazine HCl 10 mg 03/18/18 09:41 03/19/18 00:15 Apresoline IV 10 mg Q4HR PRN Administration SBP>170 or DBP>110 Sodium Chloride 1,000 mls @ 100 mls/hr 03/20/18 13:00 03/22/18 01:47 Nacl 0.45% 1000 Ml IV 100 mls/hr DIRECT NIALL Administration Piperacillin Sod/Tazobactam Sod 2.25 gm in 50 mls @ 100 mls/hr 03/20/18 18:00 03/22/18 05:46 Zosyn/Ns 2.25 Gm/50ml IV 100 mls/hr Q6HR NIALL Administration Insulin Human Isoph/Insulin Regular 20 unit 03/21/18 14:45 03/21/18 18:33 Humulin 70/30 SUB-Q 20 unit BIDDIAB NIALL Administration Insulin Human Lispro 0 unit 03/21/18 16:30 03/22/18 08:22 Humalog SUB-Q 2 unit AC NIALL Administration Protocol Insulin Human Lispro 0 unit 03/21/18 22:00 03/21/18 23:07 Humalog SUB-Q 3 unit QHS NIALL Administration Protocol Levetiracetam 500 mg 03/18/18 10:00 03/21/18 22:52 Keppra PO 500 mg BID NIALL Administration Morphine Sulfate 2 mg 03/18/18 09:38 03/18/18 14:03 Morphine IV 2 mg Q4H PRN Administration Pain, Moderate (4-6) Ondansetron HCl 4 mg 03/18/18 09:38 Zofran IV Q8H PRN Nausea And Vomiting Sodium Chloride 10 ml 03/18/18 10:00 03/21/18 23:00 Sodium Chloride Flush Syringe 10 Ml IV 10 ml BID NIALL Administration Sodium Chloride 10 ml 03/18/18 09:38 Sodium Chloride Flush Syringe 10 Ml IV PRN PRN LINE FLUSH
[2018-03-22] MEDS: KEPPRA PO SCH ×2 (09:00→22:05)
[2018-03-22] MEDS: HALFPRIN EC PO SCH (09:00)
[2018-03-22] MEDS: COREG PO SCH ×2 (09:00→21:59)
[2018-03-22] MEDS: HEPARIN SUB-Q SCH ×2 (13:34→21:58)
[2018-03-22] MEDS: SODIUM CHLORIDE FLUSH SYRINGE 10 ML IV SCH ×2 (13:36→22:10)
--- NOTE | 2018-03-22 17:13 | Progress Note ---
Assessment and Plan Assessment and plan: Patient is 52 yo with history of hypertension, diabetes, previous stroke with right sided weakness, CKD. Apparently he was talking to son on phone, had slurred speech, therefore paramedics were called and he was brought in. He was evaluated in Ed and found to be confused,very high BP 215/128. He was started on Nicardipine drip. CT Head was negative for new stroke but showed old stroke. He was taken off Nicardipine drip in ED, downgraded to Telemetry. The patient improved, slurred speech and confusion improved. MRI Brain pending. Hypertensive emergency. Downgraded from ICU to Tele BP improving Off Nicardpinine drip. On Hydralazine, Coreg, Slurred speech. To r/o stroke. he has history of stroke Cont Aspirin MRI Brain today Encephalopathy. May be due to HTN emergency Leukocytosis due to SIRS Stop Zosyn SIRS Diabetes mellitus type 2. Fingerstick glucose ac hs Acute on CKD. Nephrology following Discussed with Dr. De La Rosa Hydronephrosis Chronic Seizure disorder Resume keppra Asthma Stable. History of stroke With residual right sided weakness Sleep apnea Full code status Poss dc in am if MRI Brain neg and BP controlled. History Interval history: Feels better, less confused Hospitalist Physical - Physical exam Narrative exam: GEN: Not in acute distress, Obese HEENT: Normocephalic, atraumatic, Neck: supple, No JVD Lungs: Clear to auscultation, no wheeze Heart:S1 and S2 regular, no murmurs, rubs or gallop, Abd:soft, non tender, non distended, normal bowel sounds Ext: No edema, no clubbing or cyanosis Neuro: Less confused, awake,alert, mild right sided weakness - Constitutional Vitals: Temp Pulse Resp BP Pulse Ox 98.4 F 88 20 138/81 96 03/22/18 07:44 03/22/18 16:02 03/22/18 07:44 03/22/18 16:02 03/22/18 07:44 Results - Labs CBC & Chem 7: 03/22/18 04:44 03/22/18 04:44 Labs: Laboratory Last Values WBC 10.8 K/mm3 (4.5-11.0) 03/22/18 04:44 RBC 4.23 M/mm3 (3.65-5.03) 03/22/18 04:44 Hgb 11.6 gm/dl (11.8-15.2) L 03/22/18 04:44 Hct 36.5 % (35.5-45.6) 03/22/18 04:44 MCV 86 fl (84-94) 03/22/18 04:44 MCH 28 pg (28-32) 03/22/18 04:44 MCHC 32 % (32-34) 03/22/18 04:44 RDW 13.6 % (13.2-15.2) 03/22/18 04:44 Plt Count 272 K/mm3 (140-440) 03/22/18 04:44 Lymph % (Auto) 12.7 % (13.4-35.0) L 03/19/18 04:28 [place] % (Auto) 7.3 % (0.0-7.3) 03/19/18 04:28 Eos % (Auto) 0.0 % (0.0-4.3) 03/19/18 04:28 Baso % (Auto) 0.7 % (0.0-1.8) 03/19/18 04:28 Lymph # 2.1 K/mm3 (1.2-5.4) 03/19/18 04:28 [place] # 1.2 K/mm3 (0.0-0.8) H 03/19/18 04:28 Eos # 0.0 K/mm3 (0.0-0.4) 03/19/18 04:28 Baso # 0.1 K/mm3 (0.0-0.1) 03/19/18 04:28 Seg Neutrophils % 79.3 % (40.0-70.0) H 03/19/18 04:28 Seg Neutrophils # 13.2 K/mm3 (1.8-7.7) H 03/19/18 04:28 PT 11.9 Sec. (12.2-14.9) L 03/18/18 03:55 INR 0.84 (0.87-1.13) L 03/18/18 03:55 APTT 26.4 Sec. (24.2-36.6) 03/18/18 03:55 Thrombin Time 16.5 Sec. (15.1-19.6) 03/18/18 03:55 Sodium 139 mmol/L (137-145) 03/22/18 04:44 Potassium 3.9 mmol/L (3.6-5.0) 03/22/18 04:44 Chloride 98.6 mmol/L (98-107) 03/22/18 04:44 Carbon Dioxide 24 mmol/L (22-30) 03/22/18 04:44 Anion Gap 20 mmol/L 03/22/18 04:44 BUN 49 mg/dL (9-20) H 03/22/18 04:44 Creatinine 2.6 mg/dL (0.8-1.5) H 03/22/18 04:44 Estimated GFR 32 ml/min 03/22/18 04:44 BUN/Creatinine Ratio 19 % 03/22/18 04:44 Glucose 181 mg/dL (75-100) H 03/22/18 04:44 POC Glucose 235 (70-105) H 03/22/18 16:06 Calcium 8.7 mg/dL (8.4-10.2) 03/22/18 04:44 Total Bilirubin 0.20 mg/dL (0.1-1.2) 03/18/18 03:55 Direct Bilirubin < 0.2 mg/dL (0-0.2) 03/18/18 03:55 Indirect Bilirubin 0.0 mg/dL 03/18/18 03:55 AST 20 units/L (5-40) 03/18/18 03:55 ALT 23 units/L (7-56) 03/18/18 03:55 Alkaline Phosphatase 142 units/L (35-129) H 03/18/18 03:55 Troponin T 0.017 ng/mL (0.00-0.029) 03/18/18 03:55 Total Protein 7.4 g/dL (6.3-8.2) 03/18/18 03:55 Albumin 4.6 g/dL (3.9-5) 03/18/18 03:55 Albumin/Globulin Ratio 1.6 % 03/18/18 03:55 Triglycerides 338 mg/dL (2-149) H 03/19/18 04:29 Cholesterol 259 mg/dL (50-199) H 03/19/18 04:29 LDL Cholesterol Direct 144 mg/dL (50-130) H 03/19/18 04:29 HDL Cholesterol 62 mg/dL (40-59) H 03/19/18 04:29 Cholesterol/HDL Ratio 4.17 % 03/19/18 04:29 Urine Color Yellow (Yellow) 03/21/18 12:54 Urine Turbidity Clear (Clear) 03/21/18 12:54 Urine pH 5.0 (5.0-7.0) 03/21/18 12:54 Ur Specific Echo 1.013 (1.003-1.030) 03/21/18 12:54 Urine Protein 100 mg/dl mg/dL (Negative) 03/21/18 12:54 Urine Glucose (UA) 50 mg/dL (Negative) 03/21/18 12:54 Urine Ketones Neg mg/dL (Negative) 03/21/18 12:54 Urine Blood Neg (Negative) 03/21/18 12:54 Urine Nitrite Neg (Negative) 03/21/18 12:54 Urine Bilirubin Neg (Negative) 03/21/18 12:54 Urine Urobilinogen < 2.0 mg/dL (<2.0) 03/21/18 12:54 Ur Leukocyte Esterase Neg (Negative) 03/21/18 12:54 Urine WBC (Auto) 4.0 /HPF (0.0-6.0) 03/21/18 12:54 Urine RBC (Auto) 2.0 /HPF (0.0-6.0) 03/21/18 12:54 U Epithel Cells (Auto) < 1.0 /HPF (0-13.0) 03/21/18 12:54 Urine Eosinophils 3% (None Seen) 03/21/18 12:54 Urine Creatinine 123.3 mg/dL (0.1-20.0) H 03/21/18 12:54 Urine Sodium 27 mmol/L 03/21/18 12:54 Fraction Sodium Excret 0.4 03/21/18 12:54 Urine Opiates Screen Presumptive negative 03/18/18 Unknown Urine Methadone Screen Presumptive negative 03/18/18 Unknown Ur Barbiturates Screen Presumptive negative 03/18/18 Unknown Ur Phencyclidine Scrn Presumptive negative 03/18/18 Unknown Ur Amphetamines Screen Presumptive negative 03/18/18 Unknown U Benzodiazepines Scrn Presumptive negative 03/18/18 Unknown Urine Cocaine Screen Presumptive negative 03/18/18 Unknown U Marijuana (THC) Screen Presumptive positive 03/18/18 Unknown Drugs of Abuse Note Disclamer 03/18/18 Unknown Plasma/Serum Alcohol < 0.01 % (0-0.07) 03/18/18 03:55
[2018-03-23 06:02] LABS: Hematocrit 34.9 % (35.5-45.6); Hemoglobin 11.2 gm/dl (11.8-15.2); Mean Corpuscular HGB Conc 32 % (32-34); Mean Corpuscular Volume 86 fl (84-94); Platelet Count 276 K/mm3 (140-440); Red Blood Count 4.08 M/mm3 (3.65-5.03); Red Cell Distribution Width 13.3 % (13.2-15.2)
[2018-03-23 06:22] LABS: Calcium 9.1 mg/dL (8.4-10.2)
[2018-03-23] MEDS: APRESOLINE PO SCH ×2 (06:34→14:46)
[2018-03-23] MEDS: HumaLOG SUB-Q SCH ×2 (08:49→12:32)
[2018-03-23] MEDS: KEPPRA PO SCH (09:05)
[2018-03-23] MEDS: HALFPRIN EC PO SCH (09:05)
[2018-03-23] MEDS: COREG PO SCH (09:05)
[2018-03-23] MEDS: HEPARIN SUB-Q SCH (09:06)
[2018-03-23] MEDS: SODIUM CHLORIDE FLUSH SYRINGE 10 ML IV SCH (09:06)
--- NOTE | 2018-03-23 09:23 | Progress Note ---
Assessment and Plan Impression * Acute on chronic renal failure. Baseline creatinine approximately 2.0 * Altered mental status * Hypertension * Diabetes * CVA * severe left hydronephrosi Recommendations * urine studies consistent with prerenal state * Renal function seems to be improving. * Renal ultrasound shows severe left-sided hydronephrosis * CT scan results noted. Appears to be a chronic finding. Check a nuclear medicine renal scan to assess function * Hold RAMIRO inhibitor for now * Avoid nephrotoxins * Monitor fluid status and electrolytes closely Subjective Date of service: 03/23/18 Principal diagnosis: lizette on ckd Interval history: resting well in bed today Objective - Exam Narrative Exam: General appearance: well-developed, well-nourished, appears stated age EENT: PERRL, mucous membranes moist Neck: no JVD, no thyromegaly, no carotid bruit, supple Respiratory: Present: Clear to Ascultation Cardiology: regular, normal heart rate, S1S2, no murmurs Gastrointestinal: normal, normoactive bowel sounds Integumentary: other (no edema.) - Vital Signs Vital signs: Vital Signs - 12hr 03/22/18 03/22/18 03/22/18 21:59 22:00 22:04 Temperature Pulse Rate 86 89 88 Pulse Rate [ 82 Apical] Pulse Rate [ 82 Right Radial] Respiratory 17 Rate Blood Pressure 161/94 152/87 O2 Sat by Pulse 97 Oximetry 03/22/18 03/23/18 03/23/18 23:31 02:40 03:59 Temperature 98.1 F 98.6 F Pulse Rate 86 81 87 Pulse Rate [ Apical] Pulse Rate [ Right Radial] Respiratory 16 18 Rate Blood Pressure 136/73 173/92 O2 Sat by Pulse 93 96 Oximetry 03/23/18 03/23/18 03/23/18 06:34 07:40 09:05 Temperature 98.0 F Pulse Rate 87 89 89 Pulse Rate [ Apical] Pulse Rate [ Right Radial] Respiratory 20 Rate Blood Pressure 173/92 142/84 145/84 O2 Sat by Pulse 92 Oximetry - Lab 03/23/18 05:16 03/23/18 05:16 Most recent lab results Calcium 9.1 mg/dL (8.4-10.2) 03/23/18 05:16 Urine Creatinine 123.3 mg/dL (0.1-20.0) H 03/21/18 12:54 Urine Sodium 27 mmol/L 03/21/18 12:54 Medications & Allergies - Medications Allergies/Adverse Reactions: Allergies shellfish derived Allergy (Verified 10/11/14 19:30) Swelling Home Medications: Home Medications Medication Instructions Recorded Confirmed Last Taken Type Duloxetine HCl [Cymbalta] 60 mg PO BID 02/18/17 03/20/18 12/09/17 12:00 History Gabapentin [Neurontin] 400 cap PO TID 02/18/17 03/20/18 12/09/17 12:00 History Lisinopril [Zestril TAB] 10 mg PO QDAY 06/30/17 03/20/18 12/09/17 12:00 History 10 MG Adult Low Dose Aspirin EC 81 tab PO ONCE 12/09/17 03/20/18 12/09/17 09:00 History Allopurinol 100 tab PO ONCE 12/09/17 03/20/18 12/09/17 12:00 History 100 Carvedilol [Coreg] 3.125 tab PO BID 12/09/17 03/20/18 12/09/17 12:00 History 3.125 Ferrous Sulfate [Iron] 325 mg PO ONCE 12/09/17 03/20/18 12/09/17 12:00 History Glipizide 10 tab PO BID 12/09/17 03/20/18 12/09/17 12:00 History 10 Pantoprazole 40 tab PO ONCE 12/09/17 03/20/18 12/09/17 09:00 History 40 Rosuvastatin (Nf) 20 tab PO ONCE 12/09/17 03/20/18 12/09/17 12:00 History Sodium Bicarbonate 1,200 tab PO BID 12/09/17 03/20/18 12/09/17 12:00 History 1200 levETIRAcetam [Keppra TAB] 500 mg PO BID #60 tablet 12/12/17 03/20/18 Unknown Rx Active Medications: Generic Name Dose Route Start Last Admin Trade Name Freq PRN Reason Stop Dose Admin Acetaminophen 650 mg 03/18/18 09:38 03/22/18 08:21 Tylenol PO 650 mg Q6H PRN Administration Pain MILD(1-3)/Fever >100.5/BERTRAND Alprazolam 0.25 mg 03/18/18 09:38 03/19/18 10:58 Xanax PO 0.25 mg Q8H PRN Administration Anxiety Aspirin 81 mg 03/19/18 11:30 03/23/18 09:05 Halfprin Ec PO 81 mg QDAY NIALL Administration Carvedilol 6.25 mg 03/18/18 10:00 03/23/18 09:05 Coreg PO 6.25 mg BID NIALL Administration Dextrose 50 ml 03/21/18 14:45 D50w (25gm) Syringe IV PRN PRN Hypoglycemia Heparin Sodium (Porcine) 5,000 unit 03/21/18 10:00 03/23/18 09:06 Heparin SUB-Q 5,000 unit Q12HR NIALL Administration Hydralazine HCl 50 mg 03/18/18 10:00 03/23/18 06:34 Apresoline PO 50 mg Q8HR NIALL Administration Hydralazine HCl 10 mg 03/18/18 09:41 03/19/18 00:15 Apresoline IV 10 mg Q4HR PRN Administration SBP>170 or DBP>110 Sodium Chloride 1,000 mls @ 100 mls/hr 03/20/18 13:00 03/22/18 01:47 Nacl 0.45% 1000 Ml IV 100 mls/hr DIRECT NIALL Administration Insulin Human Isoph/Insulin Regular 20 unit 03/21/18 14:45 03/23/18 08:50 Humulin 70/30 SUB-Q 20 unit BIDDIAB NIALL Administration Insulin Human Lispro 0 unit 03/21/18 16:30 03/23/18 08:49 Humalog SUB-Q 3 unit AC NIALL Administration Protocol Insulin Human Lispro 0 unit 03/21/18 22:00 03/22/18 21:56 Humalog SUB-Q 3 unit QHS NIALL Administration Protocol Levetiracetam 500 mg 03/18/18 10:00 03/23/18 09:05 Keppra PO 500 mg BID NIALL Administration Morphine Sulfate 2 mg 03/18/18 09:38 03/18/18 14:03 Morphine IV 2 mg Q4H PRN Administration Pain, Moderate (4-6) Ondansetron HCl 4 mg 03/18/18 09:38 Zofran IV Q8H PRN Nausea And Vomiting Sodium Chloride 10 ml 03/18/18 10:00 03/23/18 09:06 Sodium Chloride Flush Syringe 10 Ml IV 10 ml BID NIALL Administration Sodium Chloride 10 ml 03/18/18 09:38 Sodium Chloride Flush Syringe 10 Ml IV PRN PRN LINE FLUSH
--- NOTE | 2018-03-23 10:40 | Magnetic Resonance Report ---
MRI OF THE BRAIN WITHOUT CONTRAST: HISTORY: Altered mental status PROCEDURE: Multiplanar, multisequence MR imaging of the brain without IV contrast was performed. FINDINGS: Compared to the CT head dated 03/18/18 and MR brain dated 08/12/16. MRI demonstrates no evidence for diffusion restriction, hemorrhage, mass or extra-axial fluid collection. A moderate to large chronic cortical infarct in the left parietal lobe measures up to 6.6 x 3.1 cm in axial plane. No additional chronic infarct is identified. Mild nonspecific chronic white matter changes are again noted. The midline structures are central. The basal cisterns are patent. Normal ventricular size. The orbital cavities and sella turcica demonstrate no abnormality. The visualized paranasal sinuses and mastoid air cells are well aerated. IMPRESSION: No acute intracranial process is identified. Chronic cortical infarct in the left parietal lobe. Mild nonspecific chronic white matter changes.
--- NOTE | 2018-03-23 13:25 | Discharge Summary ---
Providers - Providers Date of Admission: 03/18/18 06:21 Attending physician: BONY VEGA MD 03/18/18 20:11 Consult to Physician [CONS] Urgent Comment: Consulting Provider: MIKE MACARIO Physician Instructions: Reason For Exam: CCU admit Primary care physician: SOLE DYER Hospitalization Condition: Serious Pertinent studies: MRI brain negative for acute infarct CT abdomen and pelvis shows unchanged 3 cm left proximal ureter stone, with marked left hydronephrosis and atrophic left kidney, postsurgical changes in the rectosigmoid junction with mild narrowing of anastomosis. Diverticulosis of colon Hospital course: Patient is 52 yo with history of hypertension, diabetes, previous stroke with right sided weakness, CKD. Apparently he was talking to son on phone, had slurred speech, therefore paramedics were called and he was brought in. He was evaluated in Ed and found to be confused,very high BP 215/128. He was started on Nicardipine drip. CT Head was negative for new stroke but showed old stroke. He was taken off Nicardipine drip in ED, downgraded to Telemetry. The patient improved, slurred speech and confusion improved. * He was treated with the Cardene drip for hypertensive emergency, he was weaned off the drip. oral blood pressure medications were optimized. * Infectious workup was negative, the patient was diagnosed with a SIRS * He was continued on medications for his chronic conditions * MRI of his brain was negative for acute stroke, he was diagnosed with TIA, and he was given meds for secondary prevention * He did suffer acute kidney injury, he was seen by nephrology. 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 Chronic hydronephrosis, unchanged Seizure disorder ARMANDO hx of cva Disposition: DC-01 TO HOME OR SELFCARE Time spent for discharge: 33 minutes Core Measure Documentation - Palliative Care Palliative Care/ Comfort Measures: Not Applicable - Core Measures Any of the following diagnoses?: none Exam - Constitutional Vitals: Temp Pulse Resp BP Pulse Ox 98.4 F 84 20 138/83 96 03/23/18 11:22 03/23/18 11:22 03/23/18 11:22 03/23/18 11:22 03/23/18 11:22 General appearance: Present: no acute distress, well-nourished - EENT Eyes: Present: PERRL ENT: hearing intact, clear oral mucosa - Neck Neck: Present: supple, normal ROM - Respiratory Respiratory effort: normal Respiratory: bilateral: CTA - Cardiovascular Heart Sounds: Present: S1 & S2. Absent: rub, click - Extremities Extremities: pulses symmetrical, No edema Peripheral Pulses: within normal limits - Abdominal General gastrointestinal: Present: soft, non-tender, non-distended, normal bowel sounds Male genitourinary: Present: normal - Integumentary Integumentary: Present: clear, warm, dry - Musculoskeletal Musculoskeletal: gait normal, strength equal bilaterally - Psychiatric Psychiatric: appropriate mood/affect, intact judgment & insight - Neurologic Neurologic: CNII-XII intact, moves all extremities Plan Follow up with: PRIMARY CARE, [Primary Care Provider] - 3-5 Days Prescriptions: Carvedilol [Coreg] 6.25 mg PO BID #60 tablet Ferrous Sulfate [Iron] 325 mg PO DAILY #30 tablet Gabapentin [Neurontin] 100 cap PO TID #90 capsule hydrALAZINE [Apresoline TAB] 50 mg PO Q8HR 30 Days tablet Insulin NPH/Regular [NovoLIN 70/30] 20 unit SUB-Q BIDDIAB #1 vial Rosuvastatin (Nf) 40 tab PO DAILY #30
[2018-03-23 14:47] VITALS: BP 138/84
== END 2018-03-23 17:00 | disposition home or self-care (01) | DRG 683 ==
LOC: ED 03:47 → CC1 06:21 → 4A 21:16
PROVIDERS: ADMIT Internal Medicine; ATTEND Internal Medicine
DX: N17.9 Acute kidney failure, unspecified (principal); I16.1 Hypertensive emergency; I69.351 Hemiplegia and hemiparesis following cerebral infarction affecting right dominant side; G93.40 Encephalopathy, unspecified; R65.10 Systemic inflammatory response syndrome (SIRS) of non-infectious origin without acute organ dysfunction; R47.01 Aphasia; N13.30 Unspecified hydronephrosis; N18.9 Chronic kidney disease, unspecified; I12.9 Hypertensive chronic kidney disease with stage 1 through stage 4 chronic kidney disease, or unspecified chronic kidney disease; E11.22 Type 2 diabetes mellitus with diabetic chronic kidney disease; R47.81 Slurred speech; D72.829 Elevated white blood cell count, unspecified; G40.909 Epilepsy, unspecified, not intractable, without status epilepticus; J45.909 Unspecified asthma, uncomplicated; M10.9 Gout, unspecified; G89.4 Chronic pain syndrome; G47.33 Obstructive sleep apnea (adult) (pediatric); Z91.013 Allergy to seafood; Z79.899 Other long term (current) drug therapy
CPT/HCPCS: 36415; 70450; 70551; 71045; 74176; 76770; 80048; 80061; 80076; 80307; 80320; 81001; 82565; 82570; 82962; 84295; 84300; 84484; 85025; 85027; 85610; 85670; 85730; 87040; 89050; 93005; 93010; 96365; 96366; 96372; 96375; G0378; G0480; J0360; J1644; J1815; J2270; J2405; J2543; J7030; J7050